=== PATIENT | female | born 1960 | race Caucasian/White ===

== ENCOUNTER 2021-09-06 21:38 | Observation (INO) ==
[2021-09-06] MEDS ORDERED: LORazepam 2 MG/1 ML VIAL IV STA (21:47)
[2021-09-06 22:44] LABS: Basophils # (auto) 0.02 K/uL (0-0.2); Basophils % (auto) 0.2 %; Eosinophils # (auto) 0.16 K/uL (0-0.5); Eosinophils % (auto) 1.6 %; Hematocrit (blood only) 35.7 % (37-47); Hemoglobin 12.2 g/dL (12.0-16.0); Immature Granulocytes # (auto) 0.02 K/uL (0.00-0.02); Immature Granulocytes % (auto) 0.2 %; Lymphocytes # (auto) 2.79 K/uL (1.2-3.4); Lymphocytes % (auto) 27.7 %; Mean Corpuscular Hemoglobin 27.1 pg (25-34); Mean Corpuscular Hgb Conc 34.2 g/dL (32-36); Mean Corpuscular Volume 79.3 fL (80-100); Monocytes # (auto) 0.97 K/uL (0.11-0.59); Monocytes % (auto) 9.6 %; Neutrophils # (auto) 6.12 K/uL (1.4-6.5); Neutrophils % (auto) 60.7 %; Platelet Count 392 K/uL (130-400); RDW Coefficient of Variation 14.2 % (11.5-14.5); RDW Standard Deviation 40.8 fL (36.4-46.3); White Blood Count 10.08 K/uL (4.8-10.8)
[2021-09-06 23:38] LABS: Alanine Aminotransferase 33 U/L (7-52); Albumin Globulin Ratio 1.2 (0.9-2); Albumin Level 3.7 gm/dl (3.4-5.0); Alkaline Phosphatase 119 U/L (34-104); Anion Gap 12 (3-11); Aspartate Aminotransferase 32 U/L (13-39); BUN Creatinine Ratio 13.3 (10-20); Bilirubin,Total 0.4 mg/dl (0.2-1.0); Blood Urea Nitrogen 8 mg/dl (6-23); Calcium 9.2 mg/dl (8.5-10.1); Carbon Dioxide 24 mmol/L (21-32); Chloride 89 mmol/L (98-107); Creatinine Clr Calc Pharmacy 90.5 ml/min; Est GFR (African American) 114.8 ml/min; Est GFR (Non-African American) 99.1 ml/min; Globulin 3.2 gm/dl (2.5-4.0); Glucose 100 mg/dl (70-99(Fasting)); Lipase 26 U/L (11-82); Potassium 3.7 mmol/L (3.5-5.1); Sodium 125 mmol/L (136-145); Total Protein 6.9 gm/dl (6.0-8.3); Troponin I < 0.03 ng/ml (0-0.04)
--- NOTE | 2021-09-06 23:47 | Emergency Department Note ---
History of Present Illness General Chief Complaint: Chest Pain Stated Complaint: CHEST PAIN Time Seen by Provider: 09/06/21 21:46 History of Present Illness Maximum Pain Intensity: 8 This 61 yo w/ RA presents to the ER complaining of CP and anxiety Location: chest Quality: Anxious Severity: Moderate Duration: Tonight Timing: Started this evening Context: Patient was concerned and came in Modifying factors: better with nothing; worse with stress Patient denies dyspnea, abdominal pain, fever, chills, leg pain or swelling, tobacco use.no prior heart disease. Patient states she is healthy besides her RA. Home Medications Medication Instructions Recorded Confirmed Type abatacept 125 mg/mL subcutaneous 0 mg SUBCUT WK 09/07/21 09/07/21 History syringe (Orencia) baclofen 10 mg tablet 10 mg PO TID 09/07/21 09/07/21 History ferrous sulfate 325 mg (65 mg 325 mg PO BID 09/07/21 09/07/21 History iron) tablet leflunomide 10 mg tablet 10 mg PO DAILY 09/07/21 09/07/21 History methylprednisolone 4 mg tablets in 0 mg PO .DAILY/UD 09/07/21 09/07/21 History a dose pack omeprazole 20 mg capsule,delayed 20 mg PO QAM 09/07/21 09/07/21 History release risperidone 2 mg tablet 2 mg PO BID 09/07/21 09/07/21 History rosuvastatin 10 mg tablet 10 mg PO HS 09/07/21 09/07/21 History venlafaxine 37.5 mg tablet 37.5 mg PO BID 09/07/21 09/07/21 History Allergies Allergy/AdvReac Type Severity Reaction Status Date / Time Penicillins Allergy Unknown Verified 09/07/21 01:09 Past Med/Surg History Medical History Rheumatoid arthritis Surgical History No pertinent past surgical history Social History Smoking Status: Unknown if ever smoked Second Hand Exposure: No; Do You Dip or Chew Tobacco: No; Tobacco Cessation Education Requested by Patient: No Hx Alcohol Use: No Hx Substance Use: No Preferred Language: Macedonian Communication Ability: Effective Account Resolution Expert Required: No Beliefs That Will Affect Care: None Current Living Situation: Significant Other Current Living Situation Comment: LIVES WITH BOYFRIEND MARTINA GRACE Other Information That Helps Us Care for You: No Feels Safe at Home: Yes Safety Concerns: Feels Safe At This Time Assistive Devices: Review of Systems A total of 10 systems reviewed and were otherwise negative Physical Exam Vital Signs Vital Signs - 24 hr 09/06/21 21:43 09/06/21 22:20 09/06/21 22:21 Temperature 36.8 C Temperature Source Temporal Artery Scan Pulse Rate 108 H 99 H Pulse Rate [Apical] Pulse Rate [Finger] Pulse Rhythm Regular Pulse Rhythm [Apical] Pulse Strength [Apical] Respiratory Rate 34 H 20 Respiratory Effort / Characteristics Non-Labored Spontaneous Respiratory Depth Normal Respiratory Pattern Blood Pressure 174/92 H Blood Pressure [Right Arm] Blood Pressure Mean 119 Blood Pressure Mean [Right Arm] Blood Pressure Position Sitting Blood Pressure Position [Right Arm] Pulse Oximetry 100 100 100 Oxygen Delivery Method Room Air Room Air Nasal Cannula Oxygen Flow Rate 0 Sepsis Recent Fever Within 48 Hours No Sepsis New/Unexplained Change in Mental Status N/A Sepsis Action Taken by Nursing No Action Required 09/06/21 22:22 09/07/21 00:35 09/07/21 02:28 Temperature Temperature Source Pulse Rate Pulse Rate [Apical] 99 H 84 89 Pulse Rate [Finger] Pulse Rhythm Pulse Rhythm [Apical] Regular Pulse Strength [Apical] Normal Respiratory Rate 20 18 16 Respiratory Effort / Characteristics Non-Labored Spontaneous Non-Labored Spontaneous Non-Labored Spontaneous Respiratory Depth Normal Normal Normal Respiratory Pattern Regular Blood Pressure Blood Pressure [Right Arm] 155/93 H 161/90 H 139/110 H Blood Pressure Mean Blood Pressure Mean [Right Arm] 113 113 119 Blood Pressure Position Blood Pressure Position [Right Arm] Semi-fowlers Lying Pulse Oximetry 100 96 97 Oxygen Delivery Method Room Air Room Air Room Air Oxygen Flow Rate Sepsis Recent Fever Within 48 Hours Sepsis New/Unexplained Change in Mental Status Sepsis Action Taken by Nursing 09/07/21 03:32 09/07/21 04:05 Temperature 36.5 C Temperature Source Oral Pulse Rate Pulse Rate [Apical] 89 Pulse Rate [Finger] 94 H Pulse Rhythm Pulse Rhythm [Apical] Regular Pulse Strength [Apical] Normal Respiratory Rate 16 18 Respiratory Effort / Characteristics Non-Labored Spontaneous Respiratory Depth Normal Respiratory Pattern Blood Pressure Blood Pressure [Right Arm] 162/102 H 157/98 H Blood Pressure Mean Blood Pressure Mean [Right Arm] 122 117 Blood Pressure Position Blood Pressure Position [Right Arm] Sitting Sitting Pulse Oximetry 97 97 Oxygen Delivery Method Room Air Room Air Oxygen Flow Rate Sepsis Recent Fever Within 48 Hours Sepsis New/Unexplained Change in Mental Status Sepsis Action Taken by Nursing VITALS: Vitals are noted on the nurse's note and reviewed by myself. Vital si gns reviewed. GENERAL: Anxious appearing female, in no acute distress, nondiaphoretic, well-developed well-nourished. SKIN: The skin was without rashes, erythema, edema, or bruising. There is no tenting of the skin. Capillary reflex less than 2 seconds. HEAD: Normocephalic atraumatic. EARS: External auditory canals clear, EYES: Pupils equal round and reactive to light and accommodation. Conjunctivae without injection, sclerae without icterus. Extraocular movements intact. NOSE: Patent, turbinates without inflammation or discharge. MOUTH: Mucous membranes moist. Pharynx without erythema or exudate. Uvula midline. Airway patent. Tongue does not deviate. NECK: Supple without nuchal rigidity. No lymphadenopathy. No thyromegaly. Cervical spine is nontender. No JVD. HEART: Regular rate and rhythm LUNGS: Clear to auscultation bilaterally without wheezes, rales or rhonchi. No retractions or accessory muscle use. ABDOMEN: Positive bowel sounds x 4. Normal tympanic percussion. Soft, nontender, without masses or organomegaly. Jeffrey sign negative. No guarding or rebound tenderness. No CVA tenderness MUSCULOSKELETAL: No muscle atrophy, erythema, or edema noted. NEURO: Patient was alert and oriented to person place and time. Normal sensation to light and sharp touch. No focal neurological deficits. Course Administered Medications Baclofen (Baclofen 10 Mg Tab) 10 mg PO TID [facility] Stop: 10/07/21 08:59 Last Admin: 09/07/21 10:17 Dose: 10 mg Documented by: [id number] Enoxaparin Sodium (Enoxaparin Inj 30 Mg/0.3 Ml Syr) 30 mg SQ QAM [facility] Stop: 10/07/21 08:59 Last Admin: 09/07/21 10:17 Dose: 30 mg Documented by: [id number] Ferrous Sulfate (Ferrous Sulfate 325 Mg Tab) 325 mg PO [id number] RICKY Stop: 10/07/21 08:59 Last Admin: 09/07/21 10:17 Dose: 325 mg Documented by: [id number] Leflunomide (Leflunomide 10 Mg Tab) 10 mg PO DAILY RICKY Stop: 10/07/21 08:59 Last Admin: 09/07/21 10:18 Dose: 10 mg Documented by: [id number] Pantoprazole Sodium (Pantoprazole 40 Mg Tab) 40 mg PO QAM RICKY Stop: 10/07/21 08:59 Last Admin: 09/07/21 10:18 Dose: 40 mg Documented by: [id number] Risperidone (Risperidone 2 Mg Tablet) 2 mg PO BID RICKY Stop: 10/07/21 08:59 Last Admin: 09/07/21 10:17 Dose: 2 mg Documented by: [id number] Discontinued Medications Sodium Chloride (Nss) 500 mls @ 250 mls/hr IV .Q2H STA Stop: 09/07/21 03:17 Last Infusion: 09/07/21 03:28 Dose: 0 mls/hr Documented by: [id number] Admin: 09/07/21 01:25 Dose: 250 mls/hr Documented by: [id number] Magnesium Sulfate/Dextrose (Magnesium Sulfate / D5w) 1 gm in 100 mls @ 50 mls/hr IV ONE ONE Stop: 09/07/21 08:44 Last Admin: 09/07/21 10:16 Dose: 50 mls/hr Documented by: [id number] Ioversol (Optiray 320 125ml) 125 ml IV ONCE ONE Stop: 09/07/21 03:30 Last Admin: 09/07/21 03:29 Dose: 91 ml Documented by: [id number] Lorazepam (Lorazepam 2 Mg/1 Ml Vial) 1 mg IV NOW STA Stop: 09/06/21 21:48 Last Admin: 09/06/21 22:31 Dose: 1 mg Documented by: [id number] Medical Decision Making Medical Records Attestation: I reviewed the patient's medical records. Home Medications Current Medication List: was personally reviewed by me Laboratory Data Attestation: I reviewed the patient's lab results. Result diagrams: 09/07/21 06:05 09/07/21 06:05 Labs: Lab Results 09/06/21 09/06/21 09/07/21 Range/Units 22:26 22:26 01:30 WBC 10.08 (4.8-10.8) K/uL RBC 4.50 (4.2-5.4) M/uL Hgb 12.2 (12.0-16.0) g/dL Hct 35.7 L (37-47) % MCV 79.3 L (80-100) fL MCH 27.1 (25-34) pg MCHC 34.2 (32-36) g/dL RDW Std Deviation 40.8 (36.4-46.3) fL RDW Coeff of Kasandra 14.2 (11.5-14.5) % Plt Count 392 (130-400) K/uL MPV 9.0 (7.4-10.4) fL Immature Gran % (Auto) 0.2 % Neut % (Auto) 60.7 % Lymph % (Auto) 27.7 % [place] % (Auto) 9.6 % Eos % (Auto) 1.6 % Baso % (Auto) 0.2 % Neut # (Auto) 6.12 (1.4-6.5) K/uL Lymph # (Auto) 2.79 (1.2-3.4) K/uL [place] # (Auto) 0.97 H (0.11-0.59) K/uL Eos # (Auto) 0.16 (0-0.5) K/uL Baso # (Auto) 0.02 (0-0.2) K/uL Immature Gran # (Auto) 0.02 (0.00-0.02) K/uL APTT (21.0-31.0) Seconds PTT Ratio D-Dimer (0-500) ug/L FEU Sodium 125 L (136-145) mmol/L Potassium 3.7 (3.5-5.1) mmol/L Chloride 89 L (98-107) mmol/L Carbon Dioxide 24 (21-32) mmol/L Anion Gap 12 H (3-11) BUN 8 (6-23) mg/dl Creatinine 0.60 (0.6-1.2) mg/dl Est Cr Clr Drug Dosing 90.5 ml/min Est GFR ( Amer) 114.8 ml/min Est GFR (Non-Af Amer) 99.1 ml/min BUN/Creatinine Ratio 13.3 (10-20) Glucose 100 H (70-99(Fasting)) mg/dl Osmolality (280-300) mOsm/kg Calcium 9.2 (8.5-10.1) mg/dl Magnesium (1.7-2.4) mg/dl Total Bilirubin 0.4 (0.2-1.0) mg/dl AST 32 (13-39) U/L ALT 33 (7-52) U/L Alkaline Phosphatase 119 H (34-104) U/L Troponin I < 0.03 (0-0.04) ng/ml Total Protein 6.9 (6.0-8.3) gm/dl Albumin 3.7 (3.4-5.0) gm/dl Globulin 3.2 (2.5-4.0) gm/dl Albumin/Globulin Ratio 1.2 (0.9-2) Lipase 26 (11-82) U/L TSH (0.300-4.500) uIu/ml Free T4 (0.61-1.60) ng/dl Urine Osmolality (500-800) mOsm/kg Ethyl Alcohol mg/dL (<10.0) mg/dl SARS-CoV-2, RNA, NAAT NEGATIVE (NEGATIVE) 09/07/21 09/07/21 09/07/21 Range/Units 01:38 01:38 01:38 WBC (4.8-10.8) K/uL RBC (4.2-5.4) M/uL Hgb (12.0-16.0) g/dL Hct (37-47) % MCV (80-100) fL MCH (25-34) pg MCHC (32-36) g/dL RDW Std Deviation (36.4-46.3) fL RDW Coeff of Kasandra (11.5-14.5) % Plt Count (130-400) K/uL MPV (7.4-10.4) fL Immature Gran % (Auto) % Neut % (Auto) % Lymph % (Auto) % [place] % (Auto) % Eos % (Auto) % Baso % (Auto) % Neut # (Auto) (1.4-6.5) K/uL Lymph # (Auto) (1.2-3.4) K/uL [place] # (Auto) (0.11-0.59) K/uL Eos # (Auto) (0-0.5) K/uL Baso # (Auto) (0-0.2) K/uL Immature Gran # (Auto) (0.00-0.02) K/uL APTT (21.0-31.0) Seconds PTT Ratio D-Dimer (0-500) ug/L FEU Sodium (136-145) mmol/L Potassium (3.5-5.1) mmol/L Chloride (98-107) mmol/L Carbon Dioxide (21-32) mmol/L Anion Gap (3-11) BUN (6-23) mg/dl Creatinine (0.6-1.2) mg/dl Est Cr Clr Drug Dosing ml/min Est GFR ( Amer) ml/min Est GFR (Non-Af Amer) ml/min BUN/Creatinine Ratio (10-20) Glucose (70-99(Fasting)) mg/dl Osmolality 268 L (280-300) mOsm/kg Calcium (8.5-10.1) mg/dl Magnesium 1.6 L (1.7-2.4) mg/dl Total Bilirubin (0.2-1.0) mg/dl AST (13-39) U/L ALT (7-52) U/L Alkaline Phosphatase (34-104) U/L Troponin I < 0.03 (0-0.04) ng/ml Total Protein (6.0-8.3) gm/dl Albumin (3.4-5.0) gm/dl Globulin (2.5-4.0) gm/dl Albumin/Globulin Ratio (0.9-2) Lipase (11-82) U/L TSH 5.981 H (0.300-4.500) uIu/ml Free T4 1.06 (0.61-1.60) ng/dl Urine Osmolality (500-800) mOsm/kg Ethyl Alcohol mg/dL (<10.0) mg/dl SARS-CoV-2, RNA, NAAT (NEGATIVE) 09/07/21 09/07/21 09/07/21 Range/Units 01:38 01:38 03:30 WBC (4.8-10.8) K/uL RBC (4.2-5.4) M/uL Hgb (12.0-16.0) g/dL Hct (37-47) % MCV (80-100) fL MCH (25-34) pg MCHC (32-36) g/dL RDW Std Deviation (36.4-46.3) fL RDW Coeff of Kasandra (11.5-14.5) % Plt Count (130-400) K/uL MPV (7.4-10.4) fL Immature Gran % (Auto) % Neut % (Auto) % Lymph % (Auto) % [place] % (Auto) % Eos % (Auto) % Baso % (Auto) % Neut # (Auto) (1.4-6.5) K/uL Lymph # (Auto) (1.2-3.4) K/uL [place] # (Auto) (0.11-0.59) K/uL Eos # (Auto) (0-0.5) K/uL Baso # (Auto) (0-0.2) K/uL Immature Gran # (Auto) (0.00-0.02) K/uL APTT 26.6 (21.0-31.0) Seconds PTT Ratio 1.0 D-Dimer 1760 H* (0-500) ug/L FEU Sodium (136-145) mmol/L Potassium (3.5-5.1) mmol/L Chloride (98-107) mmol/L Carbon Dioxide (21-32) mmol/L Anion Gap (3-11) BUN (6-23) mg/dl Creatinine (0.6-1.2) mg/dl Est Cr Clr Drug Dosing ml/min Est GFR ( Amer) ml/min Est GFR (Non-Af Amer) ml/min BUN/Creatinine Ratio (10-20) Glucose (70-99(Fasting)) mg/dl Osmolality (280-300) mOsm/kg Calcium (8.5-10.1) mg/dl Magnesium (1.7-2.4) mg/dl Total Bilirubin (0.2-1.0) mg/dl AST (13-39) U/L ALT (7-52) U/L Alkaline Phosphatase (34-104) U/L Troponin I (0-0.04) ng/ml Total Protein (6.0-8.3) gm/dl Albumin (3.4-5.0) gm/dl Globulin (2.5-4.0) gm/dl Albumin/Globulin Ratio (0.9-2) Lipase (11-82) U/L TSH (0.300-4.500) uIu/ml Free T4 (0.61-1.60) ng/dl Urine Osmolality 97 L (500-800) mOsm/kg Ethyl Alcohol mg/dL < 10.0 (<10.0) mg/dl SARS-CoV-2, RNA, NAAT (NEGATIVE) MDM Narrative Prior records/ancillary studies reviewed. Triage Nursing notes reviewed. Additional history obtained from nursing. The patient's history was concerning for chest pain. Differential diagnosis: Etiologies such as cardiac ischemia, aortic dissection, pulmonary embolism, pneumonia, pneumothorax, musculoskeletal, infections, pericarditis, myocarditis, esophageal rupture, gastrointestinal, as well as others were entertained. Physical examination: As above. ER treatment provided: An order was placed for continuous cardiac monitoring. The monitor shows a rate of 60-1 50 with a sinus rhythm. Ativan On reassessment the patient felt better. Diagnostic interpretation by me: The electrocardiogram was negative for pathologic change. Ordered for chest pain EKG: Poor baseline, normal sinus, normal and was, no acute ST-T wave changes. Rate of 97. Impression normal sinus rhythm with poor baseline interpreted by myself I think arrhythmia is unlikely. EKG shows normal sinus rhythm with no interval abnormalities such as QT prolongation or WPW. There are no findings to suggest Brugada syndrome. Cardiac monitoring in the emergency department reveals no tachycardic or bradycardic dysrhythmia. Hypertrophic cardiomyopathy was considered but there are no clear historical elements pointing toward this. EKG is not suggestive. The QRS voltage is not extremely large and there are no suggestive Q waves. The labs revealed neg troponin Hyponatremia. Per chart review patient's sodium last year was normal. Osmolarity levels were ordered Imaging studies: Chest x-ray no acute consolidation, pneumothorax or free air per my [facility] HEART SCORE: Hx: high/mod/low suspicion: 0 ECG: ST depression/nonspecific changes/normal: 0 Age: Greater than 65/45-64/less than 45: 1 Risk factors: (Hypertension, hyperlipidemia, diabetes, coronary disease, tobacco use, cocaine use): 1 Troponin: Greater than 2 times normal limits/1-2 times normal limits/normal: 0 Total: 2 Consultation: A consultation was placed with the hospitalist. The case was discussed and diagnostics were reviewed. The patient was evaluated in the ER for further treatment. Exam and history seem consistent with new onset hyponatremia, chest pain and anxiety. Heart score is low. Normal EKG. osmolarity levels were ordered. Patient is agreeable to treatment plan administered. Medicine was consulted. By the evaluation outlined above emergent etiologies such as aortic dissection, pulmonary embolism, pneumonia, pneumothorax, infections, pericarditis, m yocarditis, gastrointestinal, as well as others were deemed relatively unlikely. The pt informed about the findings as listed above. All questions were answered and pleased with the treatment. The chart was completed utilizing [employer] voice recognition software. Grammatical errors, random word insertions, pronoun errors, and incomplete sentences are an occassional consequence of this system due to software limitations, ambient noise, and hardware issues. Any formal questions or concerns about the content, text, or information contained within the body of this dictation should be directly addressed to the physician nutritional assistant for clarification. Impression & Plan Chest pain, Acute hyponatremia Discharge Plan Visit Data Chief Complaint: Chest Pain Stated Complaint: CHEST PAIN ED Provider: Darrion Weathers ED Midlevel Provider: Trini Kelly Discharge Problem: Chest pain, Acute hyponatremia Patient Disposition: Admitted As Inpatient Condition: Good Discharge Instructions Interventions: ED Discharge Assessment Last Done: 09/07/21 03:48 Discharge Problem: Chest pain Qualifiers: Chest pain type: unspecified Qualified Code(s): R07.9 - Chest pain, unspecified
[2021-09-07] MEDS ORDERED: SODIUM CHLORIDE 0.9% 500 ML IV STA (01:18)
[2021-09-07 02:01] LABS: Partial Thromboplastin Time 26.6 Seconds (21.0-31.0)
[2021-09-07 02:54] LABS: D Dimer 1760 ug/L FEU (0-500)
--- NOTE | 2021-09-07 02:55 | History & Physical Report ---
Date of Service September 07, 2021 Assessment & Plan (1) Acute hyponatremia: Plan: Atypical chest pain Possibly from anxiety, musculoskeletal component rheumatoid arthritis, stable on regimen mood disorder, stable Tourette's syndrome as per records past alcohol abuse Medical telemetry Careful correction of sodium Hyponatremia work-up Nephrology consult if without improvement Analgesia, anxiolytic as needed TTE Re: Atypical chest pain DVT prophylaxis. Lovenox subcu Full code Text document was generated using [employer] voice recognition software. It may contain grammatical or spelling errors. Kindly contact undersigned for clarification of any documentation item in question. History of Present Illness Chief Complaint: Funny chest feeling, anxiety Primary Care Provider: Dr. Bardales History obtained from patient and records. Medical history significant for rheumatoid arthritis, mood disorder, Tourette's syndrome, past alcohol abuse. Last confinement 2005 for alcoholic intoxication. Patient noted funny sensation on her chest yesterday after lifting some groceries back to her home. No actual chest pain or shortness of breath as per patient. No cough symptoms. No abdominal pain. Patient consulted ER because of anxiety. No EtOH intake for years as per patient. Medical History as above Surgical History : Dental surgery, foot/toe surgery Family History : Breast cancer, pancreatic cancer, DM, heart disease Personal/Social history : Non-smoker, past alcohol abuse, disabled Allergies Allergy/AdvReac Type Severity Reaction Status Date / Time Penicillins Allergy Unknown Verified 09/07/21 01:09 Home Medications Medication Instructions Recorded Confirmed Type abatacept 125 mg/mL subcutaneous 0 mg SUBCUT WK 09/07/21 09/07/21 History syringe (Orencia) baclofen 10 mg tablet 10 mg PO TID 09/07/21 09/07/21 History ferrous sulfate 325 mg (65 mg 325 mg PO BID 09/07/21 09/07/21 History iron) tablet leflunomide 10 mg tablet 10 mg PO DAILY 09/07/21 09/07/21 History methylprednisolone 4 mg tablets in 0 mg PO .DAILY/UD 09/07/21 09/07/21 History a dose pack omeprazole 20 mg capsule,delayed 20 mg PO QAM 09/07/21 09/07/21 History release risperidone 2 mg tablet 2 mg PO BID 09/07/21 09/07/21 History rosuvastatin 10 mg tablet 10 mg PO HS 09/07/21 09/07/21 History venlafaxine 37.5 mg tablet 37.5 mg PO BID 09/07/21 09/07/21 History Past Med/Surg History Medical History Rheumatoid arthritis Surgical History No pertinent past surgical history Social History Smoking Status: Unknown if ever smoked Second Hand Exposure: No; Do You Dip or Chew Tobacco: No; Tobacco Cessation Education Requested by Patient: No Hx Alcohol Use: No Hx Substance Use: No Preferred Language: Maltese Communication Ability: Effective Energy Conservation Engineer Required: No Beliefs That Will Affect Care: None Current Living Situation: Significant Other Current Living Situation Comment: LIVES WITH BOYFRIEND MARTINA GRACE Other Information That Helps Us Care for You: No Feels Safe at Home: Yes Safety Concerns: Feels Safe At This Time Assistive Devices: Review of Systems Review of Systems: As per HPI, all 10 systems reviewed, all other ROS negative Physical Exam Physical Exam: GENERAL: Slightly anxious, no respiratory distress SKIN: Normal color, warm HEENT: [place] palpebral conjunctivae, no ptosis, dry buccal mucosa NECK : Supple, no tenderness CHEST : CTA, no tenderness HEART : RRR, no obvious murmurs ABDOMEN: no distention, nontender EXTREMITIES : No LE swelling/tenderness, no other conspicuous deformities noted NEUROLOGIC : Coherent, no facial asymmetry, no other gross focality Results & Data Results & Data ([facility]) Vital Signs (Past 12 Hours) Vital Signs Temp Pulse Pulse Resp BP BP Pulse Ox 09/07/21 02:28 89 16 139/110 H 97 09/07/21 00:35 84 18 161/90 H 96 09/06/21 22:22 99 H 20 155/93 H 100 09/06/21 22:21 99 H 20 100 09/06/21 22:20 100 09/06/21 21:43 36.8 C 108 H 34 H 174/92 H 100 Laboratory Results Laboratory Results WBC 10.08 K/uL (4.8-10.8) 09/06/21 22:26 RBC 4.50 M/uL (4.2-5.4) 09/06/21 22:26 Hgb 12.2 g/dL (12.0-16.0) 09/06/21: Hct 35.7 % (37-47) L 09/06/21: MCV 79.3 fL (80-100) L 09/06/21: MCH 27.1 pg (25-34) 09/06/21: MCHC 34.2 g/dL (32-36) 09/06/21: RDW Std Deviation 40.8 fL (36.4-46.3) 09/06/21: RDW Coeff of Kasandra 14.2 % (11.5-14.5) 09/06/21 Plt Count 392 K/uL (130-400) 09/06/21 MPV 9.0 fL (7.4-10.4) 09/06/21: Immature Gran % (Auto) 0.2 % 09/06/21: Neut % (Auto) 60.7 % 09/06/21: Lymph % (Auto) 27.7 % 09/06/21: [place] % (Auto) 9.6 % 09/06/21: Eos % (Auto) 1.6 % 09/06/21: Baso % (Auto) 0.2 % 09/06/21 Neut # (Auto) 6.12 K/uL (1.4-6.5) 09/06/21: Lymph # (Auto) 2.79 K/uL (1.2-3.4) 09/06/21: [place] # (Auto) 0.97 K/uL (0.11-0.59) H 09/06/21: Eos # (Auto) 0.16 K/uL (0-0.5) 09/06/21: Baso # (Auto) 0.02 K/uL (0-0.2) 09/06/21: Immature Gran # (Auto) 0.02 K/uL (0.00-0.02) 09/06/21: APTT 26.6 Seconds (21.0-31.0) 09/07/21 01:38 PTT Ratio 1.0 09/07/21 01:38 D-Dimer 1760 ug/L FEU (0-500) H* 09/07/21 01:38 Sodium 125 mmol/L (136-145) L 09/06/21 22: Potassium 3.7 mmol/L (3.5-5.1) 09/06/21 22: Chloride 89 mmol/L (98-107) L 09/06/21 22:26 Carbon Dioxide 24 mmol/L (21-32) 09/06/21 22: Anion Gap 12 (3-11) H 09/06/21 22:26 BUN 8 mg/dl (6-23) 09/06/21 22: Creatinine 0.60 mg/dl (0.6-1.2) 09/06/21: Est Cr Clr Drug Dosing 90.5 ml/min 09/06/21 22: Est GFR ( Amer) 114.8 ml/min 09/06/21: Est GFR (Non-Af Amer) 99.1 ml/min 09/06/21 22: BUN/Creatinine Ratio 13.3 (10-20) 09/06/21 22: Glucose 100 mg/dl (70-99(Fasting)) H 09/06/21 22: Calcium 9.2 mg/dl (8.5-10.1) 09/06/21: Total Bilirubin 0.4 mg/dl (0.2-1.0) 09/06/21 22:26 AST 32 U/L (13-39) 09/06/21 22: ALT 33 U/L (7-52) 09/06/21 22: Alkaline Phosphatase 119 U/L (34-104) H 09/06/21 22: Troponin I < 0.03 ng/ml (0-0.04) 09/06/21 22: Total Protein 6.9 gm/dl (6.0-8.3) 09/06/21: Albumin 3.7 gm/dl (3.4-5.0) 09/06/21: Globulin 3.2 gm/dl (2.5-4.0) 09/06/21 22:26 Albumin/Globulin Ratio 1.2 (0.9-2) 09/06/21: Lipase 26 U/L (11-82) 09/06/21 22:26 SARS-CoV-2, RNA, NAAT NEGATIVE (NEGATIVE) 09/07/21 01:[address] chest initial read: No pulmonaryembolus. No aortic aneurysmor dissection. Small bilateral pleural effusions. No consolidation. The heart size iswithin normal limits. No pathologicallyenlarged lymph nodes. No fracture. EKG as per my interpretation: Rate 95, NSR, normal axis, T wave abnormalities septal leads, multiple artifacts
[2021-09-07 03:02] LABS: Troponin I < 0.03 ng/ml (0-0.04)
[2021-09-07] MEDS ORDERED: OPTIRAY 320 125ml IV ONE (03:29)
[2021-09-07 03:41] LABS: Magnesium 1.6 mg/dl (1.7-2.4)
[2021-09-07 03:44] LABS: Thyroid Stimulating Hormone 5.981 uIu/ml (0.300-4.500)
[2021-09-07] MEDS ORDERED: PROMETHAZINE HCL 6.25 MG in SODIUM CHLORIDE 0.9% 50 ML IV PRN (04:11)
[2021-09-07] MEDS ORDERED: oxyCODONE HCL IR 5 MG TAB (IMMEDIATE RELEASE) PO PRN (04:11)
[2021-09-07] MEDS ORDERED: ACETAMINOPHEN 325 MG TAB PO PRN (04:11)
[2021-09-07 04:21] LABS: T4 Free Thyroxine 1.06 ng/dl (0.61-1.60)
[2021-09-07 06:21] LABS: Basophils # (auto) 0.02 K/uL (0-0.2); Basophils % (auto) 0.2 %; Eosinophils # (auto) 0.38 K/uL (0-0.5); Eosinophils % (auto) 4.7 %; Hematocrit (blood only) 35.4 % (37-47); Hemoglobin 11.8 g/dL (12.0-16.0); Immature Granulocytes # (auto) 0.01 K/uL (0.00-0.02); Immature Granulocytes % (auto) 0.1 %; Lymphocytes # (auto) 2.55 K/uL (1.2-3.4); Lymphocytes % (auto) 31.2 %; Mean Corpuscular Hemoglobin 26.9 pg (25-34); Mean Corpuscular Hgb Conc 33.3 g/dL (32-36); Mean Corpuscular Volume 80.6 fL (80-100); Mean Platelet Volume 8.9 fL (7.4-10.4); Monocytes # (auto) 0.86 K/uL (0.11-0.59); Monocytes % (auto) 10.5 %; Neutrophils # (auto) 4.35 K/uL (1.4-6.5); Neutrophils % (auto) 53.3 %; Platelet Count 362 K/uL (130-400); RDW Coefficient of Variation 14.3 % (11.5-14.5); RDW Standard Deviation 41.9 fL (36.4-46.3); Red Blood Count 4.39 M/uL (4.2-5.4); White Blood Count 8.17 K/uL (4.8-10.8)
[2021-09-07 06:44] LABS: BUN Creatinine Ratio 10.4 (10-20); Creatinine Clr Calc Pharmacy 112.7 ml/min; Est GFR (African American) 123.6 ml/min; Est GFR (Non-African American) 106.6 ml/min; Potassium 3.7 mmol/L (3.5-5.1)
[2021-09-07] MEDS ORDERED: MAGNESIUM SULFATE / D5W 1 GM/100 ML BAG IV ONE ×2 (06:45→12:30)
--- NOTE | 2021-09-07 07:01 | CT Scan Report ---
CT angio chest PE protocol CLINICAL HISTORY: Chest pain and elevated d-dimer. Evaluate for pulmonary embolus COMPARISON STUDY: Portable chest from 09/06/2021 CT DOSE: 231.41 mGy.cm TECHNIQUE: CT Angio of the chest was performed.followed by image post processing with coronal, and s agittal MIP reformats. Contrast Volume: Optiray 320, 91 ml FINDINGS: Vasculature: There is homogeneous perfusion of the pulmonary vasculature bilaterally. No intraluminal filling defects or evidence for pulmonary embolus is seen. Airway: The airway is clear. No endobronchial lesion is identified. Lungs: The lungs are clear of acute alveolar opacities, air bronchograms or pulmonary nodules. Pleura: There are very small bilateral pleural effusions, right greater than left. There is no evide nce for pneumothorax. Mediastinum: There is no evidence for pathologic adenopathy. The heart size is within normal limits. The thoracic aorta is within normal limits. There is no evidence for pericardial effusion. Upper abdomen:The adrenal glands are normal bilaterally. Small calcification is seen in the dome of t he liver. Osseous structures: There is no acute osseous pathology. Impression: 1. No CTA evidence for pulmonary embolus. 2. There is small bilateral pleural effusions, right greater than left. 3. Otherwise, no acute chest disease. ACT 112: Negative or not required by law. Electronically signed by: Zeeshan Patrick M.D. 09/07/2021 7:00 AM
--- NOTE | 2021-09-07 07:09 | XRay Report ---
XR chest 1V portable CLINICAL HISTORY: Chest Pain. COMPARISON STUDY: 07/27/2006 TECHNIQUE: 1 view of the chest FINDINGS: Single frontal view of the chest demonstrates the cardiomediastinal silhouette to be within normal li mits. The lungs are clear of alveolar opacities. There is no evidence for pleural effusion. There is no evidence for vascular congestion. There is no acute osseous pathology. IMPRESSION: 1. No acute cardiopulmonary disease. ACT 112: Negative or not required by law. Electronically signed by: Zeeshan Patrick M.D. 09/07/2021 7:08 AM
[2021-09-07] MEDS ORDERED: LORazepam 2 MG/1 ML VIAL IV PRN (07:54)
[2021-09-07] MEDS ORDERED: risperiDONE 2 MG TABLET PO SCH (09:00)
[2021-09-07] MEDS ORDERED: LEFLUNOMIDE 10 MG TAB PO SCH (09:00)
[2021-09-07] MEDS ORDERED: PANTOprazole 40 MG TAB PO SCH (09:00)
[2021-09-07] MEDS ORDERED: ENOXAPARIN INJ 30 MG/0.3 ML SYR SQ SCH (09:00)
[2021-09-07] MEDS: BACLOFEN 10 MG TAB PO SCH ×2 (10:17→15:07)
[2021-09-07] MEDS: FERROUS SULFATE 325 MG TAB PO SCH ×2 (10:17→15:07)
[2021-09-07 12:53] LABS: Sodium 132 mmol/L (136-145)
[2021-09-07 13:39] LABS: Troponin I < 0.03 ng/ml (0-0.04)
--- NOTE | 2021-09-07 14:17 | Discharge Summary ---
Date of Service September 07, 2021 Admission HPI Per Admitting Provider History obtained from patient and records. Medical history significant for rheumatoid arthritis, mood disorder, Tourette's syndrome, past alcohol abuse. Last confinement 2005 for alcoholic intoxication. Patient noted funny sensation on her chest yesterday after lifting some groceries back to her home. No actual chest pain or shortness of breath as per patient. No cough symptoms. No abdominal pain. Patient consulted ER because of anxiety. No EtOH intake for years as per patient. Medical History as above Surgical History : Dental surgery, foot/toe surgery Family History : Breast cancer, pancreatic cancer, DM, heart disease Personal/Social history : Non-smoker, past alcohol abuse, disabled Principal Diagnosis Bronchospasm Atypical Chest pain Hyponatremia Hypochloremia Hypomagnesemia Anxiety Discharge Exam Patient feels well. Reports no further symptoms of chest pain or shortness of breath. She was observed ambulating from rest room to bed with no difficulty. Breathing comfortably on room air. Discharge Data Allergies Allergy/AdvReac Type Severity Reaction Status Date / Time Penicillins Allergy Unknown Verified 09/07/21 01:09 Consultations 09/07/21 01:14 ED Decision to Admit Stat Ordered Studies 09/07/21 02:56 CT angio chest PE protocol Urgent Hospital Course Atypical Chest pain Bronchospasm Patient presented to the ER with chest discomfort, shortness of breath, and anxiety after cleaning her house. She report symptom onset was sudden and also associated with wheezing. Symptoms most consistent with bronchospasm (triggered by dust exposure while cleaning) and anxiety experienced while having bronchospasm All symptoms have resolved at the time of discharge Workup here included troponin x 3 which were negative. CTA chest was negative for PE. Patient was discharged home in stable condition and instructed to wear a mask and ventilate her house when cleaning again. No medication changes. If symptoms recur, she should follow up with her PCP to arrange for an outpatient stress test. Hyponatremia Hypochloremia Hypomagnesemia Incidentally, found to have hyponatremia, hypochloremia, low osmolality, hypomag nesemia. All consistent with poor oral intake. Hyponatremia improved with gentle IVF. Patient was counseled to eat a regular diet and to consistently eat even if appetite is poor. Total Time Total Time Spent Total Time Spent (In Minutes): 35 Discharge Plan Discharge Items Patient Disposition: Home - Self-Care Reason For Visit: HYPONATREMIA Discharge Diagnosis: Chest pain, Shortness of Breath Likely bronchospasm, resolved Anxiety, improved Hyponatremia, improved Hypomagnesemia Hypochloremia Condition on Discharge: Good Activity: Resume your previous activity Non-emergency contact: Primary Care Provider Call non-emergency contact if: you have any medication questions and your symptoms worsen Follow-up/Referrals: Marck Bardales MD [Primary Care Provider] - Diet: Regular Addtl Attending Provider Instructions: You were admitted for chest discomfort, shortness of breath, anxiety and wheezing. Symptoms were likely triggered by bronchospasm while you were cleaning and were exposed to dust You did NOT have a heart attack You do NOT have a blood clot in your lungs You can continue your home medications Your sodium and other electrolytes were low but were corrected here. It is important that you eat a regular diet and ensure you eat consistently Pending Studies at Discharge: No Stand-Alone Forms: My [facility] [employer], Smoking Cessation Medications and DC Order Prescriptions: Continued baclofen 10 mg tablet 10 mg PO TID RF: 0 methylprednisolone 4 mg tablets,dose pack 0 mg PO .DAILY/UD RF: 0 leflunomide 10 mg tablet 10 mg PO DAILY RF: 0 Orencia 125 mg/mL syringe 0 mg SUBCUT WK RF: 0 ferrous sulfate 325 mg (65 mg iron) tablet 325 mg PO BID RF: 0 omeprazole 20 mg capsule,delayed release(DR/EC) 20 mg PO QAM RF: 0 risperidone 2 mg tablet 2 mg PO BID RF: 0 rosuvastatin 10 mg tablet 10 mg PO HS RF: 0 venlafaxine 37.5 mg tablet 37.5 mg PO BID RF: 0 Discharge Orders: Discharge Order (Routine); Ordered 09/07/21 Ordered By: Wen Davila Admission Data Admit Date/Time: 09/07/21 04:08 Attending Provider: Wen Davila Admit Provider: Eliazar Mon Primary Care Provider: Marck Bardales Other Providers: Eliazar Mon
--- NOTE | 2021-09-07 16:25 | Electrocardiogram Report ---
Test Reason : Blood Pressure : / mmHG Vent. Rate : 097 BPM Atrial Rate : 097 BPM P-R Int : 112 ms QRS Dur : 080 ms QT Int : 376 ms P-R-T Axes : 066 054 054 degrees QTc Int : 477 ms Poor data quality, interpretation may be adversely affected Sinus rhythm with Premature supraventricular complexes Nonspecific ST abnormality Anterolateral leads Abnormal ECG When compared with ECG of 09-MAY-2007 07:30, Premature supraventricular complexes are now Present Nonspecific ST abnormality now present Anterolateral leads Confirmed by Jaydon Davis ([id number]) on 09/07/2021 4:24:57 PM Referred By: REFERRED SELF Confirmed By:Jaydon Davis
--- NOTE | 2021-09-07 17:58 | Hospitalist Progress Note ---
Date of Service September 07, 2021 Assessment & Plan Admission and Anticipated Discharge Date Admission Date: September 07, 2021 Subjective Patient was admitted as inpatient overnight due to hyponatremia. Her sodium improved after gentle IV fluid. Patient is tolerating a regular diet here and does not have GI losses currently or recently (no nausea/vomiting/diarrhea) but admits to skipping meals and not eating frequently which she has been counseled not to do. She is at low risk for worsening hyponatremia and I expect her sodium will normalize in the next couple of days as long as she eats regularly. Patient should have a repeat BMP with her PCP within 1 week. So, although she was admitted as inpatient, she improved quickly and was discharged later in the day. Results & Data Results & Data ([facility]) Vital Signs (Past 12 Hours) Vital Signs Temp Pulse Pulse Pulse Resp BP Pulse Ox 09/07/21 15:26 88 09/07/21 15:10 36.4 C L 89 89 16 130/83 96 09/07/21 14:27 36.4 C L 89 16 130/83 96 09/07/21 11:08 36.6 C 92 H 20 148/90 H 95 09/07/21 08:45 85 09/07/21 07:16 36.8 C 89 18 159/91 H 97 09/07/21 06:27 90
[2021-09-07] MEDS ORDERED: ROSUVASTATIN CALCIUM 10 MG TAB PO SCH (21:00)
== END 2021-09-07 16:50 | disposition home or self-care (01) ==
LOC: ED 21:38 → 2N 09-07 03:48 → INTOOBSV 09-07 04:08 → 2N 09-07 04:08

== ENCOUNTER 2023-04-19 07:56 | Observation (INO) ==
[2023-04-19] MEDS ORDERED: SODIUM CHLORIDE 0.9% 500 ML IV SCH (08:15)
--- NOTE | 2023-04-19 08:20 | Emergency Department Note ---
History of Present Illness General Chief complaint: Altered Mental Status Stated complaint: AMS Time Seen by Provider: 04/19/23 08:03 Source: patient, RN notes reviewed and old records reviewed (I have reviewed the psychiatry note from 03-26-2023) Mode of arrival: EMS Limitations: no limitations History of Present Illness This patient 63-year-old female who is brought in by EMS after having altered mental status. She apparently was belligerent and yelling in the house. They had called in for some Versed for medical command but did ultimately need it. When I evaluate the patient she is calm and cooperative. She denies any pain anywhere denies trauma denies fever chills denies headache denies suicidal or homicidal ideations she tells me she is on no medications although has a bag full of medications including risperidone and psychiatric meds as well as steroids. Denies any change in vision denies focal numbness or weakness. Denies trouble talking. Home Medications Medication Instructions Recorded Confirmed Type abatacept 125 mg/mL subcutaneous 125 mg subcut FR@0900 09/07/21 04/19/23 History syringe (Orencia) baclofen 10 mg tablet 10 mg PO TID 09/07/21 04/19/23 History ferrous sulfate 325 mg (65 mg 325 mg PO BID 09/07/21 04/19/23 History iron) tablet methylprednisolone 4 mg tablets in 4 mg PO DAILY 09/07/21 04/19/23 History a dose pack omeprazole 20 mg capsule,delayed 20 mg PO QAM 09/07/21 04/19/23 History release risperidone 2 mg tablet 2 mg PO BID 09/07/21 04/19/23 History rosuvastatin 10 mg tablet 10 mg PO HS 09/07/21 04/19/23 History venlafaxine 37.5 mg tablet 37.5 mg PO BID 09/07/21 04/19/23 History leflunomide 20 mg tablet 20 mg PO DAILY 04/19/23 04/19/23 History Allergies Allergy/AdvReac Type Severity Reaction Status Date / Time Penicillins Allergy Unknown Verified 09/07/21 01:09 Past Med/Surg History Medical History Alcohol dependence in remission Depression HLD (hyperlipidemia) Iron deficiency anemia Rheumatoid arthritis Tourette's Surgical History No pertinent past surgical history Social History Smoking Status: Never smoker Second Hand Exposure: No; Do You Dip or Chew Tobacco: No; Tobacco Cessation Education Requested by Patient: No Hx Alcohol Use: No (prior alcohol abuse) Hx Substance Use: No Preferred Language: Telugu Communication Ability: Impaired Foreign Languages Professor Required: No Beliefs That Will Affect Care: None Current Living Situation: Significant Other Current Living Situation Comment: LIVES WITH BOYFRIEND MARTINA GRACE Other Information That Helps Us Care for You: No Feels Safe at Home: Yes Safety Concerns: Feels Safe At This Time Assistive Devices: Denture - Upper and Glasses Review of Systems A total of 10 systems reviewed and were otherwise negative Physical Exam Vital Signs Vital Signs - 24 hr 04/19/23 08:03 04/19/23 08:03 04/19/23 09:45 Temperature 37.2 C Temperature Source Oral Pulse Rate 88 Pulse Rate [Apical] 83 Respiratory Rate 18 18 Blood Pressure 161/111 H Blood Pressure [Left Arm] 124/84 Blood Pressure Mean 127 Blood Pressure Mean [Left Arm] 97 Pulse Oximetry 93 96 Oxygen Delivery Method Room Air Room Air Sepsis Recent Fever Within 48 Hours No Sepsis New/Unexplained Change in Mental Status N/A Sepsis Action Taken by Nursing No Action Required General: Well developed well nourished middle-age female who appears in no acute distress, breathing comfortably on room air. Normal speech, answers most questions appropriately but others not where she will not answer the question there is no slurred speech she does not name objects mostly correctly.. She is alert to person and place but not date HEENT: Normal cephalic atraumatic. Pupils are equal round and reactive to light. Extraocular movements are intact. Oropharynx is pink with moist mucous membranes. No swelling of the mouth lips or tongue. Neck: Supple with a midline trachea. No meningeal signs or stiffness, no JVD or bruits. No Stridor. Chest: Clear to auscultation bilaterally. No wheezes or rhonchi. No increased work of breathing. Heart: Regular rate and rhythm without murmurs or gallops. Abdomen: Soft nontender, nondistended without rebound guarding or rigidity. Extremities: No cyanosis clubbing or edema. No calf tenderness or assymetry. She does have ulnar deviation of her hands and chronic changes of the feet consistent with her known rheumatoid arthritis. The joints are not red or warm Spine/Back. Non tender to palpation. No CVA tenderness Skin: Good turgor without rashes. Neurologic exam: Cranial nerves two through 12 are intact. Motor and sensation are intact and symmetrical throughout. No tremor. Course Administered Medications Discontinued Medications Sodium Chloride (Nss) 500 mls @ 999 mls/hr IV .Q31M RICKY Stop: 04/19/23 08:45 Last Infusion: 04/19/23 09:17 Dose: 0 mls/hr Documented By: Admin: 04/19/23 08:43 Dose: 999 mls/hr Documented By: THOMAS Medical Decision Making Differential Diagnosis Neurologic, psychiatric, electrolyte or metabolic abnormality, toxicologic, overdose, cardiac disease, infection, trauma Medical Records Attestation: I reviewed the patient's medical records. Home Medications Current Medication List: was personally reviewed by me Laboratory Data Attestation: I reviewed the patient's lab results. 04/19/23 08:27 04/19/23 08:27 Lab Results 04/19/23 04/19/23 04/19/23 Range/Units 08:27 08:27 08:27 WBC 14.13 H (4.8-10.8) K/ul RBC 4.62 (4.20-5.40) M/uL Hgb 12.6 (12.0-16.0) g/dl Hct 38.7 (37.0-47.0) % MCV 83.8 (80.0-100.0) fL MCH 27.3 (25.0-34.0) pg MCHC 32.6 (32.0-36.0) g/dL RDW Std Deviation 44.1 (36.4-46.3) fL RDW Coeff of Kasandra 14.4 (11.5-14.5) % Plt Count 272 (130-400) K/uL MPV 10.2 (9.4-12.4) fL Immature Gran % (Auto) 0.5 % Neut % (Auto) 74.2 % Lymph % (Auto) 16.6 % [place] % (Auto) 6.9 % Eos % (Auto) 1.5 % Baso % (Auto) 0.3 % Neut # (Auto) 10.49 H (1.40-6.50) K/uL Lymph # (Auto) 2.34 (1.20-3.40) K/uL [place] # (Auto) 0.98 H (0.11-0.59) K/uL Eos # (Auto) 0.21 (0.00-0.50) K/uL Baso # (Auto) 0.04 (0.00-0.20) K/uL Immature Gran # (Auto) 0.07 (0.01-0.20) K/uL Sodium 133 L (136-145) mmol/L Potassium 4.2 (3.5-5.1) mmol/L Chloride 99 (98-107) mmol/L Carbon Dioxide 26 (21-32) mmol/L Anion Gap 8 (3-11) BUN 12 (6-23) mg/dl Creatinine 0.97 (0.6-1.2) mg/dl Est Cr Clr Drug Dosing 44.1 ml/min Est GFR ( Amer) 72.5 ml/min Est GFR (Non-Af Amer) 62.6 ml/min BUN/Creatinine Ratio 12.4 (10-20) Glucose 91 (70-99(Fasting)) mg/dl Calcium 9.2 (8.6-10.3) mg/dl Total Bilirubin 0.5 (0.2-1.0) mg/dl AST 33 (13-39) U/L ALT 35 (7-52) U/L Alkaline Phosphatase 93 (34-104) U/L Total Protein 6.8 (6.0-8.3) gm/dl Albumin 3.9 (3.4-5.0) gm/dl Globulin 2.9 (2.5-4.0) gm/dl Albumin/Globulin Ratio 1.3 (0.9-2) TSH 4.599 H (0.300-4.500) uIu/ml Free T4 1.08 (0.61-1.60) ng/dl Salicylates < 3.0 L (3.0-30) mg/dl Acetaminophen < 3 L (10-30) ug/ml Ethyl Alcohol mg/dL (<10.0) mg/dl SARS-CoV-2, RNA, NAAT (NEGATIVE) 04/19/23 04/19/23 Range/Units 08:27 08:27 WBC (4.8-10.8) K/ul RBC (4.20-5.40) M/uL Hgb (12.0-16.0) g/dl Hct (37.0-47.0) % MCV (80.0-100.0) fL MCH (25.0-34.0) pg MCHC (32.0-36.0) g/dL RDW Std Deviation (36.4-46.3) fL RDW Coeff of Kasandra (11.5-14.5) % Plt Count (130-400) K/uL MPV (9.4-12.4) fL Immature Gran % (Auto) % Neut % (Auto) % Lymph % (Auto) % [place] % (Auto) % Eos % (Auto) % Baso % (Auto) % Neut # (Auto) (1.40-6.50) K/uL Lymph # (Auto) (1.20-3.40) K/uL [place] # (Auto) (0.11-0.59) K/uL Eos # (Auto) (0.00-0.50) K/uL Baso # (Auto) (0.00-0.20) K/uL Immature Gran # (Auto) (0.01-0.20) K/uL Sodium (136-145) mmol/L Potassium (3.5-5.1) mmol/L Chloride (98-107) mmol/L Carbon Dioxide (21-32) mmol/L Anion Gap (3-11) BUN (6-23) mg/dl Creatinine (0.6-1.2) mg/dl Est Cr Clr Drug Dosing ml/min Est GFR ( Amer) ml/min Est GFR (Non-Af Amer) ml/min BUN/Creatinine Ratio (10-20) Glucose (70-99(Fasting)) mg/dl Calcium (8.6-10.3) mg/dl Total Bilirubin (0.2-1.0) mg/dl AST (13-39) U/L ALT (7-52) U/L Alkaline Phosphatase (34-104) U/L Total Protein (6.0-8.3) gm/dl Albumin (3.4-5.0) gm/dl Globulin (2.5-4.0) gm/dl Albumin/Globulin Ratio (0.9-2) TSH (0.300-4.500) uIu/ml Free T4 (0.61-1.60) ng/dl Salicylates (3.0-30) mg/dl Acetaminophen (10-30) ug/ml Ethyl Alcohol mg/dL < 10.0 (<10.0) mg/dl SARS-CoV-2, RNA, NAAT NEGATIVE (NEGATIVE) Imaging Data Attestation: I personally reviewed and interpreted this imaging study as follows: My Impression: Head CTno acute hemorrhage or mass effect seen Chest x-rayno acute infiltrate, failure, pneumothorax seen Radiologist's Impression: Head CT 04/19/23 08:12 CT OF THE HEAD WITHOUT CONTRAST CLINICAL HISTORY: Altered mental status. COMPARISON STUDY: Head CT March 25, 2023. CT DOSE: 859.95 mGy.cm TECHNIQUE: Helical axial images of the head were obtained without IV contrast. Automated exposure control was utilized for the study. A dose lowering technique was utilized adhering to the principles of ALARA. FINDINGS: Exam is slightly compromised by motion artifact. No acute intracranial hemorrhage, midline shift or mass effect is present. The ventricular system is unremarkable. The basal cisterns are patent. No extra-axial collections are present. There are no findings to suggest acute dural sinus thrombosis or acute territorial infarct. No significant calvarial abnormalities are present. Visualized portions of the sinuses and mastoid air cells are clear. IMPRESSION: No acute intracranial findings. ACT 112: Negative or not required by law. Electronically signed by: Robbie Vallecillo M.D. 04/19/2023 8:53 AM Chest X-Ray 04/19/23 08:13 XR chest 1V portable CLINICAL HISTORY: altered mental status COMPARISON STUDY: Chest CT September 07, 2021. Chest radiograph April 15, 2023. FINDINGS: There is no pneumothorax or pleural effusion. Mild bibasilar densities favor atelectasis. There is no consolidation to suggest pneumonia. This likely reflects a hypoventilatory study. Pulmonary vascularity is normal. Cardiomediastinal silhouette is unremarkable. IMPRESSION: No acute cardiopulmonary findings. ACT 112: Negative or not required by law. Electronically signed by: Robbie Vallecillo M.D. 04/19/2023 8:35 AM ECG Data Attestation: I personally reviewed and interpreted this ECG as follows: Indication: + weakness Rate (beats per minute): 85 Rhythm: + normal sinus and + other (Poor baseline) ECG Intervals/blocks: + Normal QRS, + Normal QT and + Normal MO ECG Mobile: + Normal ECG ST segments: + Normal ST segments ECG Findings: no PACs or no PVCs Comparison ECG Date: from (04/15/2023) Change: no significant change (PVCs are now absent) MDM Narrative This patient comes in as scribed above. She came in by ambulance. She was placed on a registered nurse cardiac in room B9. She is here for treatment evaluation of altered mental status. She is calm now. I looked through her records she was here with chest pain and anxiety 4 days ago. She was seen also and admitted on 03/25 for altered mental status that seems to been related to mental health issues. IV access established and multiple blood testing was obtained. I ordered a CAT scan of her head. She was reassessed frequently EKG was obtained. EKG does not suggest acute coronary syndrome or arrhythmia. CAT scan of her h ead is unremarkable. Chest x-ray is unremarkable. White count is mildly elevated as it was the other day but she is afebrile. She is no significant further metabolic abnormalities. She has nothing based on her labs to suggest acute toxicologic process her vital signs are stable. EKG does not show any ischemic changes or ectopy CAT scan of her head is unremarkable. Chest x-ray is unremarkable. This may be more toxicologic/overdose or mental health or combination thereof. I do not think is likely infectious and clinically has no meningeal signs and nothing to suggest encephalitis or meningitis at this point. I do not not feel the patient can go home. I did consult and discussed the case with Dr. Mcgovern and she will admit/observe the patient for further treatment and evaluation. Continuous registered nurse cardiac: Orders placed in EMR for continuous cardiac monitoring: Pulm evaluation patient noted be in normal sinus rhythm rate of 80 Impression & Plan Altered mental status, Rheumatoid arthritis, Tourette's, Delirium, Depression Discharge Plan Visit Data Chief Complaint: Altered Mental Status Stated Complaint: AMS ED Provider: Stephen Crowley Discharge Problem: Altered mental status, Rheumatoid arthritis, Tourette's, Delirium, Depression Patient Disposition: Admitted As Inpatient Discharge Instructions Interventions: ED Discharge Assessment Last Done: 04/19/23 11:10
--- NOTE | 2023-04-19 08:36 | XRay Report ---
XR chest 1V portable CLINICAL HISTORY: altered mental status COMPARISON STUDY: Chest CT September 07, 2021. Chest radiograph April 15, 2023. FINDINGS: There is no pneumothorax or pleural effusion. Mild bibasilar densities favor atelectasis. T here is no consolidation to suggest pneumonia. This likely reflects a hypoventilatory study. Pulmonar y vascularity is normal. Cardiomediastinal silhouette is unremarkable. IMPRESSION: No acute cardiopulmonary findings. ACT 112: Negative or not required by law. Electronically signed by: Robbie Vallecillo M.D. 04/19/2023 8:35 AM
[2023-04-19 08:55] LABS: Basophils # (auto) 0.04 K/uL (0.00-0.20); Basophils % (auto) 0.3 %; Eosinophils # (auto) 0.21 K/uL (0.00-0.50); Eosinophils % (auto) 1.5 %; Hematocrit (blood only) 38.7 % (37.0-47.0); Hemoglobin 12.6 g/dl (12.0-16.0); Immature Granulocytes # (auto) 0.07 K/uL (0.01-0.20); Immature Granulocytes % (auto) 0.5 %; Lymphocytes # (auto) 2.34 K/uL (1.20-3.40); Lymphocytes % (auto) 16.6 %; Mean Corpuscular Hemoglobin 27.3 pg (25.0-34.0); Mean Corpuscular Hgb Conc 32.6 g/dL (32.0-36.0); Mean Corpuscular Volume 83.8 fL (80.0-100.0); Mean Platelet Volume 10.2 fL (9.4-12.4); Monocytes # (auto) 0.98 K/uL (0.11-0.59); Monocytes % (auto) 6.9 %; Neutrophils # (auto) 10.49 K/uL (1.40-6.50); Neutrophils % (auto) 74.2 %; Platelet Count 272 K/uL (130-400); RDW Coefficient of Variation 14.4 % (11.5-14.5); RDW Standard Deviation 44.1 fL (36.4-46.3); Red Blood Count 4.62 M/uL (4.20-5.40); White Blood Count 14.13 K/ul (4.8-10.8)
--- NOTE | 2023-04-19 08:55 | CT Scan Report ---
CT OF THE HEAD WITHOUT CONTRAST CLINICAL HISTORY: Altered mental status. COMPARISON STUDY: Head CT March 25, 2023. CT DOSE: 859.95 mGy.cm TECHNIQUE: Helical axial images of the head were obtained without IV contrast. Automated exposure con trol was utilized for the study. A dose lowering technique was utilized adhering to the principles o f ALARA. FINDINGS: Exam is slightly compromised by motion artifact. No acute intracranial hemorrhage, midline shift or mass effect is present. The ventricular system is unremarkable. The basal cisterns are paten t. No extra-axial collections are present. There are no findings to suggest acute dural sinus thrombo sis or acute territorial infarct. No significant calvarial abnormalities are present. Visualized port ions of the sinuses and mastoid air cells are clear. IMPRESSION: No acute intracranial findings. ACT 112: Negative or not required by law. Electronically signed by: Robbie Vallecillo M.D. 04/19/2023 8:53 AM
[2023-04-19 09:09] LABS: Albumin Globulin Ratio 1.3 (0.9-2); Albumin Level 3.9 gm/dl (3.4-5.0); BUN Creatinine Ratio 12.4 (10-20); Bilirubin,Total 0.5 mg/dl (0.2-1.0); Calcium 9.2 mg/dl (8.6-10.3); Creatinine Clr Calc Pharmacy 44.1 ml/min; Est GFR (African American) 72.5 ml/min; Est GFR (Non-African American) 62.6 ml/min; Globulin 2.9 gm/dl (2.5-4.0); Potassium 4.2 mmol/L (3.5-5.1); Total Protein 6.8 gm/dl (6.0-8.3)
[2023-04-19 09:24] LABS: Thyroid Stimulating Hormone 4.599 uIu/ml (0.300-4.500)
[2023-04-19 09:30] LABS: Acetaminophen < 3 ug/ml (10-30); Salicylate < 3.0 mg/dl (3.0-30)
[2023-04-19 10:01] LABS: T4 Free Thyroxine 1.08 ng/dl (0.61-1.60)
--- NOTE | 2023-04-19 10:47 | History & Physical Report ---
Date of Service April 19, 2023 Assessment & Plan (1) Delirium: Plan: Still awaiting urine sample to rule out UTI, and to obtain Utox screen. However, there is no clear cause for her delirium at this point. It is possible she may be giving herself extra doses of medications such as extra steroids that may explain the elevation in WBC count, however, patient denies any joint pain/RA flaring. She has a long history of sobriety for 20 years per her spouse. Spouse does note a change in her behavior for the past 6 months, starting with memory loss and progressing to these delirium episodes, the first of which was in Feb. He notes her change in appetite and reports of nausea. Will add empiric scheduled antiemetic to see if this breaks the delirium. Will also obtain an MRI with contrast if she will tolerate this. She has no known underlying psychiatric condition as noted both by the prior psych consultation last admission and by her spouse of 22 years who gave me the history today, however, she does have depression and takes risperidone consistently. Consider psychiatry and/or neurology consultation if no improvement in symptoms. May also consider LP if workup remains negative. (UA and Utox are negative. Per RN, patient unable to tolerate MRI at this point given ongoing movement that is not controlled. Will defer MRI for tomorrow.) (2) Tourette's: Plan: chronic, stable. (3) Depression: Plan: chronic, stable. Cont current medications without change. (4) NSVT (nonsustained ventricular tachycardia): Plan: 5 beat run on floor. Check Mag level. Replete as needed. Cont telemetry monitoring. (Mg 1.7, giving 3 grams Mg IV now, repeat level in am). (5) Rheumatoid arthritis: Plan: chronic, stable. Cont leflunomide and methylprednisolone per home regimen. H old Orencia while admitted. Will also check inflammatory markers. (ESR and CRP mildly elevated, not consistent with an acute flare). (6) Iron deficiency anemia: Plan: chronic, stable. Hold iron supplements while hospitalized. (7) Alcohol dependence in remission: Plan: Sober for 20 years per long time spouse. Less likely that we are seeing alcohol withdrawla delirium given this history. Peace[facility] Full Code Dispo- telemetry I spent a total [id number] coordinating, documenting, and providing care for this patient excluding time spent in the performance of separately billed services DO Tank Vilast. [facility] Hospitalist History of Present Illness Chief Complaint: altered mental status Primary Care Provider: Marck Bardales MD 63-year-old female brought in by EMS after having altered mental status with belligerence and yelling in the house. She had a recent admission to the hospital and was discharged on 03/27/23, being admitted for the similar issue. During that stay psychiatry saw her. She is known to have Tourette's syndrome but there was no clear psychiatric syndrome known and her presentation was consistent with delirium at that time. There was no clear etiology determined. It was felt unlikely that venlafaxine or risperidone would precipitate delirium especially in someone who has been using them for a while. Steroids are well known to precipitate delirium occasionally in people who have not been using them since for some time and she continues to use methylprednisone. Autoimmune disease condition such as her RA and drugs like a Betasept can also contribute to delirium. However, none of the use medications were new. As she was not giving cause for concern of her safety at home she ultimately was discharged on 03/27. She was seen again in the ER as a walk-in for chest pain one week ago. The cause for her symptoms was not definitive but suspected to be related to an anxiety attack/panic attack. Work- up was normal and she was discharged. I was unable to gather a history from the patient who is clearly confused. I contacted her live in boyfriend, Sebastien, who has been with her for 22 years, and spoke with him by phone. Per his report, last night they watched a movie and went to bed around midnight. He felt everything was fine. He was awakened around 0200 with her standing beside him at the bed and was incoherent, saying things that weren't making any sense. He told her he was going to call the ambulance and she "went ballistic". He got her calmed down and they dozed off. When he woke up again she was screaming and carrying on not making sense. She was facing the wall the wrong way looking for the door which was on the opposite side of the room. She went to the bathroom and he called 911. She refused to cooperate with EMS before coming into the ER. As I interviewed her today she continued to repeat "I just want to go home" but reported that she was in [place] and didn't know the date. She also couldn't tell me Sebastien's name. Per Sebastien, he doesn't know about her medications because she is "very secretive about those." He states that 6 months ago, he started noticing differences in her behavior. Started with memory loss. He tells a situation where she got up to get a snack from the kitchen and returned forgetting why she had gotten up in the first place. He notes that in the last month, before any deirium episode, she will rub her legs together and then she gets into a spasm all over and then "it's a trip to the ER from there." He was asked about any changes in the last 6 months. He states that she has been reporting intermittent nausea for the past month and he has had to prompt her to eat. He states that she breaks out into sweats 1-2 times per day since discharge from the last hospital stay. "It almost looked like a fever had broken." When she eats she was picking at the food, but prior to this her appetite was good. He feels that she obsesses over her weight and this is a change in the last few months, where he notices her putting herself on a diet despite Sebastien reassuring her that she looks great. He states no menstrual periods for 10 years. Allergies Allergy/AdvReac Type Severity Reaction Status Date / Time Penicillins Allergy Unknown Verified 09/07/21 01:09 Home Medications Medication Instructions Recorded Confirmed Type abatacept 125 mg/mL subcutaneous 125 mg subcut FR@0900 09/07/21 04/19/23 History syringe (Orencia) baclofen 10 mg tablet 10 mg PO TID 09/07/21 04/19/23 History ferrous sulfate 325 mg (65 mg 325 mg PO BID 09/07/21 04/19/23 History iron) tablet methylprednisolone 4 mg tablets in 4 mg PO DAILY 09/07/21 04/19/23 History a dose pack omeprazole 20 mg capsule,delayed 20 mg PO QAM 09/07/21 04/19/23 History release risperidone 2 mg tablet 2 mg PO BID 09/07/21 04/19/23 History rosuvastatin 10 mg tablet 10 mg PO HS 09/07/21 04/19/23 History venlafaxine 37.5 mg tablet 37.5 mg PO BID 09/07/21 04/19/23 History leflunomide 20 mg tablet 20 mg PO DAILY 04/19/23 04/19/23 History Past Med/Surg History Medical History Alcohol dependence in remission Depression HLD (hyperlipidemia) Iron deficiency anemia Rheumatoid arthritis Tourette's Surgical History No pertinent past surgical history Social History Smoking Status: Never smoker Second Hand Exposure: No; Do You Dip or Chew Tobacco: No; Tobacco Cessation Education Requested by Patient: No Hx Alcohol Use: No (prior alcohol abuse) Hx Substance Use: No Preferred Language: Sinhala Communication Ability: Impaired 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 Beliefs That Will Affect Care: None Current Living Situation: Significant Other Current Living Situation Comment: LIVES WITH BOYFRIEND MARTINA GRACE Other Information That Helps Us Care for You: No Feels Safe at Home: Yes Safety Concerns: Feels Safe At This Time Assistive Devices: Denture - Upper and Glasses Physical Exam Physical Exam: CONSTITUTIONAL: thin, frail, vitals as above, generally appears uneasy/nervous/avoidant EYES: normal conjunctivae, no scleral icterus ENT: external ear and nose normal, MMM NECK: trachea midline RESPIRATORY: clear to auscultation bilaterally, no crackles, rales or wheezes, normal respiratory effort CARDIOVASCULAR: regular rate and rhythm, S1 and 2 heard without murmurs, gallops or rubs, no JVD, no peripheral edema CHEST: inspection of chest was normal GASTROINTESTINAL: soft, nontender, ND, no guarding MUSCULOSKELETAL: strength 5/5 throughout, head is normocephalic and atraumatic SKIN: warm and dry NEUROLOGIC: CN 2-12 grossly intact, no sensory deficit, normal cognition, normal speech, no tremor PSYCHIATRIC: alert cooperative but unable to give a clear history of events, she is disoriented stating that she is at her [place]of[place] house in [place] and she cannot tell me the date. She is intermittently tearful and is making good eye contact, language is intact, unable to remember. Results & Data Results & Data Vital Signs (Past 12 Hours) Vital Signs Temp Pulse Pulse Resp BP BP Pulse Ox 04/19/23 09:45 83 18 124/84 96 04/19/23 08:03 04/19/23 08:03 37.2 C 88 18 161/111 H 93 O2 Del Method 04/19/23 09:45 04/19/23 08:03 Room Air 04/19/23 08:03 Room Air Laboratory Results Short CBC 04/19/23 Range/Units 08:27 WBC 14.13 H (4.8-10.8) K/ul Hgb 12.6 (12.0-16.0) g/dl Hct 38.7 (37.0-47.0) % Plt Count 272 (130-400) K/uL BMP 04/19/23 08:27 Sodium 133 L Potassium 4.2 Chloride 99 Carbon Dioxide 26 BUN 12 Creatinine 0.97 Glucose 91 Calcium 9.2 Liver Function 04/19/23 Range/Units 08:27 Total Bilirubin 0.5 (0.2-1.0) mg/dl AST 33 (13-39) U/L ALT 35 (7-52) U/L Alkaline Phosphatase 93 (34-104) U/L Albumin 3.9 (3.4-5.0) gm/dl Diagnostic Findings Head CT 04/19/23 08:12 CT OF THE HEAD WITHOUT CONTRAST CLINICAL HISTORY: Altered mental status. COMPARISON STUDY: Head CT March 25, 2023. CT DOSE: 859.95 mGy.cm TECHNIQUE: Helical axial images of the head were obtained without IV contrast. Automated exposure control was utilized for the study. A dose lowering technique was utilized adhering to the principles of ALARA. FINDINGS: Exam is slightly compromised by motion artifact. No acute intracranial hemorrhage, midline shift or mass effect is present. The ventricular system is unremarkable. The basal cisterns are patent. No extra-axial collections are pres ent. There are no findings to suggest acute dural sinus thrombosis or acute territorial infarct. No significant calvarial abnormalities are present. Visualized portions of the sinuses and mastoid air cells are clear. IMPRESSION: No acute intracranial findings. ACT 112: Negative or not required by law. Electronically signed by: Robbie Vallecillo M.D. 04/19/2023 8:53 AM Chest X-Ray 04/19/23 08:13 XR chest 1V portable CLINICAL HISTORY: altered mental status COMPARISON STUDY: Chest CT September 07, 2021. Chest radiograph April 15, 2023. FINDINGS: There is no pneumothorax or pleural effusion. Mild bibasilar densities favor atelectasis. There is no consolidation to suggest pneumonia. This likely reflects a hypoventilatory study. Pulmonary vascularity is normal. Cardiomediastinal silhouette is unremarkable. IMPRESSION: No acute cardiopulmonary findings. ACT 112: Negative or not required by law. Electronically signed by: Robbie Vallecillo M.D. 04/19/2023 8:35 AM Medications Administered Current Inpatient Medications Acetaminophen (Acetaminophen 325 Mg Tab) 650 mg PO Q4H PRN PRN Reason: Pain or Fever Stop: 05/19/23 11:43 Al Hydrox/Mg Hydrox/Simethicone (Aluminum/Magnesium Susp 30 Ml Udc) 15 ml PO Q4H PRN PRN Reason: Dyspepsia Stop: 05/19/23 11:43 Magnesium Hydroxide (Magnesium Hydroxide Susp 30 Ml Udc) 30 ml PO Q12H PRN PRN Reason: Constipation Stop: 05/19/23 11:43 Code Status & VTE Plan VTE Prophylaxis Plan VTE Prophylaxis will be ordered: Yes
[2023-04-19] MEDS ORDERED: ACETAMINOPHEN 325 MG TAB PO PRN (11:44)
[2023-04-19] MEDS ORDERED: ALUMINUM/MAGNESIUM SUSP 30 ML UDC PO PRN (11:44)
[2023-04-19] MEDS ORDERED: MAGNESIUM HYDROXIDE SUSP 30 ML UDC PO PRN (11:44)
[2023-04-19 14:47] LABS: Magnesium 1.7 mg/dl (1.7-2.4)
[2023-04-19 14:52] LABS: C Reactive Protein 0.58 mg/dl (0-0.5)
[2023-04-19] MEDS: ENOXAPARIN INJ 40 MG/0.4 ML SYR SQ SCH (15:15)
[2023-04-19] MEDS: ONDANSETRON INJ 2 MG/ML 2 ML VIAL IV SCH ×2 (15:15→23:03)
[2023-04-19 15:40] LABS: Lyme Ab IgG w/WB Rflx Negative (Negative)
[2023-04-19 15:44] LABS: Lyme Ab IgM w/WB Rflx Equivocal (Negative)
[2023-04-19] MEDS: MAGNESIUM SULFATE / D5W 1 GM/100 ML BAG IV SCH ×3 (17:13→20:30)
[2023-04-19 17:42] LABS: Appearance Urine Cloudy (Clear); Bacteria Urine Automated Negative (Negative); Bilirubin Urine Negative (Negative); Blood Urine 1+ (Negative); Color Urine Yellow; Epithelial Cell Urine Auto 20-30 /lpf (0-5); Glucose Urine UA Negative (Negative); Ketones Urine Negative (Negative); Leukocyte Esterase Urine 3+ (Negative); Nitrite Urine Negative (Negative); Protein Urine Negative (Negative); RBC Urine Automated 0-4 /hpf (0-4); Specific Gravity Urine 1.009 (1.000-1.030); Urobilinogen Urine Negative (Negative); WBC Urine Automated >30 /hpf (0-5); pH Urine 6.5 (4.5-7.5)
[2023-04-19 18:13] LABS: Amphetamines+Metham, Urine Neg (Neg); Barbiturates, Urine Neg (Neg); Benzodiazepine, Urine Neg (Neg); Cocaine, Urine Neg (Neg); MDMA (Ecstacy), Urine Neg (Neg); Methadone, Urine Neg (Neg); Opiate, Urine Neg (Neg); Phencyclidine, Urine Neg (Neg)
[2023-04-19] MEDS: BACLOFEN 10 MG TAB PO SCH (20:28)
[2023-04-19] MEDS: risperiDONE 2 MG TABLET PO SCH (20:28)
[2023-04-19] MEDS: VENLAFAXINE HCL 37.5 MG TAB PO SCH (20:29)
[2023-04-19] MEDS ORDERED: ROSUVASTATIN CALCIUM 10 MG TAB PO SCH (21:00)
[2023-04-19] MEDS ORDERED: cefTRIAXone SODIUM 2,000 MG in DEXTROSE 5 % MINI-B 50 ML IV SCH (22:00)
[2023-04-20 05:31] LABS: Hematocrit (blood only) 36.6 % (37.0-47.0); Hemoglobin 11.8 g/dl (12.0-16.0); Mean Corpuscular Hemoglobin 27.6 pg (25.0-34.0); Mean Corpuscular Hgb Conc 32.2 g/dL (32.0-36.0); Mean Corpuscular Volume 85.5 fL (80.0-100.0); Mean Platelet Volume 9.7 fL (9.4-12.4); Platelet Count 227 K/uL (130-400); RDW Coefficient of Variation 14.8 % (11.5-14.5); Red Blood Count 4.28 M/uL (4.20-5.40); White Blood Count 8.25 K/ul (4.8-10.8)
[2023-04-20 05:47] LABS: BUN Creatinine Ratio 17.4 (10-20); Calcium 8.6 mg/dl (8.6-10.3); Creatinine Clr Calc Pharmacy 58.6 ml/min; Est GFR (African American) 83.9 ml/min; Est GFR (Non-African American) 72.4 ml/min; Potassium 4.4 mmol/L (3.5-5.1)
[2023-04-20] MEDS: ONDANSETRON INJ 2 MG/ML 2 ML VIAL IV SCH ×2 (05:57→15:05)
--- NOTE | 2023-04-20 08:36 | Hospitalist Progress Note ---
Date of Service April 20, 2023 Assessment & Plan (1) Delirium: Plan: Still awaiting urine sample to rule out UTI, and to obtain Utox screen. However, there is no clear cause for her delirium at this point. It is possible she may be giving herself extra doses of medications such as extra steroids that may explain the elevation in WBC count, however, patient denies any joint pain/RA flaring. She has a long history of sobriety for 20 years per her spouse. Spouse does note a change in her behavior for the past 6 months, starting with memory loss and progressing to these delirium episodes, the first of which was in Feb. He notes her change in appetite and reports of nausea. Will add empiric scheduled antiemetic to see if this breaks the delirium. Will also obtain an MRI with contrast if she will tolerate this. She has no known underlying psychiatric condition as noted both by the prior psych consultation last admission and by her spouse of 22 years who gave me the history today, however, she does have depression and takes risperidone consistently. Consider psychiatry and/or neurology consultation if no improvement in symptoms. May also consider LP if workup remains negative. (UA and Utox are negative. Per RN, patient unable to tolerate MRI at this point given ongoing movement that is not controlled. Will defer MRI for tomorrow.) (2) Tourette's: Plan: chronic, stable. (3) Depression: Plan: chronic, stable. Cont current medications without change. (4) NSVT (nonsustained ventricular tachycardia): Plan: 5 beat run on floor. Check Mag level. Replete as needed. Cont telemetry monitoring. (Mg 1.7, giving 3 grams Mg IV now, repeat level in am). (5) Rheumatoid arthritis: Plan: chronic, stable. Cont leflunomide and methylprednisolone per home regimen. H old Orencia while admitted. Will also check inflammatory markers. (ESR and CRP mildly elevated, not consistent with an acute flare). (6) Iron deficiency anemia: Plan: chronic, stable. Hold iron supplements while hospitalized. (7) Alcohol dependence in remission: Plan: Sober for 20 years per long time spouse. Less likely that we are seeing alcohol withdrawla delirium given this history. [facility] Full Code Dispo- telemetry I spent a total [id number] coordinating, documenting, and providing care for this patient excluding time spent in the performance of separately billed services DO Keila Vila Hospitalist Admission and Anticipated Discharge Date Admission Date: April 19, 2023 Physical Exam Physical Exam: CONSTITUTIONAL: thin, frail, vitals as above, generally appears uneasy/nervous/avoidant EYES: normal conjunctivae, no scleral icterus ENT: external ear and nose normal, MMM NECK: trachea midline RESPIRATORY: clear to auscultation bilaterally, no crackles, rales or wheezes, normal respiratory effort CARDIOVASCULAR: regular rate and rhythm, S1 and 2 heard without murmurs, gallops or rubs, no JVD, no peripheral edema CHEST: inspection of chest was normal GASTROINTESTINAL: soft, nontender, ND, no guarding MUSCULOSKELETAL: strength 5/5 throughout, head is normocephalic and atraumatic SKIN: warm and dry NEUROLOGIC: CN 2-12 grossly intact, no sensory deficit, normal cognition, normal speech, no tremor PSYCHIATRIC: alert cooperative but unable to give a clear history of events, she is disoriented stating that [facility] in [place] and she cannot tell me the date. She is intermittently tearful and is making good eye contact, language is intact, unable to remember. Results & Data Results & Data Vital Signs (Past 12 Hours) Vital Signs Temp Pulse Pulse Resp BP Pulse Ox O2 Del Method 04/20/23 07:45 36.8 C 78 20 145/88 H 96 Room Air 04/20/23 07:22 78 04/20/23 03:20 36.4 C L 91 H 18 154/87 H 94 Room Air 04/19/23 23:49 36.3 C L 81 18 117/71 93 Room Air 04/19/23 23:28 93 H Laboratory Results Short CBC 04/19/23 04/20/23 Range/Units 08:27 05:17 WBC 14.13 H 8.25 (4.8-10.8) K/ul Hgb 12.6 11.8 L (12.0-16.0) g/dl Hct 38.7 36.6 L (37.0-47.0) % Plt Count 272 227 (130-400) K/uL BMP 04/19/23 04/20/23 08:27 05:17 Sodium 133 L 135 L Potassium 4.2 4.4 Chloride 99 103 Carbon Dioxide 26 26 BUN 12 15 Creatinine 0.97 0.86 Glucose 91 108 H Calcium 9.2 8.6 Liver Function 04/19/23 Range/Units 08:27 Total Bilirubin 0.5 (0.2-1.0) mg/dl AST 33 (13-39) U/L ALT 35 (7-52) U/L Alkaline Phosphatase 93 (34-104) U/L Albumin 3.9 (3.4-5.0) gm/dl Urine 04/19/23 Range/Units 17:15 Urine Color Yellow Urine Appearance Cloudy A (Clear) Urine pH 6.5 (4.5-7.5) Ur Specific Elon 1.009 (1.000-1.030) Urine Protein Negative (Negative) Urine Glucose (UA) Negative (Negative) Medications Administered Current Inpatient Medications Acetaminophen (Acetaminophen 325 Mg Tab) 650 mg PO Q4H PRN PRN Reason: Pain or Fever Stop: 05/19/23 11:43 Al Hydrox/Mg Hydrox/Simethicone (Aluminum/Magnesium Susp 30 Ml Udc) 15 ml PO Q4H PRN PRN Reason: Dyspepsia Stop: 05/19/23 11:43 Baclofen (Baclofen 10 Mg Tab) 10 mg PO TID RICKY Stop: 05/19/23 20:59 Last Admin: 04/19/23 20:28 Dose: 10 mg Enoxaparin Sodium (Enoxaparin Inj 40 Mg/0.4 Ml Syr) 40 mg SQ Q24H RICKY Stop: 05/19/23 15:59 Last Admin: 04/19/23 15:15 Dose: 40 mg Ceftriaxone Sodium 2,000 mg/ (Dextrose) 50 mls @ 100 mls/hr IV Q24H RICKY; Protocol Stop: 04/29/23 21:59 Last Infusion: 04/19/23 23:37 Dose: Infused Leflunomide (Leflunomide 10 Mg Tab) 20 mg PO DAILY RICKY Stop: 05/20/23 08:59 Magnesium Hydroxide (Magnesium Hydroxide Susp 30 Ml Udc) 30 ml PO Q12H PRN PRN Reason: Constipation Stop: 05/19/23 11:43 Methylprednisolone (Methylprednisolone 4 Mg Tab) 4 mg PO DAILY RICKY Stop: 05/20/23 08:59 Ondansetron HCl (Ondansetron Inj 2 Mg/Ml 2 Ml Vial) 4 mg IV Q8H RICKY Stop: 04/21/23 06:31 Last Admin: 04/20/23 05:57 Dose: 4 mg Pantoprazole Sodium (Pantoprazole 40 Mg Tab) 40 mg PO QAM RICKY Stop: 05/20/23 08:59 Risperidone (Risperidone 2 Mg Tablet) 2 mg PO BID RICKY Stop: 05/19/23 20:59 Last Admin: 04/19/23 20:28 Dose: 2 mg Rosuvastatin Calcium (Rosuvastatin Calcium 10 Mg Tab) 10 mg PO HS RICKY Stop: 05/19/23 20:59 Last Admin: 04/19/23 20:29 Dose: 10 mg Venlafaxine HCl (Venlafaxine Hcl 37.5 Mg Tab) 37.5 mg PO BID RICKY Stop: 05/19/23 20:59 Last Admin: 04/19/23 20:29 Dose: 37.5 mg (3) Depression Depression Type: unspecified Qualified Code(s): F32.A - Depression, unspecified (5) Rheumatoid arthritis Rheumatoid arthritis location: unspecified site Rheumatoid factor presence: unspecified presence Qualified Code(s): M06.9 - Rheumatoid arthritis, unspecified
[2023-04-20] MEDS ORDERED: PANTOprazole 40 MG TAB PO SCH (09:00)
[2023-04-20] MEDS ORDERED: LEFLUNOMIDE 10 MG TAB PO SCH (09:00)
[2023-04-20] MEDS ORDERED: methylPREDNISolone 4 MG TAB PO SCH (09:00)
[2023-04-20] MEDS: risperiDONE 2 MG TABLET PO SCH (09:16)
[2023-04-20] MEDS: VENLAFAXINE HCL 37.5 MG TAB PO SCH (09:16)
[2023-04-20] MEDS: BACLOFEN 10 MG TAB PO SCH ×2 (09:17→15:14)
[2023-04-20] MEDS: ENOXAPARIN INJ 40 MG/0.4 ML SYR SQ SCH (15:06)
--- NOTE | 2023-04-20 15:43 | Magnetic Resonance Report ---
MR brain wo/w con CLINICAL HISTORY: delirium, memory loss, behavior changes last 6 mo TECHNIQUE: Multiplanar and multisequence MR images of the brain were obtained prior to and following administration of gadolinium contrast. Comparison: None available at the time of this dictation. FINDINGS: No abnormal restricted diffusion is identified. The white matter is unremarkable. The ventricular sys tem is normal in appearance. No mass or abnormal enhancement is seen. There is no mass effect or midl ine shift. There is no evidence of acute intraparenchymal hemorrhage. No extra axial fluid collection s are seen. The corpus callosum, pituitary gland, and cerebellar tonsils appear grossly unremarkable. Flow voids of the major intracranial arterial vessels are identified. The imaged portions of the para nasal sinuses, mastoid air cells, and orbits are unremarkable. IMPRESSION: No acute abnormalities and in particular no abnormal enhancement or T2 hyperintensities in this patie nt with concern for Lyme encephalitis. ACT 112: Negative or not required by law. Electronically signed by: Ryan Manjarrez M.D. 04/20/2023 3:41 PM
[2023-04-20] MEDS ORDERED: GADOBUTROL 7.5ML VIAL IV ONE (16:10)
--- NOTE | 2023-04-20 16:12 | Discharge Summary ---
Discharge Summary Date of Service April 20, 2023 Admission HPI Per Admitting Provider 63-year-old female brought in by EMS after having altered mental status with belligerence and yelling in the house. She had a recent admission to the hospital and was discharged on 03/27/23, being admitted for the similar issue. During that stay psychiatry saw her. She is known to have Tourette's syndrome but there was no clear psychiatric syndrome known and her presentation was consistent with delirium at that time. There was no clear etiology determined. It was felt unlikely that venlafaxine or risperidone would precipitate delirium especially in someone who has been using them for a while. Steroids are well known to precipitate delirium occasionally in people who have not been using them since for some time and she continues to use methylprednisone. Autoimmune disease condition such as her RA and drugs like a Betasept can also contribute to delirium. However, none of the use medications were new. As she was not giving cause for concern of her safety at home she ultimately was discharged on 03/27. She was seen again in the ER as a walk-in for chest pain one week ago. The cause for her symptoms was not definitive but suspected to be related to an anxiety attack/panic attack. Work- up was normal and she was discharged. I was unable to gather a history from the patient who is clearly confused. I contacted her live in boyfriend, Sebastien, who has been with her for 22 years, and spoke with him by phone. Per his report, last night they watched a movie and went to bed around midnight. He felt everything was fine. He was awakened around 0200 with her standing beside him at the bed and was incoherent, saying things that weren't making any sense. He told her he was going to call the ambulance and she "went ballistic". He got her calmed down and they dozed off. When he woke up again she was screaming and carrying on not making sense. She was facing the wall the wrong way looking for the door which was on the opposite side of the room. She went to the bathroom and he called 911. She refused to cooperate with EMS before coming into the ER. As I interviewed her today she continued to repeat "I just want to go home" but reported that she was in [place] and didn't know the date. She also couldn't tell me Sebastien's name. Per Sebastien, he doesn't know about her medications because she is "very secretive about those." He states that 6 months ago, he started noticing differences in her behavior. Started with memory loss. He tells a situation where she got up to get a snack from the kitchen and returned forgetting why she had gotten up in the first place. He notes that in the last month, before any deirium episode, she will rub her legs together and then she gets into a spasm all over and then "it's a trip to the ER from there." He was asked about any changes in the last 6 months. He states that she has been reporting intermittent nausea for the past month and he has had to prompt her to eat. He states that she breaks out into sweats 1-2 times per day since discharge from the last hospital stay. "It almost looked like a fever had broken." When she eats she was picking at the food, but prior to this her appetite was good. He feels that she obsesses over her weight and this is a change in the last few months, where he notices her putting herself on a diet despite Sebastien reassuring her that she looks great. He states no menstrual periods for 10 years. Principal Dx & Hospital Course #1 = Principal Diagnosis (1) Delirium: (2) Tourette's: (3) Depression: (4) NSVT (nonsustained ventricular tachycardia): (5) Rheumatoid arthritis: (6) Iron deficiency anemia: (7) Alcohol dependence in remission: Updated Medication List Medication Instructions Recorded Confirmed Type abatacept 125 mg/mL subcutaneous 125 mg subcut FR@0900 09/07/21 04/19/23 History syringe (Orencia) baclofen 10 mg tablet 10 mg PO TID 09/07/21 04/19/23 History ferrous sulfate 325 mg (65 mg 325 mg PO BID 09/07/21 04/19/23 History iron) tablet methylprednisolone 4 mg tablets in 4 mg PO DAILY 09/07/21 04/19/23 History a dose pack omeprazole 20 mg capsule,delayed 20 mg PO QAM 09/07/21 04/19/23 History release risperidone 2 mg tablet 2 mg PO BID 09/07/21 04/19/23 History rosuvastatin 10 mg tablet 10 mg PO HS 09/07/21 04/19/23 History venlafaxine 37.5 mg tablet 37.5 mg PO BID 09/07/21 04/19/23 History leflunomide 20 mg tablet 20 mg PO DAILY 04/19/23 04/19/23 History doxycycline hyclate 100 mg tablet 100 mg PO BID #42 tabs 04/20/23 Rx ondansetron 4 mg disintegrating 4 mg PO Q8H PRN nausea and 04/20/23 Rx tablet vomiting #20 tabs Hospital Stay Data Consultations 04/19/23 10:38 ED Decision to Admit Stat Diagnostic Imagining Performed 04/19/23 08:12 CT head/brain wo con Stat 04/20/23 00:00 MR brain wo/w con Routine Pending Results Patient Have Any Pending Studies at Discharge: Yes Discharge Instructions Given to Patient (Per Discharging Provider) Please take all medications as instructed on discharge as below. You are being placed on doxycycline antibiotic pending further results on your Lyme serology, pending at time of discharge. Please follow-up with your primary care doctor (PCP) for final results. Please continue taking omeprazole 20 mg every morning while on steroid therapy. Please avoid drugs such as Magalys[place], high-dose aspirin, Motrin, naproxen or other nonsteroidal anti-inflammatory drugs (NSAIDs) as these may put you at higher risk of a stomach ulcer. You are being given oral Zofran that can dissolve under the tongue or in the cheek for nausea as needed. Please only use this on an as-needed basis this is not to be scheduled. Please follow-up with primary care doctor in 1 week to ensure you are still doing well after returning home. Please consider outpatient neuropsychiatric testing for complete assessment of cognitive functions. This may be ordered by your PCP It was a pleasure taking care of you! Please call if you have any questions or problems. You can reach a [facility] hospitalist on duty at [facility] 24 hours a day by calling [phone]. Take care of yourself. Zoila Mcgovern, DO [facility]
[2023-04-20] MEDS ORDERED: ONDANSETRON 4 MG OD TAB PO PRN (16:41)
[2023-04-20] MEDS ORDERED: DOXYCYCLINE HYCLATE 100 MG CAP PO SCH ×2 (21:00)
[2023-04-20] MEDS ORDERED: ONDANSETRON 4 MG OD TAB PO SCH (21:00)
--- NOTE | 2023-04-21 06:03 | Electrocardiogram Report ---
Test Reason : Blood Pressure : / mmHG Vent. Rate : 085 BPM Atrial Rate : 085 BPM P-R Int : 114 ms QRS Dur : 068 ms QT Int : 394 ms P-R-T Axes : 000 150 162 degrees QTc Int : 468 ms Poor data quality, interpretation may be adversely affected Normal sinus rhythm Probable Limb lead reversal Abnormal ECG When compared with ECG of 15-APR-2023 14:55, Premature ventricular complexes are no longer Present Limb lead reversal is now present Confirmed by Avel Velasco ([id number]) on 04/21/2023 6:03:00 AM Referred By: REFERRED SELF Confirmed By:Avel Velasco
[2023-04-24 09:49] LABS: 18KDIGG Band NON-REACTIVE; 23KDIGG Band NON-REACTIVE; 23KDIGM Band REACTIVE; 28KDIGG Band NON-REACTIVE; 30KDIGG Band NON-REACTIVE; 39KDIGG Band REACTIVE; 39KDIGM Band NON-REACTIVE; 41KDIGG Band REACTIVE; 41KDIGM Band NON-REACTIVE; 45KDIGG Band NON-REACTIVE; 58KDIGG Band NON-REACTIVE; 66KDIGG Band NON-REACTIVE; 93KDIGG Band NON-REACTIVE; Lyme Antibodies, WB IgG NEGATIVE (NEGATIVE); Lyme Antibodies, WB IgM NEGATIVE (NEGATIVE)
== END 2023-04-20 17:45 | disposition home or self-care (01) ==
LOC: ED 07:56 → 2W 07:56

== ENCOUNTER 2024-10-20 01:08 | Inpatient (IN) ==
[2024-10-20 01:33] LABS: Appearance Urine Clear (Clear); Bacteria Urine Automated None Seen (None Seen); Bilirubin Urine Negative (Negative); Blood Urine Negative (Negative); Cast Urine Automated 0-2 /lpf (0-2); Color Urine Yellow; Epithelial Cell Urine Auto 0-2 /hpf (0-2); Glucose Urine UA Negative (Negative); Ketones Urine Negative (Negative); Leukocyte Esterase Urine Trace (Negative); Nitrite Urine Negative (Negative); Protein Urine Trace (Negative); RBC Urine Automated 0-2 /hpf (0-2); Specific Gravity Urine 1.006 (1.000-1.030); Urobilinogen Urine Negative (Negative); WBC Urine Automated 0-5 /hpf (0-5)
[2024-10-20] MEDS: LORazepam 2 MG/1 ML VIAL IV STA ×2 (01:37→02:16)
[2024-10-20] MEDS: SODIUM CHLORIDE 0.9% 1,000 ML IV ONE (01:37)
[2024-10-20 01:40] LABS: Basophils # (auto) 0.02 K/uL (0.00-0.20); Basophils % (auto) 0.3 %; Eosinophils % (auto) 3.2 %; Hematocrit (blood only) 24.2 % (37.0-47.0); Hemoglobin 7.8 g/dl (12.0-16.0); Immature Granulocytes # (auto) 0.03 K/uL (0.01-0.20); Immature Granulocytes % (auto) 0.5 %; Lymphocytes % (auto) 22.2 %; Mean Corpuscular Hemoglobin 21.1 pg (25.0-34.0); Mean Corpuscular Hgb Conc 32.2 g/dL (32.0-36.0); Mean Corpuscular Volume 65.4 fL (80.0-100.0); Monocytes # (auto) 0.59 K/uL (0.11-0.59); Monocytes % (auto) 9.4 %; Neutrophils # (auto) 4.06 K/uL (1.40-6.50); Neutrophils % (auto) 64.4 %; RDW Coefficient of Variation 15.9 % (11.5-14.5); RDW Standard Deviation 36.9 fL (36.4-46.3)
--- NOTE | 2024-10-20 01:45 | Emergency Department Note ---
Impression & Plan Hyponatremia, Altered mental status ED Provider Note CHIEF COMPLAINT: Altered mental status, anxiety HISTORY OF PRESENT ILLNESS: This 64-year-old female patient past medical history of nonsustained VT, delirium, alcohol dependency, rheumatoid arthritis, Tourette's, depression presents to the emergency department with complaints of "anxiety." The patient lives at home with her significant other. The ambulance was called tonight for an anxiety reaction. She has noted to be tachycardic in the 120s but also unable to state her boyfriend's name and her location. She initially wanted to refuse transport however given the abnormal heart rate and inability answer questions appropriately, she was transported to hospital for evaluation. Patient is unable to give much more history. REVIEW OF SYSTEMS: A review of systems was performed with positives and pertinent negatives listed in the history of present illness. 10 systems were reviewed and are otherwise negative. ALLERGIES: see below MEDICATIONS: see below PMH: see below SOCIAL HISTORY: see below DDx: Dehydration, tachycardia, anxiety, alcohol dependency, intracranial hemorrhage, intracranial mass, stroke, metabolic abnormality, electrolyte abnormality among others. PHYSICAL EXAM: Vital signs reviewed. General: Chronically ill-appearing 64-year-old female, in no significant distress HEENT: No scleral icterus, PERRLA, neck supple. poor dentition with multiple missing/decayed teeth. Moist mucous membranes. Cardiovascular: Tachycardic, regular. Pulmonary: Clear to auscultation bilaterally, normal work of breathing. Abdomen: Soft, nontender, nondistended, positive bowel sounds. Musculoskeletal: Atraumatic, no peripheral edema. distal digits and joints with significant deformities consistent with rheumatoid arthritis, no acute deformities. Neurologic: Patient awake alert and oriented x 3, speech is clear Skin: Warm, dry, no rash EMERGENCY DEPARTMENT COURSE/MDM: This pt was evaluated and appeared to be in no distress. Pt was restless and a bit uncomfortable appearing. IV access was obtained and lab work was drawn. Pt was placed on the radiation monitor and noted to be in a sinus tachycardia. EKG confirms. Head CT is negative for acute process. IVF bolus with NSS was initiated and pt was medicated with IV 1 mg ativan x 2 doses. Lab work reveals a sodium of 119. IVF were decreased to 125 ml/hr. 1 gm of IV magnesium was also given. The etiology of the hyponatremia is unclear at this time, but pt does have a h/o ETOH abuse. Alcohol level today is <10. Case was discussed with the hospitalist who will evaluate the pt for admission and further management. MONITORING: An order for cardiac monitoring was placed and the patient is noted to be in a sinus tachycardia at 130 beats per minute. RADIOLOGY: Head CT to my interpretation reveals no evidence of acute intracranial abnormality. EKG: to my interpretation reveals a sinus tachycardia at [address] abnormality. QTc of 433. No PVC, PAC. DISPOSITION:Admit Past Med/Surg History Problem List (Updated 10/24/24 @ 18:14 by Vilma Trejo MD) Hyponatremia (Acute) NSVT (nonsustained ventricular tachycardia) Delirium (Acute) Alcohol dependence in remission Iron deficiency anemia Rheumatoid arthritis (Acute) Tourette's (Acute) Depression (Acute) Altered mental status (Acute) Medical History HLD (hyperlipidemia) Surgical History No pertinent past surgical history Social History Smoking Status: Unknown if ever smoked Second Hand Exposure: No; Do You Dip or Chew Tobacco: No; Hx Alcohol Use: No Hx Substance Use: No Preferred Language: Upper Sorbian Communication Ability: Effective Shield Cleaner Required: No Beliefs That Will Affect Care: None Current Living Situation: Spouse Current Living Situation Comment: LIVES WITH BOYFRIEND MARTINA GRACE Feels Safe at Home: Yes Assistive Devices: None Allergies Allergies Allergy/AdvReac Type Severity Reaction Status Date / Time Penicillins Allergy Unknown Unknown Verified 10/20/24 01:19 Home Meds Home Medications Medication Instructions Recorded Confirmed abatacept 125 mg/mL subcutaneous 125 mg subcut WK 09/07/21 10/20/24 syringe (Orencia) baclofen 10 mg tablet 10 mg PO TID 09/07/21 10/20/24 omeprazole 20 mg capsule,delayed 20 mg PO DAILYBB 09/07/21 10/20/24 release risperidone 2 mg tablet 2 mg PO AMHS 09/07/21 10/20/24 venlafaxine 37.5 mg tablet 37.5 mg PO AMHS 09/07/21 10/20/24 calcium 600 mg (as 1 tab PO BID 10/20/24 10/20/24 carbonate)-vitamin D3 5 mcg (200 unit) tablet (Calcium 600 + D(3)) multivitamin 1 tab PO DAILY 10/20/24 10/20/24 Results & Data (ED) Vital Signs Vital Signs - 24 hr 10/20/24 01:03 Temperature 37.1 C Temperature Source Oral Pulse Rate 131 H Pulse Rhythm Regular Pulse Strength Normal Respiratory Rate 20 Respiratory Effort / Characteristics Non-Labored Spontaneous Respiratory Depth Normal Respiratory Pattern Regular Blood Pressure 144/107 H Blood Pressure Mean 119 Blood Pressure Position Sitting Pulse Oximetry 99 Oxygen Delivery Method Room Air Sepsis Recent Fever Within 48 Hours Yes Sepsis New/Unexplained Change in Mental Status Yes Sepsis Action Taken by Nursing Physician Notified Home Medications Current Medication List: was personally reviewed by me Laboratory Data Attestation: I reviewed the patient's lab results. 10/23/24 06:37 10/24/24 05:41 Lab Results 10/20/24 10/20/24 10/20/24 Range/Units 01:15 01:21 01:28 WBC 6.30 (4.8-10.8) K/ul RBC 3.70 L (4.20-5.40) M/uL Hgb 7.8 L (12.0-16.0) g/dl Hct 24.2 L (37.0-47.0) % MCV 65.4 L (80.0-100.0) fL MCH 21.1 L (25.0-34.0) pg MCHC 32.2 (32.0-36.0) g/dL RDW Std Deviation 36.9 (36.4-46.3) fL RDW Coeff of Kasandra 15.9 H (11.5-14.5) % Plt Count 638 H (130-400) K/uL MPV 8.9 L (9.4-12.4) fL Immature Gran % (Auto) 0.5 % Neut % (Auto) 64.4 % Lymph % (Auto) 22.2 % Marion % (Auto) 9.4 % Eos % (Auto) 3.2 % Baso % (Auto) 0.3 % Neut # (Auto) 4.06 (1.40-6.50) K/uL Lymph # (Auto) 1.40 (1.20-3.40) K/uL Marion # (Auto) 0.59 (0.11-0.59) K/uL Eos # (Auto) 0.20 (0.00-0.50) K/uL Baso # (Auto) 0.02 (0.00-0.20) K/uL Immature Gran # (Auto) 0.03 (0.01-0.20) K/uL Polychromasia 1+ Microcytosis Present Ovalocytes 1+ Sodium 119 L* (136-145) mmol/L Potassium 3.9 (3.5-5.1) mmol/L Chloride 88 L (98-107) mmol/L Carbon Dioxide 22 (21-32) mmol/L Anion Gap 9 (3-11) BUN 7 (6-23) mg/dl Creatinine 0.48 L (0.6-1.2) mg/dl Est Cr Clr Drug Dosing 91.1 ml/min eGFR 106.36 BUN/Creatinine Ratio 14.6 (10-20) Glucose 103 H (70-99(Fasting)) mg/dl Osmolality Cancelled Calcium 7.7 L (8.6-10.3) mg/dl Magnesium 1.1 L (1.7-2.4) mg/dl Total Bilirubin 0.4 (0.2-1.0) mg/dl AST 14 (13-39) U/L ALT 8 (7-52) U/L Alkaline Phosphatase 121 H (34-104) U/L Troponin I High Sens 7.5 (0-14) pg/ml Total Protein 6.0 (6.0-8.3) gm/dl Albumin 2.7 L (3.4-5.0) gm/dl Globulin 3.3 (2.5-4.0) gm/dl Albumin/Globulin Ratio 0.8 L (0.9-2) Procalcitonin 0.18 (0-0.5) ng/ml TSH 5.667 H (0.300-4.500) uIu/ml Free T4 1.05 (0.61-1.60) ng/dl Urine Color Yellow Urine Appearance Clear (Clear) Urine pH 8.0 H (4.5-7.5) Ur Specific [place] 1.006 (1.000-1.030) Urine Protein Trace H (Negative) Urine Glucose (UA) Negative (Negative) Urine Ketones Negative (Negative) Urine Blood Negative (Negative) Urine Nitrite Negative (Negative) Urine Bilirubin Negative (Negative) Urine Urobilinogen Negative (Negative) Ur Leukocyte Esterase Trace H (Negative) Urine WBC (Auto) 0-5 (0-5) /hpf Urine RBC (Auto) 0-2 (0-2) /hpf U Hyaline Cast (Auto) 0-2 (0-2) /lpf U Epithel Cells (Auto) 0-2 (0-2) /hpf Urine Bacteria (Auto) None Seen (None Seen) Urine Osmolality Cancelled Ur Random Sodium 88 mmol/L Urine Opiates Screen Neg (Neg) Ur Methadone, Qual Neg (Neg) Urine Fentanyl Screen Neg (Neg) Urine Barbiturates Neg (Neg) Ur Phencyclidine (PCP) Neg (Neg) U Amphetamin/Meth Scrn Neg (Neg) MDMA (Ecstasy) Screen Neg (Neg) U Benzodiazepines Scrn Neg (Neg) Ur Cocaine Metabolite Neg (Neg) U Marijuana (THC) Screen Neg (Neg) Ethyl Alcohol mg/dL < 10.0 (<10.0) mg/dl Miscellaneous Test REPORT Miscellaneous Test 2 REPORT Administered Medications Acetaminophen (Acetaminophen 325 Mg Tab) 650 mg PO QID PRN PRN Reason: pain/fever Stop: 11/19/24 04:33 Last Admin: 10/20/24 04:55 Dose: 650 mg Documented By: PALLAVI Cyanocobalamin (Cyanocobalamin (B-12) 500 Mcg Tablet) 500 mcg PO QAM [facility] Stop: 11/20/24 09:14 Last Admin: 10/24/24 08:45 Dose: 500 mcg Documented By: Admin: 10/23/24 08:20 Dose: 500 mcg Documented By: Admin: 10/22/24 07:49 Dose: 500 mcg Documented By: Admin: 10/21/24 10:34 Dose: 500 mcg Documented By: SAMANTHA Hydroxyzine HCl (Hydroxyzine Hcl 10 Mg Tab) 10 mg PO QID PRN PRN Reason: Anxiety Stop: 11/19/24 03:09 Last Admin: 10/24/24 08:44 Dose: 10 mg Documented By: Admin: 10/23/24 13:18 Dose: 10 mg Documented By: Admin: 10/23/24 08:25 Dose: 10 mg Documented By: Admin: 10/21/24 08:13 Dose: 10 mg Documented By: Admin: 10/20/24 18:22 Dose: 10 mg Documented By: Admin: 10/20/24 05:19 Dose: 10 mg Documented By: PALLAVI Magnesium Oxide (Magnesium Oxide 400 Mg Tab) 400 mg PO BID RICKY Stop: 11/21/24 08:59 Last Admin: 10/24/24 08:45 Dose: 400 mg Documented By: Admin: 10/23/24 19:42 Dose: 400 mg Documented By: Admin: 10/23/24 08:20 Dose: 400 mg Documented By: [facility] Admin: 10/22/24 20:41 Dose: 400 mg Documented By: Admin: 10/22/24 09:50 Dose: 400 mg Documented By: ALBIN Multivitamins (Multivitamin Tab) 1 tab PO DAILY [facility] Stop: 11/19/24 08:59 Last Admin: 10/24/24 08:45 Dose: 1 tab Documented By: [facility] Admin: 10/23/24 08:20 Dose: 1 tab Documented By: Admin: 10/22/24 07:49 Dose: 1 tab Documented By: Admin: 10/21/24 08:14 Dose: 1 tab Documented By: Admin: 10/20/24 07:48 Dose: 1 tab Documented By: DIAZ Pantoprazole Sodium (Pantoprazole 40 Mg Tab) 40 mg PO DAILYBB [facility] Stop: 11/19/24 06:29 Last Admin: 10/24/24 05:34 Dose: 40 mg Documented By: Admin: 10/23/24 05:26 Dose: 40 mg Documented By: Admin: 10/22/24 05:43 Dose: 40 mg Documented By: Admin: 10/21/24 05:54 Dose: 40 mg Documented By: Admin: 10/20/24 05:38 Dose: 40 mg Documented By: PALLAVI Thiamine HCl (Thiamine Hcl 100 Mg Tab) 200 mg PO QAM [facility] Stop: 11/22/24 12:59 Last Admin: 10/24/24 08:45 Dose: 200 mg Documented By: [facility] Admin: 10/23/24 13:18 Dose: 200 mg Documented By: DAVID Discontinued Medications Clonidine HCl (Clonidine Hcl 0.1 Mg Tab) 0.1 mg PO NOW ONE Stop: 10/20/24 02:33 Last Admin: 10/20/24 04:36 Dose: 0.1 mg Documented By: PALLAVI Sodium Chloride (Nss) 1,000 mls @ 999 mls/hr IV .Q1H1M ONE Stop: 10/20/24 02:28 Last Infusion: 10/20/24 02:14 Dose: Infused Documented By: LUIS MANUEL Admin: 10/20/24 01:37 Dose: 999 mls/hr Documented By: LUIS MANUEL Sodium Chloride (Nss) 1,000 mls @ 125 mls/hr IV .Q8H RICKY Stop: 10/21/24 02:14 Last Infusion: 10/20/24 02:47 Dose: Infused Documented By: LUIS MANUEL Admin: 10/20/24 02:16 Dose: 125 mls/hr Documented By: LUIS MANUEL Magnesium Sulfate/Dextrose (Magnesium Sulfate / D5w) 1 gm in 100 mls @ 200 mls/hr IV Q30M [facility] Stop: 10/20/24 03:18 Last Infusion: 10/20/24 03:49 Dose: Infused Documented By: LUIS MANUEL Admin: 10/20/24 02:46 Dose: 200 mls/hr Documented By: LUIS MANUEL Infusion: 10/20/24 02:46 Dose: Infused Documented By: LUIS MANUEL Admin: 10/20/24 02:23 Dose: 200 mls/hr Documented By: LUIS MANUEL Magnesium Sulfate/Dextrose (Magnesium Sulfate / D5w) 1 gm in 100 mls @ 50 mls/hr IV Q2H [facility] Stop: 10/20/24 07:29 Last Infusion: 10/20/24 08:15 Dose: Infused Documented By: Admin: 10/20/24 06:09 Dose: 50 mls/hr Documented By: Infusion: 10/20/24 06:09 Dose: Infused Documented By: Admin: 10/20/24 04:35 Dose: 50 mls/hr Documented By: PALLAVI Potassium Chloride/Sodium Chloride (Normal Saline W/20 Meq Kcl) 20 meq in 1,000 mls @ 60 mls/hr IV .[id number] ONE Stop: 10/20/24 21:15 Last Infusion: 10/20/24 21:57 Dose: Infused Documented By: Admin: 10/20/24 05:05 Dose: 60 mls/hr Documented By: PALLAVI Iron Sucrose 200 mg/ Sodium (Chloride) 110 mls @ 220 mls/hr IV ONE ONE Stop: 10/20/24 19:29 Last Infusion: 10/20/24 20:11 Dose: Infused Documented By: Admin: 10/20/24 19:41 Dose: 220 mls/hr Documented By: PALLAVI Magnesium Sulfate/Dextrose (Magnesium Sulfate / D5w) 1 gm in 100 mls @ 50 mls/hr IV ONE ONE Stop: 10/21/24 11:42 Last Infusion: 10/21/24 12:08 Dose: Infused Documented By: Admin: 10/21/24 10:03 Dose: 50 mls/hr Documented By: SAMANTHA Magnesium Sulfate/Dextrose (Magnesium Sulfate / D5w) 1 gm in 100 mls @ 50 mls/hr IV ONE ONE Stop: 10/22/24 09:24 Last Infusion: 10/22/24 09:50 Dose: Infused Documented By: Admin: 10/22/24 07:50 Dose: 50 mls/hr Documented By: [facility] Magnesium Sulfate/Dextrose (Magnesium Sulfate / D5w) 1 gm in 100 mls @ 50 mls/hr IV ONE ONE Stop: 10/23/24 12:32 Last Infusion: 10/23/24 13:12 Dose: Infused Documented By: [facility] Admin: 10/23/24 10:59 Dose: 50 mls/hr Documented By: [facility] Sodium Phosphate 6 mmol/ (Sodium Chloride) 102 mls @ 88 mls/hr IV ONE ONE Stop: 10/23/24 13:54 Last Infusion: 10/23/24 15:16 Dose: Infused Documented By: [facility] Admin: 10/23/24 13:18 Dose: 88 mls/hr Documented By: [facility] Magnesium Sulfate/Dextrose (Magnesium Sulfate / D5w) 1 gm in 100 mls @ 50 mls/hr IV ONE ONE Stop: 10/23/24 20:31 Last Infusion: 10/23/24 21:45 Dose: Infused Documented By: Admin: 10/23/24 19:42 Dose: 50 mls/hr Documented By: Magnesium Sulfate/Dextrose (Magnesium Sulfate / D5w) 1 gm in 100 mls @ 50 mls/hr IV ONE ONE Stop: 10/24/24 09:36 Last Infusion: 10/24/24 11:04 Dose: Infused Documented By: [facility] Admin: 10/24/24 08:44 Dose: 50 mls/hr Documented By: DAVID Lorazepam (Lorazepam 2 Mg/1 Ml Vial) 1 mg IV NOW STA Stop: 10/20/24 01:29 Last Admin: 10/20/24 01:37 Dose: 1 mg Documented By: LUIS MANUEL Lorazepam (Lorazepam 2 Mg/1 Ml Vial) 1 mg IV NOW STA Stop: 10/20/24 02:08 Last Admin: 10/20/24 02:16 Dose: 1 mg Documented By: LUIS MANUEL Metoprolol Tartrate (Metoprolol Tartrate 1 Mg/Ml Vial) 2.5 mg IV NOW STA Stop: 10/20/24 04:37 Last Admin: 10/20/24 04:55 Dose: 2.5 mg Documented By: PALLAVI Metoprolol Tartrate (Metoprolol Tartrate 1 Mg/Ml Vial) 2.5 mg IV NOW STA Stop: 10/20/24 05:56 Last Admin: 10/20/24 06:08 Dose: 2.5 mg Documented By: PALLAVI Sodium Chloride (Sodium Chloride 1 Gm Tablet) 2 gm PO TID [facility] Stop: 11/22/24 13:59 Last Admin: 10/23/24 13:18 Dose: 2 gm Documented By: DAVID Sodium Phosphate (Sodium Phosphate 3 Mmol/1 Ml Infusion) 6 mmol IV NOW STA Stop: 10/23/24 12:35 Last Admin: 10/23/24 13:12 Dose: Not Given Documented By: DAVID Thiamine HCl (Thiamine Hcl 100 Mg Tab) 100 mg PO QAM [facility] Stop: 11/20/24 08:59 Last Admin: 10/23/24 08:20 Dose: 100 mg Documented By: Admin: 10/22/24 07:50 Dose: 100 mg Documented By: Admin: 10/21/24 09:24 Dose: 100 mg Documented By: SAMANTHA Urea (Urea (Urea-Na) 15 Gm Pack) 30 gm PO BID [facility] Stop: 11/22/24 09:59 Last Admin: 10/23/24 10:52 Dose: 30 gm Documented By: DAVID Discharge Plan Visit Data Chief Complaint: Altered Mental Status Stated Complaint: anxiety, ams ED Provider: Vilma Trejo Discharge Problem: Hyponatremia, Altered mental status Patient Disposition: Admitted As Inpatient Discharge Instructions Interventions: ED Discharge Assessment Last Done: 10/20/24 03:21 Discharge Problem: Altered mental status Qualifiers: Altered mental status type: unspecified Qualified Code(s): R41.82 - Altered mental status, unspecified
[2024-10-20 02:04] LABS: Mean Platelet Volume 8.9 fL (9.4-12.4); Microcytosis Present; Ovalocytes 1+; Platelet Count 638 K/uL (130-400); Polychromasia 1+
[2024-10-20 02:06] LABS: Albumin Globulin Ratio 0.8 (0.9-2); Albumin Level 2.7 gm/dl (3.4-5.0); BUN Creatinine Ratio 14.6 (10-20); Bilirubin,Total 0.4 mg/dl (0.2-1.0); Calcium 7.7 mg/dl (8.6-10.3); Creatinine Clr Calc Pharmacy 91.1 ml/min; Globulin 3.3 gm/dl (2.5-4.0); Magnesium 1.1 mg/dl (1.7-2.4); Potassium 3.9 mmol/L (3.5-5.1); Troponin I High Sensitivity 7.5 pg/ml (0-14)
[2024-10-20] MEDS: SODIUM CHLORIDE 0.9% 1,000 ML IV SCH (02:16)
[2024-10-20 02:22] LABS: Thyroid Stimulating Hormone 5.667 uIu/ml (0.300-4.500)
[2024-10-20] MEDS: MAGNESIUM SULFATE / D5W 1 GM/100 ML BAG IV SCH ×2 (02:23→04:35)
--- NOTE | 2024-10-20 02:27 | CT Scan Report ---
EXAM: CT head/brain wo con CLINICAL HISTORY: AMS TECHNIQUE: Multiple axial images are obtained from the skull base to the vertex without contrast. CT scan was performed according to ALARA (as low as reasonable achievable). COMPARISON: 04/19/2023 FINDINGS: No evidence of space occupying lesion, hemorrhage, edema, mass effect, midline shift, extra axial collection, or hydrocephalus is noted. Basal cisterns are symmetric and normal in size and configuration. The cooper-white matter differentiation is preserved. Visualized paranasal sinuses and mastoid air cells are well aerated. Orbital contents are within normal limits. Bony structures are intact. IMPRESSION: 1. No evidence of acute intracranial abnormality is demonstrated. 2. No new findings Electronically signed by Charles Hewitt 10-20-2024 02:26 AM
--- NOTE | 2024-10-20 02:41 | History & Physical Report ---
Date of Service October 20, 2024 Assessment & Plan (1) Hyponatremia: Plan: Acute on chronic Encephalopathy secondary to above Home neuropsychotropic medications and baclofen contributory aphasia/memory impairment as per records as per records, possible beginning dementia as per outpatient [facility] [place] Neurology note from last year New onset anemia, no overt bleed, FOBT done at the ER was negative rheumatoid arthritis on Orencia mood disorder Tourette's syndrome Malnutrition (low BMI) past alcohol abuse Admit to medical telemetry Careful correction of sodium Hyponatremia work-up, Nephrology consult Hold baclofen, neuropsychotropic medications until mentation back to baseline Anemia workup, transfuse PRBC if hemoglobin less than 7 and or for symptomatic anemia, patient incoherent to sign consent for prospective blood transfusion currently Nutrition consult re: low BMI DVT prophylaxis. SCDs Full code Attempted to contact patient partner (Mr. Sebastien Grace, contact # [phone]) to obtain additional information and to discuss plan of care. No answer, left message for call back. Text document was generated using MOGL voice recognition software. It may contain grammatical or spelling errors. Kindly contact undersigned for clarification of any documentation item in question. History of Present Illness Chief Complaint: I do not know as per patient Altered mental status/anxiety as per records Primary Care Provider: Marck Bardales MD History obtained from patient and records. Medical history significant for aphasia as per records, chronic hyponatremia, rheumatoid arthritis on Orencia, hyperlipidemia, mood disorder, Tourette's syndrome, memory impairment as per records, past alcohol abuse. Last confinement 2022 for delirium. Patient noted to be more confused and anxious than usual by boyfriend last night. Patient denies headache, chest pain, SOB, abdominal pain. Denies bleeding concerns. Denies inordinate intake of water. Patient brought to the ER by EMS for evaluation. Medical History as above 2024 colonoscopy poor preparation, diverticulosis, hemorrhoids Surgical History : Dental surgery, foot/toe surgery Family History : Breast cancer, pancreatic cancer, DM, heart disease Personal/Social history : Non-smoker, past alcohol abuse, disabled Allergies Allergy/AdvReac Type Severity Reaction Status Date / Time Penicillins Allergy Unknown Unknown Verified 10/20/24 01:19 Home Medications Medication Instructions Recorded Confirmed Type abatacept 125 mg/mL subcutaneous 125 mg subcut WK 09/07/21 10/20/24 History syringe (Orencia) baclofen 10 mg tablet 10 mg PO TID 09/07/21 10/20/24 History omeprazole 20 mg capsule,delayed 20 mg PO DAILYBB 09/07/21 10/20/24 History release risperidone 2 mg tablet 2 mg PO AMHS 09/07/21 10/20/24 History venlafaxine 37.5 mg tablet 37.5 mg PO AMHS 09/07/21 10/20/24 History calcium 600 mg (as 1 tab PO BID 10/20/24 10/20/24 History carbonate)-vitamin D3 5 mcg (200 unit) tablet (Calcium 600 + D(3)) multivitamin 1 tab PO DAILY 10/20/24 10/20/24 History Past Med/Surg History Problem List (Updated 10/20/24 @ 06:14 by Eliazar Mon MD) Hyponatremia NSVT (nonsustained ventricular tachycardia) Delirium (Acute) Alcohol dependence in remission Iron deficiency anemia Rheumatoid arthritis (Acute) Tourette's (Acute) Depression (Acute) Altered mental status (Acute) Medical History HLD (hyperlipidemia) Surgical History No pertinent past surgical history Social History (Updated 10/20/24 @ 01:44 by Vilma Trejo MD) Smoking Status: Unknown if ever smoked Second Hand Exposure: No; Do You Dip or Chew Tobacco: No; Hx Alcohol Use: No Hx Substance Use: No Preferred Language: Turkmen Communication Ability: Impaired Biology Laboratory Assistant Required: No Beliefs That Will Affect Care: None Current Living Situation: Spouse Current Living Situation Comment: LIVES WITH BOYFRIEND MARTINA GRACE Feels Safe at Home: Yes Assistive Devices: Denture - Upper and Denture - Lower Review of Systems Review of Systems: Could not be reliably obtained secondary to aphasia Physical Exam Physical Exam: GENERAL: Aphasic, slightly anxious, underweight, no respiratory distress SKIN: Pallor , warm HEENT: Pale palpebral conjunctivae, no ptosis, dry buccal mucosa NECK : Supple, no tenderness CHEST : CTA, no tenderness HEART : Tachycardic, no obvious murmurs ABDOMEN: no distention, nontender RECTAL : Intact sphincter, brown stool (FOBT negative) EXTREMITIES : No LE swelling/tenderness, no other conspicuous deformities noted NEUROLOGIC : Aphasic, no facial asymmetry, gait and stance not assessed Results & Data Results & Data Vital Signs (Past 12 Hours) Vital Signs Temp Pulse Resp BP Pulse Ox O2 Del Method 10/20/24 01:58 121 H 10/20/24 01:03 37.1 C 131 H 20 144/107 H 99 Room Air Laboratory Results Laboratory Results WBC 6.30 K/ul (4.8-10.8) 10/20/24 01:15 RBC 3.70 M/uL (4.20-5.40) L 10/20/24 01:15 Hgb 7.8 g/dl (12.0-16.0) L 10/20/24 01:15 Hct 24.2 % (37.0-47.0) L 10/20/24 01:15 MCV 65.4 fL (80.0-100.0) L 10/20/24 01:15 MCH 21.1 pg (25.0-34.0) L 10/20/24 01:15 MCHC 32.2 g/dL (32.0-36.0) 10/20/24 01:15 RDW Std Deviation 36.9 fL (36.4-46.3) 10/20/24 01:15 RDW Coeff of Kasandra 15.9 % (11.5-14.5) H 10/20/24 01:15 Plt Count 638 K/uL (130-400) H 10/20/24 01:15 MPV 8.9 fL (9.4-12.4) L 10/20/24 01:15 Immature Gran % (Auto) 0.5 % 10/20/24 01:15 Neut % (Auto) 64.4 % 10/20/24 01:15 Lymph % (Auto) 22.2 % 10/20/24 01:15 Treasure % (Auto) 9.4 % 10/20/24 01:15 Eos % (Auto) 3.2 % 10/20/24 01:15 Baso % (Auto) 0.3 % 10/20/24 01:15 Neut # (Auto) 4.06 K/uL (1.40-6.50) 10/20/24 01:15 Lymph # (Auto) 1.40 K/uL (1.20-3.40) 10/20/24 01:15 Treasure # (Auto) 0.59 K/uL (0.11-0.59) 10/20/24 01:15 Eos # (Auto) 0.20 K/uL (0.00-0.50) 10/20/24 01:15 Baso # (Auto) 0.02 K/uL (0.00-0.20) 10/20/24 01:15 Immature Gran # (Auto) 0.03 K/uL (0.01-0.20) 10/20/24 01:15 Polychromasia 1+ 10/20/24 01:15 Microcytosis Present 10/20/24 01:15 Ovalocytes 1+ 10/20/24 01:15 Sodium 119 mmol/L (136-145) L* 10/20/24 01:15 Potassium 3.9 mmol/L (3.5-5.1) 10/20/24 01:15 Chloride 88 mmol/L (98-107) L 10/20/24 01:15 Carbon Dioxide 22 mmol/L (21-32) 10/20/24 01:15 Anion Gap 9 (3-11) 10/20/24 01:15 BUN 7 mg/dl (6-23) 10/20/24 01:15 Creatinine 0.48 mg/dl (0.6-1.2) L 10/20/24 01:15 Est Cr Clr Drug Dosing 91.1 ml/min 10/20/24 01:15 eGFR 106.36 10/20/24 01:15 BUN/Creatinine Ratio 14.6 (10-20) 10/20/24 01:15 Glucose 103 mg/dl (70-99(Fasting)) H 10/20/24 01:15 Calcium 7.7 mg/dl (8.6-10.3) L 10/20/24 01:15 Magnesium 1.1 mg/dl (1.7-2.4) L 10/20/24 01:15 Total Bilirubin 0.4 mg/dl (0.2-1.0) 10/20/24 01:15 AST 14 U/L (13-39) 10/20/24 01:15 ALT 8 U/L (7-52) 10/20/24 01:15 Alkaline Phosphatase 121 U/L (34-104) H 10/20/24 01:15 Troponin I High Sens 7.5 pg/ml (0-14) 10/20/24 01:15 Total Protein 6.0 gm/dl (6.0-8.3) 10/20/24 01:15 Albumin 2.7 gm/dl (3.4-5.0) L 10/20/24 01:15 Globulin 3.3 gm/dl (2.5-4.0) 10/20/24 01:15 Albumin/Globulin Ratio 0.8 (0.9-2) L 10/20/24 01:15 TSH 5.667 uIu/ml (0.300-4.500) H 10/20/24 01:15 Urine Color Yellow 10/20/24 01:15 Urine Appearance Clear (Clear) 10/20/24 01:15 Urine pH 8.0 (4.5-7.5) H 10/20/24 01:15 Ur Specific [place] 1.006 (1.000-1.030) 10/20/24 01:15 Urine Protein Trace (Negative) H 10/20/24 01:15 Urine Glucose (UA) Negative (Negative) 10/20/24 01:15 Urine Ketones Negative (Negative) 10/20/24 01:15 Urine Blood Negative (Negative) 10/20/24 01:15 Urine Nitrite Negative (Negative) 10/20/24 01:15 Urine Bilirubin Negative (Negative) 10/20/24 01:15 Urine Urobilinogen Negative (Negative) 10/20/24 01:15 Ur Leukocyte Esterase Trace (Negative) H 10/20/24 01:15 Urine WBC (Auto) 0-5 /hpf (0-5) 10/20/24 01:15 Urine RBC (Auto) 0-2 /hpf (0-2) 10/20/24 01:15 U Hyaline Cast (Auto) 0-2 /lpf (0-2) 10/20/24 01:15 U Epithel Cells (Auto) 0-2 /hpf (0-2) 10/20/24 01:15 Urine Bacteria (Auto) None Seen (None Seen) 10/20/24 01:15 Ethyl Alcohol mg/dL < 10.0 mg/dl (<10.0) 10/20/24 01:28 Impressions Chest X-Ray 10/20/24 01:15 EXAM: XR chest 1V portable CLINICAL HISTORY: weakness. TECHNIQUE: An X-ray image of the chest is obtained in AP projection. COMPARISON: Last study dated 04/19/2023. FINDINGS: Pulmonary Parenchyma: Relatively hyperinflated lungs with a suspected left upper lung zone small nodule. No evidence of consolidation, collapse, or masses. No evidence of pleural effusion or pleural thickening. Heart and Mediastinum: Heart size and shape are normal. No mediastinal widening or masses. No hilar or mediastinal lymphadenopathy. Prominent unfolded aortic knob (unchanged). Bony Thorax: Angulation in the right 3rd rib is noted, unchanged from the previous study; could be an old healed fracture. Bony thorax appears intact without fractures or deformities. Soft Tissues: Right neck soft tissue calcifications. Soft tissues overlying the chest wall are unremarkable. IMPRESSION: 1. Relatively hyperinflated lungs with a suspected left upper lung zone small nodule. (Interval new) 2. No acute cardiopulmonary abnormalities are identified. 3. Right neck soft tissue calcifications; could be vascular or lymph node. 4. Angulation in the right 3rd rib is noted, unchanged from the previous study; could be an old healed fracture. Electronically signed by Larry Dang 10-20-2024 02:[address] 10/20/24 01:15 EXAM: CT head/brain wo con CLINICAL HISTORY: AMS TECHNIQUE: Multiple axial images are obtained from the skull base to the vertex without contrast. CT scan was performed according to ALARA (as low as reasonable achievable). COMPARISON: 04/19/2023 FINDINGS: No evidence of space occupying lesion, hemorrhage, edema, mass effect, midline shift, extra axial collection, or hydrocephalus is noted. Basal cisterns are symmetric and normal in size and configuration. The cooper-white matter differentiation is preserved. Visualized paranasal sinuses and mastoid air cells are well aerated. Orbital contents are within normal limits. Bony structures are intact. IMPRESSION: 1. No evidence of acute intracranial abnormality is demonstrated. 2. No new findings Electronically signed by Charles Hewitt 10-20-2024 02:26 AM Diagnostic Findings EKG as per my interpretation :Rate 120, sinus tachycardia, normal axis, ST depressions inferior and lateral leads
[2024-10-20 03:01] LABS: T4 Free Thyroxine 1.05 ng/dl (0.61-1.60)
[2024-10-20] MEDS ORDERED: PROMETHAZINE 6.25 MG/50.25 ML BAG IV PRN (03:10)
[2024-10-20 03:16] LABS: Amphetamines+Metham, Urine Neg (Neg); Barbiturates, Urine Neg (Neg); Benzodiazepine, Urine Neg (Neg); Cocaine, Urine Neg (Neg); Fentanyl, Urine Neg (Neg); MDMA (Ecstacy), Urine Neg (Neg); Marijuana, Urine Neg (Neg); Methadone, Urine Neg (Neg); Opiate, Urine Neg (Neg); Phencyclidine, Urine Neg (Neg)
[2024-10-20 04:04] LABS: Hematocrit (blood only) 23.9 % (37.0-47.0); Hemoglobin 7.9 g/dl (12.0-16.0); Reticulocyte % 1.59 % (0.50-2.00); Reticulocytes # 0.06 10^6/uL (0.020-0.100)
[2024-10-20 04:30] LABS: Iron < 10 mcg/dl (35-150); Sodium 119 mmol/L (136-145); Transferrin 124 mg/dl (200-360)
[2024-10-20] MEDS: cloNIDine HCL 0.1 MG TAB PO ONE (04:36)
[2024-10-20 04:41] LABS: Ferritin 252.9 ng/ml (8-388)
[2024-10-20] MEDS: METOPROLOL TARTRATE 1 MG/ML VIAL IV STA ×2 (04:55→06:08)
[2024-10-20] MEDS: ACETAMINOPHEN 325 MG TAB PO PRN (04:55)
[2024-10-20] MEDS: NSS + 20MEQ KCL 20 MEQ/1,000 ML BAG IV ONE (05:05)
[2024-10-20] MEDS: hydrOXYzine HCl 10 MG TAB PO PRN (05:19)
[2024-10-20] MEDS: PANTOprazole 40 MG TAB PO SCH (05:38)
[2024-10-20 06:49] LABS: Influenza A virus by PCR Negative (Neg); Influenza B virus by PCR Negative (Neg); RSV by PCR Negative (Neg); SARS CoV2 RNA(COVID-19) Ceph NEGATIVE (Negative)
[2024-10-20] MEDS: MULTIVITAMIN TAB PO SCH (07:48)
--- OUTSIDE RECORDS SUMMARY | 2024-10-20 08:21 | External Medical Summary | Summary of Care ---
Author Name Unknown Organization [facility] Address [address] [place] [address] Phone [phone] Care Team Providers Care Resident Physician In Radiology Name Role Phone Jeffy BOOGIE MD, Marck Chapman Primary Care Provider [phone] Reason for Visit * Auth/Cert Specialty Diagnoses / Procedures Referred By Kourtney iverson Referred To Contact Diagnoses Iron deficiency anemia Iron deficiency anemia [D50.9] Procedures COLONOSCOPY, DIAGNOSTIC (RECTUM) EGD, FLEXIBLE, DIAGNOSTIC COLONOSCOPY FLEXIBLE PROXIMAL DIAGNOSTIC Harsh Gallardo MD [address] [place] [address] Phone: tel: fax: ENDO [facility], Endoscopy Room [facility] [address] [place] [phone] Phone: tel: Referral ID Status Reason Start Date Expiration Date Visits Re quested Visits Authorized [id number] Encounter Details Date Type Department Care Team (Latest Contact Info) Description 08/06/2024 9:27 AM EST - 08/06/2024 11:02 AM [facility] Hospital Encounter ENDO [facility], Endoscopy Room [facility] [address] [place] [phone] Harsh Gallardo MD [address] [place] [id number] Colonoscopy Discharge Disposition: Home - Self Care Allergies Active Allergy Reactions Criticality Noted Date Comments Penicillins Unknown Low 11/01/2003 Occurred as child, unknown documented as of this encounter (statuses as of 08/07/2024) Medications CALCIUM 600 + D 600-200 MG-UNIT PO TABSIndications :Arthritis, rheumatoid (HCC) one PO BID 60 12 10/21/19 07 Active MULTIVITAMINS PO TABS daily 0 06/12/20 07 Active Ferrous Sulfate 325 (65 Fe) MG Oral Tablet (Feosol) TAKE 1 TABLET BY MOUTH TWICE A DAY 180 Tablet 1 09/14/19 22 Active Additional Information Patient not taking.Reported on 08/05/2024 methylPREDNISol one 4 MG Oral Tablet (Medrol) Take 1 Tablet by mouth in the morning. 90 Tablet 1 12/27/19 23 Active Additional Information Patient not taking.Reported on 08/05/2024 Venlafaxine HCl 37.5 MG Oral Tablet (Effexor)Indica tions:Major depressive disorder, recurrent episode, moderate (HCC) TAKE 1 TABLET BY MOUTH IN THE MORNING AND 1 TABLET BEFORE BEDTIME. WITH FOOD.. 180 Tablet 3 10/27/19 24 Active Leflunomide 20 MG Oral Tablet (Arava)Indicati ons:Rheumatoid arthritis flare (HCC) TAKE 1 TABLET BY MOUTH EVERY DAY IN THE MORNING 90 Tablet 1 01/28/20 24 Active Additional Information Patient not taking.Reported on 08/05/2024 Baclofen 10 MG Oral Tablet (Lioresal)Indic ations:Rheumato id arthritis involving multiple sites with positive rheumatoid factor (HCC) TAKE 1 TABLET BY MOUTH THREE TIMES A DAY 270 Tablet 1 04/05/20 24 Active Orencia 125 MG/ML Subcutaneous Solution Prefilled Syringe (Abatacept)Fabiana cations:Rheumat oid arthritis involving multiple sites with positive rheumatoid factor (HCC) INJECT 125 MG (1 ML) UNDER THE SKIN ONCE A WEEK 4 mL 5 04/22/20 24 Active risperiDONE 2 MG Oral Tablet (RisperDAL)Fabiana cations:Sukhwinder de la Tourette's syndrome Take 1 Tablet by mouth in the morning and 1 Tablet before bedtime. 180 Tablet 3 04/23/20 24 Active Omeprazole 20 MG Oral Capsule Delayed Release (PriLOSEC)Indic ations:GERD (gastroesophage al reflux disease) TAKE 1 CAPSULE BY MOUTH IN THE MORNING. 1 HOUR BEFORE THE FIRST MEAL OF THE DAY. 90 Capsule 2 07/30/19 25 Active Risperidone (RISPERDAL) 4 MG TabletIndicatio ns:Sukhwinder de la Tourette's syndrome TAKE 1 TAB BY MOUTH AT BEDTIME. 90 Tab 3 02/16/20 19 024 Discontinued Orencia 125 MG/ML Subcutaneous Solution Prefilled Syringe (Abatacept)Fabiana cations:Rheumat oid arthritis involving multiple sites with positive rheumatoid factor (HCC) INJECT 125 MG (1 ML) UNDER THE SKIN ONCE A WEEK 4 mL 11 05/01/20 23 024 Discontinued Omeprazole 20 MG Oral Capsule Delayed Release (PriLOSEC)Indic ations:GERD (gastroesophage al reflux disease) TAKE 1 CAPSULE BY MOUTH IN THE MORNING. 1 HOUR BEFORE THE FIRST MEAL OF THE DAY. 90 Capsule 2 07/30/19 24 025 Discontinued risperiDONE 2 MG Oral Tablet (RisperDAL)Fabiana cations:Sukhwinder de la Tourette's syndrome TAKE 1 TABLET BY MOUTH TWICE A DAY 180 Tablet 01/26/20 24 024 Discontinued documented as of this encounter (statuses as of 08/07/2024) Active Problems Problem Noted Date Diagnosed Date Memory loss 07/09/2023 Aphasia 07/09/2023 Abnormal involuntary movement 07/09/2023 Rheumatoid arthritis involvi ng multiple sites with positive rheumatoid factor 02/29/2016 Encounter for long-term (cur rent) use of high-risk medication 07/13/2015 Major depressive disorder, recurrent episode, mo derate 04/26/2015 Iron deficiency anemia 09/05/2014 Elevated LDL cholesterol level 03/09/2014 Alcohol dependence in remission 06/10/2011 Encounter for long-term (current) use of medicat ions 09/01/2007 No advance directive on file 05/28/2006 SUKHWINDER TOURETTE DISORDER 11/01/2003 documented as of this encounter (statuses as of 08/07/2024) Resolved Problems Problem Noted Date Diagnosed Date Resolved Date 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 USE 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 03/05/2007 02/21/2014 Anemia 11/03/2003 03/05/2007 Alcohol dependence 11/01/2003 1 Overview (10/10/2015): ICD-10 update of inactive term Major depressive disorder 11/01/2003 Overview (04/22/2017): ICD-10 update of inactive term ARTHRITIS,RHEUMATOID 11/01/2003 016 Overview (03/25/2007): chronic prednisone therapy documented as of this encounter (statuses as of 08/07/2024) Immunizations Name Administration Dates Next Due COVID-19 mRNA, LNP-s, No Pre serve, 2-Dose Series (Pfizer) 11/01/2020,10/11/2020 H1N1 2009 Influenza, IM 07/20/2009 PPD 08/24/2008 Pneumococcal Conjugate Vacc, 13 Valent (Prevnar) 03/27/2020 Pneumococcal Polysaccharide PPV23 (Pneumovax) 04/18/2009,05/07/2006 04/18/2019 Seasonal Influenza Vac., MDV , IM, 0.5 mL (Fluzone) 03/21/2016,03/09/2014,03/19/2013,03/01,06/06/2011,04/24/2010,07/20/19 10,04/14/2008,05/09/2007,05/07/2006 Seasonal Influenza, PF, 6 M & above, IM , (FluLaval or Fluzone) 04/29/2023,03/27/2020,03/21/2017 Seasonal Influenza, Quadriva lent, No Preserve, IM 03/12/2019,03/14/2018,04/05/2015 Seasonal Influenza, Trivalen t, (IIV3), PF, (Fluzone) 04/23/2024,03/24/2024(Deferred: Patient Refused) TD, Preservative Free 04/13/2018 TDAP, Age 7 and older, IM (Adacel) 12/23/2007 Zoster Vaccine Recombinant (Shingrix) ,07/07/2020,09/28/2018,06/2017 documented as of this encounter Social History Tobacco Use Types Packs/Day Years Used Date Smoking Tobacco: Never Smokeless Tobacco: Never Alcohol Use Standard Drinks/Week Comments No 0 (1 standard drink = 0.6 oz pur e alcohol) PHQ-2 Answer Date Recorded PHQ Adult Total Score 0 04/23/2024 Utilities Answer Date Recorded Do you have trouble paying y our heating, water, or electric bill? (Adult - for ages 18 years and over) Not on file 12/16/2023 Is your family able to pay t he heat, water, or electric bill? (Household - for ages 0-17 years) Not on file 12/16/2023 Does your family have access to good internet? (Household - for ages 0-17 years) Not on file 12/16/2023 Social Connections Answer Date Recorded How often do you feel lonely or isolated from those around you? (Adult - for ages 18 years and over) Not on file 12/16/2023 Education Answer Date Recorded What is the highest level of school you have completed or the highest degree you have received? 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 Not on file Not on file Not on file DISABLED Not on file Not on file Not on file documented as of this encounter Last Filed Vital Signs Vital Sign Reading Time Taken Comments Blood Pressure 127/72 08/06/2024 10:44 AM EST Pulse 87 08/06/2024 10:44 AM EST Temperature 36.2 °C (97.2 °F) 08/06/2024 10:[address] Respiratory Rate 18 08/06/2024 10:44 AM EST Oxygen Saturation 100% 08/06/2024 10:44 AM EST Inhaled Oxygen Concentration - - Weight 56.7 kg (125 lb) 08/05/2024 8:52 AM EST Height 165.1 cm (5' 5") 08/05/2024 8:52 AM EST Body Mass Index 20.8 08/05/2024 8:52 AM EST documented in this encounter H&P Notes * Harsh Gallardo MD - 08/06/2024 10:06 AM EST Endoscopy Pre-Procedure Assessment Name: Lucie Mena Date: 08/06/2024 Time: 10:06 AM Procedure: Colonoscopy; with Indication(s) of average risk screening Endoscopy Pre-Procedure Assessment: Prior to the procedure, the patient was identified. The patient's history, medications and allergies were reviewed as per the Anesthesia Assessment. The patient is competent. The risks and benefits of the proposed procedure and the planned sedation were discussed with the patient. All questions were answered and informed consent for the procedure was obtained. This patient has undergone a preprocedural evaluation. A determination has been made to proceed with the planned procedure under [facility] procedural guidelines and the [facility] Non-Emergent, Elective Medical Services and Treatment Recommendations (published on 10-05-19). The community and hospital prevalence of COVID-19 has been discussed as well as this patient's specific risks associated with SARS-CoV-19 infection. Based upon the clinical acuity and patient-specific care considerations, this procedure is deemed a Tier II - Intermediate acuity treatment or service with either progression or the threat of progressive disease related to the delay in treatment. Not providing the service has the potential for increasing morbidity or mortality. BP 144/80 | Pulse 96 | Temp 36.1 °C (97 °F) (Tympanic) | Resp 18 | Ht 1.651 m (5' 5") | Wt 56.7 kg (125 lb) | SpO2 96% | BMI 20.80 kg/m² | BSA 1.61 m² Prior to Admission medications Medication Sig Last Dose Discont. Omeprazole 20 MG Oral Capsule Delayed Release (PriLOSEC) TAKE 1 CAPSULE BY MOUTH IN THE MORNING. 1 HOUR BEFORE THE FIRST MEAL OF THE DAY. Past Week risperiDONE 2 MG Oral Tablet (RisperDAL) Take 1 Tablet by mouth in the morning and 1 Tablet before bedtime. 08/05/2024 Morning Orencia 125 MG/ML Subcutaneous Solution Prefilled Syringe (Abatacept) INJECT 125 MG (1 ML) UNDER THE SKIN ONCE A WEEK 08/05/2024 Baclofen 10 MG Oral Tablet (Lioresal) TAKE 1 TABLET BY MOUTH THREE TIMES A DAY Past Week Venlafaxine HCl 37.5 MG Oral Tablet (Effexor) TAKE 1 TABLET BY MOUTH IN THE MORNING AND 1 TABLET BEFORE BEDTIME. WITH FOOD.. 08/05/2024 Morning MULTIVITAMINS PO TABS daily Past Week CALCIUM 600 + D 600-200 MG-UNIT PO TABS one PO BID Past Week Leflunomide 20 MG Oral Tablet (Arava) TAKE 1 TABLET BY MOUTH EVERY DAY IN THE MORNING Patient not taking: Reported on 08/05/2024 Not Taking methylPREDNISolone 4 MG Oral Tablet (Medrol) Take 1 Tablet by mouth in the morning. Patient not taking: Reported on 08/05/2024 Not Taking Ferrous Sulfate 325 (65 Fe) MG Oral Tablet (Feosol) TAKE 1 TABLET BY MOUTH TWICE A DAY Patient not taking: Reported on 08/05/2024 Not Taking Review of patient's allergies indicates: Allergen Reactions Penicillins Unknown Occurred as child, unknown Physical Exam: Mental Status Examination: alert and oriented. General: nad, calm Airway Examination: normal oropharyngeal airway and neck mobility. CV: no JVD Respiratory Examination: symmetrical excursion Abd:soft/ntd ASA Grade: III - A patient with severe systemic disease. After reviewing the risks and benefits, the patient was deemed in satisfactory condition to undergothe procedure. The anesthesia plan was to use general anesthesia. Harsh Gallardo MD 08/06/2024 documented in this encounter Procedure Notes * Marck Bardales III, MD - 08/06/2024 10:07 AM ESTAssociated Order(s): COLONOSCOPY [facility] Patient Name: uLcie Mena Procedure Date: 08/06/2024 10:07 AM Date of : 1960 Admit Type: Outpatient Note Status: Finalized Date of : 1960 Admit Type: Outpatient Age: 64 Room: [facility] 2 Gender: Female Note Status: Finalized Procedure: Colonoscopy Indications: Screening for colorectal malignant neoplasm Providers: Harsh Gallardo MD (Doctor) Referring MD: Marck Bardales III, MD (Referring MD) Medicines: Propofol per Anesthesia Complications: No immediate complications. Estimated blood loss: None. Procedure: Pre-Anesthesia Assessment: - - Prior to the procedure, a History and Physical was performed, patient medications, allergies and sensitivities were reviewed. The patient's tolerance of previous anesthesia was reviewed. See Epic for further details. - The risks, benefits, and alternatives of the procedure including the sedation options and risks were discussed with the patient. All questions were answered and informed consent was obtained. - Patient identification and proposed procedure were verified prior to the procedure by the physician and the nurse. The procedure was verified in the procedure room. - See [facility] for documentation of the pre-procedure assessment including ASA status. - After I obtained informed consent, the scope was carefully and meticulously passed under direct vision only when the lumen was definitively identified. CO2 insufflation was utilized throughout the entire procedure exclusively. After I obtained informed consent, the scope was passed under direct vision. All instruments were visually inspected immediately before and after removal from the patient to ensure they are fully intact. Throughout the procedure, the patient's blood pressure, pulse, and oxygen saturations were monitored continuously. The colonoscopy was performed without difficulty. The patient tolerated the procedure well. The quality of the bowel preparation was poor. The Colonoscope was introduced through the anus and advanced to the cecum, identified by appendiceal orifice and ileocecal valve. Findings & Specimens: Extensive amounts of stool was found in the entire colon, precluding visualization. Multiple small-mouthed diverticula were found in the sigmoid colon. Internal hemorrhoids were found during retroflexion. The exam was otherwise without abnormality on direct and retroflexion views. Impression: - Preparation of the colon was poor. - Stool in the entire examined colon. - Diverticulosis in the sigmoid colon. - Internal hemorrhoids. - The examination was otherwise normal on direct and retroflexion views. - No specimens collected. Recommendation: - Discharge patient to home (with escort). - Return to referring physician as previously scheduled. - Patient has a contact number available for emergencies. The signs and symptoms of potential delayed complications were discussed with the patient. Return to normal activities tomorrow. Written discharge instructions were provided to the patient. - Repeat colonoscopy at the next available appointment because the bowel preparation was poor. Harsh Gallardo MD 08/06/2024 10:25:36 AM This report has been signed electronically. documented in this encounter Nursing Notes * Alix Ly, RN - 08/06/2024 10:58 AM EST Repeat colonoscopy rescheduled for Feb 04 - arrive at 0815. 2 day prep due to poor prep today. Advised to take miralax daily for the week before. Appointment card given to patient. * Veronica Arnold RN - 08/06/2024 10:56 AM EST Patient is alert, pain free, passing flatus and tolerating po fluids prior to discharge. Patient has been visited by Dr. Gallardo. Patient has received and demonstrates understanding of discharge instructions. Patient is transported via w/c to private auto accompanied by endo staff. * Veronica Arnold RN - 08/06/2024 10:26 AM EST Patient awake. Tolerated anesthesia and procedure well. * Neena Hickman RN - 08/06/2024 10:25 AM EST No abdominal pressure given See anesthesia record for medication administered during procedure. Neena Hickman RN Post-procedure scope cleaning began at bedside by endo maintenance technician Pt. Tolerated colonoscopy well, no complications, soundly asleep, abdomen soft, transported to postendoscopy via stretcher by [employer]ATE[employer]ETING ASSOCIATE. * Janina Kim RN - 08/06/2024 10:04 AM EST Pt prepped and ready. Call langston in reach. documented in this encounter Plan of Treatment Upcoming Encounters Date Type Department Care Team (Latest Contact Info) Description 12/29/2024 3:00 PM EDT Office Visit Rheumatology [facility] [address] [place] [phone] Deo Lord CRNP [address] [place] [address] [place] [address] 02/04/2025 9:00 AM EDT Hospital Encounter ENDO [facility], Endoscopy Room [facility] [address] [place] [phone] Harsh Gallardo MD [address] [place] [address] 02/04/2025 9:00 AM EDT - 02/04/2025 9:30 AM EDT Surgery ENDO [facility], Endoscopy Room [facility] [address] [place] [phone] Harsh Gallardo MD [address] [place] [address] COLONOSCOPY FLEXIBLE PROXIMAL DIAGNOSTIC Scheduled Procedures Name Priority Associated Diagnoses Date/Ti me COLONOSCOPY FLEXIBLE PROXIMAL DIAGNOSTIC Recall Iron deficiency anemia 02/04/2025 9:00 AM EDT Health Maintenance Due Date Last Done Comments Cologuard 2006 Fecal Occult Blood Test 2006 Sigmoidoscopy 2006 Mammogram 10/18/2023 10/17/2022, 10/2020, 03/27/2020, Additional history exists COVID-19 Vaccine ( - season) 2024 08/24/2023, 11/01/2020, 10/11/2020 Pneumococcal Vaccine: 50+ Years (4 of 4 - PCV20 or PCV21) 03/27/2025 03/27/2020, 04/18/2009, 05/07/2006 Depression Monitoring 04/23/2025 04/23/2024 Pap Smear 06/16/2026 06/16/2023, 03/01, 01/26/2013, Additional history exists DXA Scan 07/31/2026 07/31/2021, 12/2015, 03/30/2012, Additional history exists DTap/Tdap Vaccines (3 - Td or Tdap) 04/13/2028 04/13/2018, 12/23/2007 Cervical Cancer Screening 06/16/2028 HPV/Co-Test 06/16/2028 06/16/2023 Lipid Panel 07/09/2028 07/09/2023, 08/28, 10/16/2020, Additional history exists Colonoscopy 08/06/2029 08/06/2024, 09/28, 10/13/2017, Additional history exists Colorectal Cancer Screening 08/06/2029 Zoster Vaccines Completed 10/03/2022, 01/2021, 09/28/2018, Additional history exists Influenza Vaccine (FLU shot) Completed 04/23/2024, 04/29/2023, 03/27/2020, Additional history exists RETIRED - COLONOSCOPY-EVERY 5 YRS AGES 18-100 Discontinued 08/06/2024, 10/13/2017, 10/13/2017, Additional history exists HPV (Gardasil) Vaccine Aged Out No lo nger eligible based on patient's age to complete this topic Hepatitis B Vaccine Aged Out No longe r eligible based on patient's age to complete this topic MENINGOCOCCAL (MENACTRA/MENVEO) Aged Out No longer eligible based on patient's age to complete this topic documented as of this encounter Medical Devices Not on filedocumented as of this encounter Procedures Procedure Name Priority Date/Time Associated Diagnosis Comments COLONOSCOPY 08/06/2024 10:07 AM EST documented in this encounter Results * COLONOSCOPY (08/06/2024 10:07 AM EST) 08/06/2024 10:0 7 AM EST Narrative Procedure Note Marck Bardales III, MD - 08/06/2024 10:[address] [facility] Patient Name: Lucie Mena Procedure Date: 08/06/2024 10:07 AM Date of : 1960 Admit Type: Outpatient Note Status:Finalized Date of : 1960 Admit Type: Outpatient Age: 64 Room: [facility] 2 Gender: Female Note Status: Finalized Procedure: Colonoscopy Indications: Screening for colorectal malignant neoplasm Providers: Harsh Gallardo MD (Doctor) Referring MD: Marck Bardales III, MD (Referring MD) Medicines: Propofol per Anesthesia Complications: No immediate complications. Estimated blood loss:None. Procedure: Pre-Anesthesia Assessment: - - Prior to the procedure, a History and Physicalwas performed, patient medications, allergies and sensitivities were reviewed. Thepatient's tolerance of previous anesthesia was reviewed. See [facility] for furtherdetails. - The risks, benefits, and alternatives of theprocedure including the sedation options and risks were discussed with the patient.All questions were answered and informed consent was obtained. - Patient identification and proposed procedurewere verified prior to the procedure by the physician and the nurse. The procedure wasverified in the procedure room. - See [facility] for documentation of the pre-procedureassessment including ASA status. - After I obtained informed consent, the scope wascarefully and meticulously passed under direct vision only when the lumen wasdefinitively identified. CO2 insufflation was utilized throughout the entire procedureexclusively. After I obtained informed consent, the scope waspassed under direct vision. All instruments were visually inspected immediatelybefore and after removal from the patient to ensure they are fully intact. Throughout the procedure, the patient's bloodpressure, pulse, and oxygen saturations were monitored continuously. The colonoscopy wasperformed without difficulty. The patient tolerated the procedure well. The qualityof the bowel preparation was poor. The Colonoscope was introduced through the anus andadvanced to the cecum, identified by appendiceal orifice and ileocecal valve. Findings & Specimens: Extensive amounts of stool was found in the entire colon, precludingvisualization. Multiple small-mouthed diverticula were found in the sigmoid colon. Internal hemorrhoids were found during retroflexion. The exam was otherwise without abnormality on direct and retroflexionviews. Impression: - Preparation of the colon was poor. - Stool in the entire examined colon. - Diverticulosis in the sigmoid colon. - Internal hemorrhoids. - The examination was otherwise normal on directand retroflexion views. - No specimens collected. Recommendation: - Discharge patient to home (with escort). - Return to referring physician as previouslyscheduled. - Patient has a contact number available foremergenes. The signs and symptoms of potential delayed complications were discussed withthe patient. Return to normal activities tomorrow. Written discharge instructionswere provided to the patient. - Repeat colonoscopy at the next availableappointment because the bowel preparation was poor. Harsh Gallardo MD 08/06/2024 10:25:36 AM This report has been signed electronically. us Marck Bardales III, MD GASTRO LOWER Final Resul t documented in this encounter Administered Medications Inactive Administered Medications - up to 3 most recent administrations Medication Order MAR Action Action Date Dose Rate Site Isolyte-S pH 7.4 infusion Intravenous, at 75 mL/hr, for Outpatient patient Plasma-LYTE 148, isolyte-S, and isolyte-S pH 7.4 are considered equivalent - including for MAR barcode scanning., CONTINUOUS, Starting on Fri08/06/24 at 1015, Until Fri08/06/24 at 1502, Pre-Op Restarted 08/06/2024 10:23 AM EST Continue from Pre-Op 08/06/2024 10:05 AM EST 75 mL/hr New Bag 08/06/2024 10:04 AM EST 75 mL/hr 75 mL/hr documented in this encounter Active and Recently Administered Medications Times are shown in EST. Continuous Medication Order 08/04/2024 08/05/2024 08/06/2024 Isolyte-S pH 7.4 infusion Intravenous, at 75 mL/hr, for Outpatient patient Plasma-LYTE 148, isolyte-S, and isolyte-S pH 7.4 are considered equivalent - including for MAR barcode scanning., CONTINUOUS, Starting on Fri08/06/24 at 1015, Until Fri08/06/24 at 1502, Pre-Op 1004 (New Bag - Prov ider: Janina Kim, RN)1005 (Continue from Pre-Op - Provider: Sobeida Moreau CRNA)1022 (Paused - Provider: Sobeida Moreau CRNA - Comment: Switch to gravity)1023 (Restarted - Provider: Sobeida Moreau CRNA) documented in this encounter Care Teams Resident Physician In Radiology Relationship Specialty Start Date End Date Marck Bardales III, MD [address] [address] PCP - General Family Medicine 05/28/16 documented as of this encounter
--- OUTSIDE RECORDS SUMMARY | 2024-10-20 08:21 | External Medical Summary | Summary of Care ---
Author Name Unknown Organization [facility] Address [address] [place] [address] Phone [phone] Care Team Providers Care Cylinder Block Hole Reliner Name Role Phone Jeffy BOOGIE MD, Marck Chapman Primary Care Provider [phone] Reason for Visit * Reason Onset Date Comments Follow Up 08/20/2024 Patient needs to labs, unable to refill medication Encounter Details Date Type Department Care Team (Late st Contact Info) Description 08/20/2024 Telephone Rheumatology [facility] [address] [place] [address] [facility] [place] [address] Follow Up (Patient needs to labs, unable t... Allergies Active Allergy Reactions Criticality Noted Date Comments Penicillins Unknown Low 11/01/2003 Occurred as child, unknown documented as of this encounter (statuses as of 08/20/2024) Medications CALCIUM 600 + D 600-200 MG-UNIT PO TABSIndications: Arthritis, rheumatoid (HCC) one PO BID 60 12 7 Active MULTIVITAMINS PO TABS daily 0 7 Active Ferrous Sulfate 325 (65 Fe) MG Oral Tablet (Feosol) TAKE 1 TABLET BY MOUTH TWICE A DAY 180 Tablet 1 2 Active Additional Information Patient not taking.Reported on 08/05/2024 methylPREDNISolo ne 4 MG Oral Tablet (Medrol) Take 1 Tablet by mouth in the morning. 90 Tablet 1 3 Active Additional Information Patient not taking.Reported on 08/05/2024 Venlafaxine HCl 37.5 MG Oral Tablet (Effexor)Indicat ions:Major depressive disorder, recurrent episode, moderate (HCC) TAKE 1 TABLET BY MOUTH IN THE MORNING AND 1 TABLET BEFORE BEDTIME. WITH FOOD.. 180 Tablet 3 4 Active Leflunomide 20 MG Oral Tablet (Arava)Indicatio ns:Rheumatoid arthritis flare (HCC) TAKE 1 TABLET BY MOUTH EVERY DAY IN THE MORNING 90 Tablet 1 4 Active Additional Information Patient not taking.Reported on 08/05/2024 Baclofen 10 MG Oral Tablet (Lioresal)Indica tions:Rheumatoid arthritis involving multiple sites with positive rheumatoid factor (HCC) TAKE 1 TABLET BY MOUTH THREE TIMES A DAY 270 Tablet 1 4 Active Orencia 125 MG/ML Subcutaneous Solution Prefilled Syringe (Abatacept)Indic ations:Rheumatoi d arthritis involving multiple sites with positive rheumatoid factor (HCC) INJECT 125 MG (1 ML) UNDER THE SKIN ONCE A WEEK 4 mL 5 4 Active risperiDONE 2 MG Oral Tablet (RisperDAL)Indic ations:Tai de la Tourette's syndrome Take 1 Tablet by mouth in the morning and 1 Tablet before bedtime. 180 Tablet 3 4 Active Omeprazole 20 MG Oral Capsule Delayed Release (PriLOSEC)Indica tions:GERD (gastroesophagea l reflux disease) TAKE 1 CAPSULE BY MOUTH IN THE MORNING. 1 HOUR BEFORE THE FIRST MEAL OF THE DAY. 90 Capsule 2 5 Active documented as of this encounter (statuses as of 08/20/2024) Active Problems Problem Noted Date Diagnosed Date [...] 09/01/2007 No advance directive on file 05/28/2006 TAI TOURETTE DISORDER 11/01/2003 documented as of this encounter (statuses as of 08/20/2024) Resolved Problems Problem Noted Date Diagnosed Date Resolved Date SHIP/REC/DOC CONTROL DRUG USE STEROIDS 03/05/2007 02/21/2014 Anemia 11/03/2003 03/05/2007 Alcohol dependence 11/01/2003 1 Overview (10/10/2015): ICD-10 update of inactive term Major depressive disorder 11/01/2003 Overview (04/22/2017): ICD-10 update of inactive term ARTHRITIS,RHEUMATOID 11/01/2003 016 Overview (03/25/2007): chronic prednisone therapy documented as of this encounter (statuses as of 08/20/2024) Immunizations Name Administration Dates Next Due COVID-19 mRNA, LNP-s, No Pre serve, 2-Dose Series (Storypanda) 11/01/2020,10/11/2020 H1N1 2009 Influenza, IM 07/20/2009 PPD [...] IM (Adacel) 12/23/2007 Zoster Vaccine Recombinant (Shingrix) ,07/07/2020,09/28/2018,090 06/2017 documented as of this encounter Social History Tobacco Use Types Packs/Day Years Used Date Smoking Tobacco: Never Smokeless Tobacco: Never Alcohol Use Standard Drinks/Week Comments No 0 (1 standard drink = 0.6 oz pur e alcohol) PHQ-2 Answer Date Recorded PHQ Adult Total Score 0 04/23/2024 Education Answer Date Recorded What is the [...] on file documented as of this encounter Miscellaneous Notes * Telephone Encounter - Deo Lord CRNP - 08/20/2024 8:02 AM EST LVMTCB documented in this encounter Plan of Treatment Upcoming Encounters Date Type Department Care Team (Latest Contact Info) Description 12/29/2024 3:00 PM EDT Office Visit Rheumatology [facility] [address] [phone] Deo Lord CRNP [address] [facility] [place] [address] 02/04/2025 9:00 AM EDT Hospital Encounter ENDO [facility], Endoscopy Room [facility] [address] [phone] Harsh Gallardo MD [address] [address] 02/04/2025 9:00 AM EDT - 02/04/2025 9:30 AM EDT Surgery ENDO [facility], Endoscopy Room [facility] [address] [place] [phone] Harsh Gallardo MD [address] [place] [address] COLONOSCOPY FLEXIBLE PROXIMAL DIAGNOSTIC Scheduled Procedures Name Priority Associated Diagnoses Date/Ti me COLONOSCOPY FLEXIBLE PROXIMAL DIAGNOSTIC Recall Iron deficiency anemia 02/04/2025 9:00 AM EDT Health Maintenance Due Date Last Done Comments Cologuard 2006 Fecal Occult Blood Test 2006 Sigmoidoscopy 2006 Mammogram 10/18/2023 10/17/2022, 10/2020, 03/27/2020, Additional history exists COVID-19 Vaccine ( - 2023- season) 2024 08/24/2023, 11/01/2020, 10/11/2020 Pneumococcal Vaccine: [...] 10/16/2020, Additional history exists Colonoscopy 08/06/2029 08/06/2024, 12/2024, 10/13/2017, Additional history exists Colorectal Cancer Screening 08/06/2029 Zoster Vaccines Completed 10/03/2022, 01/2021, 09/28/2018, Additional history exists Influenza Vaccine (FLU shot) Completed 04/23/2024, 04/29/2023, 03/27/2020, Additional history exists RETIRED - COLONOSCOPY-EVERY 5 YRS AGES 18-100 Discontinued 08/06/2024, 08/06/2024, 10/13/2017, Additional history exists HPV (Gardasil) Vaccine Aged Out No lo nger eligible based on patient's age to complete this topic Hepatitis B Vaccine Aged Out No longe r eligible based on patient's age to complete this topic MENINGOCOCCAL (MENACTRA/MENVEO) Aged Out No longer eligible based on patient's age to complete this topic Meningitis B Vaccine (Bexsero/Trumemba) Aged Out No longer eligible based on patient's age to complete this topic documented as of this encounter Medical Devices Not on filedocumented as of this encounter Care Teams Cylinder Block Hole Reliner Relationship Specialty Start Date End Date Marck Bardales III, MD [address] [facility] [place] [address] PCP - General Family Medicine 05/28/16 documented as of this encounter
--- OUTSIDE RECORDS SUMMARY | 2024-10-20 08:21 | External Medical Summary | Summary of Care ---
Author Name Unknown Organization [facility] Address [address] [place] [address] Phone [phone] Care Team Providers Care Net Software Engineer Name Role Phone Jeffy BOOGIE MD, John E Primary Care Provider [phone] Reason for Visit * Reason Onset Date Comments Appointment 08/31/2024 Encounter Details Date Type Department Care Team (Late st Contact Info) Description 08/31/2024 Telephone Family Practice [facility] [address] [place] [address] Marck Bardales III, MD [address] [place] [address] Appointment Allergies Active Allergy Reactions Criticality Noted Date Comments Penicillins Unknown Low 11/01/2003 Occurred as child, unknown documented as of this encounter (statuses as of 09/02/2024) Medications CALCIUM 600 + D 600-200 MG-UNIT [...] as of this encounter (statuses as of 09/02/2024) Active Problems Problem Noted Date Diagnosed Date [...] as of this encounter (statuses as of 09/02/2024) Resolved Problems Problem Noted Date Diagnosed Date Resolved Date CUSTODIAL DRUG USE STEROIDS 03/05/2007 02/21/2014 Anemia 11/03/2003 03/05/2007 Alcohol dependence 11/01/2003 1 Overview (10/10/2015): ICD-10 update of inactive term Major depressive disorder 11/01/2003 Overview (04/22/2017): ICD-10 update of inactive term ARTHRITIS,RHEUMATOID 11/01/2003 016 Overview (03/25/2007): chronic prednisone therapy documented as of this encounter (statuses as of 09/02/2024) Immunizations Name Administration Dates Next Due COVID-19 mRNA, LNP-s, No Pre serve, 2-Dose Series (SchoolOut) 11/01/2020,10/11/2020 H1N1 2009 Influenza, IM 07/20/2009 PPD [...] encounter Miscellaneous Notes * Telephone Encounter - Yajaira Ramos OSA - 09/02/2024 11:05 AM EST Pt scheduled 02/04 with zac * Telephone Encounter - Lanie Dunbar OSA - 08/31/2024 4:39 PM EST Pt called miss procedure from 08/06/24 and would like to reschedule please call her back' Thank you [phone] documented in this encounter Plan of Treatment Upcoming Encounters Date Type Department Care Team (Latest Contact Info) Description 12/29/2024 3:00 PM EDT Office Visit Rheumatology [facility] [place] [address] [phone] Deo Lord CRNP [address] [facility] [place] [address] 02/04/2025 9:00 AM EDT Hospital Encounter ENDO [facility], Endoscopy Room [facility] [address] [place] [phone] Harsh Gallardo MD [address] [place] [address] 02/04/2025 9:00 AM EDT - 02/04/2025 9:30 AM EDT Surgery ENDO [facility], Endoscopy Room [facility] [address] [place] [phone] Harsh Gallardo MD [address] [place] [address] COLONOSCOPY FLEXIBLE PROXIMAL DIAGNOSTIC Scheduled Procedures Name [...] filedocumented as of this encounter Care Teams Net Software Engineer Relationship Specialty Start Date End Date Marck Bardales III, MD [address] [facility] [place] [address] PCP - General Family Medicine 05/28/16 documented as of this encounter
--- OUTSIDE RECORDS SUMMARY | 2024-10-20 08:22 | External Medical Summary | Summary of Care ---
Author Name Unknown Organization [facility] Address [address] [place] [address] Phone [phone] Care Team Providers Care Foam Tank Laminator Name Role Phone Jeffy BOOGIE MD, Marck Chapman Primary Care Provider [phone] Encounter Details Date Type Department Care Team (Late st Contact Info) Description 04/28/2024 Telephone [facility], Operating Room [facility] [address] [place] [phone] Harsh Gallardo MD [address] [place] [address] Allergies Active Allergy Reactions Criticality Noted Date Comments Penicillins Unknown Low 11/01/2003 Occurred as child, unknown documented as of this encounter (statuses as of 05/18/2024) Medications CALCIUM 600 + D 600-200 MG-UNIT PO TABSIndications:A rthritis, rheumatoid (HCC) one PO BID 60 12 7 Active MULTIVITAMINS PO TABS daily 0 7 Active Ferrous Sulfate 325 (65 Fe) MG Oral Tablet (Feosol) TAKE 1 TABLET BY MOUTH TWICE A DAY 180 Tablet 1 2 Active methylPREDNISolon e 4 MG Oral Tablet (Medrol) Take 1 Tablet by mouth in the morning. 90 Tablet 1 3 Active Omeprazole 20 MG Oral Capsule Delayed Release (PriLOSEC)Indicat ions:GERD (gastroesophageal reflux disease) TAKE 1 CAPSULE BY MOUTH IN THE MORNING. 1 HOUR BEFORE THE FIRST MEAL OF THE DAY. 90 Capsule 2 4 Active Venlafaxine HCl 37.5 MG Oral Tablet (Effexor)Indicati ons:Major depressive disorder, recurrent episode, moderate (HCC) TAKE 1 TABLET BY MOUTH IN THE MORNING AND 1 TABLET BEFORE BEDTIME. WITH FOOD.. 180 Tablet 3 4 Active Leflunomide 20 MG Oral Tablet (Arava)Indication s:Rheumatoid arthritis flare (HCC) TAKE 1 TABLET BY MOUTH EVERY DAY IN THE MORNING 90 Tablet 1 4 Active Baclofen 10 MG Oral Tablet (Lioresal)Indicat ions:Rheumatoid arthritis involving multiple sites with positive rheumatoid factor (HCC) TAKE 1 TABLET BY MOUTH THREE TIMES A DAY 270 Tablet 1 4 Active Orencia 125 MG/ML Subcutaneous Solution Prefilled Syringe (Abatacept)Indica tions:Rheumatoid arthritis involving multiple sites with positive rheumatoid factor (HCC) INJECT 125 MG (1 ML) UNDER THE SKIN ONCE A WEEK 4 mL 5 4 Active risperiDONE 2 MG Oral Tablet (RisperDAL)Indica tions:Tai de la Tourette's syndrome Take 1 Tablet by mouth in the morning and 1 Tablet before bedtime. 180 Tablet 3 4 Active documented as of this encounter (statuses as of 05/18/2024) Active Problems Problem Noted Date Diagnosed Date [...] as of this encounter (statuses as of 05/18/2024) Resolved Problems Problem Noted Date Diagnosed Date Resolved Date PAPER INSPECTOR DRUG USE STEROIDS 03/05/2007 02/21/2014 Anemia 11/03/2003 03/05/2007 Alcohol dependence 11/01/2003 1 Overview (10/10/2015): ICD-10 update of inactive term Major depressive disorder 11/01/2003 Overview (04/22/2017): ICD-10 update of inactive term ARTHRITIS,RHEUMATOID 11/01/2003 016 Overview (03/25/2007): chronic prednisone therapy documented as of this encounter (statuses as of 05/18/2024) Immunizations Name Administration Dates Next Due COVID-19 [...] IM (Adacel) 12/23/2007 Zoster Vaccine Recombinant (Shingrix) ,07/07/2020,09/28/2018,09/06/2017 documented as of this encounter Social History [...] encounter Miscellaneous Notes * Telephone Encounter - Lorena Palacios OSA - 05/18/2024 3:53 PM EST Lmm SHIVA Qureshi 05/18/2024 3:53 PM * Telephone Encounter - Karine Pittman RN - 04/28/2024 9:46 AM EDT Pt was not feeling well and having a lot of pain (unspecified). Stated that she called yesterday tocancel. Will need to be rescheduled. documented in this encounter Plan of Treatment Scheduled Procedures Name Priority Associated Diagnoses Date/Ti me COLONOSCOPY FLEXIBLE PROXIMAL DIAGNOSTIC Recall Iron deficiency anemia Health Maintenance Due Date Last Done Comments Cologuard 2006 Fecal Occult Blood Test 2006 Sigmoidoscopy 2006 Colonoscopy 10/13/2022 10/13/2017, 09/28, 10/29/2016, Additional history exists Colorectal Cancer Screening 10/13/2022 Mammogram 10/18/2023 10/17/2022, 10/2020, 03/27/2020, Additional history exists COVID-19 Vaccine ( - season) 2024 08/24/2023, 11/01/2020, 10/11/2020 Depression Monitoring 04/23/2025 04/23/2024 Pneumococcal Vaccine: Pediatrics (0 to 5 Years) and At-Risk Patients (6 to 64 Years) (4 of 4 - PPSV23 or PCV20) 2026 03/27/2020, 04/18/2009, 05/07/2006 Pap Smear 06/16/2026 06/16/2023, 03/01, 01/26/2013, Additional history exists DXA Scan 07/31/2026 07/31/2021, 12/2015, 03/30/2012, Additional history exists DTap/Tdap Vaccines (3 - Td or Tdap) 04/13/2028 04/13/2018, 12/23/2007 Cervical Cancer Screening 06/16/2028 HPV/Co-Test 06/16/2028 06/16/2023 Lipid Panel 07/09/2028 07/09/2023, 08/28, 10/16/2020, Additional history exists RETIRED - COLONOSCOPY-EVERY 5 YRS AGES 18-100 Discontinued 10/13/2017, 10/13/2017, 10/29/2016, Additional history exists Zoster Vaccines Completed 10/03/2022, 01/2021, 09/28/2018, Additional history exists Influenza Vaccine (FLU shot) Completed 04/23/2024, 04/29/2023, 03/27/2020, Additional history exists HPV (Gardasil) Vaccine Aged [...] filedocumented as of this encounter Care Teams Foam Tank Laminator Relationship Specialty Start Date End Date Marck Bardales III, MD [address] [place] [address] PCP - General Family Medicine 05/28/16 documented as of this encounter
--- OUTSIDE RECORDS SUMMARY | 2024-10-20 08:22 | External Medical Summary | Summary of Care ---
Author Name Unknown Organization [facility] Address [address] [place] [address] Phone [phone] Care Team Providers Care Sand Filler Name Role Phone Jeffy BOOGIE MD, Marck Chapman Primary Care Provider [phone] Encounter Details Date Type Department Care Team (Late st Contact Info) Description 04/28/2024 Telephone OR [facility], Operating Room [facility] [address] [place] [phone] Harsh Gallardo MD [address] [place] [address] Allergies Active Allergy Reactions Criticality Noted Date Comments Penicillins Unknown Low 11/01/2003 Occurred as child, unknown documented as of this encounter (statuses as of 05/25/2024) Medications CALCIUM 600 + D 600-200 MG-UNIT [...] as of this encounter (statuses as of 05/25/2024) Active Problems Problem Noted Date Diagnosed Date [...] as of this encounter (statuses as of 05/25/2024) Resolved Problems Problem Noted Date Diagnosed Date Resolved Date 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 03/05/2007 02/21/2014 Anemia 11/03/2003 03/05/2007 Alcohol dependence 11/01/2003 1 Overview (10/10/2015): ICD-10 update of inactive term Major depressive disorder 11/01/2003 Overview (04/22/2017): ICD-10 update of inactive term ARTHRITIS,RHEUMATOID 11/01/2003 016 Overview (03/25/2007): chronic prednisone therapy documented as of this encounter (statuses as of 05/25/2024) Immunizations Name Administration Dates Next Due COVID-19 [...] Telephone Encounter - Lorena Palacios OSA - 05/25/2024 1:29 PM EST Scheduled SHIVA Qureshi 05/25/2024 1:29 PM * Telephone Encounter - Lorena Palacios OSA [...] Department Care Team (Latest Contact Info) Description 08/04/2024 9:45 AM EST Hospital Encounter ENDO [facility], Endoscopy Room [facility] [address] [place] [phone] Harsh Gallardo MD [address] [place] [address] 08/04/2024 9:45 AM EST - 08/04/2024 10:15 AM EST Surgery ENDO [facility], Endoscopy Room [facility] [address] [place] [phone] Harsh Gallardo MD [address] [place] [address] COLONOSCOPY FLEXIBLE PROXIMAL DIAGNOSTIC Scheduled Procedures Name Priority Associated Diagnoses Date/Ti me COLONOSCOPY FLEXIBLE PROXIMAL DIAGNOSTIC Recall Iron deficiency anemia 08/04/2024 9:45 AM EST Health Maintenance Due Date Last Done Comments Cologuard 2006 Fecal Occult Blood Test 2006 Sigmoidoscopy 2006 Colonoscopy 10/13/2022 10/13/2017, 09/28, 10/29/2016, Additional history exists Colorectal Cancer Screening 10/13/2022 Mammogram 10/18/2023 10/17/2022, 10/2020, 03/27/2020, Additional history exists COVID-19 Vaccine ( season) 2024 08/24/2023, 11/01/2020, 10/11/2020 Depression Monitoring [...] filedocumented as of this encounter Care Teams Sand Filler Relationship Specialty Start Date End Date Marck Bardales III, MD [address] [place] [address] PCP - General Family Medicine 05/28/16 documented as of this encounter
--- OUTSIDE RECORDS SUMMARY | 2024-10-20 08:22 | External Medical Summary | Summary of Care ---
Author Name Unknown Organization [facility] Address [address] [place] [address] Phone [phone] Care Team Providers Care Rug Scratcher Name Role Phone Jeffy BOOGIE MD, Marck Chapman Primary Care Provider [phone] Reason for Visit * Reason Onset Date Comments Precert Not Needed 06/14/2024 Orencia Encounter Details Date Type Department Care Team (Late st Contact Info) Description 06/14/2024 Telephone Rheumatology [address] [address] Deo Lord CRNP [address] [place] [address] Precert Not Needed (Orencia) Allergies Active Allergy Reactions Criticality Noted Date Comments Penicillins Unknown Low 11/01/2003 Occurred as child, unknown documented as of this encounter (statuses as of 07/21/2024) Medications CALCIUM 600 + D 600-200 MG-UNIT [...] as of this encounter (statuses as of 07/21/2024) Active Problems Problem Noted Date Diagnosed Date [...] as of this encounter (statuses as of 07/21/2024) Resolved Problems Problem Noted Date Diagnosed Date Resolved Date DIRECTOR EXPERIMENTAL MEDICINE DRUG USE STEROIDS 03/05/2007 02/21/2014 Anemia 11/03/2003 03/05/2007 Alcohol dependence 11/01/2003 1 Overview (10/10/2015): ICD-10 update of inactive term Major depressive disorder 11/01/2003 Overview (04/22/2017): ICD-10 update of inactive term ARTHRITIS,RHEUMATOID 11/01/2003 016 Overview (03/25/2007): chronic prednisone therapy documented as of this encounter (statuses as of 07/21/2024) Immunizations Name Administration Dates Next Due COVID-19 mRNA, LNP-s, No Pre serve, 2-Dose Series ([email or web address].io) 11/01/2020,10/11/2020 H1N1 2009 Influenza, IM 07/20/2009 PPD [...] IM (Adacel) 12/23/2007 Zoster Vaccine Recombinant (Shingrix) ,07/07/2020,09/28/2018,0906/2017 documented as of this encounter Social History [...] encounter Miscellaneous Notes * Telephone Encounter - Amy Jackson LPN - 07/21/2024 2:17 PM EST Drug Name and Formulation: Orencia 125MG/ML syringes How Prescribed(directions/sig): WEEKLY Qty and Day Supply: 8 Did you receive insurance information from outside the chart? No, received insurance information within the chart Valid auth start date: N/A Valid auth end date: N/A Rx Insurance Info: [employer]AL Reference #: [id number] * Telephone Encounter - Amy Jackson LPN - 06/14/2024 1:55 PM EST Please prior auth Orencia per [employer] Pet[place]: [id number] Thank you! documented in this encounter Plan of Treatment Upcoming Encounters Date Type Department Care Team (Latest Contact Info) Description 08/04/2024 9:45 AM EST Hospital Encounter ENDO [facility], Endoscopy Room [facility] [address] [place] [phone] Harsh Gallardo MD [address] [place] [address] 08/04/2024 9:45 AM EST - 08/04/2024 10:15 AM EST Surgery ENDO [facility], Endoscopy Room [facility] [address] [place] [phone] Harsh Gallardo MD [address] [place] [address] COLONOSCOPY FLEXIBLE PROXIMAL DIAGNOSTIC Scheduled Procedures Name [...] filedocumented as of this encounter Care Teams Rug Scratcher Relationship Specialty Start Date End Date Marck Bardales III, MD [address] [facility] [address] PCP - General Family Medicine 05/28/16 documented as of this encounter
--- OUTSIDE RECORDS SUMMARY | 2024-10-20 08:22 | External Medical Summary | Summary of Care ---
Author Name Unknown Organization [facility] Address [address] [place] [address] Phone [phone] Care Team Providers Care Drafter (Cad) Electrical Name Role Phone Jeffy BOOGIE MD, Marck Chapman Primary Care Provider [phone] Reason for Visit * Reason Onset Date Comments Procedure 08/03/2024 Encounter Details Date Type Department Care Team (Late st Contact Info) Description 08/03/2024 Telephone Pre Surgery Center, [facility] [address] [place] [address] Harsh Gallardo MD [address] [facility] [place] [address] Procedure Allergies Active Allergy Reactions Criticality Noted Date Comments Penicillins Unknown Low 11/01/2003 Occurred as child, unknown documented as of this encounter (statuses as of 08/04/2024) Medications CALCIUM 600 + D 600-200 MG-UNIT [...] the morning. 90 Tablet 1 3 Active Venlafaxine HCl 37.5 MG Oral Tablet [...] as of this encounter (statuses as of 08/04/2024) Active Problems Problem Noted Date Diagnosed Date [...] 09/01/2007 No advance directive on file 05/28/2006 TIA TOURETTE DISORDER 11/01/2003 documented as of this encounter (statuses as of 08/04/2024) Resolved Problems Problem Noted Date Diagnosed Date Resolved Date HALF-WAY DRUG USE STEROIDS 03/05/2007 02/21/2014 Anemia 11/03/2003 03/05/2007 Alcohol dependence 11/01/2003 1 Overview (10/10/2015): ICD-10 update of inactive term Major depressive disorder 11/01/2003 Overview (04/22/2017): ICD-10 update of inactive term ARTHRITIS,RHEUMATOID 11/01/2003 016 Overview (03/25/2007): chronic prednisone therapy documented as of this encounter (statuses as of 08/04/2024) Immunizations Name Administration Dates Next Due COVID-19 mRNA, LNP-s, No Pre serve, 2-Dose Series (Ultromex) 11/01/2020,10/11/2020 H1N1 2009 Influenza, IM 07/20/2009 PPD [...] IM (Adacel) 12/23/2007 Zoster Vaccine Recombinant (Shingrix) ,07/07/2020,09/28/2018,09/0 06/2017 documented as of this encounter Social [...] encounter Miscellaneous Notes * Telephone Encounter - Riya Boggs OSA - 08/03/2024 5:49 PM EST Pt returned call stating that she needs to reschedule procedure. Attempted to transfer pt to clinicbut it was after hours. Please call pt back. * Telephone Encounter - Beatrice Murphy RN - 08/03/2024 8:06 AM EST Called patient for pre anesthesia evaluation for upcoming procedure ,no answer. Left message on machine /request return call documented in this encounter Plan of Treatment Upcoming Encounters Date Type Department Care Team (Latest Contact Info) Description 08/06/2024 10:15 AM EST Hospital Encounter ENDO [facility], Endoscopy Room [facility] [address] [place] [phone] Harsh Gallardo MD [address] [place] [phone] 08/06/2024 10:15 AM EST - 08/06/2024 10:45 AM EST Surgery ENDO [facility], Endoscopy Room [facility] [address] [place] [address] Harsh Gallardo MD [address] [place] [phone] COLONOSCOPY FLEXIBLE PROXIMAL DIAGNOSTIC 12/29/2024 3:00 PM EDT Office Visit Rheumatology [facility] [address] [place] [phone] Deo Lord CRNP [address] [place] [address], [place] [address] Scheduled Procedures Name Priority Associated Diagnoses Date/Ti me COLONOSCOPY FLEXIBLE PROXIMAL DIAGNOSTIC Recall Iron deficiency anemia 08/06/2024 10:15 AM EST Health Maintenance Due Date Last [...] filedocumented as of this encounter Care Teams Drafter (Cad) Electrical Relationship Specialty Start Date End Date Marck Bardales III, MD [address] [place] [address] PCP - General Family Medicine 05/28/16 documented as of this encounter
--- OUTSIDE RECORDS SUMMARY | 2024-10-20 08:22 | External Medical Summary | Summary of Care ---
Author Name Unknown Organization [facility] Address [address] [place] [address] Phone [phone] Care Team Providers Care Financial Services Director Name Role Phone Jeffy BOOGIE MD, Marck Chapman Primary Care Provider [phone] Reason for Visit * Reason Onset Date Comments Preop Pt Assessment 07/28/2024 Encounter Details Date Type Department Care Team (Late st Contact Info) Description 07/28/2024 Telephone Pre Surgery Center, [facility] [address] [place] [address] Harsh Gallardo MD [address] [place] [address] Preop Pt Assessment Allergies Active Allergy Reactions Criticality Noted Date Comments Penicillins Unknown Low 11/01/2003 Occurred as child, unknown documented as of this encounter (statuses as of 08/03/2024) Medications CALCIUM 600 + D 600-200 MG-UNIT [...] as of this encounter (statuses as of 08/03/2024) Active Problems Problem Noted Date Diagnosed Date [...] as of this encounter (statuses as of 08/03/2024) Resolved Problems Problem Noted Date Diagnosed Date Resolved Date 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 03/05/2007 02/21/2014 Anemia 11/03/2003 03/05/2007 Alcohol dependence 11/01/2003 1 Overview (10/10/2015): ICD-10 update of inactive term Major depressive disorder 11/01/2003 Overview (04/22/2017): ICD-10 update of inactive term ARTHRITIS,RHEUMATOID 11/01/2003 016 Overview (03/25/2007): chronic prednisone therapy documented as of this encounter (statuses as of 08/03/2024) Immunizations Name Administration Dates Next Due COVID-19 [...] on file documented as of this encounter Plan of Treatment Upcoming Encounters Date Type Department Care Team (Latest Contact Info) Description 08/06/2024 10:15 AM EST Hospital Encounter ENDO [facility], Endoscopy Room [facility] [address] [place] [phone] Harsh Gallardo MD [address] [place] [address] 08/06/2024 10:15 AM EST - 08/06/2024 10:45 AM EST Surgery ENDO [facility], Endoscopy Room [facility] [address] [place] [phone] Harsh Gallardo MD [address] [place] [phone] COLONOSCOPY FLEXIBLE PROXIMAL DIAGNOSTIC Scheduled Procedures Name Priority Associated Diagnoses Date/Ti me COLONOSCOPY FLEXIBLE PROXIMAL DIAGNOSTIC Recall Iron deficiency anemia 08/06/2024 10:15 AM EST Health Maintenance Due Date Last Done Comments Cologuard 2006 Fecal Occult Blood Test 2006 Sigmoidoscopy 2006 Colonoscopy 10/13/2022 10/13/2017, 09/28, 10/29/2016, Additional history exists Colorectal Cancer Screening 10/13/2022 Mammogram 10/18/2023 10/17/2022, 10/2020, 03/27/2020, Additional history exists COVID-19 Vaccine (4 - season) 2024 08/24/2023, 11/01/2020, 10/11/2020 Pneumococcal [...] filedocumented as of this encounter Care Teams Financial Services Director Relationship Specialty Start Date End Date Marck Bardales III, MD [address] [place] [address] PCP - General Family Medicine 05/28/16 documented as of this encounter
--- OUTSIDE RECORDS SUMMARY | 2024-10-20 08:22 | External Medical Summary | Summary of Care ---
Author Name Unknown Organization [facility] Address [address] [place] [address] Phone [phone] Care Team Providers Care Elderly Caregiver Name Role Phone Jeffy BOOGEI MD, Marck Chapman Primary Care Provider [phone] Reason for Referral * Evaluate & Treat - Unlimited Visits (Within 10 days (routine)) - Pending Review Specialty Diagnoses / Procedures Referred By Kourtney iverson Referred To Contact Podiatry Diagnoses Pain in both feet Marck Bardales III, MD [address] [place] [address] Referral ID Status Reason Start Date Expiration Date Visits Requested Visits Authorized [id number] Pending Review Specialty Services Required [phone] Question Answer Referral Priority Within 10 days (routine) Where should this appointment be scheduled? [facility] Which condition are you referring this patient for? General Foot Pain * Ancillary Services (Within 30 days (routine)) - Pending Review Specialty Diagnoses / Procedures Referred By Kourtney iverson Referred To Contact Gastroenterology Diagnoses Iron deficiency anemia, unspecified iron deficiency anemia type Marck Bardales III, MD [address] [place] [address] Referral ID Status Reason Start Date Expiration Date Visits Requested Visits Authorized [id number] Pending Review Ancillary Services Required [phone] Question Answer Referral Priority Within 30 days (routine) Where should this appointment be scheduled? [facility] Comments ALERT: Do not order for pediatric patients (18 years or younger). Cancel off screen and order PEDS GASTROENTEROLOGY CONSULT (Type: 1 visit only-Evaluate and Treat) The following Pt. Instructions are available: - Gastro Colonoscopy Prep Instructions [[id number]] - Gastro Colonoscopy Prep Instructions (Iraqi Version) [[id number]] Go to the Pt. Instructions section within the Visit Navigator to access. Colonoscopy ASGE Guidelines: Iron deficiency anemia ADDITIONAL INFORMATION 1. Is the patient on Coumadin? No 2. Is the patient on Pradaxa? No\\ Reason for Visit * Reason Onset Date Comments Follow Up Medication Administration 04/23/2024 Flu an d/or Pneumo Inj Encounter Details Date Type Department Care Team (Late st Contact Info) Description 04/23/2024 11:40 AM EDT Office Visit [facility] [place] [address] [facility] [place] [address] Marck Bardales III, MD [address] [facility] [place] [address] Iron deficiency anemia, unspecified iron deficiency anemia type*; Need for prophylactic vaccination and inoculation against influenza; SUKHWINDER TOURETTE DISORDER; Pain in both feet Allergies Active Allergy Reactions Criticality Noted Date Comments Penicillins Unknown Low 11/01/2003 Occurred as child, unknown documented as of this encounter (statuses as of 04/27/2024) Medications Medication Sig Dispensed Refills Start Date End Date Status CALCIUM 600 + D 600-200 MG-UNIT PO TABSIndications:Ar thritis, rheumatoid (HCC) one PO BID 60 12 10/20/2006 Active MULTIVITAMINS PO TABS daily 0 06/12/2007 Active Ferrous Sulfate 325 (65 Fe) MG Oral Tablet (Feosol) TAKE 1 TABLET BY MOUTH TWICE A DAY 180 Tablet 1 09/13/2021 Active methylPREDNISolone 4 MG Oral Tablet (Medrol) Take 1 Tablet by mouth in the morning. 90 Tablet 1 12/26/2022 Active Omeprazole 20 MG Oral Capsule Delayed Release (PriLOSEC)Indicati ons:GERD (gastroesophageal reflux disease) TAKE 1 CAPSULE BY MOUTH IN THE MORNING. 1 HOUR BEFORE THE FIRST MEAL OF THE DAY. 90 Capsule 2 07/30/2023 Active Venlafaxine HCl 37.5 MG Oral Tablet (Effexor)Indicatio ns:Major depressive disorder, recurrent episode, moderate (HCC) TAKE 1 TABLET BY MOUTH IN THE MORNING AND 1 TABLET BEFORE BEDTIME. WITH FOOD.. 180 Tablet 3 10/27/2023 Active Leflunomide 20 MG Oral Tablet (Arava)Indications :Rheumatoid arthritis flare (HCC) TAKE 1 TABLET BY MOUTH EVERY DAY IN THE MORNING 90 Tablet 1 01/28/2024 Active Baclofen 10 MG Oral Tablet (Lioresal)Indicati ons:Rheumatoid arthritis involving multiple sites with positive rheumatoid factor (HCC) TAKE 1 TABLET BY MOUTH THREE TIMES A DAY 270 Tablet 1 04/05/2024 Active Orencia 125 MG/ML Subcutaneous Solution Prefilled Syringe (Abatacept)Indicat ions:Rheumatoid arthritis involving multiple sites with positive rheumatoid factor (HCC) INJECT 125 MG (1 ML) UNDER THE SKIN ONCE A WEEK 4 mL 5 04/22/2024 Active risperiDONE 2 MG Oral Tablet (RisperDAL)Indicat ions:Sukhwinder de la Tourette's syndrome Take 1 Tablet by mouth in the morning and 1 Tablet before bedtime. 180 Tablet 3 04/23/2024 Active Risperidone (RISPERDAL) 4 MG TabletIndications: Sukhwinder de la Tourette's syndrome TAKE 1 TAB BY MOUTH AT BEDTIME. 90 Tab 3 02/15/2019 4 Discontinued risperiDONE 2 MG Oral Tablet (RisperDAL)Indicat ions:Sukhwinder de la Tourette's syndrome TAKE 1 TABLET BY MOUTH TWICE A DAY 180 Tablet 01/26/2024 4 Discontinued documented as of this encounter (statuses as of 04/27/2024) Active Problems Problem Noted Date Diagnosed Date [...] as of this encounter (statuses as of 04/27/2024) Resolved Problems Problem Noted Date Diagnosed Date Resolved Date LONGTERM DRUG USE STEROIDS 03/05/2007 02/21/2014 Anemia 11/03/2003 03/05/2007 Alcohol dependence 11/01/2003 1 Overview: ICD-10 update of inactive term Major depressive disorder 11/01/2003 Overview: ICD-10 update of inactive term ARTHRITIS,RHEUMATOID 11/01/2003 016 Overview: chronic prednisone therapy documented as of this encounter (statuses as of 04/27/2024) Immunizations Name Administration Dates Next Due COVID-19 mRNA, LNP-s, No Pre serve, 2-Dose Series ([employer]) 11/01/2020,10/11/2020 H1N1 2009 Influenza, IM 07/20/2009 PPD [...] IM (Adacel) 12/23/2007 Zoster Vaccine Recombinant (Shingrix) ,07/07/2020,09/28/2018, 06/2017 documented as of this encounter Social [...] degree: occupational, technical, or vocational program 07/09/2023 Sex and Gender Information Value Date Recorded Sex Assigned at Not on file Gender Identity Not on file Sexual Orientation Not on file Job Start Date Occupation Industry Not on file Not on file Not on file documented as of this encounter Last Filed Vital Signs Vital Sign Reading Time Taken Comments Blood Pressure 124/70 04/23/2024 11:30 AM EDT Pulse 102 04/23/2024 11:30 AM EDT Temperature 36.9 °C (98.5 °F) 04/23/2024 11:30 AM E DT Respiratory Rate 18 04/23/2024 11:30 AM EDT Oxygen Saturation - - Inhaled Oxygen Concentration - - Weight 52 kg (114 lb 9.6 oz) 04/23/2024 11:30 AM EDT Height - - Body Mass Index 18.5 07/23/2023 10:33 AM EST documented in this encounter Progress Notes * Marck Bardales III, MD - 04/27/2024 1:36 PM EDT Subjective: Lucie Mena is a 64 year old female. Chief Complaint Patient presents with Follow Up Medication Administration Flu and/or Pneumo Inj HPI: Follow-up iron-deficiency anemia Ludy Tourette disorder complaints of pain in her feet limits her ability at times to walk denies chest pain shortness of breath no swelling of her ankles PMH: Patient Active Problem List Diagnosis SUKHWINDER TOURETTE DISORDER No advance directive on file Encounter for long-term (current) use of medications Alcohol dependence in remission ([facility]) Elevated LDL cholesterol level Iron deficiency anemia Major depressive disorder, recurrent episode, moderate ([facility]) Encounter for long-term (current) use of high-risk medication Rheumatoid arthritis involving multiple sites with positive rheumatoid factor ([facility]) Memory loss Aphasia Abnormal involuntary movement Current Outpatient Medications Medication Sig Dispense Refill CALCIUM 600 + D 600-200 MG-UNIT PO TABS one PO BID 60 12 MULTIVITAMINS PO TABS daily 0 Ferrous Sulfate 325 (65 Fe) MG Oral Tablet (Feosol) TAKE 1 TABLET BY MOUTH TWICE A DAY 180 Tablet 1 methylPREDNISolone 4 MG Oral Tablet (Medrol) Take 1 Tablet by mouth in the morning. 90 Tablet 1 Omeprazole 20 MG Oral Capsule Delayed Release (PriLOSEC) TAKE 1 CAPSULE BY MOUTH IN THE MORNING. 1 HOUR BEFORE THE FIRST MEAL OF THE DAY. 90 Capsule 2 Venlafaxine HCl 37.5 MG Oral Tablet (Effexor) TAKE 1 TABLET BY MOUTH IN THE MORNING AND 1 TABLET BEFORE BEDTIME. WITH FOOD.. 180 Tablet 3 Leflunomide 20 MG Oral Tablet (Arava) TAKE 1 TABLET BY MOUTH EVERY DAY IN THE MORNING 90 Tablet 1 Baclofen 10 MG Oral Tablet (Lioresal) TAKE 1 TABLET BY MOUTH THREE TIMES A DAY 270 Tablet 1 risperiDONE 2 MG Oral Tablet (RisperDAL) Take 1 Tablet by mouth in the morning and 1 Tablet before bedtime. 180 Tablet 3 Orencia 125 MG/ML Subcutaneous Solution Prefilled Syringe (Abatacept) INJECT 125 MG (1 ML) UNDER THE SKIN ONCE A WEEK 4 mL 5 No current facility-administered medications for this visit. Review of patient's allergies indicates: Allergen Reactions Penicillins Unknown Occurred as child, unknown Past Medical History: Diagnosis Date Alcohol dependence in remission ([facility]) 06/10/2011 Arthritis, rheumatoid ([facility]) 11/01/2003 chronic prednisone therapy Depressive disorder, not elsewhere classified 2003 Dr Florentino Sharp Encounter for long-term (current) use of medications 09/01/2007 Encounter for long-term (current) use of other medications Enbrel for RA Sukhwinder de la Tourette's syndrome age 21 Dr Claire Castillo, [facility] SUPERVISOR SPINNING DRUG USE STEROIDS 03/05/2007 Menopause abt age 41 No advance directive on file 05/28/2006 no Varicella without complication child Past Surgical History: Procedure Laterality Date COLONOSCOPY, DIAGNOSTIC (RECTUM) 01/15/2012 COLONOSCOPY FLEXIBLE PROXIMAL DIAGNOSTIC performed by Haritha Mcfadden MD at ENDOSCOPY [facility] COLONOSCOPY, DIAGNOSTIC (RECTUM) 10/28/2016 poor prep, repeat/COLONOSCOPY FLEXIBLE PROXIMAL DIAGNOSTIC performed by Haritha Mcfadden MD at ENDOSCOPY [facility] COLONOSCOPY, DIAGNOSTIC (RECTUM) 10/29/2016 fair prep, repeat 1-2 yrs/COLONOSCOPY FLEXIBLE PROXIMAL DIAGNOSTIC performed by Haritha Mcfadden MD at ENDOSCOPY [facility] COLONOSCOPY, DIAGNOSTIC (RECTUM) 10/13/2017 fair prep, repeat 5 yrs/COLONOSCOPY FLEXIBLE PROXIMAL DIAGNOSTIC performed by Devang Mckenzie ENDOSCOPY [facility] DENTAL SURGERY PROCEDURE NEC DEXA SCAN/BONE MINERAL AXIAL 03/06 normal, continue actonel repeat 2008 DEXA SCAN/BONE MINERAL AXIAL 02/2009 normal may discontinue actonel, repeat in 3 years. EGD, FLEXIBLE, DIAGNOSTIC 10/28/2016 Barretts, repeat 1 yrs/ESOPHAGOGASTRODUODENOSCOPY (EGD), FLEXIBLE, TRANSORAL, DIAGNOSTIC performed by Haritha Mcfadden MD at ENDOSCOPY [facility] FOOT/TOE SUBQ TUMOR REMOVAL, 1.5 CM OR MORE Left 01/03/2022 EXCISION FOOT/TOE SUBQ TUMOR, 1.5 CM OR MORE performed by Fatou Walker DPM at OR [facility] FOOT/TOE SUBQ TUMOR REMOVAL, UNDER 1.5 CM Left 07/14/2020 EXCISION TUMOR FOOT SUBCUTANEOUS performed by Fern Valero DPM at [facility] MAMMOGRAM - 1 BREAST 12/24/07 birad code 2 MAMMOGRAM - BILATERAL 4.30.07 birad 2, benign findings, yearly mammograms appropriate PLANTAR COMMON DIGITAL NERVE INJECTION Right 07/14/2020 PLANTAR COMMON DIGITAL NERVE INJECTION performed by Fern Valero DPM at OR [facility] REMOVE FOOT TENDON LESION Bilateral 04/07/2020 EXCISION LESION TENDON FOOT performed by Fern Valero DPM at OR [facility] Objective: The patient is a 64 year old female BP 124/70 | Pulse 102 | Temp 36.9 °C (98.5 °F) (Tympanic) | Resp 18 | Wt 52 kg (114 lb 9.6 oz) | BMI 18.50 kg/m² | BSA 1.56 m² General: alert, healthy, and no distress Eye Exam: PERRLA, extraocular movements intact, conjunctiva are pink and non- injected, sclera clear Oropharynx: no exudate, no erythema, lips, buccal mucosa, and tongue normal, and mucous membranes are moist Heart: regular rate & rhythm, no murmur, and no gallops Lungs: lungs clear to auscultation Extremities: no edema, no clubbing, no cyanosis ASSESSMENT: (D50.9) Iron deficiency anemia, unspecified iron deficiency anemia type (primary encounter diagnosis) (Z23) Need for prophylactic vaccination and inoculation against influenza (F95.2) SUKHWINDER TOURETTE DISORDER (M79.671, M79.672) Pain in both feet PLAN: Podiatry referral flu vaccine given COVID vaccine and RSV vaccine discussed call if problems continue present meds Follow up in 6 month(s). Marck Bardales III, MD * Nita Collazo LPN - 04/23/2024 11:31 AM EDT PRE - ADMINISTRATION DOCUMENTATION Are you experiencing any cold symptoms or fever? No Have you had Guillain-Leon Syndrome (an illness that causes paralysis) within the last 6 weeks? No Have you had the flu shot in the past? YES Have you ever had a reaction to the flu shot? No Nita Collazo LPN, 04/23/2024 11:31 AM Immunization Administration Documentation Time Out Procedure Performed: Yes Patient Identified (Ask Name/Date of ): Yes Does the patient have a fever greater than 101 degrees today? No Patient allergic to latex? No VFC Stock: No Immunization(s) verified: Yes, Immunization Name: Flu, VIS Sheet(s) given: Yes Verified Side and Site: Yes Verified Shot(s) with Parent(s)/Patient: Yes documented in this encounter Nursing Notes * Nita Collazo LPN - 04/23/2024 11:30 AM EDT Lucie Mena presents for 6 month recheck. Medications & HM reviewed. documented in this encounter Plan of Treatment Upcoming Encounters Date Type Department Care Team (Latest Contact Info) Description 04/28/2024 10:15 AM EDT Hospital Encounter ENDO [facility], Endoscopy Room [facility] [address] [place] [phone] Harsh Gallardo MD [address] [place] [address] 04/28/2024 10:15 AM EDT - 04/28/2024 10:45 AM EDT Surgery ENDO [facility], Endoscopy Room [facility] [address] [place] [phone] Harsh Gallardo MD [address] [place] [address] COLONOSCOPY FLEXIBLE PROXIMAL DIAGNOSTIC 05/10/2024 1:20 PM EST Office Visit Podiatry [facility] [address] [place] [address] Fern Valero, DPM [address] [place] [address] Scheduled Procedures Name Priority Associated Diagnoses Date/Ti me COLONOSCOPY FLEXIBLE PROXIMAL DIAGNOSTIC Iron deficiency anemia 04/28/2024 10:15 AM EDT Scheduled Referrals Name Type Priority Associated Diagnoses Orde r Schedule COLONOSCOPY, GI REFERRAL OP Referral Within 30 days (routine) Iron deficiency anemia, unspecified iron deficiency anemia type Ordered: 04/23/2024 PODIATRY REFERRAL OP Referral Within 10 days (routine) Pain in both feet Ordered: 04/23/2024 Health Maintenance Due Date Last Done Comments Cologuard 2006 Fecal Occult Blood Test 2006 Sigmoidoscopy 2006 Colonoscopy 10/13/2022 10/13/2017, 09/28, 10/29/2016, Additional history exists Colorectal Cancer Screening 10/13/2022 Mammogram 10/18/2023 10/17/2022, 10/2020, 03/27/2020, Additional history exists COVID-19 Vaccine (4 - season) 2024 08/24/2023, 11/01/2020, 10/11/2020 Depression [...] Not on filedocumented as of this encounter Visit Diagnoses Diagnosis Iron deficiency anemia, unspecified iron deficiency anemia type- Primary Need for prophylactic vaccination and inoculation against influenza SUKHWINDER TOURETTE DISORDER Tourette's disorder Pain in both feet Pain in limb Iron deficiency anemia Iron deficiency anemia, unspecified documented in this encounter Care Teams Elderly Caregiver Relationship Specialty Start Date End Date Marck Bardales III, MD [address] [place] [address] PCP - General Family Medicine 05/28/16 documented as of this encounter"
--- OUTSIDE RECORDS SUMMARY | 2024-10-20 08:22 | External Medical Summary | Summary of Care ---
Author Name Unknown Organization [facility] Address [address] [place] [address] Phone [phone] Care Team Providers Care Farm Equipment Maintenance Supervisor Name Role Phone Jeffy BOOGIE MD, Marck Chapman Primary Care Provider [phone] Reason for Visit * Reason Comments eRx-Medication Refill Encounter Details Date Type Department Care Team (Late st Contact Info) Description 04/23/2024 Refill Family [facility] [address] [place] [address] Charles Kc MD [address] [place] [address] [place] [id number] TAI TOURETTE DISORDER Allergies Active Allergy Reactions Criticality Noted Date Comments Penicillins Unknown Low 11/01/2003 Occurred as child, unknown documented as of this encounter (statuses as of 04/23/2024) Medications Medication Sig Dispensed Refills Start Date End Date Status CALCIUM 600 + D 600-200 MG-UNIT PO TABSIndications:Arthr itis, rheumatoid (HCC) one PO BID 60 12 10/20/2006 Active MULTIVITAMINS PO TABS daily 0 06/12/2007 Act regino Ferrous Sulfate 325 (65 Fe) MG Oral Tablet (Feosol) TAKE 1 TABLET BY MOUTH TWICE A DAY 180 Tablet 1 09/13/2021 Active methylPREDNISolone 4 MG Oral Tablet (Medrol) Take 1 Tablet by mouth in the morning. 90 Tablet 1 12/26/2022 Active Omeprazole 20 MG Oral Capsule Delayed Release (PriLOSEC)Indications :GERD (gastroesophageal reflux disease) TAKE 1 CAPSULE BY MOUTH IN THE MORNING. 1 HOUR BEFORE THE FIRST MEAL OF THE DAY. 90 Capsule 2 07/30/2023 Active Venlafaxine HCl 37.5 MG Oral Tablet (Effexor)Indications: Major depressive disorder, recurrent episode, moderate (HCC) TAKE 1 TABLET BY MOUTH IN THE MORNING AND 1 TABLET BEFORE BEDTIME. WITH FOOD.. 180 Tablet 3 10/27/2023 Active Leflunomide 20 MG Oral Tablet (Arava)Indications:Rh eumatoid arthritis flare (HCC) TAKE 1 TABLET BY MOUTH EVERY DAY IN THE MORNING 90 Tablet 1 01/28/2024 Active Baclofen 10 MG Oral Tablet (Lioresal)Indications :Rheumatoid arthritis involving multiple sites with positive rheumatoid factor (HCC) TAKE 1 TABLET BY MOUTH THREE TIMES A DAY 270 Tablet 1 04/05/2024 Active Orencia 125 MG/ML Subcutaneous Solution Prefilled Syringe (Abatacept)Indication s:Rheumatoid arthritis involving multiple sites with positive rheumatoid factor (HCC) INJECT 125 MG (1 ML) UNDER THE SKIN ONCE A WEEK 4 mL 5 04/22/2024 Active risperiDONE 2 MG Oral Tablet (RisperDAL)Indication s:Tai de la Tourette's syndrome Take 1 Tablet by mouth in the morning and 1 Tablet before bedtime. 180 Tablet 3 04/23/2024 Active documented as of this encounter (statuses as of 04/23/2024) Active Problems Problem Noted Date Diagnosed Date [...] as of this encounter (statuses as of 04/23/2024) Resolved Problems Problem Noted Date Diagnosed Date Resolved Date [employer] DRUG USE STEROIDS 03/05/2007 02/21/2014 Anemia 11/03/2003 03/05/2007 Alcohol dependence 11/01/2003 1 Overview: ICD-10 update of inactive term Major depressive disorder 11/01/2003 Overview: ICD-10 update of inactive term ARTHRITIS,RHEUMATOID 11/01/2003 016 Overview: chronic prednisone therapy documented as of this encounter (statuses as of 04/23/2024) Immunizations Name Administration Dates Next Due COVID-19 [...] encounter Miscellaneous Notes * Telephone Encounter - Flores Us LPN - 04/23/2024 3:58 PM EDTRefused Prescriptions: Disp Refills risperiDONE 2 MG Oral Tablet (RisperDAL) 180 Ta*0 Sig: TAKE 1 TABLET BY MOUTH TWICE A DAYRefused By: FLORES US for Refusal: Duplicate Request * Telephone Encounter - Flores Us LPN - 04/23/2024 3:58 PM EDT Sent 04/23 * Telephone Encounter - Didi Hawthorne - 04/23/2024 4:08 AM EDTPending Prescriptions: Disp Refills risperiDONE 2 MG Oral Tablet [Pharmacy Med*180 Ta*0 Sig: TAKE 1TABLET BY MOUTH TWICE A DAY documented in this encounter Plan of Treatment Upcoming Encounters Date Type Department Care Team (Latest Contact Info) Description 04/28/2024 10:15 AM EDT Hospital Encounter ENDO [facility], Endoscopy Room [facility] [address] [place] [phone] Harsh Gallardo MD [address] [place] [id number] 04/28/2024 10:15 AM EDT - 04/28/2024 10:45 AM EDT Surgery ENDO [facility], Endoscopy Room [facility] [address] [place] [phone] Harsh Gallardo MD [address] [place] [address] COLONOSCOPY FLEXIBLE PROXIMAL DIAGNOSTIC 05/10/2024 1:20 PM EST Office Visit Podiatry [facility] [address] [place] [address] Fern Valero, DPDaren [address] [facility] [place] [address] Scheduled Procedures Name Priority Associated Diagnoses Date/Ti me COLONOSCOPY FLEXIBLE PROXIMAL DIAGNOSTIC Iron deficiency anemia 04/28/2024 10:15 AM EDT Health Maintenance Due Date Last Done Comments Cologuard 2006 Fecal Occult Blood Test 2006 Sigmoidoscopy 2006 Colonoscopy 10/13/2022 10/13/2017, 09/28, 10/29/2016, Additional history exists Colorectal Cancer Screening 10/13/2022 Mammogram 10/18/2023 10/17/2022, 10/2020, 03/27/2020, Additional history exists COVID-19 Vaccine (4 - 2023- season) 2024 08/24/2023, 11/01/2020, 10/11/2020 Depression Monitoring [...] as of this encounter Visit Diagnoses Diagnosis TAI TOURETTE DISORDER Tourette's disorder Iron deficiency anemia Iron deficiency anemia, unspecified documented in this encounter Care Teams Farm Equipment Maintenance Supervisor Relationship Specialty Start Date End Date Marck Bardales III, MD [address] [place] [address] PCP - General Family Medicine 05/28/16 documented as of this encounter
--- OUTSIDE RECORDS SUMMARY | 2024-10-20 08:22 | External Medical Summary | Summary of Care ---
Author Name Unknown Organization [facility] Address [address] [place] [address] Phone [phone] Care Team Providers Care School Fundraising Director Name Role Phone Jeffy BOOGIE MD, Marck Chapman Primary Care Provider [phone] Reason for Visit * Reason Onset Date Comments Procedure 08/03/2024 Encounter Details Date Type Department Care Team (Late st Contact Info) Description 08/03/2024 Telephone Pre Surgery Center, [facility] [address] [place] [address] Harsh Gallardo MD [address] [facility] [place] [address] Procedure Allergies Active Allergy Reactions Criticality Noted Date Comments Penicillins Unknown Low 11/01/2003 Occurred as child, unknown documented as of this encounter (statuses as of 08/05/2024) Medications CALCIUM 600 + D 600-200 MG-UNIT [...] as of this encounter (statuses as of 08/05/2024) Active Problems Problem Noted Date Diagnosed Date [...] as of this encounter (statuses as of 08/05/2024) Resolved Problems Problem Noted Date Diagnosed Date Resolved Date [employer] DRUG USE STEROIDS 03/05/2007 02/21/2014 Anemia 11/03/2003 03/05/2007 Alcohol dependence 11/01/2003 1 Overview (10/10/2015): ICD-10 update of inactive term Major depressive disorder 11/01/2003 Overview (04/22/2017): ICD-10 update of inactive term ARTHRITIS,RHEUMATOID 11/01/2003 016 Overview (03/25/2007): chronic prednisone therapy documented as of this encounter (statuses as of 08/05/2024) Immunizations Name Administration Dates Next Due COVID-19 mRNA, LNP-s, No Pre serve, 2-Dose Series ([employer]) 11/01/2020,10/11/2020 H1N1 2009 Influenza, IM 07/20/2009 PPD [...] Miscellaneous Notes * Telephone Encounter - Amy Rowe OSA - 08/05/2024 8:40 AM EST I called pt to yamilet. She states she did not call in to yamilet. Please give her a call for her interview. * Telephone Encounter - Riya Boggs OSA [...] [facility], Endoscopy Room [facility] [address] [place] [address] Harsh Gallardo MD [address] [place] [address] 08/06/2024 10:15 AM EST - 08/06/2024 10:45 AM EST Surgery ENDO [facility], Endoscopy Room [facility] [address] [place] [phone] Harsh Gallardo MD [address] [place] [address] COLONOSCOPY FLEXIBLE PROXIMAL DIAGNOSTIC 12/29/2024 3:00 PM EDT Office Visit [facility] [address] [place] [phone] Deo Lord CRNP [address] [place] [address] Scheduled Procedures Name Priority Associated Diagnoses Date/Ti me COLONOSCOPY FLEXIBLE PROXIMAL DIAGNOSTIC Recall Iron deficiency anemia 08/06/2024 10:15 AM EST Health Maintenance Due Date Last Done Comments Cologuard 2006 Fecal Occult Blood Test 2006 Sigmoidoscopy 2006 Colonoscopy 10/13/2022 10/13/2017, 09/28, 10/29/2016, Additional history exists Colorectal Cancer Screening 10/13/2022 Mammogram 10/18/2023 10/17/2022, 10/0 10/2020, 03/27/2020, Additional history exists COVID-19 Vaccine ( season) 2024 08/24/2023, 11/01/2020, 10/11/2020 Pneumococcal Vaccine: [...] filedocumented as of this encounter Care Teams School Fundraising Director Relationship Specialty Start Date End Date Marck Bardales III, MD [address] [place] [address] PCP - General Family Medicine 05/28/16 documented as of this encounter
--- OUTSIDE RECORDS SUMMARY | 2024-10-20 08:22 | External Medical Summary | Summary of Care ---
Author Name Unknown Organization [facility] Address [address] [place] [address] Phone [phone] Care Team Providers Care Hammer Smith Name Role Phone Jeffy BOOGIE MD, John E Primary Care Provider [phone] Reason for Visit * Reason Comments eRx-Medication Refill Encounter Details Date Type Department Care Team (Late st Contact Info) Description 07/30/2024 Refill Family Practice [facility] [address] [place] [address] Jack Bardales III, MD [address] [place] [address] Encounter for long-term (current) use of medications*; GERD (gastroesophageal reflux disease); Long-term current use of proton pump inhibitor therapy Allergies Active Allergy Reactions Criticality Noted Date Comments Penicillins Unknown Low 11/01/2003 Occurred as child, unknown documented as of this encounter (statuses as of 07/30/2024) Medications CALCIUM 600 + D 600-200 MG-UNIT PO TABSIndications: Arthritis, rheumatoid (HCC) one PO BID 60 12 10/21/19 07 Active MULTIVITAMINS PO TABS daily 0 06/12/20 07 Active Ferrous Sulfate 325 (65 Fe) MG Oral Tablet (Feosol) TAKE 1 TABLET BY MOUTH TWICE A DAY 180 Tablet 1 09/14/19 22 Active methylPREDNISolo ne 4 MG Oral Tablet (Medrol) Take 1 Tablet by mouth in the morning. 90 Tablet 1 12/27/19 23 Active Venlafaxine HCl 37.5 MG Oral Tablet (Effexor)Indicat ions:Major depressive disorder, recurrent episode, moderate (HCC) TAKE 1 TABLET BY MOUTH IN THE MORNING AND 1 TABLET BEFORE BEDTIME. WITH FOOD.. 180 Tablet 3 10/27/19 24 Active Leflunomide 20 MG Oral Tablet (Arava)Indicatio ns:Rheumatoid arthritis flare (HCC) TAKE 1 TABLET BY MOUTH EVERY DAY IN THE MORNING 90 Tablet 1 01/28/20 24 Active Baclofen 10 MG Oral Tablet (Lioresal)Indica tions:Rheumatoid [...] 24 Active risperiDONE 2 MG Oral Tablet (RisperDAL)Indic [...] DAY. 90 Capsule 2 07/30/19 25 Active Omeprazole 20 MG Oral Capsule Delayed Release (PriLOSEC)Indica tions:GERD (gastroesophagea l reflux disease) TAKE 1 CAPSULE BY MOUTH IN THE MORNING. 1 HOUR BEFORE THE FIRST MEAL OF THE DAY. 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 DRUG USE STEROIDS 03/05/2007 02/21/2014 Anemia 11/03/2003 03/05/2007 Alcohol dependence 11/01/2003 1 Overview (10/10/2015): ICD-10 update of inactive term Major depressive disorder 11/01/2003 Overview (04/22/2017): ICD-10 update of inactive term ARTHRITIS,RHEUMATOID 11/01/2003 016 Overview (03/25/2007): chronic prednisone therapy documented as of this encounter (statuses as of 07/30/2024) Immunizations Name Administration Dates Next Due COVID-19 [...] encounter Miscellaneous Notes * Telephone Encounter - Stephen Matta, [facility] - 07/30/2024 12:31 PM ESTSigned Prescriptions: Disp Refills Omeprazole 20 MG Oral Capsule Delayed Rele*90 Cap*2 Sig: TAKE 1 CAPSULE BY MOUTH IN THE MORNING. 1 HOUR BEFORE THE FIRST MEAL OF THE DAY.Authorizing Provider: JACK COLORADO User: STEPHEN MATTA * Telephone Encounter - Stephen Matta [facility] - 07/30/2024 12:29 PM EST Per refill protocol patient needs magnesium lab on file within the past 2 years while using PPIs. Lab work ordered. Patient may obtain with next routine labs. Kim TorresPh. Clinical Pharmacist [facility] [address] [place] [address], [address] [place] [address] : [phone] 07/30/2024,12:29 PM documented in this encounter Plan of Treatment Upcoming Encounters Date Type Department Care Team (Latest Contact Info) Description 08/04/2024 9:45 AM EST Hospital Encounter ENDO [facility], Endoscopy Room [facility] [address] [place] [phone] Harsh Gallardo MD [address] [place] [address] 08/04/2024 9:45 AM EST - 08/04/2024 10:15 AM EST Surgery ENDO [facility], Endoscopy Room [facility] [address] [place] [phone] Harsh Gallardo MD [address] [place] [address] COLONOSCOPY FLEXIBLE PROXIMAL DIAGNOSTIC Scheduled Orders Name Type Priority Associated Diagnoses Orde r Schedule MAGNESIUM Lab Routine GERD (gastroesophageal reflux disease) Encounter for long-term (current) use of medications Long-term current use of proton pump inhibitor therapy Expected: 09/24/2024 (Approximate), Expires: 07/30/2025 Scheduled Procedures Name Priority Associated Diagnoses Date/Ti [...] as of this encounter Visit Diagnoses Diagnosis Encounter for long-term (current) use of medications- Primary Encounter for long-term (current) use of other medications GERD (gastroesophageal reflux disease) Esophageal reflux Long-term current use of proton pump inhibitor therapy Iron deficiency anemia Iron deficiency anemia, unspecified documented in this encounter Care Teams Hammer Smith Relationship Specialty Start Date End Date Jack Bardales III, MD [address] [place] [address] PCP - General Family Medicine 05/28/16 documented as of this encounter
--- NOTE | 2024-10-20 10:28 | Electrocardiogram Report ---
Test Reason : Blood Pressure : */* mmHG Vent. Rate : 122 BPM Atrial Rate : 122 BPM P-R Int : 148 ms QRS Dur : 62 ms QT Int : 304 ms P-R-T Axes : 74 64 67 degrees QTcB Int : 433 ms Sinus tachycardia Nonspecific ST abnormality Abnormal ECG When compared with ECG of 19-Apr-2023 08:22, Significant changes have occurred Confirmed by Nico Castillo ([id number]) on 10/20/2024 10:28:04 AM Referred By: REFERRED SELF Confirmed By: Nico Castillo
--- NOTE | 2024-10-20 11:04 | Nephrology Consultation ---
Date of Consultation October 20, 2024 Assessment & Plan (1) Hyponatremia: Appears euvolemic. Acute on chronic Hyponatremia. for the last few years sodium has been on the slightly lower side with ranging from 132-134. 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 patient appears cachectic and has low mag. Phos was fine. Not a reliable historian but it appears she was drinking lot of liquids at home. 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 We absolutely need urine Osm STAT to make any further plan. Will try to add to urine sample and if not need one now STAT. Only then we can decide whether to continue IVf or not. She does not appear volume depleted. Also check cortisol and TSH given her Mental status and Hyponatremia Need BMP every 6hrs. try to raise na slowly by about 8 meq per day but if it is Psychogenic Polydipsia--will be difficult to slow the rate of correction. as of now sodium has only gone up very slowly from 119-122. I would check another BMP in the next 1 hour and after the result of the urine osmolarity and the BMP will make further adjustment. Will be communicating with the primary team in RN taking care of the patient via [employer] texting for ongoing dynamic management of hyponatremia. Plan total time spent reviewing inpatient and outpatient chart as well as reviewing labs multiple times of the day and messaging for ongoing management--- 81 minutes History of Present Illness Reason for Consultation: Hyponatremia Attending Physician: Fritz Mancuso MD History of Present Illness 64/F who looks lot older than her age. She has h/o hyponatremia With sodium ranging from 132-134 for the last few years and the most recent blood work outpatient was from November 2023 and sodium was 132. 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 other medical problems includes aphasia, rheumatoid arthritis on Orencia, hyperlipidemia, mood disorder, Tourette's syndrome, dementia, past alcohol abuse. Brought by her boyfriend as she was noted to be more confused and anxious than usual. Patient denies headache, chest pain, SOB, abdominal pain. Denies bleeding concerns. Cannot obtain accurate history from patient. found to have Na 119 and normal Creat/BUN. mag was very low--got Iv mag. multiple labs currently pending. urine na 80 but urine osm Pending. hgb was low at 7.9 and low iron level. worth noting that in 2021 she had very low urine osm of 98 with serum na of 132. She maybe drinking lot of liquids currently !! Vital signs are fine Says yes to most questions and answers !! and history could not be obtained from the patient ROs--Unable to obtain. Just Says yes to most Questions and answers !! Physical Exam Physical Exam: GENERAL: Aphasic, Cachectic and no respiratory . Looks lot older than age. HEENT: Pale palpebral conjunctivae, no ptosis, dry buccal mucosa NECK : Supple, no tenderness CHEST : CTA, no tenderness HEART : Tachycardic, no obvious murmurs ABDOMEN: no distention, nontender EXTREMITIES : No LE swelling/tenderness, no other conspicuous deformities noted NEUROLOGIC : Aphasic, no facial asymmetry, gait and stance not assessed Allergies Allergy/AdvReac Type Severity Reaction Status Date / Time Penicillins Allergy Unknown Unknown Verified 10/20/24 01:19 Home Medications Medication Instructions Recorded Confirmed Type abatacept 125 mg/mL subcutaneous 125 mg subcut WK 09/07/21 10/20/24 History syringe (Orencia) baclofen 10 mg tablet 10 mg PO TID 09/07/21 10/20/24 History omeprazole 20 mg capsule,delayed 20 mg PO DAILYBB 09/07/21 10/20/24 History release risperidone 2 mg tablet 2 mg PO AMHS 09/07/21 10/20/24 History venlafaxine 37.5 mg tablet 37.5 mg PO AMHS 09/07/21 10/20/24 History calcium 600 mg (as 1 tab PO BID 10/20/24 10/20/24 History carbonate)-vitamin D3 5 mcg (200 unit) tablet (Calcium 600 + D(3)) multivitamin 1 tab PO DAILY 10/20/24 10/20/24 History Patient History Medical History HLD (hyperlipidemia) Surgical History No pertinent past surgical history Social History Smoking Status: Unknown if ever smoked Second Hand Exposure: No; Do You Dip or Chew Tobacco: No; Hx Alcohol Use: No Hx Substance Use: No Preferred Language: Arabic Communication Ability: Impaired Lighting Fixture Installer Required: No Beliefs That Will Affect Care: None Current Living Situation: Spouse Current Living Situation Comment: LIVES WITH BOYFRIEND MARTINA GRACE Feels Safe at Home: Yes Assistive Devices: Denture - Upper and Denture - Lower Results & Data Vital Signs (Past 12 Hours) Vital Signs Temp Pulse Pulse Resp BP BP Pulse Ox 10/20/24 10:56 36.9 C 101 H 18 155/92 H 98 10/20/24 07:21 127 H 10/20/24 07:17 36.7 C 94 H 18 146/76 H 98 10/20/24 06:23 92 H 10/20/24 06:08 38.1 C H 10/20/24 06:08 108 H 150/77 H 10/20/24 05:10 116 H 10/20/24 04:04 144 H 10/20/24 03:52 37.7 C H 127 H 16 159/80 H 98 10/20/24 03:21 120 H 20 95 10/20/24 01:58 121 H 10/20/24 01:03 37.1 C 131 H 20 144/107 H 99 O2 Del Method 10/20/24 10:56 Room Air 10/20/24 07:21 10/20/24 07:17 Room Air 10/20/24 06:23 10/20/24 06:08 10/20/24 06:08 10/20/24 05:10 10/20/24 04:04 10/20/24 03:52 Room Air 10/20/24 03:21 Room Air 10/20/24 01:58 10/20/24 01:03 Room Air Laboratory Results CBC, renal panel, urine na and UA.
[2024-10-20 11:14] LABS: Thyroid Stimulating Hormone 5.591 uIu/ml (0.300-4.500)
[2024-10-20 13:10] LABS: Hematocrit (blood only) 22.7 % (37.0-47.0); Hemoglobin 7.2 g/dl (12.0-16.0)
[2024-10-20 17:04] LABS: BUN Creatinine Ratio 10.9 (10-20); Calcium 7.5 mg/dl (8.6-10.3); Creatinine Clr Calc Pharmacy 93.5 ml/min
[2024-10-20] MEDS: IRON SUCROSE 200 MG in SODIUM CHLORIDE 0.9% 100 ML IV ONE (19:41)
[2024-10-21 00:29] LABS: Calcium 7.3 mg/dl (8.6-10.3); Magnesium 1.7 mg/dl (1.7-2.4); Potassium 4.1 mmol/L (3.5-5.1)
--- NOTE | 2024-10-21 06:01 | Hospitalist Progress Note ---
Date of Service October 21, 2024 Assessment & Plan (1) Hyponatremia: Plan: Acute on chronic hyponatremia Encephalopathy secondary to above - mental status back to baseline Home neuropsychotropic medications and baclofen contributory Hold baclofen, neuropsychotropic medications until mentation back to baseline aphasia/memory impairment as per records as per records, possible beginning dementia as per outpatient [facility] Neurology note from last year 10/21 Pt awake, alert, able to answer simple questions Careful correction of sodium Hyponatremia work-up, Nephrology consult Na now improved to 125 Hypomagnesemia - likely secondary to poor nutrition - replete and monitor New onset anemia, no overt bleed, FOBT done at the ER was negative Anemia workup, transfuse PRBC if hemoglobin less than 7 and or for symptomatic anemia consent obtained, will give 1 unit of pRBC gave IV iron yesterday (10/20) will obtain peripheral smear and consult w/ hematology Chronic conditions: Rheumatoid arthritis on Orencia mood disorder Tourette's syndrome Malnutrition (low BMI), Nutrition consult re: low BMI past alcohol abuse DVT prophylaxis. SCDs Full code Patient's partner (Mr. Sebastien Dougherty, contact # [phone]) contacted - as above, in subjective. Admission and Anticipated Discharge Date Admission Date: October 20, 2024 Subjective Pt seen in follow up of hyponatremia, encephalopathy Admitted with Na level 119, now improved Pt sitting up in bed in NAD, currently denies any complaints Talked on the phone w/ her friend Mr. Dougherty - pt was anxious and complaining of abd. pain before coming to ER. He reports she has poor diet, drinks diet soda and eats sandwiches and pizza. they usually get take out. Hgb also low, fobt in ED negat.- blood consent obtained - discussed also w/nephrology - will obtain peripheral smear and consult hematology Review of Systems Review of Systems: All systems reviewed & are unremarkable except as noted in Subjective Physical Exam Physical Exam: GENERAL: underweight F in NAD HEENT: NC/AT. NECK : Supple, no tenderness CHEST : CTA, no tenderness HEART : mildly tachycardic, no obvious murmurs ABDOMEN: no distention, nontender EXTREMITIES : No LE swelling/tenderness, moves extremities NEUROLOGIC : Awake, alert, no facial asymmetry, able to answer simple questions appropriately, moves extremities SKIN: Pallor , warm, dry Results & Data Results & Data Vital Signs (Past 12 Hours) Vital Signs Temp Pulse Pulse Resp BP Pulse Ox O2 Del Method 10/21/24 03:58 37.1 C 105 H 16 157/82 H 98 Room Air 10/20/24 22:00 36.9 C 100 H 18 168/91 H 98 Room Air 10/20/24 21:49 97 H 10/20/24 19:25 37.4 C 101 H 18 131/73 95 Room Air Laboratory Results 10/21/24 10/20/24 10/20/24 Range/Units 07:27 Unknown 22:57 WBC 5.15 (4.8-10.8) K/ul RBC 3.29 L (4.20-5.40) M/uL Hgb 6.9 L* (12.0-16.0) g/dl Hct 21.9 L (37.0-47.0) % MCV 66.6 L (80.0-100.0) fL MCH 21.0 L (25.0-34.0) pg MCHC 31.5 L (32.0-36.0) g/dL RDW Std Deviation 38.2 (36.4-46.3) fL RDW Coeff of Kasandra 15.9 H (11.5-14.5) % Plt Count 513 H (130-400) K/uL MPV 8.9 L (9.4-12.4) fL Immature Gran % (Auto) 0.8 % Neut % (Auto) 60.0 % Lymph % (Auto) 21.9 % [place] % (Auto) 11.7 % Eos % (Auto) 5.2 % Baso % (Auto) 0.4 % Neut # (Auto) 3.09 (1.40-6.50) K/uL Lymph # (Auto) 1.13 L (1.20-3.40) K/uL [place] # (Auto) 0.60 H (0.11-0.59) K/uL Eos # (Auto) 0.27 (0.00-0.50) K/uL Baso # (Auto) 0.02 (0.00-0.20) K/uL Immature Gran # (Auto) 0.04 (0.01-0.20) K/uL Microcytosis Present Ovalocytes 1+ Peripher Smr Path Cons Pending Sodium 125 L 123 L (136-145) mmol/L Potassium 3.9 4.1 (3.5-5.1) mmol/L Chloride 96 L 95 L (98-107) mmol/L Carbon Dioxide 23 23 (21-32) mmol/L Anion Gap 6 5 (3-11) BUN 6 7 (6-23) mg/dl Creatinine 0.39 L 0.50 L (0.6-1.2) mg/dl Est Cr Clr Drug Dosing 109.8 86.0 ml/min eGFR 111.82 105.32 BUN/Creatinine Ratio 15.4 14.0 (10-20) Glucose 94 88 (70-99(Fasting)) mg/dl Calcium 7.6 L 7.3 L (8.6-10.3) mg/dl Phosphorus 3.4 (2.5-4.9) mg/dl Magnesium 1.6 L 1.7 (1.7-2.4) mg/dl Ferritin 336.2 (8-388) ng/ml Vitamin B12 407 (180-914) pg/ml Folate 16.13 (>5.38) ng/ml TSH (0.300-4.500) uIu/ml Random Cortisol mcg/dl Urine Osmolality 221 L (500-800) mOsm/kg 10/20/24 10/20/24 10/20/24 Range/Units 16:21 12:25 09:55 WBC (4.8-10.8) K/ul RBC (4.20-5.40) M/uL Hgb 7.2 L (12.0-16.0) g/dl Hct 22.7 L (37.0-47.0) % MCV (80.0-100.0) fL MCH (25.0-34.0) pg MCHC (32.0-36.0) g/dL RDW Std Deviation (36.4-46.3) fL RDW Coeff of Kasandra (11.5-14.5) % Plt Count (130-400) K/uL MPV (9.4-12.4) fL Immature Gran % (Auto) % Neut % (Auto) % Lymph % (Auto) % [place] % (Auto) % Eos % (Auto) % Baso % (Auto) % Neut # (Auto) (1.40-6.50) K/uL Lymph # (Auto) (1.20-3.40) K/uL [place] # (Auto) (0.11-0.59) K/uL Eos # (Auto) (0.00-0.50) K/uL Baso # (Auto) (0.00-0.20) K/uL Immature Gran # (Auto) (0.01-0.20) K/uL Microcytosis Ovalocytes Peripher Smr Path Cons Sodium 122 L 121 L 122 L (136-145) mmol/L Potassium 4.0 (3.5-5.1) mmol/L Chloride 91 L (98-107) mmol/L Carbon Dioxide 20 L (21-32) mmol/L Anion Gap 11 (3-11) BUN 5 L (6-23) mg/dl Creatinine 0.46 L (0.6-1.2) mg/dl Est Cr Clr Drug Dosing 93.5 ml/min eGFR 107.46 BUN/Creatinine Ratio 10.9 (10-20) Glucose 92 (70-99(Fasting)) mg/dl Calcium 7.5 L (8.6-10.3) mg/dl Phosphorus 3.0 (2.5-4.9) mg/dl Magnesium 2.0 (1.7-2.4) mg/dl Ferritin (8-388) ng/ml Vitamin B12 (180-914) pg/ml Folate (>5.38) ng/ml TSH 5.591 H (0.300-4.500) uIu/ml Random Cortisol 16.19 mcg/dl Urine Osmolality (500-800) mOsm/kg Medications Administered Current Inpatient Medications Acetaminophen (Acetaminophen 325 Mg Tab) 650 mg PO QID PRN PRN Reason: pain/fever Stop: 11/19/24 04:33 Last Admin: 10/20/24 04:55 Dose: 650 mg Hydroxyzine HCl (Hydroxyzine Hcl 10 Mg Tab) 10 mg PO QID PRN PRN Reason: Anxiety Stop: 11/19/24 03:09 Last Admin: 10/20/24 18:22 Dose: 10 mg Promethazine HCl (Phenergan) 6.25 mg in 50.25 mls @ 201 mls/hr IV Q6H PRN PRN Reason: Nausea And Vomiting Stop: 11/19/24 03:09 Multivitamins (Multivitamin Tab) 1 tab PO DAILY RICKY Stop: 11/19/24 08:59 Last Admin: 10/20/24 07:48 Dose: 1 tab Pantoprazole Sodium (Pantoprazole 40 Mg Tab) 40 mg PO DAILYBB [facility] Stop: 11/19/24 06:29 Last Admin: 10/21/24 05:54 Dose: 40 mg
[2024-10-21 08:39] LABS: Hematocrit (blood only) 21.9 % (37.0-47.0); Hemoglobin 6.9 g/dl (12.0-16.0); Mean Corpuscular Hgb Conc 31.5 g/dL (32.0-36.0); Mean Corpuscular Volume 66.6 fL (80.0-100.0); Mean Platelet Volume 8.9 fL (9.4-12.4); Platelet Count 513 K/uL (130-400); RDW Coefficient of Variation 15.9 % (11.5-14.5); RDW Standard Deviation 38.2 fL (36.4-46.3); Red Blood Count 3.29 M/uL (4.20-5.40); White Blood Count 5.15 K/ul (4.8-10.8)
[2024-10-21 08:46] LABS: Basophils # (auto) 0.02 K/uL (0.00-0.20); Basophils % (auto) 0.4 %; Eosinophils # (auto) 0.27 K/uL (0.00-0.50); Eosinophils % (auto) 5.2 %; Immature Granulocytes # (auto) 0.04 K/uL (0.01-0.20); Immature Granulocytes % (auto) 0.8 %; Lymphocytes # (auto) 1.13 K/uL (1.20-3.40); Lymphocytes % (auto) 21.9 %; Microcytosis Present; Monocytes % (auto) 11.7 %; Neutrophils # (auto) 3.09 K/uL (1.40-6.50); Ovalocytes 1+
[2024-10-21 08:51] LABS: Ferritin 336.2 ng/ml (8-388)
[2024-10-21 08:56] LABS: Folate (Folic Acid),Ser orPlas 16.13 ng/ml (>5.38)
[2024-10-21 09:17] LABS: Calcium 7.6 mg/dl (8.6-10.3); Magnesium 1.6 mg/dl (1.7-2.4); Potassium 3.9 mmol/L (3.5-5.1)
[2024-10-21 09:23] LABS: BUN Creatinine Ratio 15.4 (10-20); Creatinine Clr Calc Pharmacy 109.8 ml/min; Phosphorus 3.4 mg/dl (2.5-4.9)
[2024-10-21] MEDS: THIAMINE HCL 100 MG TAB PO SCH (09:24)
[2024-10-21] MEDS: MAGNESIUM SULFATE / D5W 1 GM/100 ML BAG IV ONE (10:03)
--- NOTE | 2024-10-21 10:03 | Nephrology Progress Note ---
Date of Service October 21, 2024 Assessment & Plan Admission and Anticipated Discharge Date Admission Date: October 20, 2024 Subjective Assessment & Plan (1) Hyponatremia: Appears euvolemic. Acute on chronic Hyponatremia. for the last few years sodium has been on the slightly lower side with ranging from 132-134. 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 patient appears cachectic and has low mag. Not a reliable historian but it appears she was drinking lot of liquids at home. 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 boyfriend did say that she drinks soda all day !! Also check cortisol and TSH given her Mental status and Hyponatremia Need BMP every 12hrs now. na going up slowly and is now 125. D/c Iv fluid. FFR 1200 ml per day. She has Poor appetite and since na going up will not add Urea or salt tab or lasix. hgb very low at 6.8 -Consider hematology consult. S--no new issues. Na going up slowly. ROs--Unable to obtain. Just Says yes to most Questions and answers !! Physical Exam Physical Exam: GENERAL: Aphasic, Cachectic and no respiratory . Looks lot older than age. HEENT: Pale palpebral conjunctivae, no ptosis, dry buccal mucosa NECK : Supple, no tenderness CHEST : CTA, no tenderness HEART : Tachycardic, no obvious murmurs ABDOMEN: no distention, nontender EXTREMITIES : No LE swelling/tenderness, no other conspicuous deformities noted NEUROLOGIC : Aphasic, no facial asymmetry, gait and stance not assessed Results & Data Vital Signs (Past 12 Hours) Vital Signs Temp Pulse Pulse Resp BP Pulse Ox O2 Del Method 10/21/24 08:49 102 H 10/21/24 07:35 36.8 C 105 H 16 155/83 H 97 Room Air 10/21/24 03:58 37.1 C 105 H 16 157/82 H 98 Room Air
[2024-10-21] MEDS: CYANOCOBALAMIN (B-12) 500 MCG TABLET PO SCH (10:34)
[2024-10-21] MEDS ORDERED: SODIUM CHLORIDE 0.9% 100 ML IV PRN (10:36)
--- NOTE | 2024-10-21 16:55 | Oncology Consultation ---
Date of Consultation October 21, 2024 Assessment & Plan (1) Iron deficiency anemia: (2) Rheumatoid arthritis: Plan Patient has microcytic anemia secondary to iron deficiency. She also possibly has anemia due to chronic disease/inflammation in combination with iron deficiency especially given normal ferritin level. Agree with IV iron supplementationrecommend 2-3 doses of IV Venofer. Will also require GI workup to rule out bleeding as a potential cause of iron deficiency.No indication for bone marrow biopsy at this time as clinical picture highly suggestive of iron deficiency. If anemia persists despite iron repletion, would recommend outpatient follow-up with hematology History of Present Illness Reason for Consultation: Anemia Attending Physician: Fritz Mancuso MD History of Present Illness 64-year-old female admitted to [facility] with altered mental status. Labs obtained on admission significant for anemia with hemoglobin of 7.9, hematocrit 23.9, MCV 65.4 with normal WBC and elevated platelet count of 638,000. Also noted to have severe hyponatremia with sodium level of 122. Anemia labs revealed low iron level of 10, transferrin of 124, ferritin 252. B12 level was within normal limits at 4 7 with normal folate level of 16.13. Peripheral smear review was supportive of iron deficiency anemia Allergies Allergy/AdvReac Type Severity Reaction Status Date / Time Penicillins Allergy Unknown Unknown Verified 10/20/24 01:19 Home Medications Medication Instructions Recorded Confirmed Type abatacept 125 mg/mL subcutaneous 125 mg subcut WK 09/07/21 10/20/24 History syringe (Orencia) baclofen 10 mg tablet 10 mg PO TID 09/07/21 10/20/24 History omeprazole 20 mg capsule,delayed 20 mg PO DAILYBB 09/07/21 10/20/24 History release risperidone 2 mg tablet 2 mg PO AMHS 09/07/21 10/20/24 History venlafaxine 37.5 mg tablet 37.5 mg PO AMHS 09/07/21 10/20/24 History calcium 600 mg (as 1 tab PO BID 10/20/24 10/20/24 History carbonate)-vitamin D3 5 mcg (200 unit) tablet (Calcium 600 + D(3)) multivitamin 1 tab PO DAILY 10/20/24 10/20/24 History Patient History Medical History HLD (hyperlipidemia) Surgical History No pertinent past surgical history Social History Smoking Status: Unknown if ever smoked Second Hand Exposure: No; Do You Dip or Chew Tobacco: No; Hx Alcohol Use: No Hx Substance Use: No Preferred Language: French Communication Ability: Effective Knockup Worker Required: No Beliefs That Will Affect Care: None Current Living Situation: Spouse Current Living Situation Comment: LIVES WITH BOYFRIENEdgar GRACE Feels Safe at Home: Yes Assistive Devices: None Results & Data Vital Signs (Past 12 Hours) Vital Signs Temp Pulse Pulse Resp BP BP Pulse Ox 10/21/24 16:39 36.6 C 87 18 130/71 100 10/21/24 16:22 36.4 C L 82 18 129/74 100 10/21/24 15:36 36.7 C 95 H 17 156/82 H 99 10/21/24 14:52 87 10/21/24 11:14 36.8 C 96 H 16 148/78 H 98 10/21/24 08:49 102 H 10/21/24 07:35 36.8 C 105 H 16 155/83 H 97 O2 Del Method 10/21/24 16:39 10/21/24 16:22 10/21/24 15:36 Room Air 10/21/24 14:52 10/21/24 11:14 Room Air 10/21/24 08:49 10/21/24 07:35 Room Air (2) Rheumatoid arthritis Rheumatoid arthritis location: unspecified site Rheumatoid factor presence: unspecified presence Qualified Code(s): M06.9 - Rheumatoid arthritis, unspecified
[2024-10-21 19:50] LABS: Hematocrit (blood only) 25.7 % (37.0-47.0); Hemoglobin 8.2 g/dl (12.0-16.0)
[2024-10-21 20:05] LABS: BUN Creatinine Ratio 15.8 (10-20); Calcium 7.6 mg/dl (8.6-10.3); Creatinine Clr Calc Pharmacy 75.1 ml/min; Magnesium 1.6 mg/dl (1.7-2.4); Phosphorus 3.6 mg/dl (2.5-4.9); Potassium 4.2 mmol/L (3.5-5.1)
[2024-10-22 06:30] LABS: Hematocrit (blood only) 25.8 % (37.0-47.0); Hemoglobin 8.3 g/dl (12.0-16.0); Mean Corpuscular Hemoglobin 22.1 pg (25.0-34.0); Mean Corpuscular Hgb Conc 32.2 g/dL (32.0-36.0); Mean Corpuscular Volume 68.6 fL (80.0-100.0); Mean Platelet Volume 8.7 fL (9.4-12.4); Platelet Count 456 K/uL (130-400); RDW Standard Deviation 42.4 fL (36.4-46.3); Red Blood Count 3.76 M/uL (4.20-5.40); White Blood Count 5.27 K/ul (4.8-10.8)
[2024-10-22 06:52] LABS: BUN Creatinine Ratio 20.5 (10-20); Calcium 7.7 mg/dl (8.6-10.3); Creatinine Clr Calc Pharmacy 108.4 ml/min; Magnesium 1.5 mg/dl (1.7-2.4); Phosphorus 3.3 mg/dl (2.5-4.9)
--- NOTE | 2024-10-22 07:27 | Hospitalist Progress Note ---
Date of Service October 22, 2024 Assessment & Plan (1) Hyponatremia: Plan: Acute on chronic hyponatremia Encephalopathy secondary to above - mental status back to baseline Home neuropsychotropic medications and baclofen contributory Hold baclofen, neuropsychotropic medications until mentation back to baseline aphasia/memory impairment as per records as per records, possible beginning dementia as per outpatient [facility] Neurology note from last year 10/21 Pt awake, alert, able to answer simple questions Careful correction of sodium Hyponatremia work-up, Nephrology consult Na now improved to 127 Hypomagnesemia - likely secondary to poor nutrition - replete and monitor New onset anemia, no overt bleed, FOBT done at the ER was negative Anemia workup, transfuse PRBC if hemoglobin less than 7 and or for symptomatic anemia consent obtained, will gave 1 unit of pRBC on 10/21 gave IV iron on (10/20) obtained peripheral smear and consulted w/ hematology - c/w Iron deficiency anemia, replete iron and recommend outpt poss. GI bleed work up Chronic conditions: Rheumatoid arthritis on Orencia mood disorder Tourette's syndrome Malnutrition (low BMI), Nutrition consult re: low BMI past alcohol abuse DVT prophylaxis. SCDs Full code Patient's partner (Mr. Sebastien Dougherty, contact # [phone]) contacted - as above, in subjective. Admission and Anticipated Discharge Date Admission Date: October 20, 2024 Subjective Pt seen in follow up of hyponatremia, encephalopathy Admitted with Na level 119, now improved Pt sitting up in bed in NAD, currently denies any complaints Talked on the phone w/ her friend Mr. Dougherty yesterday - pt was anxious and complaining of abd. pain before coming to ER. He reports she has poor diet, drinks diet soda and eats sandwiches and pizza. they usually get take out. Hgb also low, fobt in ED negat.- blood consent obtained - obtained peripheral smear and consulted hematology - findings c/w TOMASZ, recommend iron and poss. GI bleed work up received 1 unit of pRBC, Hgb 8.3 today Review of Systems Review of Systems: All systems reviewed & are unremarkable except as noted in Subjective Physical Exam Physical Exam: GENERAL: underweight F in NAD HEENT: NC/AT. NECK : Supple, no tenderness CHEST : CTA, no tenderness HEART : mildly tachycardic, no obvious murmurs ABDOMEN: no distention, nontender EXTREMITIES : No LE swelling/tenderness, moves extremities NEUROLOGIC : Awake, alert, no facial asymmetry, able to answer simple questions appropriately, moves extremities SKIN: Pallor , warm, dry Results & Data Results & Data Vital Signs (Past 12 Hours) Vital Signs Temp Pulse Pulse Resp BP Pulse Ox O2 Del Method 10/22/24 07:00 102 H 10/22/24 03:33 36.6 C 100 H 16 160/79 H 96 Room Air 10/21/24 23:20 36.9 C 92 H 18 150/74 H 97 Room Air 10/21/24 22:27 100 H Laboratory Results 10/22/24 10/21/24 10/21/24 Range/Units 06:03 19:35 07:27 WBC 5.27 5.15 (4.8-10.8) K/ul RBC 3.76 L 3.29 L (4.20-5.40) M/uL Hgb 8.3 L 8.2 L 6.9 L* (12.0-16.0) g/dl Hct 25.8 L 25.7 L 21.9 L (37.0-47.0) % MCV 68.6 L 66.6 L (80.0-100.0) fL MCH 22.1 L 21.0 L (25.0-34.0) pg MCHC 32.2 31.5 L (32.0-36.0) g/dL RDW Std Deviation 42.4 38.2 (36.4-46.3) fL RDW Coeff of Kasandra 18.0 H 15.9 H (11.5-14.5) % Plt Count 456 H 513 H (130-400) K/uL MPV 8.7 L 8.9 L (9.4-12.4) fL Immature Gran % (Auto) 0.8 % Neut % (Auto) 60.0 % Lymph % (Auto) 21.9 % [place] % (Auto) 11.7 % Eos % (Auto) 5.2 % Baso % (Auto) 0.4 % Neut # (Auto) 3.09 (1.40-6.50) K/uL Lymph # (Auto) 1.13 L (1.20-3.40) K/uL [place] # (Auto) 0.60 H (0.11-0.59) K/uL Eos # (Auto) 0.27 (0.00-0.50) K/uL Baso # (Auto) 0.02 (0.00-0.20) K/uL Immature Gran # (Auto) 0.04 (0.01-0.20) K/uL Microcytosis Present Ovalocytes 1+ Peripher Smr Path Cons Sodium 127 L 126 L 125 L (136-145) mmol/L Potassium 4.0 4.2 3.9 (3.5-5.1) mmol/L Chloride 98 98 96 L (98-107) mmol/L Carbon Dioxide 24 23 23 (21-32) mmol/L Anion Gap 5 5 6 (3-11) BUN 8 9 6 (6-23) mg/dl Creatinine 0.39 L 0.57 L 0.39 L (0.6-1.2) mg/dl Est Cr Clr Drug Dosing 108.4 75.1 109.8 ml/min eGFR 111.82 102.05 111.82 BUN/Creatinine Ratio 20.5 H 15.8 15.4 (10-20) Glucose 100 H 90 94 (70-99(Fasting)) mg/dl Calcium 7.7 L 7.6 L 7.6 L (8.6-10.3) mg/dl Phosphorus 3.3 3.6 3.4 (2.5-4.9) mg/dl Magnesium 1.5 L 1.6 L 1.6 L (1.7-2.4) mg/dl Ferritin 336.2 (8-388) ng/ml Vitamin B12 407 (180-914) pg/ml Folate 16.13 (>5.38) ng/ml Blood Type Blood Type Recheck Antibody Screen Crossmatch 10/20/24 10/20/24 Range/Units 12:25 03:35 WBC (4.8-10.8) K/ul RBC (4.20-5.40) M/uL Hgb (12.0-16.0) g/dl Hct (37.0-47.0) % MCV (80.0-100.0) fL MCH (25.0-34.0) pg MCHC (32.0-36.0) g/dL RDW Std Deviation (36.4-46.3) fL RDW Coeff of Kasandra (11.5-14.5) % Plt Count (130-400) K/uL MPV (9.4-12.4) fL Immature Gran % (Auto) % Neut % (Auto) % Lymph % (Auto) % [place] % (Auto) % Eos % (Auto) % Baso % (Auto) % Neut # (Auto) (1.40-6.50) K/uL Lymph # (Auto) (1.20-3.40) K/uL [place] # (Auto) (0.11-0.59) K/uL Eos # (Auto) (0.00-0.50) K/uL Baso # (Auto) (0.00-0.20) K/uL Immature Gran # (Auto) (0.01-0.20) K/uL Microcytosis Ovalocytes Peripher Smr Path Cons Sodium (136-145) mmol/L Potassium (3.5-5.1) mmol/L Chloride (98-107) mmol/L Carbon Dioxide (21-32) mmol/L Anion Gap (3-11) BUN (6-23) mg/dl Creatinine (0.6-1.2) mg/dl Est Cr Clr Drug Dosing ml/min eGFR BUN/Creatinine Ratio (10-20) Glucose (70-99(Fasting)) mg/dl Calcium (8.6-10.3) mg/dl Phosphorus (2.5-4.9) mg/dl Magnesium (1.7-2.4) mg/dl Ferritin (8-388) ng/ml Vitamin B12 (180-914) pg/ml Folate (>5.38) ng/ml Blood Type O Positive Blood Type Recheck O Positive Antibody Screen NEGATIVE Crossmatch See Detail Medications Administered Current Inpatient Medications Acetaminophen (Acetaminophen 325 Mg Tab) 650 mg PO QID PRN PRN Reason: pain/fever Stop: 11/19/24 04:33 Last Admin: 10/20/24 04:55 Dose: 650 mg Cyanocobalamin (Cyanocobalamin (B-12) 500 Mcg Tablet) 500 mcg PO QAM RICKY Stop: 11/20/24 09:14 Last Admin: 10/21/24 10:34 Dose: 500 mcg Hydroxyzine HCl (Hydroxyzine Hcl 10 Mg Tab) 10 mg PO QID PRN PRN Reason: Anxiety Stop: 11/19/24 03:09 Last Admin: 10/21/24 08:13 Dose: 10 mg Promethazine HCl (Phenergan) 6.25 mg in 50.25 mls @ 201 mls/hr IV Q6H PRN PRN Reason: Nausea And Vomiting Stop: 11/19/24 03:09 Magnesium Sulfate/Dextrose (Magnesium Sulfate / D5w) 1 gm in 100 mls @ 50 mls/hr IV ONE ONE Stop: 10/22/24 09:24 Magnesium Oxide (Magnesium Oxide 400 Mg Tab) 400 mg PO BID [facility] Stop: 11/21/24 08:59 Multivitamins (Multivitamin Tab) 1 tab PO DAILY RICKY Stop: 11/19/24 08:59 Last Admin: 10/21/24 08:14 Dose: 1 tab Pantoprazole Sodium (Pantoprazole 40 Mg Tab) 40 mg PO DAILYBB [facility] Stop: 11/19/24 06:29 Last Admin: 10/22/24 05:43 Dose: 40 mg Thiamine HCl (Thiamine Hcl 100 Mg Tab) 100 mg PO QAM RICKY Stop: 11/20/24 08:59 Last Admin: 10/21/24 09:24 Dose: 100 mg
[2024-10-22] MEDS: MAGNESIUM SULFATE / D5W 1 GM/100 ML BAG IV ONE (07:50)
[2024-10-22] MEDS: MAGNESIUM OXIDE 400 MG TAB PO SCH (09:50)
--- NOTE | 2024-10-22 09:55 | Nephrology Progress Note ---
Date of Service October 22, 2024 Assessment & Plan Admission and Anticipated Discharge Date Admission Date: October 20, 2024 Subjective Assessment & Plan (1) Hyponatremia: Appears euvolemic. Acute on chronic Hyponatremia. for the last few years sodium has been on the slightly lower side with ranging from 132-134. 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 patient appears cachectic and has low mag. Not a reliable historian but it appears she was drinking lot of liquids at home. 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 this tme urine osm in mid 200 but timing was not ideal for sample collection Boyfriend did say that she drinks soda all day !! patient Agrees but not clear how much ! Normal Cortisol but TSH is slightly high--not Severe enough to cause Hyponatremia. defer to Primary team Need BMP every 12hrs now. na going up slowly and is now 127 from Admission level of 119. FFR 1200 ml per day. She has Poor appetite and since na + going up steadily will not add Urea or salt tab or lasix. hgb very low at 6.8 -Reviewed hematology consult--Iv iron and r/o GI bleed. S--no new issues. Na going up slowly. ROS--Unable to obtain any clear history from Patient . Just Says yes to most Questions and answers !! Physical Exam Physical Exam: GENERAL: Aphasic, Cachectic and no respiratory . Looks lot older than age. HEENT: Pale palpebral conjunctivae, no ptosis, dry buccal mucosa NECK : Supple, no tenderness CHEST : CTA, no tenderness HEART : Tachycardic, no obvious murmurs ABDOMEN: no distention, nontender EXTREMITIES : No LE swelling/tenderness, no other conspicuous deformities noted NEUROLOGIC : Aphasic, no facial asymmetry, gait and stance not assessed Results & Data Vital Signs (Past 12 Hours) Vital Signs Temp Pulse Pulse Resp BP Pulse Ox O2 Del Method 10/22/24 08:39 36.6 C 92 H 20 147/74 H 98 Room Air 10/22/24 07:00 102 H 10/22/24 03:33 36.6 C 100 H 16 160/79 H 96 Room Air 04/24/25 23:20 36.9 C 92 H 18 150/74 H 97 Room Air 10/21/24 22:27 100 H
[2024-10-22 18:51] LABS: BUN Creatinine Ratio 18.9 (10-20); Calcium 7.6 mg/dl (8.6-10.3); Creatinine Clr Calc Pharmacy 79.8 ml/min
[2024-10-23 07:40] LABS: Hematocrit (blood only) 26.2 % (37.0-47.0); Hemoglobin 8.4 g/dl (12.0-16.0); Mean Corpuscular Hemoglobin 22.2 pg (25.0-34.0); Mean Corpuscular Hgb Conc 32.1 g/dL (32.0-36.0); Mean Corpuscular Volume 69.1 fL (80.0-100.0); Mean Platelet Volume 9.2 fL (9.4-12.4); Platelet Count 512 K/uL (130-400); RDW Coefficient of Variation 18.6 % (11.5-14.5); RDW Standard Deviation 43.8 fL (36.4-46.3); Red Blood Count 3.79 M/uL (4.20-5.40); White Blood Count 9.04 K/ul (4.8-10.8)
[2024-10-23 08:06] LABS: BUN Creatinine Ratio 22.2 (10-20); Calcium 7.6 mg/dl (8.6-10.3); Creatinine Clr Calc Pharmacy 121.5 ml/min; Magnesium 1.2 mg/dl (1.7-2.4); Phosphorus 2.4 mg/dl (2.5-4.9); Potassium 4.1 mmol/L (3.5-5.1)
[2024-10-23 09:12] LABS: BUN Creatinine Ratio 20.5 (10-20); Calcium 7.8 mg/dl (8.6-10.3); Creatinine Clr Calc Pharmacy 112.1 ml/min; Magnesium 1.3 mg/dl (1.7-2.4); Potassium 4.3 mmol/L (3.5-5.1)
--- NOTE | 2024-10-23 10:35 | Hospitalist Progress Note ---
Date of Service October 23, 2024 Assessment & Plan (1) Hyponatremia: Plan: Acute on chronic hyponatremia Encephalopathy secondary to above - mental status back to baseline Home neuropsychotropic medications and baclofen contributory Hold baclofen, neuropsychotropic medications until mentation back to baseline aphasia/memory impairment as per records as per records, possible beginning dementia as per outpatient [facility] – [place] Neurology note from last year 10/21 Pt awake, alert, able to answer simple questions Careful correction of sodium Hyponatremia work-up, Nephrology consult Na improved to 127 as of 10/22 However now Na down again at 116 (10/23/24) - discussed w/ nephrology - started salt tab and urea Hypomagnesemia - likely secondary to poor nutrition - replete and monitor New onset anemia, no overt bleed, FOBT done at the ER was negative Anemia workup, transfuse PRBC if hemoglobin less than 7 and or for symptomatic anemia consent obtained, will gave 1 unit of pRBC on 10/21 gave IV iron on (10/20) obtained peripheral smear and consulted w/ hematology - c/w Iron deficiency anemia, replete iron and recommend outpt poss. GI bleed work up Hgb now above 8 and stable Chronic conditions: Rheumatoid arthritis on Orencia mood disorder Tourette's syndrome Malnutrition (low BMI), Nutrition consult re: low BMI past alcohol abuse DVT prophylaxis. SCDs Full code Patient's partner (Mr. Sebastien Dougherty, contact # [phone]) contacted - as above, in subjective. Admission and Anticipated Discharge Date Admission Date: October 20, 2024 Subjective Pt seen in follow up of hyponatremia, encephalopathy Admitted with Na level 119 Pt lying in bed in NAD, currently denies any complaints Hgb also low, fobt in ED negat., c/w TOMASZ, received iron infusion and blood transfusion received 1 unit of pRBC, Hgb 8.3 yesterday on 10/22 Current Hgb 8.4 - stable however her sodium now down to 116 (yesterday Na 127) Discussed w/ nephrology in detail at the bedside, also updated pt's son (Caio) at the bedside. Review of Systems Review of Systems: All systems reviewed & are unremarkable except as noted in Subjective Physical Exam Physical Exam: GENERAL: underweight F in NAD HEENT: NC/AT. NECK : Supple, no tenderness CHEST : CTA, no tenderness HEART : mildly tachycardic, no obvious murmurs ABDOMEN: no distention, nontender EXTREMITIES : No LE swelling/tenderness, moves extremities NEUROLOGIC : Awake, alert, no facial asymmetry, able to answer simple questions appropriately, moves extremities SKIN: Pallor , warm, dry Results & Data Results & Data Vital Signs (Past 12 Hours) Vital Signs Temp Pulse Pulse Resp BP Pulse Ox O2 Del Method 10/23/24 08:50 36.8 C 104 H 17 140/83 99 Room Air 10/23/24 03:47 37.1 C 117 H 20 172/91 H 98 Room Air 10/23/24 01:10 104 H 10/22/24 23:25 36.9 C 95 H 16 156/73 H 95 Room Air Laboratory Results 10/23/24 10/23/24 10/22/24 Range/Units 08:33 06:37 18:09 WBC 9.04 (4.8-10.8) K/ul RBC 3.79 L (4.20-5.40) M/uL Hgb 8.4 L (12.0-16.0) g/dl Hct 26.2 L (37.0-47.0) % MCV 69.1 L (80.0-100.0) fL MCH 22.2 L (25.0-34.0) pg MCHC 32.1 (32.0-36.0) g/dL RDW Std Deviation 43.8 (36.4-46.3) fL RDW Coeff of Kasandra 18.6 H (11.5-14.5) % Plt Count 512 H (130-400) K/uL MPV 9.2 L (9.4-12.4) fL Sodium 115 L* 116 L* 124 L (136-145) mmol/L Potassium 4.3 4.1 4.0 (3.5-5.1) mmol/L Chloride 85 L 86 L 95 L (98-107) mmol/L Carbon Dioxide 25 24 21 (21-32) mmol/L Anion Gap 5 6 8 (3-11) BUN 8 8 10 (6-23) mg/dl Creatinine 0.39 L 0.36 L 0.53 L (0.6-1.2) mg/dl Est Cr Clr Drug Dosing 112.1 121.5 79.8 ml/min eGFR 111.82 114.00 103.85 BUN/Creatinine Ratio 20.5 H 22.2 H 18.9 (10-20) Glucose 101 H 100 H 131 H (70-99(Fasting)) mg/dl Osmolality 243 L (280-300) mOsm/kg Calcium 7.8 L 7.6 L 7.6 L (8.6-10.3) mg/dl Phosphorus 2.4 L (2.5-4.9) mg/dl Magnesium 1.3 L 1.2 L (1.7-2.4) mg/dl Miscellaneous Test Miscellaneous Test 2 10/20/24 10/20/24 Range/Units 01:21 01:15 WBC (4.8-10.8) K/ul RBC (4.20-5.40) M/uL Hgb (12.0-16.0) g/dl Hct (37.0-47.0) % MCV (80.0-100.0) fL MCH (25.0-34.0) pg MCHC (32.0-36.0) g/dL RDW Std Deviation (36.4-46.3) fL RDW Coeff of Kasandra (11.5-14.5) % Plt Count (130-400) K/uL MPV (9.4-12.4) fL Sodium (136-145) mmol/L Potassium (3.5-5.1) mmol/L Chloride (98-107) mmol/L Carbon Dioxide (21-32) mmol/L Anion Gap (3-11) BUN (6-23) mg/dl Creatinine (0.6-1.2) mg/dl Est Cr Clr Drug Dosing ml/min eGFR BUN/Creatinine Ratio (10-20) Glucose (70-99(Fasting)) mg/dl Osmolality (280-300) mOsm/kg Calcium (8.6-10.3) mg/dl Phosphorus (2.5-4.9) mg/dl Magnesium (1.7-2.4) mg/dl Miscellaneous Test REPORT Miscellaneous Test 2 REPORT Medications Administered Current Inpatient Medications Acetaminophen (Acetaminophen 325 Mg Tab) 650 mg PO QID PRN PRN Reason: pain/fever Stop: 11/19/24 04:33 Last Admin: 10/20/24 04:55 Dose: 650 mg Cyanocobalamin (Cyanocobalamin (B-12) 500 Mcg Tablet) 500 mcg PO QAM [facility] Stop: 11/20/24 09:14 Last Admin: 10/23/24 08:20 Dose: 500 mcg Hydroxyzine HCl (Hydroxyzine Hcl 10 Mg Tab) 10 mg PO QID PRN PRN Reason: Anxiety Stop: 11/19/24 03:09 Last Admin: 10/23/24 08:25 Dose: 10 mg Promethazine HCl (Phenergan) 6.25 mg in 50.25 mls @ 201 mls/hr IV Q6H PRN PRN Reason: Nausea And Vomiting Stop: 11/19/24 03:09 Magnesium Sulfate/Dextrose (Magnesium Sulfate / D5w) 1 gm in 100 mls @ 50 mls/hr IV ONE ONE Stop: 10/23/24 12:32 Magnesium Oxide (Magnesium Oxide 400 Mg Tab) 400 mg PO BID [facility] Stop: 11/21/24 08:59 Last Admin: 10/23/24 08:20 Dose: 400 mg Multivitamins (Multivitamin Tab) 1 tab PO DAILY [facility] Stop: 11/19/24 08:59 Last Admin: 10/23/24 08:20 Dose: 1 tab Pantoprazole Sodium (Pantoprazole 40 Mg Tab) 40 mg PO DAILYBB [facility] Stop: 11/19/24 06:29 Last Admin: 10/23/24 05:26 Dose: 40 mg Sodium Chloride (Sodium Chloride 1 Gm Tablet) 2 gm PO TID [facility] Stop: 11/22/24 13:59 Thiamine HCl (Thiamine Hcl 100 Mg Tab) 100 mg PO QAM [facility] Stop: 11/20/24 08:59 Last Admin: 10/23/24 08:20 Dose: 100 mg Urea (Urea (Urea-Na) 15 Gm Pack) 30 gm PO BID [facility] Stop: 11/22/24 09:59
[2024-10-23] MEDS: UREA (UREA-NA) 15 GM PACK PO SCH (10:52)
[2024-10-23] MEDS: MAGNESIUM SULFATE / D5W 1 GM/100 ML BAG IV ONE ×2 (10:59→19:42)
[2024-10-23] MEDS: SODIUM PHOSPHATE 3 MMOL/1 ML INFUSION IV STA (13:12)
[2024-10-23] MEDS: SODIUM PHOSPHATE 6 MMOL in SODIUM CHLORIDE 0.9% 100 ML IV ONE (13:18)
[2024-10-23] MEDS: SODIUM CHLORIDE 1 GM TABLET PO SCH (13:18)
[2024-10-23] MEDS: THIAMINE HCL 100 MG TAB PO SCH (13:18)
--- NOTE | 2024-10-23 13:49 | Nephrology Progress Note ---
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 Urine sodium was 88 and urine osmolality was 221 on admission. Will repeat urine sodium and urine osmolality today. - Will start her on urea 30 g twice daily - will give salt tablets 2 g twice daily - encourage high-protein diet - 1.2 L fluid restriction - monitor sodium BID Discussed with Dr. Mancuso multiple times who agrees with repeat BMP at 6pm Plan total time spent reviewing inpatient and outpatient chart as well as reviewing labs multiple times of the day and messaging for ongoing management--- 60 minutes Admission and Anticipated Discharge Date Admission Date: October 20, 2024 Subjective Seen for hyponatremia. Son was at the bedside and provided some history. Patient has some cognitive impairment. No shortness of breath. she is eating. Admission sodium 119. Sodium is down to 115. Review of Systems 2 Review of Systems: All other systems were reviewed and negative except as noted in HPI Physical Exam 2 Physical Exam: General exam: Appears comfortable, no acute distress HEENT: Pupils are equal and reactive to light Neck: No JVD, neck is supple trachea is midline Respiratory system: Clear breath sounds bilaterally. Gastrointestinal: Abdomen is soft, non distended, non tender, bowel sounds are present CVS: Regular rate and rhythm. No murmurs, rubs or gallops Musculoskeletal: No joint or muscle tenderness Extremities: Non tender, no edema, peripheral pulses are present Neuro: Oriented, no tremors, no focal neurological deficits Skin: No rashes Results & Data Vital Signs (Past 12 Hours) Vital Signs Temp Pulse Resp BP Pulse Ox O2 Del Method 10/23/24 11:40 36.8 C 95 H 16 136/80 100 Room Air 10/23/24 08:50 36.8 C 104 H 17 140/83 99 Room Air 10/23/24 03:47 37.1 C 117 H 20 172/91 H 98 Room Air Laboratory Results 10/23/24 08:33 10/23/24 06:37 WBC 9.04 RBC 3.79 L MCV 69.1 L MCH 22.2 L MCHC 32.1 RDW Std Deviation 43.8 RDW Coeff of Kasandra 18.6 H Plt Count 512 H MPV 9.2 L Phosphorus 2.4 L
[2024-10-23 18:28] LABS: BUN Creatinine Ratio 55.6 (10-20); Calcium 8.1 mg/dl (8.6-10.3); Magnesium 1.6 mg/dl (1.7-2.4); Potassium 4.4 mmol/L (3.5-5.1)
[2024-10-24 06:24] LABS: BUN Creatinine Ratio 38.1 (10-20); Creatinine Clr Calc Pharmacy 97.8 ml/min; Magnesium 1.7 mg/dl (1.7-2.4); Phosphorus 3.9 mg/dl (2.5-4.9); Potassium 4.3 mmol/L (3.5-5.1)
--- NOTE | 2024-10-24 07:39 | Hospitalist Progress Note ---
Date of Service October 24, 2024 Assessment & Plan (1) Hyponatremia: Plan: Acute on chronic hyponatremia Encephalopathy secondary to above - mental status back to baseline Home neuropsychotropic medications and baclofen contributory Hold baclofen, neuropsychotropic medications until mentation back to baseline aphasia/memory impairment as per records as per records, possible beginning dementia as per outpatient [facility] – [place] Neurology note from last year 10/21 Pt awake, alert, able to answer simple questions Careful correction of sodium Hyponatremia work-up, Nephrology consult Na improved to 127 as of 10/22 However now Na down again at 116 (10/23/24) - discussed w/ nephrology - started salt tab and urea 10/24 Na 126, check na PM and AM Hypomagnesemia - likely secondary to poor nutrition - replete and monitor New onset anemia, no overt bleed, FOBT done at the ER was negative Anemia workup, transfuse PRBC if hemoglobin less than 7 and or for symptomatic anemia consent obtained, will gave 1 unit of pRBC on 10/21 gave IV iron on (10/20) obtained peripheral smear and consulted w/ hematology - c/w Iron deficiency anemia, replete iron and recommend outpt poss. GI bleed work up Hgb now above 8 and stable Chronic conditions: Rheumatoid arthritis on Orencia mood disorder Tourette's syndrome Malnutrition (low BMI), Nutrition consult re: low BMI past alcohol abuse DVT prophylaxis. SCDs Full code Patient's partner (Mr. Sebastien Dougherty, contact # [phone]) contacted - as above, in subjective. Admission and Anticipated Discharge Date Admission Date: October 20, 2024 Subjective Pt seen in follow up of hyponatremia, encephalopathy Admitted with Na level 119 Pt lying in bed in NAD, currently denies any complaints Hgb also low, fobt in ED negat., c/w TOMASZ, received iron infusion and blood transfusion (1 unit on 10/22) Na initially improved however then down to 116 Discussed w/ nephrology in detail and started on urea and salt tab Pt's son (Caio) updated at the bedside yesterday. Today, pt's brother at the bedside and updated. Review of Systems Review of Systems: All systems reviewed & are unremarkable except as noted in Subjective Physical Exam Physical Exam: GENERAL: underweight F in NAD HEENT: NC/AT. NECK : Supple, no tenderness CHEST : CTA, no tenderness HEART : mildly tachycardic, no obvious murmurs ABDOMEN: no distention, nontender EXTREMITIES : No LE swelling/tenderness, moves extremities NEUROLOGIC : Awake, alert, no facial asymmetry, able to answer simple questions appropriately, moves extremities SKIN: Pallor , warm, dry Results & Data Results & Data Vital Signs (Past 12 Hours) Vital Signs Temp Pulse Pulse Resp BP Pulse Ox O2 Del Method 10/24/24 07:28 102 H 10/24/24 07:11 36.9 C 108 H 17 126/77 100 Room Air 10/24/24 02:24 37.5 C 108 H 16 159/84 H 100 Room Air 10/23/24 22:14 36.9 C 105 H 16 138/82 98 Room Air 10/23/24 22:07 120 H Laboratory Results 10/24/24 10/23/24 10/23/24 Range/Units 05:41 17:53 12:31 WBC (4.8-10.8) K/ul RBC (4.20-5.40) M/uL Hgb (12.0-16.0) g/dl Hct (37.0-47.0) % MCV (80.0-100.0) fL MCH (25.0-34.0) pg MCHC (32.0-36.0) g/dL RDW Std Deviation (36.4-46.3) fL RDW Coeff of Kasandra (11.5-14.5) % Plt Count (130-400) K/uL MPV (9.4-12.4) fL Sodium 126 L 123 L (136-145) mmol/L Potassium 4.3 4.4 (3.5-5.1) mmol/L Chloride 95 L 92 L (98-107) mmol/L Carbon Dioxide 27 25 (21-32) mmol/L Anion Gap 4 6 (3-11) BUN 16 30 H D (6-23) mg/dl Creatinine 0.42 L 0.54 L (0.6-1.2) mg/dl Est Cr Clr Drug Dosing 97.8 81.0 ml/min eGFR 109.84 103.39 BUN/Creatinine Ratio 38.1 H 55.6 H (10-20) Glucose 111 H 110 H (70-99(Fasting)) mg/dl Osmolality (280-300) mOsm/kg Calcium 8.0 L 8.1 L (8.6-10.3) mg/dl Phosphorus 3.9 D (2.5-4.9) mg/dl Magnesium 1.7 1.6 L (1.7-2.4) mg/dl Urine Osmolality 267 L (500-800) mOsm/kg Ur Random Sodium 56 mmol/L 10/23/24 10/23/24 Range/Units 08:33 06:37 WBC 9.04 (4.8-10.8) K/ul RBC 3.79 L (4.20-5.40) M/uL Hgb 8.4 L (12.0-16.0) g/dl Hct 26.2 L (37.0-47.0) % MCV 69.1 L (80.0-100.0) fL MCH 22.2 L (25.0-34.0) pg MCHC 32.1 (32.0-36.0) g/dL RDW Std Deviation 43.8 (36.4-46.3) fL RDW Coeff of Kasandra 18.6 H (11.5-14.5) % Plt Count 512 H (130-400) K/uL MPV 9.2 L (9.4-12.4) fL Sodium 115 L* 116 L* (136-145) mmol/L Potassium 4.3 4.1 (3.5-5.1) mmol/L Chloride 85 L 86 L (98-107) mmol/L Carbon Dioxide 25 24 (21-32) mmol/L Anion Gap 5 6 (3-11) BUN 8 8 (6-23) mg/dl Creatinine 0.39 L 0.36 L (0.6-1.2) mg/dl Est Cr Clr Drug Dosing 112.1 121.5 ml/min eGFR 111.82 114.00 BUN/Creatinine Ratio 20.5 H 22.2 H (10-20) Glucose 101 H 100 H (70-99(Fasting)) mg/dl Osmolality 243 L (280-300) mOsm/kg Calcium 7.8 L 7.6 L (8.6-10.3) mg/dl Phosphorus 2.4 L (2.5-4.9) mg/dl Magnesium 1.3 L 1.2 L (1.7-2.4) mg/dl Urine Osmolality (500-800) mOsm/kg Ur Random Sodium mmol/L Medications Administered Current Inpatient Medications Acetaminophen (Acetaminophen 325 Mg Tab) 650 mg PO QID PRN PRN Reason: pain/fever Stop: 11/19/24 04:33 Last Admin: 10/20/24 04:55 Dose: 650 mg Cyanocobalamin (Cyanocobalamin (B-12) 500 Mcg Tablet) 500 mcg PO QAM [facility] Stop: 11/20/24 09:14 Last Admin: 10/23/24 08:20 Dose: 500 mcg Hydroxyzine HCl (Hydroxyzine Hcl 10 Mg Tab) 10 mg PO QID PRN PRN Reason: Anxiety Stop: 11/19/24 03:09 Last Admin: 10/23/24 13:18 Dose: 10 mg Promethazine HCl (Phenergan) 6.25 mg in 50.25 mls @ 201 mls/hr IV Q6H PRN PRN Reason: Nausea And Vomiting Stop: 11/19/24 03:09 Magnesium Sulfate/Dextrose (Magnesium Sulfate / D5w) 1 gm in 100 mls @ 50 mls/hr IV ONE ONE Stop: 10/24/24 09:36 Magnesium Oxide (Magnesium Oxide 400 Mg Tab) 400 mg PO BID [facility] Stop: 11/21/24 08:59 Last Admin: 10/23/24 19:42 Dose: 400 mg Multivitamins (Multivitamin Tab) 1 tab PO DAILY [facility] Stop: 11/19/24 08:59 Last Admin: 10/23/24 08:20 Dose: 1 tab Pantoprazole Sodium (Pantoprazole 40 Mg Tab) 40 mg PO DAILYBB [facility] Stop: 11/19/24 06:29 Last Admin: 10/24/24 05:34 Dose: 40 mg Sodium Chloride (Sodium Chloride 1 Gm Tablet) 2 gm PO TID [facility] Stop: 11/22/24 13:59 Last Admin: 10/23/24 13:18 Dose: 2 gm Thiamine HCl (Thiamine Hcl 100 Mg Tab) 200 mg PO QAM [facility] Stop: 11/22/24 12:59 Last Admin: 10/23/24 13:18 Dose: 200 mg Urea (Urea (Urea-Na) 15 Gm Pack) 30 gm PO BID [facility] Stop: 11/22/24 09:59 Last Admin: 10/23/24 10:52 Dose: 30 gm
[2024-10-24] MEDS: MAGNESIUM SULFATE / D5W 1 GM/100 ML BAG IV ONE (08:44)
--- NOTE | 2024-10-24 13:44 | Nephrology Progress Note ---
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 Urine sodium was 88 and urine osmolality was 221 on admission. repeat urine sodium and urine osmolality yesterday still consistent with SIADH. - Will continue urea 15 g twice daily - will give salt tablets 1 g twice daily - encourage high-protein diet - 1.2 L fluid restriction - monitor sodium BID Discussed with Dr. Mancuso via tiger text Admission and Anticipated Discharge Date Admission Date: October 20, 2024 Subjective Seen for hyponatremia. She feels better. No shortness of breath. She is eating her meals. Sodium up trending Review of Systems 2 Review of Systems: All other systems were reviewed and negative except as noted in HPI Physical Exam 2 Physical Exam: General exam: Appears comfortable, no acute distress HEENT: Pupils are equal and reactive to light Neck: No JVD, neck is supple trachea is midline Respiratory system: Clear breath sounds bilaterally. Gastrointestinal: Abdomen is soft, non distended, non tender, bowel sounds are present CVS: Regular rate and rhythm. No murmurs, rubs or gallops Musculoskeletal: No joint or muscle tenderness Extremities: Non tender, no edema, peripheral pulses are present Neuro: Oriented, no tremors, no focal neurological deficits Skin: No rashes Results & Data Vital Signs (Past 12 Hours) Vital Signs Temp Pulse Pulse Resp BP Pulse Ox O2 Del Method 10/24/24 11:28 37.3 C 101 H 17 128/68 95 Room Air 10/24/24 07:28 102 H 10/24/24 07:11 36.9 C 108 H 17 126/77 100 Room Air 10/24/24 02:24 37.5 C 108 H 16 159/84 H 100 Room Air Laboratory Results 10/24/24 05:41 10/24/24 05:41 Phosphorus 3.9 D
[2024-10-24 20:15] LABS: BUN Creatinine Ratio 28.2 (10-20); Calcium 7.8 mg/dl (8.6-10.3); Creatinine Clr Calc Pharmacy 57.9 ml/min; Magnesium 1.7 mg/dl (1.7-2.4); Phosphorus 3.6 mg/dl (2.5-4.9); Potassium 4.5 mmol/L (3.5-5.1)
[2024-10-24] MEDS: SODIUM CHLORIDE 1 GM TABLET PO SCH (21:00)
[2024-10-24] MEDS: UREA (UREA-NA) 15 GM PACK PO SCH (21:00)
[2024-10-25 06:24] LABS: Hematocrit (blood only) 24.4 % (37.0-47.0); Hemoglobin 7.8 g/dl (12.0-16.0); Mean Corpuscular Hemoglobin 22.2 pg (25.0-34.0); Mean Corpuscular Volume 69.5 fL (80.0-100.0); Mean Platelet Volume 9.1 fL (9.4-12.4); Platelet Count 475 K/uL (130-400); RDW Coefficient of Variation 19.2 % (11.5-14.5); RDW Standard Deviation 44.9 fL (36.4-46.3); Red Blood Count 3.51 M/uL (4.20-5.40); White Blood Count 6.99 K/ul (4.8-10.8)
[2024-10-25 06:39] LABS: BUN Creatinine Ratio 51.2 (10-20); Calcium 7.7 mg/dl (8.6-10.3); Creatinine Clr Calc Pharmacy 99.6 ml/min; Magnesium 1.5 mg/dl (1.7-2.4); Phosphorus 3.2 mg/dl (2.5-4.9); Potassium 4.5 mmol/L (3.5-5.1)
--- NOTE | 2024-10-25 08:31 | Hospitalist Progress Note ---
Date of Service October 25, 2024 Assessment & Plan (1) Hyponatremia: Plan: Acute on chronic hyponatremia Encephalopathy secondary to above - mental status back to baseline Home neuropsychotropic medications and baclofen contributory Hold baclofen, neuropsychotropic medications until mentation back to baseline aphasia/memory impairment as per records as per records, possible beginning dementia as [place] [facility] [place] 10/21 Pt awake, alert, able to answer simple questions Careful correction of sodium Hyponatremia work-up, Nephrology consult Na improved to 127 as of 10/22 However now Na down again at 116 (10/23/24) - discussed w/ nephrology - started salt tab and urea 10/24 Na 126 AM, 127 PM 10/25 Na 120 Hypomagnesemia - likely secondary to poor nutrition - replete and monitor New onset anemia, no overt bleed, FOBT done at the ER was negative Anemia workup, transfuse PRBC if hemoglobin less than 7 and or for symptomatic anemia consent obtained, will gave 1 unit of pRBC on 10/21 gave IV iron on (10/20) obtained peripheral smear and consulted w/ hematology - c/w Iron deficiency anemia, replete iron and recommend outpt poss. GI bleed work up Hgb the ~ 8 - will provide another IV iron (10/25) Chronic conditions: Rheumatoid arthritis on Orencia mood disorder Tourette's syndrome Malnutrition (low BMI), Nutrition consult re: low BMI past alcohol abuse DVT prophylaxis. SCDs Full code Patient's partner (Mr. Sebastien Dougherty, contact # [phone]) contacted - as above, in subjective. Admission and Anticipated Discharge Date Admission Date: October 20, 2024 Subjective Pt seen in follow up of hyponatremia, encephalopathy Admitted with Na level 119 Pt lying in bed in NAD, currently denies any complaints Hgb also low, fobt in ED negat., c/w TOMASZ, received iron infusion and blood transfusion (1 unit on 10/22) Na initially improved however then down to 116 Discussed w/ nephrology in detail and started on urea and salt tab Review of Systems Review of Systems: All systems reviewed & are unremarkable except as noted in Subjective Physical Exam Physical Exam: GENERAL: underweight F in NAD HEENT: NC/AT. NECK : Supple, no tenderness CHEST : CTA, no tenderness HEART : mildly tachycardic, no obvious murmurs ABDOMEN: no distention, nontender EXTREMITIES : No LE swelling/tenderness, moves extremities NEUROLOGIC : Awake, alert, no facial asymmetry, able to answer simple questions appropriately, moves extremities SKIN: Pallor , warm, dry Results & Data Results & Data Vital Signs (Past 12 Hours) Vital Signs Temp Pulse Pulse Resp BP BP Pulse Ox 10/25/24 07:42 36.6 C 94 H 20 147/79 H 100 10/25/24 05:51 98 H 10/25/24 01:52 36.9 C 92 H 16 137/75 98 10/24/24 22:25 36.5 C 100 H 16 136/76 96 10/24/24 22:02 89 O2 Del Method 10/25/24 07:42 Room Air 10/25/24 05:51 10/25/24 01:52 Room Air 10/24/24 22:25 Room Air 10/24/24 22:02 Laboratory Results 10/25/24 10/24/24 Range/Units 06:07 19:26 WBC 6.99 (4.8-10.8) K/ul RBC 3.51 L (4.20-5.40) M/uL Hgb 7.8 L (12.0-16.0) g/dl Hct 24.4 L (37.0-47.0) % MCV 69.5 L (80.0-100.0) fL MCH 22.2 L (25.0-34.0) pg MCHC 32.0 (32.0-36.0) g/dL RDW Std Deviation 44.9 (36.4-46.3) fL RDW Coeff of Kasandra 19.2 H (11.5-14.5) % Plt Count 475 H (130-400) K/uL MPV 9.1 L (9.4-12.4) fL Sodium 120 L 127 L (136-145) mmol/L Potassium 4.5 4.5 (3.5-5.1) mmol/L Chloride 90 L 97 L (98-107) mmol/L Carbon Dioxide 24 24 (21-32) mmol/L Anion Gap 6 6 (3-11) BUN 22 20 (6-23) mg/dl Creatinine 0.43 L 0.71 (0.6-1.2) mg/dl Est Cr Clr Drug Dosing 99.6 57.9 ml/min eGFR 109.22 95.48 BUN/Creatinine Ratio 51.2 H 28.2 H (10-20) Glucose 102 H 109 H (70-99(Fasting)) mg/dl Calcium 7.7 L 7.8 L (8.6-10.3) mg/dl Phosphorus 3.2 3.6 (2.5-4.9) mg/dl Magnesium 1.5 L 1.7 (1.7-2.4) mg/dl Medications Administered Current Inpatient Medications Acetaminophen (Acetaminophen 325 Mg Tab) 650 mg PO QID PRN PRN Reason: pain/fever Stop: 11/19/24 04:33 Last Admin: 10/20/24 04:55 Dose: 650 mg Cyanocobalamin (Cyanocobalamin (B-12) 500 Mcg Tablet) 500 mcg PO QAM [facility] Stop: 11/20/24 09:14 Last Admin: 10/24/24 08:45 Dose: 500 mcg Hydroxyzine HCl (Hydroxyzine Hcl 10 Mg Tab) 10 mg PO QID PRN PRN Reason: Anxiety Stop: 11/19/24 03:09 Last Admin: 10/24/24 08:44 Dose: 10 mg Promethazine HCl (Phenergan) 6.25 mg in 50.25 mls @ 201 mls/hr IV Q6H PRN PRN Reason: Nausea And Vomiting Stop: 11/19/24 03:09 Magnesium Sulfate/Dextrose (Magnesium Sulfate / D5w) 1 gm in 100 mls @ 50 mls/hr IV ONE ONE Stop: 10/25/24 10:20 Iron Sucrose 200 mg/ Sodium (Chloride) 110 mls @ 220 mls/hr IV TODAY ONE Stop: 10/25/24 08:50 Magnesium Oxide (Magnesium Oxide 400 Mg Tab) 400 mg PO BID [facility] Stop: 11/21/24 08:59 Last Admin: 10/24/24 21:01 Dose: 400 mg Multivitamins (Multivitamin Tab) 1 tab PO DAILY [facility] Stop: 11/19/24 08:59 Last Admin: 10/24/24 08:45 Dose: 1 tab Pantoprazole Sodium (Pantoprazole 40 Mg Tab) 40 mg PO DAILYBB [facility] Stop: 11/19/24 06:29 Last Admin: 10/25/24 06:12 Dose: 40 mg Sodium Chloride (Sodium Chloride 1 Gm Tablet) 1 gm PO BID [facility] Stop: 11/23/24 20:59 Last Admin: 10/24/24 21:00 Dose: 1 gm Thiamine HCl (Thiamine Hcl 100 Mg Tab) 200 mg PO QAM [facility] Stop: 11/22/24 12:59 Last Admin: 10/24/24 08:45 Dose: 200 mg Urea (Urea (Urea-Na) 15 Gm Pack) 15 gm PO BID [facility] Stop: 11/23/24 08:59 Last Admin: 10/24/24 21:00 Dose: 15 gm
[2024-10-25] MEDS: IRON SUCROSE 200 MG in SODIUM CHLORIDE 0.9% 100 ML IV ONE (09:45)
--- NOTE | 2024-10-25 10:17 | Nephrology Progress Note ---
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 Urine sodium was 88 and urine osmolality was 221 on admission. repeat urine sodium and urine osmolality 10/23 assay still consistent with SIADH > 267 and 56 respectively. doubt refeeding syndome at this time given stability of electrolytes (not including sodium) - with sudden drop today will again repeat urine studies and serum osms, serum osms now - continue urea 15 g twice daily - continue salt tablets 1 g twice daily - low threshold for diuretics but for now await recheck - encourage high-protein diet >> dietary following and aiming for 70 gm daily intake; consider nutrition assistance and /or a/w feeding - continue 1.2 L fluid restriction - maintain eukalemia; monitor bmp at least BID Mag improving to 1.7 today Care coordinated w/ Dr Mancuso repeat lab timing, current medictions, protein intake targets via TText; we are in agreement. Admission and Anticipated Discharge Date Admission Date: October 20, 2024 Subjective abrupt drop in sodium ON 127 > 120. cause unclear; pt eating everything on tray including boost q ac; no opportuinity or tendency to take extra fluid per RN; no sob, no uncontrolled pain, no edema Review of Systems 2 Review of Systems: All systems reviewed & are unremarkable except as noted in Subjective Physical Exam 2 Constitutional: well developed and well nourished Eyes: EOM intact bilaterally ENMT: Mouth: + dry oral mucous membranes Neck: no nuchal rigidity Respiratory: normal respiratory effort Auscultation: + diminished lung sounds Cardiovascular: RRR, no murmur, no edema Gastrointestinal (Abdomen): Inspection/Auscultation: normal bowel sounds P ercussion/Palpation: abdomen soft; abdomen nontender Musculoskeletal: Extremities: strength 5/5 throughout Skin: no rashes, warm and dry Neurologic: robles, fluent speech, no tremor Results & Data Vital Signs (Past 12 Hours) Vital Signs Temp Pulse Pulse Resp BP BP Pulse Ox 10/25/24 07:42 36.6 C 94 H 20 147/79 H 100 10/25/24 05:51 98 H 10/25/24 01:52 36.9 C 92 H 16 137/75 98 10/24/24 22:25 36.5 C 100 H 16 136/76 96 O2 Del Method 10/25/24 07:42 Room Air 10/25/24 05:51 10/25/24 01:52 Room Air 10/24/24 22:25 Room Air Laboratory Results 10/25/24 06:07 10/25/24 06:07 Diagnostic Findings 10/25/24 06:07 10/25/24 06:07
[2024-10-25] MEDS: MAGNESIUM SULFATE / D5W 1 GM/100 ML BAG IV ONE (10:30)
[2024-10-25 15:19] LABS: BUN Creatinine Ratio 48.2 (10-20); Calcium 8.3 mg/dl (8.6-10.3); Creatinine Clr Calc Pharmacy 76.5 ml/min; Phosphorus 3.6 mg/dl (2.5-4.9); Potassium 4.8 mmol/L (3.5-5.1)
--- NOTE | 2024-10-25 17:08 | Communication Note ---
Date of Service: October 25, 2024 serum sodium improving; K appropriate; pt eating well; BP robust chemistries urine/serum c/w SIADH -cont current meds >one time lasix 10 mg IV >next BMP in AM Orders in; updated Dr Mancuso
[2024-10-25] MEDS: FUROSEMIDE INJ 20 MG/2 ML VIAL IV ONE (17:32)
[2024-10-26 06:28] LABS: Hematocrit (blood only) 26.6 % (37.0-47.0); Hemoglobin 8.4 g/dl (12.0-16.0)
[2024-10-26 06:53] LABS: BUN Creatinine Ratio 59.5 (10-20); Calcium 8.3 mg/dl (8.6-10.3); Creatinine Clr Calc Pharmacy 102.6 ml/min; Magnesium 1.6 mg/dl (1.7-2.4); Phosphorus 3.5 mg/dl (2.5-4.9); Potassium 4.8 mmol/L (3.5-5.1)
--- NOTE | 2024-10-26 09:56 | Nephrology Progress Note ---
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 Urine sodium was 88 and urine osmolality was 221 on admission. repeat urine sodium and urine osmolality 10/25 assay still consistent with SIADH > 267 and 56 respectively; similarly 10/25. doubt refeeding syndrome at this time given stability of electrolytes (not including sodium) - with sudden drop today will again repeat urine studies and serum osms, serum osms now - will increase urea to 30 g twice daily as of 10/26 AM - increase salt tablets 1 g twice daily > TID - start lasix 10 mg IV bid17 - encourage high-protein diet >> dietary following and aiming for 70 gm daily intake; consider nutrition assistance and /or a/w feeding - continue 1.2 L fluid restriction - maintain eukalemia; monitor bmp at least BID Mag improving to 1.6 today > cont supplements Care coordinated w/ Dr Zuluaga re med intensificatin, f/u labs via TText; we are in agreement. Admission and Anticipated Discharge Date Admission Date: October 20, 2024 Subjective step father at bedside reports hx since pt's teens of eating disorder, sounds like bulimia. pt feeling well no sob, no n/v, no edema Review of Systems 2 Review of Systems: All systems reviewed & are unremarkable except as noted in Subjective Physical Exam 2 Constitutional: well developed and well nourished Eyes: EOM intact bilaterally ENMT: Mouth: + dry oral mucous membranes Neck: no nuchal rigidity Respiratory: normal respiratory effort Auscultation: + diminished lung sounds Cardiovascular: RRR, no murmur, no edema Gastrointestinal (Abdomen): Inspection/Auscultation: normal bowel sounds P ercussion/Palpation: abdomen soft; abdomen nontender Musculoskeletal: Extremities: strength 5/5 throughout Skin: no rashes, warm and dry Results & Data Vital Signs (Past 12 Hours) Vital Signs Temp Pulse Resp BP BP Pulse Ox O2 Del Method 10/26/24 07:38 36.9 C 90 18 128/77 96 Room Air 10/26/24 03:28 36.7 C 98 H 20 145/75 H 97 Room Air 10/25/24 23:05 36.6 C 67 18 134/72 95 Room Air Laboratory Results 10/26/24 06:12 10/26/24 06:12
[2024-10-26] MEDS ORDERED: UREA (UREA-NA) 15 GM PACK PO STA (10:00)
[2024-10-26] MEDS: UREA (UREA-NA) 15 GM PACK PO STA (10:55)
[2024-10-26] MEDS: FUROSEMIDE INJ 20 MG/2 ML VIAL IV SCH (10:56)
[2024-10-26] MEDS: SODIUM CHLORIDE 1 GM TABLET PO SCH (13:42)
--- NOTE | 2024-10-26 16:23 | Hospitalist Progress Note ---
Date of Service October 26, 2024 Assessment & Plan (1) SIADH (syndrome of inappropriate ADH production): (2) Acute metabolic encephalopathy: (3) Delirium: (4) Iron deficiency anemia: (5) Mild cognitive impairment with memory loss: (6) Severe protein-calorie malnutrition: (7) Rheumatoid arthritis: Plan Patient presented with metabolic encephalopathy and delirium in the setting of severe hyponatremia and underlying cognitive impairment withHistory of alcohol misuse. Hyponatremia due to SIADH. Reviewed nephrology recommendations, increasing salt tablets, starting IV Lasix Continue fluid restriction Continue to encourage oral intake Communication with case management, they reported that based on our conversation with the patient's son patient has a history of eating disorder in the past. This may be continue to contribute as part of her hyponatremia with just poor o verall nutrition at home. Poor nutrition is certainly contributing to her iron deficiency anemia as well. Continue to monitor electrolytes Therapies consult dietary replace mag Updated patient's significant other, Sebastien Dougherty Admission and Anticipated Discharge Date Admission Date: October 20, 2024 Subjective Patient reports that she is definitely feeling better Physical Exam Physical Exam: Constitutional: Alert, frail, cachectic HEENT: Mucous membranes moist. Lungs: Clear to auscultation, decreased, no wheezes rales or rhonchi CV: S1-S2, regular Abdomen: Soft, nontender, nondistended Extremities: No significant edema Neuro: No focal deficits, weak Psych: Cooperative, normal mood Results & Data Results & Data Vital Signs (Past 12 Hours) Vital Signs Temp Pulse Pulse Resp BP Pulse Ox O2 Del Method 10/26/24 15:08 37.4 C 104 H 18 106/73 100 Room Air 10/26/24 11:12 36.7 C 98 H 18 131/76 98 Room Air 10/26/24 10:49 92 H 10/26/24 07:38 36.9 C 90 18 128/77 96 Room Air Diagnostic Findings Reviewed imaging, laboratory and diagnostic studies. Pertinent findings as below. Magnesium 1.6 Sodium 122 Creatinine 0.42 Hemoglobin 8.4, stable (7) Rheumatoid arthritis Rheumatoid arthritis location: unspecified site Rheumatoid factor presence: unspecified presence Qualified Code(s): M06.9 - Rheumatoid arthritis, unspecified
[2024-10-26] MEDS: MAGNESIUM SULFATE / D5W 1 GM/100 ML BAG IV SCH (17:16)
[2024-10-26 17:22] LABS: BUN Creatinine Ratio 65.5 (10-20); Creatinine Clr Calc Pharmacy 74.3 ml/min; Potassium 4.4 mmol/L (3.5-5.1)
[2024-10-26] MEDS: UREA (UREA-NA) 15 GM PACK PO SCH (20:11)
--- NOTE | 2024-10-27 09:08 | Nephrology Progress Note ---
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 Urine sodium was 88 and urine osmolality was 221 on admission. repeat urine sodium and urine osmolality 10/25 assay still consistent with SIADH > 267 and 56 respectively; similarly 10/25. doubt refeeding syndrome at this time given stability of electrolytes (not including sodium). very slow improvement > will intensify therapies; target is sNa no more than 130 for 10/28 pt with reported h/o eating disorder per family >> defer to hospitalist to evaluate further as needed; has not had recent hospital stays but this condition has potential to cause readmission for electrolyte issues 10/27 urine osms 306, Moris 48 on 10/26 - continue increased urea to 30 g twice daily as of 10/26 AM - >>>further increased as of 10/27 salt tablets 1 g TID > 2 gm tid - >>> increased lasix 10 mg IV tid 0600, 11, 1600 starting tomorrow (will also get 3 x 10 mg IV doses today though timed a bit later) - >>>started k cl po 20 mEq bid - encourage high-protein diet >> dietary following and aiming for 70 gm daily intake; consider nutrition assistance and /or a/w feeding - continue 1.2 L fluid restriction - daily bmp acceptable at this time unless issues tolerating above medications - maintain eukalemia Mag 1.9 today > cont supplements Care coordinated w/ Dr Zuluaga re med intensification, f/u labs via TText; we are in agreement. Admission and Anticipated Discharge Date Admission Date: October 20, 2024 Subjective no interval clinical events. tells me she feels "great" -- no sob, no n/v, no edema; tells me she's eating well Review of Systems 2 Review of Systems: All systems reviewed & are unremarkable except as noted in Subjective Physical Exam 2 Constitutional: well developed, + cachectic, + frail appearing and cooperative Eyes: EOM intact bilaterally ENMT: Mouth: + dry oral mucous membranes Neck: no nuchal rigidity Respiratory: normal respiratory effort Auscultation: + diminished lung sounds Cardiovascular: RRR, no murmur, no edema Gastrointestinal (Abdomen): Inspection/Auscultation: normal bowel sounds P ercussion/Palpation: abdomen soft; abdomen nontender Musculoskeletal: Extremities: strength 5/5 throughout and + upper extremity abnormal to inspection (marked joint deformities BL hands/wrists) Skin: no rashes, warm and dry Results & Data Vital Signs (Past 12 Hours) Vital Signs Temp Pulse Resp BP BP Pulse Ox O2 Del Method 10/27/24 08:00 36.7 C 93 H 14 118/60 100 Room Air 10/26/24 23:39 36.4 C L 107 H 18 138/74 98 Room Air Laboratory Results 10/26/24 06:12 10/27/24 08:26
[2024-10-27 09:11] LABS: BUN Creatinine Ratio 82.1 (10-20); Creatinine Clr Calc Pharmacy 110.5 ml/min
[2024-10-27 09:22] LABS: Phosphorus 3.8 mg/dl (2.5-4.9)
[2024-10-27] MEDS: POTASSIUM CHLORIDE CRTAB 20 MEQ TABCR PO SCH (12:06)
[2024-10-27] MEDS: SODIUM CHLORIDE 1 GM TABLET PO ONE (12:06)
[2024-10-27] MEDS: FUROSEMIDE INJ 20 MG/2 ML VIAL IV SCH (12:06)
--- NOTE | 2024-10-27 12:10 | Hospitalist Progress Note ---
Date of Service October 27, 2024 Assessment & Plan (1) SIADH (syndrome of inappropriate ADH production): (2) Acute metabolic encephalopathy: (3) Delirium: (4) Iron deficiency anemia: (5) Mild cognitive impairment with memory loss: (6) Severe protein-calorie malnutrition: (7) Rheumatoid arthritis: Plan Patient with continued hyponatremia due to SIADH Communication with nephrology: Plan to increase dose of salt tablets and increase frequency of Lasix. Potassium supplementation Daily labs Encourage activity Dietitian consulted to evaluate nutritional status, history of eating disorder, high-protein diet. Admission and Anticipated Discharge Date Admission Date: October 20, 2024 Subjective No complaints overnight. States that she is eating well. Physical Exam Physical Exam: Constitutional: Alert HEENT: Mucous membranes moist. Lungs: Clear to auscultation, decreased, no wheezes rales or rhonchi CV: S1-S2, regular Abdomen: Soft, nontender, nondistended Extremities: No significant edema, significant joint abnormalities hands and wrist due to arthritis Neuro: No focal deficits, generalized weakness Psych: Cooperative, impaired memory Results & Data Results & Data Vital Signs (Past 12 Hours) Vital Signs Temp Pulse Resp BP BP Pulse Ox O2 Del Method 10/27/24 11:12 36.7 C 92 H 16 120/74 93 Room Air 10/27/24 08:00 36.7 C 93 H 14 118/60 100 Room Air Diagnostic Findings Reviewed imaging, laboratory and diagnostic studies. Pertinent findings as belo w. Sodium 123, slightly improved Creatinine 0.39 Magnesium 1.9 (7) Rheumatoid arthritis Rheumatoid arthritis location: unspecified site Rheumatoid factor presence: unspecified presence Qualified Code(s): M06.9 - Rheumatoid arthritis, unspecified
[2024-10-27] MEDS: SODIUM CHLORIDE 1 GM TABLET PO SCH (15:16)
[2024-10-28] MEDS: FUROSEMIDE INJ 20 MG/2 ML VIAL IV SCH (06:30)
[2024-10-28 07:40] LABS: BUN Creatinine Ratio 80.9 (10-20); Calcium 8.5 mg/dl (8.6-10.3); Creatinine Clr Calc Pharmacy 91.7 ml/min; Magnesium 1.7 mg/dl (1.7-2.4); Phosphorus 3.2 mg/dl (2.5-4.9); Potassium 4.3 mmol/L (3.5-5.1)
--- NOTE | 2024-10-28 11:52 | Nephrology Progress Note ---
Date of Service October 28, 2024 Assessment & Plan (1) Hyponatremia: Plan: Hyponatremia is due to SIADH. Urine sodium was 88 and urine osmolality was 221 on admission. repeat urine sodium and urine osmolality 10/25 assay still consistent with SIADH > 267 and 56 respectively; similarly 10/25. doubt refeeding syndrome at this time given stability of electrolytes (not including sodium), dannielle phos. very slow improvement > will intensify therapies; target is sNa no more than 134 for 5/2 pt with reported h/o eating disorder per family >> defer to hospitalist to evaluate further as needed; has not had recent hospital stays but this condition has potential to cause readmission for electrolyte issues 10/27 urine osms 306, Moris 48 on 10/26 - continue increased urea to 30 g twice daily as of 10/26 AM - continue increased as of 10/27 salt tablets 1 g TID > 2 gm tid - continue lasix 10 mg IV tid 0600, 11, 1600 starting tomorrow (will also get 3 x 10 mg IV doses today though timed a bit later) - continue k cl po 20 mEq bid - encourage high-protein diet >> dietary following and aiming for 70 gm daily intake; consider nutrition assistance and /or a/w feeding - continue 1.2 L fluid restriction - daily bmp acceptable at this time unless issues tolerating above medications - maintain eukalemia Mag 1.9 today > cont supplements; phos wnl d/c dispo >>> ideally should have urea 30 gm bid for at least a month >> this is unfortunately not covered by insurance, likely to cost about $300 for the month and may be needed for several months; unfortunately will need to increase loop diuretic dosing to compensate >>for tomorrow will change to torsemide 40 mg daily, KCl 30 mEq bid, salt tabs 3 gm tid (dose increase) -urea dose to stop after evening dose today >>high protein diet extremely important here/ can compensate some for lack of urea Care coordinated w/ Dr Margareth ward modified / oral focussed med dosing, f/u labs via TText; we are in agreement. Admission and Anticipated Discharge Date Admission Date: October 20, 2024 Subjective no interval events clinically except nightmares; states she's eating/drinking well Review of Systems 2 Review of Systems: All systems reviewed & are unremarkable except as noted in Subjective Physical Exam 2 Constitutional: well developed, well nourished, + cachectic, + frail appearing and cooperative Eyes: EOM intact bilaterally ENMT: Mouth: + dry oral mucous membranes Neck: no nuchal rigidity Respiratory: normal respiratory effort Auscultation: + diminished lung sounds Cardiovascular: RRR, no murmur, no edema Gastrointestinal (Abdomen): Inspection/Auscultation: normal bowel sounds P ercussion/Palpation: abdomen soft; abdomen nontender Musculoskeletal: Extremities: strength 5/5 throughout and + upper extremity abnormal to inspection (marked joint deformities BL hands/wrists) Skin: no rashes, warm and dry Results & Data Vital Signs (Past 12 Hours) Vital Signs Temp Pulse BP Pulse Ox O2 Del Method 10/28/24 07:37 36.5 C 93 H 125/74 98 Room Air Laboratory Results 10/26/24 06:12 10/28/24 06:51
--- NOTE | 2024-10-28 12:58 | Hospitalist Progress Note ---
Date of Service October 28, 2024 Assessment & Plan (1) SIADH (syndrome of inappropriate ADH production): (2) Acute metabolic encephalopathy: (3) Delirium: (4) Iron deficiency anemia: (5) Mild cognitive impairment with memory loss: (6) Severe protein-calorie malnutrition: (7) Rheumatoid arthritis: (8) Vitamin D deficiency: Plan Patient sodium is slowly improving. Continue to monitor sodium and evaluate and treat as per nephrology recommendations Start oral iron replacement Start vitamin D replacement Case management coordinating home health for when patient is ready for discharge Encourage activity Admission and Anticipated Discharge Date Admission Date: October 20, 2024 Subjective Patient offers no complaints. Reports she is eating well. No chest pain or shortness of breath. Physical Exam Physical Exam: Constitutional: Alert, frail, cachectic HEENT: Mucous membranes moist. Lungs: Clear to auscultation, decreased, no wheezes rales or rhonchi CV: S1-S2, regular Abdomen: Soft, nontender, nondistended Extremities: No significant edema Neuro: No focal deficits Psych: Cooperative, normal mood Results & Data Results & Data Vital Signs (Past 12 Hours) Vital Signs Temp Pulse BP Pulse Ox O2 Del Method 10/28/24 07:37 36.5 C 93 H 125/74 98 Room Air Diagnostic Findings Reviewed imaging, laboratory and diagnostic studies. Pertinent findings as below. Sodium 127, improving Creatinine 0.47 Vitamin D 16.6 (7) Rheumatoid arthritis Rheumatoid arthritis location: unspecified site Rheumatoid factor presence: unspecified presence Qualified Code(s): M06.9 - Rheumatoid arthritis, unspecified
[2024-10-28] MEDS: POTASSIUM CHLORIDE 10 MEQ TABCR PO SCH (20:27)
[2024-10-28] MEDS: MELATONIN 3 MG TAB PO PRN (20:27)
[2024-10-28] MEDS: SODIUM CHLORIDE 1 GM TABLET PO SCH (20:27)
[2024-10-28] MEDS: CALCIUM 600MG + VIT D 400 IU TAB PO SCH (20:32)
[2024-10-29 07:48] LABS: Calcium 8.4 mg/dl (8.6-10.3); Creatinine Clr Calc Pharmacy 105.1 ml/min; Magnesium 1.6 mg/dl (1.7-2.4); Phosphorus 2.9 mg/dl (2.5-4.9); Potassium 4.6 mmol/L (3.5-5.1)
[2024-10-29] MEDS: TORSEMIDE 20 MG TAB PO SCH (09:22)
[2024-10-29] MEDS: FERROUS SULFATE 325 MG TAB PO SCH (09:23)
--- NOTE | 2024-10-29 09:56 | Nephrology Progress Note ---
Date of Service October 29, 2024 Assessment & Plan (1) Hyponatremia: Plan: Hyponatremia is due to SIADH. Urine sodium was 88 and urine osmolality was 221 on admission. repeat urine sodium and urine osmolality 10/25 assay still consistent with SIADH > 267 and 56 respectively; similarly 10/25. doubt refeeding syndrome at this time given stability of electrolytes (not including sodium), dannielle phos. that said, her sodium seems to bottom out 3-6 points every 48-72 hours for no clear reason. Concerns about patient not eating as well as she says she is or/and drinking while in bathroom. Set back on sodium today with level dropping back down to 124. target is sNa no more than 130 for 5/3 pt with reported h/o eating disorder per family >> defer to hospitalist to evaluate further as needed; has not had recent hospital stays but this condition has potential to cause readmission for electrolyte issues; asked RN to supervise a bit more/ evaluate trash in bathroom/bedside post meals 10/27 urine osms 306, Moris 48 on 10/26 - continue torsemide 40 mg daily, salt tablets 3 g 3 times daily - Held evening dose of potassium given potassium 4.6 today Urine sodium assays reordered given drop in sodium; these rechecks have consistently been suggestive of SIADH - Ordered standing weight for tomorrow Starting dose of tolvaptan 15 mg daily ordered for today; appreciate case management/pharmacy efforts to see if she can get this as an outpatient >> she will not be able to get this as OP - encourage high-protein diet >> dietary following and aiming for 70 gm daily intake; consider nutrition assistance and /or a/w feeding - continue 1.2 L fluid restriction - daily bmp acceptable at this time unless issues tolerating above medications - maintain eukalemia >>given multiple med changes will reevaluate BMP this PM 1600; so ordered -stopped urea since she won't be able to access as OP d/t costs; but if not improving will consider resuming this while in house Mag 1.6 today > cont supplements; phos wnl Care coordinated w/ Dr Zuluaga re modified / oral focussed med dosing, f/u labs via TText; we are in agreement. Admission and Anticipated Discharge Date Admission Date: October 20, 2024 Subjective amb w/o asst; agitated/tearful to hear sodium dropped again > reinforced importance of fluid limits and trying new med Review of Systems 2 Review of Systems: All systems reviewed & are unremarkable except as noted in Subjective Physical Exam 2 Constitutional: well developed, well nourished, + acute distress (tearful), + cachectic, + frail appearing and cooperative Eyes: EOM intact bilaterally ENMT: Mouth: + dry oral mucous membranes Neck: no nuchal rigidity Respiratory: normal respiratory effort Auscultation: + diminished lung sounds Cardiovascular: RRR, no murmur, no edema Gastrointestinal (Abdomen): Inspection/Auscultation: normal bowel sounds P ercussion/Palpation: abdomen soft; abdomen nontender Musculoskeletal: Extremities: strength 5/5 throughout and + upper extremity abnormal to inspection (marked joint deformities BL hands/wrists) Skin: no rashes, warm and dry Results & Data Vital Signs (Past 12 Hours) Vital Signs Temp Pulse Pulse Resp BP Pulse Ox O2 Del Method 10/29/24 07:33 36.3 C L 66 18 152/87 H 97 Room Air 10/29/24 00:12 36.8 C 69 16 131/73 94 Room Air Laboratory Results 10/26/24 06:12 10/29/24 06:36
[2024-10-29] MEDS: MAGNESIUM SULFATE / D5W 1 GM/100 ML BAG IV SCH (12:09)
[2024-10-29] MEDS: TOLVAPTAN 15 MG TABLET PO SCH (12:10)
[2024-10-29] MEDS: MAGNESIUM OXIDE 400 MG TAB PO SCH (12:10)
--- NOTE | 2024-10-29 16:05 | Hospitalist Progress Note ---
Date of Service October 29, 2024 Assessment & Plan (1) SIADH (syndrome of inappropriate ADH production): (2) Acute metabolic encephalopathy: (3) Bulimia: (4) Psychogenic polydipsia: (5) Delirium: (6) Iron deficiency anemia: (7) Mild cognitive impairment with memory loss: (8) Severe protein-calorie malnutrition: (9) Rheumatoid arthritis: (10) Vitamin D deficiency: Plan Patient with recurrent hyponatremia despite adequate treatment. Now with objective evidence that patient is vomiting in the bathroom and drinking from bathroom faucet. Suspects reason why patient's sodium drops every couple days is due to above. Discussed this with the patient I explained the reasoning for her fluid restriction. 5 minutes after patient had admitted to vomiting at least a couple times in the bathroom she completely denied ever vomiting. High concern that patient has a mental health disorder that prevents her from remembering her behaviors. Discussed with her a psychiatry consultation. Consult ordered and communicated concerns with behavioral health liaison Communication with nephrology early this morning. Will give a trial of tolvaptan. Continue to monitor laboratory studies, afternoon labs pending Phone conversation with patient's significant other Sebastien. I again discussed with him my concerns for eating disorder, psychological disorder that causes her salt levels to go real low. As we discussed shashi this issue he opened up more about her habits at home. He states that she would drink at least 3 pots of coffee a day at home. Also states that she would drink at least a 6 pack of soda every 1 to 2 days. When I asked if he ever noticed her spending signifi cant amount of time in the bathroom. He denies noticing that but now recalls that she spent a lot of time in their bedroom watching TV. The bathroom is right next to the bedroom and she could easily have gone into the bathroom without him knowing. Also he is recognize that she was quite secretive about her medications and her daily routine. Attempted to contact patient's son, no answer, short voicemail left. He lives out of town 58 minutes spent on evaluation of patient at the bedside multiple times, review of records, communication with specialist, Communication with nursing staff, communication with family, documentation and interpretation of data Admission and Anticipated Discharge Date Admission Date: October 20, 2024 Subjective Patient this morning states that she has been eating and drinking well. Following fluid restriction. Nursing reported no significant issues. Update: This afternoon patient's roommate daughter heard patient throwing up in the bathroom. She notified nurse. I was notified and came to evaluate the patient. Patient with detailed questioning did admit to throwing up at least twice within the past 24 hours and drinking from the bathroom faucet. Physical Exam Physical Exam: Constitutional: Alert, nontoxic, frail, cachectic HEENT: Mucous membranes moist. Lungs: Clear to auscultation, decreased, no wheezes rales or rhonchi CV: S1-S2, regular Abdomen: Soft, nontender, nondistended Extremities: No significant edema Neuro: No focal deficits, ambulates to the bathroom Psych: Cooperative, abnormal memory, seems to have selective memory, seems to have significant denial about events Derm: Scratches/excoriations on bilateral knees consistent with scratching disorder Results & Data Results & Data Vital Signs (Past 12 Hours) Vital Signs Temp Pulse Resp BP Pulse Ox O2 Del Method 10/29/24 07:33 36.3 C L 66 18 152/87 H 97 Room Air Diagnostic Findings Reviewed imaging, laboratory and diagnostic studies. Pertinent findings as below. Sodium 124, decreased Creatinine 0.41 Magnesium 1.6 (9) Rheumatoid arthritis Rheumatoid arthritis location: unspecified site Rheumatoid factor presence: unspecified presence Qualified Code(s): M06.9 - Rheumatoid arthritis, unspecif ied
[2024-10-29 16:29] LABS: Calcium 8.4 mg/dl (8.6-10.3); Creatinine Clr Calc Pharmacy 62.4 ml/min; Potassium 3.6 mmol/L (3.5-5.1)
[2024-10-29] MEDS: OLANZapine 10 MG/2.1 ML SDV IM STA (22:17)
[2024-10-29 23:14] LABS: Urine Potassium 22.3 mmol/L
[2024-10-30] MEDS: LORATADINE 10 MG TAB PO ONE (00:38)
[2024-10-30] MEDS: diphenhydrAMINE 2%/ZINC 0.1% CREAM 28.4GM TUBE EXT PRN (00:38)
[2024-10-30] MEDS: OLANZapine 10 MG/2.1 ML SDV IM PRN (04:42)
[2024-10-30 08:09] LABS: BUN Creatinine Ratio 42.1 (10-20); Calcium 8.4 mg/dl (8.6-10.3); Creatinine Clr Calc Pharmacy 75.6 ml/min; Potassium 3.8 mmol/L (3.5-5.1)
--- NOTE | 2024-10-30 11:10 | Hospitalist Progress Note ---
Date of Service October 30, 2024 Assessment & Plan (1) SIADH (syndrome of inappropriate ADH production): (2) Acute metabolic encephalopathy: (3) Bulimia: (4) Psychogenic polydipsia: (5) Delirium: (6) Iron deficiency anemia: (7) Mild cognitive impairment with memory loss: (8) Severe protein-calorie malnutrition: (9) Rheumatoid arthritis: (10) Vitamin D deficiency: Plan Patient with significant improvement of her sodium with the dose of tolvaptan and now with strict monitoring of her water intake. Continue to monitor sodium levels with the current regimen Psychiatric evaluation pending Communication with nephrology on chronic maintenance therapy for her hyponatremia Continue strict fluid restriction Continue to monitor and prevent patient from self-induced emesis Admission and Anticipated Discharge Date Admission Date: October 20, 2024 Subjective Patient was cooperative overnight. One-to-one sitter states that she ate a decent breakfast. Has been compliant with fluid restriction. Physical Exam Physical Exam: Constitutional: Alert, nontoxic, frail, cachectic HEENT: Mucous membranes moist. Lungs: Clear to auscultation, decreased, no wheezes rales or rhonchi CV: S1-S2, regular Abdomen: Soft, nontender, nondistended Extremities: No significant edema Neuro: No focal deficits Psych: Cooperative, normal mood Results & Data Results & Data Vital Signs (Past 12 Hours) Vital Signs Temp Pulse Resp BP Pulse Ox O2 Del Method 10/30/24 10:39 Room Air 10/30/24 07:23 36.8 C 100 H 17 128/73 96 Room Air Diagnostic Findings Reviewed imaging, laboratory and diagnostic studies. Pertinent findings as below. Sodium 136 Creatinine 0.57 (9) Rheumatoid arthritis Rheumatoid arthritis location: unspecified site Rheumatoid factor presence: unspecified presence Qualified Code(s): M06.9 - Rheumatoid arthritis, unspecified
[2024-10-30] MEDS: POTASSIUM CHLORIDE 10 MEQ TABCR PO SCH (11:38)
--- NOTE | 2024-10-30 16:57 | Nephrology Progress Note ---
Date of Service October 30, 2024 Assessment & Plan (1) Hyponatremia: Plan: Hyponatremia is due to SIADH. Urine sodium was 88 and urine osmolality was 221 on admission. repeat urine sodium and urine osmolality 10/25 assay still consistent with SIADH > 267 and 56 respectively; similarly 10/25. doubt refeeding syndrome at this time given stability of electrolytes (not including sodium), dannielle phos. that said, her sodium seems to bottom out 3-6 points every 48-72 hours for no clear reason. Concerns about patient not eating as well as she says she is or/and drinking while in bathroom. Set back on sodium today with level dropping back down to 124. target is sNa no more than 130 for 5/ pt with reported h/o eating disorder per family >> defer to hospitalist to evaluate further as needed; has not had recent hospital stays but this condition has potential to cause readmission for electrolyte issues; asked RN to supervise a bit more/ evaluate trash in bathroom/bedside post meals 10/27 urine osms 306, Moris 48 on 10/26 - continue torsemide 40 mg daily but tomorrow lower to 20 mg daily - lowered salt tabs from 3 gm tid to 1 gm bid - lowered potassium from 30 mEq bid to 20 mEq bid stopped vaptan>> she will not be able to get this as OP - encourage high-protein diet >> dietary following and aiming for 70 gm daily intake; consider nutrition assistance and /or a/w feeding - continue 1.2 L fluid restriction - daily bmp acceptable at this time unless issues tolerating above medications - maintain eukalemia -stopped urea since she won't be able to access as OP d/t costs; but if not improving will consider resuming this while in house Mag 2.0 today > cont supplements; phos wnl Care coordinated w/ Dr Margareth ward modified / oral focussed med dosing, f/u labs via TText; we are in agreement. Admission and Anticipated Discharge Date Admission Date: October 20, 2024 Subjective pt found yesterday to be purging and drinking water in the bathroom; psych has evaluated; has sitter now; denies sob, n/v, edema Review of Systems 2 Review of Systems: All systems reviewed & are unremarkable except as noted in Subjective Physical Exam 2 Constitutional: well developed, + cachectic, + frail appearing and cooperative; no acute distress (labile emotions) Eyes: EOM intact bilaterally ENMT: Mouth: + dry oral mucous membranes Neck: no nuchal rigidity Respiratory: normal respiratory effort Auscultation: + diminished lung sounds Cardiovascular: RRR, no murmur, no edema Gastrointestinal (Abdomen): Inspection/Auscultation: normal bowel sounds P ercussion/Palpation: abdomen soft; abdomen nontender Musculoskeletal: Extremities: strength 5/5 throughout and + upper extremity abnormal to inspection (marked joint deformities BL hands/wrists) Skin: no rashes, warm and dry Results & Data Vital Signs (Past 12 Hours) Vital Signs Temp Pulse Resp BP Pulse Ox O2 Del Method 10/30/24 15:11 36.7 C 84 17 117/68 96 Room Air 10/30/24 10:39 Room Air 10/30/24 07:23 36.8 C 100 H 17 128/73 96 Room Air Laboratory Results 10/26/24 06:12 10/30/24 07:07
--- NOTE | 2024-10-30 17:35 | Communication Note ---
Date of Service: October 30, 2024 Psychiatric consult in progress. Full note to follow.
--- NOTE | 2024-10-30 17:44 | Psychiatric Consultation ---
Date of Consultation October 30, 2024 Psych History Chief Complaint "[]". Allergies Allergy/AdvReac Type Severity Reaction Status Date / Time Penicillins Allergy Unknown Unknown Verified 10/20/24 01:19 Home Medications Medication Instructions Recorded Confirmed Type abatacept 125 mg/mL subcutaneous 125 mg subcut WK 09/07/21 10/20/24 History syringe (Orencia) baclofen 10 mg tablet 10 mg PO TID 09/07/21 10/20/24 History omeprazole 20 mg capsule,delayed 20 mg PO DAILYBB 09/07/21 10/20/24 History release risperidone 2 mg tablet 2 mg PO AMHS 09/07/21 10/20/24 History venlafaxine 37.5 mg tablet 37.5 mg PO AMHS 09/07/21 10/20/24 History calcium 600 mg (as 1 tab PO BID 10/20/24 10/20/24 History carbonate)-vitamin D3 5 mcg (200 unit) tablet (Calcium 600 + D(3)) multivitamin 1 tab PO DAILY 10/20/24 10/20/24 History Patient History Medical History HLD (hyperlipidemia) Surgical History No pertinent past surgical history Social History Smoking Status: Unknown if ever smoked Second Hand Exposure: No; Do You Dip or Chew Tobacco: No; Hx Alcohol Use: No Hx Substance Use: No Preferred Language: Greek Communication Ability: Effective Referral Coordinator Required: No Beliefs That Will Affect Care: Spiritual Current Living Situation: Spouse Current Living Situation Comment: LIVES WITH BOYFRIEND MARTINA GRACE Feels Safe at Home: Yes Assistive Devices: None Physical Exam Vital Signs (Past 24 Hours): Last Vital Signs Temp 36.7 C 10/30/24 15:11 Pulse 84 10/30/24 15:11 Resp 17 10/30/24 15:11 BP 117/68 10/30/24 15:11 Pulse Ox 96 10/30/24 15:11 O2 Del Method Room Air 10/30/24 15:11 Results & Data (PSY) Medications Administered Acetaminophen (Acetaminophen 325 Mg Tab) 650 mg PO QID PRN PRN Reason: pain/fever Stop: 11/19/24 04:33 Last Admin: 10/30/24 16:10 Dose: 650 mg Documented By: Admin: 10/30/24 11:38 Dose: 650 mg Documented By: Admin: 10/30/24 05:57 Dose: 650 mg Documented By: Admin: 10/28/24 02:44 Dose: 650 mg Documented By: Admin: 10/27/24 12:06 Dose: 650 mg Documented By: Admin: 10/20/24 04:55 Dose: 650 mg Documented By: PALLAVI Calcium/Vitamin D (Calcium 600mg + Vit D 400 Iu Tab) 1 tab PO BID RICKY Stop: 11/27/24 20:59 Last Admin: 10/30/24 07:59 Dose: 1 tab Documented By: Admin: 10/29/24 20:06 Dose: 1 tab Documented By: Admin: 10/29/24 09:23 Dose: 1 tab Documented By: Admin: 10/28/24 20:32 Dose: 1 tab Documented By: LEN Cyanocobalamin (Cyanocobalamin (B-12) 500 Mcg Tablet) 500 mcg PO QAM RICKY Stop: 11/20/24 09:14 Last Admin: 10/30/24 07:59 Dose: 500 mcg Documented By: Admin: 10/29/24 09:23 Dose: 500 mcg Documented By: Admin: 10/28/24 09:00 Dose: 500 mcg Documented By: Admin: 10/27/24 10:06 Dose: 500 mcg Documented By: Admin: 10/26/24 08:27 Dose: 500 mcg Documented By: Admin: 10/25/24 08:29 Dose: 500 mcg Documented By: Admin: 10/24/24 08:45 Dose: 500 mcg Documented By: Admin: 10/23/24 08:20 Dose: 500 mcg Documented By: Admin: 10/22/24 07:49 Dose: 500 mcg Documented By: Admin: 10/21/24 10:34 Dose: 500 mcg Documented By: SAMANTHA Ferrous Sulfate (Ferrous Sulfate 325 Mg Tab) 325 mg PO QAM RICKY Stop: 11/28/24 08:59 Last Admin: 10/30/24 07:58 Dose: 325 mg Documented By: Admin: 10/29/24 09:23 Dose: 325 mg Documented By: BALJIT Hydroxyzine HCl (Hydroxyzine Hcl 10 Mg Tab) 10 mg PO QID PRN PRN Reason: Anxiety Stop: 11/19/24 03:09 Last Admin: 10/30/24 15:36 Dose: 10 mg Documented By: Admin: 10/30/24 07:58 Dose: 10 mg Documented By: Admin: 10/29/24 20:06 Dose: 10 mg Documented By: Admin: 10/28/24 20:27 Dose: 10 mg Documented By: Admin: 10/28/24 02:44 Dose: 10 mg Documented By: Admin: 10/26/24 20:10 Dose: 10 mg Documented By: Admin: 10/25/24 19:53 Dose: 10 mg Documented By: Admin: 10/25/24 09:52 Dose: 10 mg Documented By: MANAGER [employer]ER Admin: 10/24/24 08:44 Dose: 10 mg Documented By: Admin: 10/23/24 13:18 Dose: 10 mg Documented By: Admin: 10/23/24 08:25 Dose: 10 mg Documented By: Admin: 10/21/24 08:13 Dose: 10 mg Documented By: Admin: 10/20/24 18:22 Dose: 10 mg Documented By: Admin: 10/20/24 05:19 Dose: 10 mg Documented By: PALLAVI Magnesium Oxide (Magnesium Oxide 400 Mg Tab) 400 mg PO BID RICKY Stop: 11/28/24 09:29 Last Admin: 10/30/24 07:58 Dose: 400 mg Documented By: Admin: 10/29/24 20:06 Dose: 400 mg Documented By: Admin: 10/29/24 12:10 Dose: 400 mg Documented By: BALJIT Melatonin (Melatonin 3 Mg Tab) 3 mg PO HS PRN PRN Reason: Sleep Stop: 11/27/24 19:37 Last Admin: 10/28/24 20:27 Dose: 3 mg Documented By: LEN Multivitamins (Multivitamin Tab) 1 tab PO DAILY RICKY Stop: 11/19/24 08:59 Last Admin: 10/30/24 07:58 Dose: 1 tab Documented By: Admin: 10/29/24 09:22 Dose: 1 tab Documented By: Admin: 10/28/24 09:00 Dose: 1 tab Documented By: Admin: 10/27/24 10:06 Dose: 1 tab Documented By: Admin: 10/26/24 08:27 Dose: 1 tab Documented By: Admin: 10/25/24 08:29 Dose: 1 tab Documented By: Admin: 10/24/24 08:45 Dose: 1 tab Documented By: Admin: 10/23/24 08:20 Dose: 1 tab Documented By: Admin: 10/22/24 07:49 Dose: 1 tab Documented By: Admin: 10/21/24 08:14 Dose: 1 tab Documented By: Admin: 10/20/24 07:48 Dose: 1 tab Documented By: DIAZ Olanzapine (Olanzapine 10 Mg/2.1 Ml Sdv) 2.5 mg IM Q4H PRN PRN Reason: Agitation Stop: 11/28/24 22:03 Last Admin: 10/30/24 16:05 Dose: 2.5 mg Documented By: Admin: 10/30/24 04:42 Dose: 2.5 mg Documented By: VERO Pantoprazole Sodium (Pantoprazole 40 Mg Tab) 40 mg PO DAILYBB RICKY Stop: 11/19/24 06:29 Last Admin: 10/30/24 05:57 Dose: 40 mg Documented By: Admin: 10/29/24 05:50 Dose: 40 mg Documented By: Admin: 10/28/24 06:30 Dose: 40 mg Documented By: Admin: 10/27/24 06:12 Dose: 40 mg Documented By: Admin: 10/26/24 06:17 Dose: 40 mg Documented By: Admin: 10/25/24 06:12 Dose: 40 mg Documented By: Admin: 10/24/24 05:34 Dose: 40 mg Documented By: Admin: 10/23/24 05:26 Dose: 40 mg Documented By: Admin: 10/22/24 05:43 Dose: 40 mg Documented By: Admin: 10/21/24 05:54 Dose: 40 mg Documented By: Admin: 10/20/24 05:38 Dose: 40 mg Documented By: PALLAVI Potassium Chloride (Potassium Chloride 10 Meq Tabcr) 20 meq PO BID RICKY Stop: 11/29/24 11:29 Last Admin: 10/30/24 11:38 Dose: 20 meq Documented By: PHANI Thiamine HCl (Thiamine Hcl 100 Mg Tab) 200 mg PO QAM RICKY Stop: 11/22/24 12:59 Last Admin: 10/30/24 07:58 Dose: 200 mg Documented By: Admin: 10/29/24 09:22 Dose: 200 mg Documented By: Admin: 10/28/24 09:00 Dose: 200 mg Documented By: Admin: 10/27/24 10:06 Dose: 200 mg Documented By: Admin: 10/26/24 08:27 Dose: 200 mg Documented By: Admin: 10/25/24 08:28 Dose: 200 mg Documented By: Admin: 10/24/24 08:45 Dose: 200 mg Documented By: Admin: 10/23/24 13:18 Dose: 200 mg Documented By: DAVID Zinc Acetate/Diphenhydramine (Diphenhydramine 2%/Zinc 0.1% Cream 28.4gm Tube) 1 appln EXT QID PRN PRN Reason: itchy skin Stop: 11/29/24 00:14 Last Admin: 10/30/24 15:36 Dose: 1 appln Documented By: Admin: 10/30/24 09:36 Dose: 1 appln Documented By: Admin: 10/30/24 00:38 Dose: 1 appln Documented By: VERO Solis
--- NOTE | 2024-10-30 17:45 | Communication Note ---
Date of Service: October 30, [address] Zuluaga.
[2024-10-30] MEDS: SODIUM CHLORIDE 1 GM TABLET PO SCH (20:23)
[2024-10-31] MEDS: ONDANSETRON INJ 2 MG/ML 2 ML VIAL IV PRN (06:08)
[2024-10-31 06:19] LABS: Basophils # (auto) 0.03 K/uL (0.00-0.20); Basophils % (auto) 0.3 %; Eosinophils # (auto) 0.37 K/uL (0.00-0.50); Eosinophils % (auto) 3.8 %; Hematocrit (blood only) 27.2 % (37.0-47.0); Hemoglobin 8.3 g/dl (12.0-16.0); Immature Granulocytes # (auto) 0.07 K/uL (0.01-0.20); Immature Granulocytes % (auto) 0.7 %; Lymphocytes # (auto) 1.65 K/uL (1.20-3.40); Lymphocytes % (auto) 16.8 %; Mean Corpuscular Hemoglobin 21.7 pg (25.0-34.0); Mean Corpuscular Hgb Conc 30.5 g/dL (32.0-36.0); Mean Corpuscular Volume 71.2 fL (80.0-100.0); Mean Platelet Volume 8.6 fL (9.4-12.4); Monocytes % (auto) 7.1 %; Neutrophils # (auto) 7.02 K/uL (1.40-6.50); Neutrophils % (auto) 71.3 %; Platelet Count 605 K/uL (130-400); RDW Coefficient of Variation 20.2 % (11.5-14.5); RDW Standard Deviation 49.3 fL (36.4-46.3); Red Blood Count 3.82 M/uL (4.20-5.40); White Blood Count 9.84 K/ul (4.8-10.8)
--- NOTE | 2024-10-31 06:35 | CT Scan Report ---
EXAM: CT head/brain wo con CLINICAL HISTORY: weakness TECHNIQUE: Axial non-contrast CT scan of the brain was performed from the skull base to the high parietal region. One of the following dose reduction techniques was utilized for this exam: Automated exposure control, adjustment of the mA and/or kV according to patient size, use of iterative reconstruction. COMPARISON: 10/20/2024. FINDINGS: There are tiny ill-defined hypodense areas noted in the periventricular region bilaterally, suggestive of mild microvascular ischemic changes. Mcmahon-white matter differentiation is maintained. No evidence of intracerebral hemorrhage. No extra axial hematoma. Mcmahon-white matter differentiation is maintained. No midline shifts or deformity. The ventricular system, cortical sulci and basal cisterns are prominent and consistent with senile changes Normal CT appearance of the posterior fossa structures namely the cerebellar hemispheres, brainstem, and cerebellar peduncles. The cerebello-pontine angles are clear. The pituitary gland, the pineal gland, and the optic chiasm are unremarkable. The osseous structures in the skull base are unremarkable. Age-related brain involution with mild microvascular ischemic changes. IMPRESSION: 1. No acute intracranial abnormality seen. Early changes of acute ischemic infarction may not be detected on CT scan, MRI DWI is the imaging modality of choice. 2. No gross interval change in comparison with 10/20/2024. 3. Age-related brain involution with mild microvascular ischemic changes. Electronically signed by Larry Dang 10-31-2024 06:35 AM
[2024-10-31 06:37] LABS: BUN Creatinine Ratio 45.6 (10-20); Calcium 8.6 mg/dl (8.6-10.3); Magnesium 1.8 mg/dl (1.7-2.4); Potassium 4.6 mmol/L (3.5-5.1)
[2024-10-31 06:42] LABS: Anisocytosis Present; Ovalocytes 1+
[2024-10-31] MEDS: MAGNESIUM SULFATE / D5W 1 GM/100 ML BAG IV ONE (08:12)
[2024-10-31] MEDS: TORSEMIDE 20 MG TAB PO SCH (08:19)
--- NOTE | 2024-10-31 10:12 | Psychiatric Consultation ---
Date of Consultation October 31, 2024 Impression / Recommendations Impression 53-year-old female with a remote history of alcohol use disorder, currently presenting with severe hyponatremia secondary to excessive fluid intake. The patient lacks insight into the health risks associated with her fluid consumption, despite education from the medical team. Cognitive assessment reveals deficits in reasoning, judgment, memory and attention, consistent with historic diagnosis of aphasia/neurocognitive disorder.Although she denied suicidal intent or plan at this time, her baseline cognitive deficits, lack of insight and polydipsia confer a baseline elevated risk of recurrent episodes of hyponatremia. At this time, she denied suicidal intent or plan. Assessment: Metabolic Encephalopathy (resolved). Psychogenic Polydipsia with chronic hyponatremia. Major Neurocognitive disorder ? type (differentials include vascular type, alcohol-related). Alcohol use disorder, in sustained remission (1) Psychogenic polydipsia: (2) Vitamin D deficiency: (3) Acute metabolic encephalopathy: (4) SIADH (syndrome of inappropriate ADH production): (5) Delirium: (6) Tourette's: Plan Continue current medication. Recommend comprehensive neuropsychological evaluation to establish cognitive functioning at this time with a view to treatment planning. Strongly recommend referral for outpatient mental health services. Consider applying for guardianship/health care power of criminal defense attorney given pt's limited capacity to make her own medical decisions. Disposition: Currently does not meet criteria for a 302. May benefit from a voluntary admission to a geriatric psych or med-psych unit for treatment of polydipsia. Consult team discussion with patient's boyfriend, Martina. "Martina states overall he is comfortable with patient returning home as long as she is mobile. Martina is worried about patient laying in bed and not being able to help with house chores. Martina states he can try to help with some of her ADL's if needed. Martina states he has his own issues of Parkinson's and having difficulties getting around. Martina states he will try to prevent patient's excessive water intake and help with medications as needed. Martina states patient does have secretive behaviors and unsure how much he will actually be able to help if she hides her actions. As far as other psych issues, Martina states 2 months ago patient was say ing unusual statements such as trying to find a place to stay (as if she did not live with Martina). Martina denies patient making comments regarding SI/HI/hallucinations. Martina states he should be calling the hospital around noon tomorrow for an update on patient's discharge". I spent a total of 120 minutes reviewing the chart, discussing the case with clinical staff (attending, 1:1, psych liaison), reviewing labs, interviewing the patient at her bedside and on documentation. Psych History Identifying Data 64-year-old female patient with a past medical history of nonsustained VT, aphasia/early dementia, chronic hyponatremia, rheumatoid arthritis on Orencia, hyperlipidemia, mood disorder, Tourette's syndrome, past alcohol abuse. She was admitted with features of confusion, and serum Na of 119 on admission. Pt was seen and discussed with psychiatry liaison, attending Dr. Zuluaga and past psych consult note of 03/26/23 reviewed. Collateral was obtained from her significant other, Sebastien Grace (contact # [phone]). Other diagnoses: SIADH, severe protein-energy malnutrition, acute metabolic encephalopathy, iron deficiency anemia. Pt was referred by medical team for psychiatric evaluation due to concerns about excessive fluid intake leading to severe hyponatremia. Pt evidenced significant cognitive deficits and provided a limited history. Chief Complaint "Hyponatremia and excessive fluid intake". History of Present Illness The patient presented with a history of excessive fluid intake, which has led to severe hyponatremia, causing confusion and requiring hospitalization. She reported switching from alcohol to excessive water and fluid consumption at an unspecified time in the past. Despite being informed by the medical team about the health risks associated with her excessive fluid intake, she continued this behavior, indicating a lack of understanding or insight into the potential consequences. The patient's sodium levels were critically low at 119 upon admission (now in 130s). She denied feeling compelled to drink fluids and was surprised to learn the extent of the health risks posed by her fluid consumption. The patient has a history of alcohol use disorder but states she has not consumed alcohol in years, having switched to excessive water and fluid intake instead. She denied mood, anxiety or psychotic symptoms at this time. During the interview, pt was unable to retain, repeat or manipulate information regarding her medical diagnosis. She exhibited limited insight into the risks associated with her excessive fluid consumption. Per hospitalist (Dr Zuluaga): Patient with recurrent hyponatremia despite adequate treatment. On this admission, team documented objective evidence that the patient is vomiting in the bathroom and drinking from the bathroom faucet. It is suspected that this is why the patient's sodium drops every couple days. Pt is he is now on fluid restriction and 1:1. 5 minutes after the patient had admitted to vomiting at least a couple times in the bathroom she completely denied ever vomiting. This concern was discussed with the patients significant other, Jd Grace. He reported that she drinks at least 3 pots of coffee daily. He also reports that she spends a lot of time watching tv in their bedroom, which has a bathroom. Pt is on fluid restriction and 1:1 due to her excessive fluid consumption. 1:1 staff reports she is irritable, disoriented, unable to retain information. No fluctuation in consciousness noted. Past Psychiatric History Previous Psych History: Psychiatric History: The patient reported seeing a psychiatrist "a long time ago" but could not recall the reason or any diagnoses. She denied currently receiving any mental health treatment or diagnoses. Review of her chart revealed past prescriptions for risperidone 2mg twice daily and venlafaxine 37.5mg twice daily, but the patient stated she has not been taking these medications recently and could not recall who prescribed them. Substance Use History: - Alcohol: History of heavy alcohol use in the past, but reports no use in years. - Nicotine and other substances: Not reported. - IV drug use: Not reported. - Withdrawals: Not reported. Social History: The patient lives with her fiancSebastien. No other significant social history details were provided. Outpatient Services: None Previous Psych Admissions: Unknown. Do You Have Access To A Gun?: No History of Previous Suicide Attempt: No Allergies Allergy/AdvReac Type Severity Reaction Status Date / Time Penicillins Allergy Unknown Unknown Verified 10/20/24 01:19 Home Medications Medication Instructions Recorded Confirmed Type abatacept 125 mg/mL subcutaneous 125 mg subcut WK 09/07/21 10/20/24 History syringe (Orencia) baclofen 10 mg tablet 10 mg PO TID 09/07/21 10/20/24 History omeprazole 20 mg capsule,delayed 20 mg PO DAILYBB 09/07/21 10/20/24 History release risperidone 2 mg tablet 2 mg PO AMHS 09/07/21 10/20/24 History venlafaxine 37.5 mg tablet 37.5 mg PO AMHS 09/07/21 10/20/24 History calcium 600 mg (as 1 tab PO BID 10/20/24 10/20/24 History carbonate)-vitamin D3 5 mcg (200 unit) tablet (Calcium 600 + D(3)) multivitamin 1 tab PO DAILY 10/20/24 10/20/24 History Patient History Medical History HLD (hyperlipidemia) Surgical History No pertinent past surgical history Social History Smoking Status: Unknown if ever smoked Second Hand Exposure: No; Do You Dip or Chew Tobacco: No; Hx Alcohol Use: No Hx Substance Use: No Preferred Language: Syrian Communication Ability: Effective Surgical Supervisor Required: No Beliefs That Will Affect Care: Spiritual Current Living Situation: Spouse Current Living Situation Comment: LIVES WITH BOYFRIEND MARTINA GRACE Feels Safe at Home: Yes Assistive Devices: None Physical Exam Psychiatric: A+Ox3, euthymic affect Oriented to place, year, month only. Apperance: + disheveled Eye Contact: good eye contact mild agitation. slurred Affect: euthymic affect Incongruent with content of conversation. euthymic Thought Process: + tangential thought process, + looseness of associations and + incoherent thought process Thought Content: + preoccupation Denied delusional, suicidal or homicidal ideation intent or plan. Suicidal Thoughts: denies suicidal thoughts, denies suicidal plan and denies suicidal intent Homicidal Thoughts: denies homicidal thoughts, denies homicidal plan and denies homicidal intent Denied She was oriented to place but not to date, being unable to identify the current month or year. She correctly named the current and previous [place] presidents. The patient was able to register 3 words immediately but could not recall them after a brief delay. She had difficulty with serial 3s and was unable to spell "Earth" backwards. She was unable to interpret the proverb "don't cry over spilled milk". She could not retain, repeat or manipulate information regarding her medical status. This is consistent with reported cognitive deficit. Estimated Intelligence: + below average estimated intelligence Insight: + severely impaired insight Judgment: + severely impaired judgement Vital Signs (Past 24 Hours): Last Vital Signs Temp 37.6 C H 10/31/24 07:00 Pulse 104 H 10/31/24 07:00 Resp 17 10/31/24 07:00 BP 145/78 H 10/31/24 07:00 Pulse Ox 95 10/31/24 07:00 O2 Del Method Room Air 10/31/24 07:00 Results & Data (PSY) Laboratory Results Vitals: BP 145/78, SC 104 Labs: CBC: anemia, elevated PLT. WBC wnl CMP: NA 140, BUN 26, Cre 0.[address] 10/31/24: No acute intracranial abnormality seen. No gross interval change in comparison with 10/20/2024. Age-related brain involution with mild mi crovascular ischemic changes. EKG:Sinus tachycardia, Nonspecific ST abnormality. Abnormal ECG. When compared with ECG of 19-Apr-2023 08:22, Significant changes have occurred Diagnostic Findings As above. Medications Administered Acetaminophen (Acetaminophen 325 Mg Tab) 650 mg PO QID PRN PRN Reason: pain/fever Stop: 11/19/24 04:33 Last Admin: 10/31/24 07:45 Dose: 650 mg Documented By: Admin: 10/30/24 23:43 Dose: 650 mg Documented By: Admin: 10/30/24 16:10 Dose: 650 mg Documented By: Admin: 10/30/24 11:38 Dose: 650 mg Documented By: Admin: 10/30/24 05:57 Dose: 650 mg Documented By: Admin: 10/28/24 02:44 Dose: 650 mg Documented By: Admin: 10/27/24 12:06 Dose: 650 mg Documented By: Admin: 10/20/24 04:55 Dose: 650 mg Documented By: PALLAVI Calcium/Vitamin D (Calcium 600mg + Vit D 400 Iu Tab) 1 tab PO BID RICKY Stop: 11/27/24 20:59 Last Admin: 10/31/24 08:19 Dose: 1 tab Documented By: Admin: 10/30/24 20:23 Dose: 1 tab Documented By: Admin: 10/30/24 07:59 Dose: 1 tab Documented By: Admin: 10/29/24 20:06 Dose: 1 tab Documented By: Admin: 10/29/24 09:23 Dose: 1 tab Documented By: Admin: 10/28/24 20:32 Dose: 1 tab Documented By: LEN Cyanocobalamin (Cyanocobalamin (B-12) 500 Mcg Tablet) 500 mcg PO QAM RICKY Stop: 11/20/24 09:14 Last Admin: 10/31/24 08:18 Dose: 500 mcg Documented By: Admin: 10/30/24 07:59 Dose: 500 mcg Documented By: Admin: 10/29/24 09:23 Dose: 500 mcg Documented By: Admin: 10/28/24 09:00 Dose: 500 mcg Documented By: Admin: 10/27/24 10:06 Dose: 500 mcg Documented By: Admin: 10/26/24 08:27 Dose: 500 mcg Documented By: Admin: 10/25/24 08:29 Dose: 500 mcg Documented By: Admin: 10/24/24 08:45 Dose: 500 mcg Documented By: Admin: 10/23/24 08:20 Dose: 500 mcg Documented By: Admin: 10/22/24 07:49 Dose: 500 mcg Documented By: Admin: 10/21/24 10:34 Dose: 500 mcg Documented By: SAMANTHA Ferrous Sulfate (Ferrous Sulfate 325 Mg Tab) 325 mg PO QAM RICKY Stop: 11/28/24 08:59 Last Admin: 10/31/24 08:19 Dose: 325 mg Documented By: Admin: 10/30/24 07:58 Dose: 325 mg Documented By: Admin: 10/29/24 09:23 Dose: 325 mg Documented By: BALJIT Hydroxyzine HCl (Hydroxyzine Hcl 10 Mg Tab) 10 mg PO QID PRN PRN Reason: Anxiety Stop: 11/19/24 03:09 Last Admin: 10/31/24 07:46 Dose: 10 mg Documented By: Admin: 10/30/24 20:23 Dose: 10 mg Documented By: Admin: 10/30/24 15:36 Dose: 10 mg Documented By: Admin: 10/30/24 07:58 Dose: 10 mg Documented By: Admin: 10/29/24 20:06 Dose: 10 mg Documented By: Admin: 10/28/24 20:27 Dose: 10 mg Documented By: Admin: 10/28/24 02:44 Dose: 10 mg Documented By: Admin: 10/26/24 20:10 Dose: 10 mg Documented By: Admin: 10/25/24 19:53 Dose: 10 mg Documented By: Admin: 10/25/24 09:52 Dose: 10 mg Documented By: COBBLER APPRENTICE Admin: 10/24/24 08:44 Dose: 10 mg Documented By: Admin: 10/23/24 13:18 Dose: 10 mg Documented By: Admin: 10/23/24 08:25 Dose: 10 mg Documented By: Admin: 10/21/24 08:13 Dose: 10 mg Documented By: Admin: 10/20/24 18:22 Dose: 10 mg Documented By: Admin: 10/20/24 05:19 Dose: 10 mg Documented By: PALLAVI Magnesium Oxide (Magnesium Oxide 400 Mg Tab) 400 mg PO BID RICKY Stop: 11/28/24 09:29 Last Admin: 10/31/24 08:18 Dose: 400 mg Documented By: Admin: 10/30/24 20:24 Dose: 400 mg Documented By: Admin: 10/30/24 07:58 Dose: 400 mg Documented By: Admin: 10/29/24 20:06 Dose: 400 mg Documented By: Admin: 10/29/24 12:10 Dose: 400 mg Documented By: BALJIT Melatonin (Melatonin 3 Mg Tab) 3 mg PO HS PRN PRN Reason: Sleep Stop: 11/27/24 19:37 Last Admin: 10/30/24 20:23 Dose: 3 mg Documented By: Admin: 10/28/24 20:27 Dose: 3 mg Documented By: LEN Multivitamins (Multivitamin Tab) 1 tab PO DAILY RICKY Stop: 11/19/24 08:59 Last Admin: 10/31/24 08:20 Dose: 1 tab Documented By: Admin: 10/30/24 07:58 Dose: 1 tab Documented By: Admin: 10/29/24 09:22 Dose: 1 tab Documented By: Admin: 10/28/24 09:00 Dose: 1 tab Documented By: Admin: 10/27/24 10:06 Dose: 1 tab Documented By: Admin: 10/26/24 08:27 Dose: 1 tab Documented By: Admin: 10/25/24 08:29 Dose: 1 tab Documented By: COBBLER APPRENTICE Admin: 10/24/24 08:45 Dose: 1 tab Documented By: Admin: 10/23/24 08:20 Dose: 1 tab Documented By: Admin: 10/22/24 07:49 Dose: 1 tab Documented By: Admin: 10/21/24 08:14 Dose: 1 tab Documented By: Admin: 10/20/24 07:48 Dose: 1 tab Documented By: DIAZ Olanzapine (Olanzapine 10 Mg/2.1 Ml Sdv) 2.5 mg IM Q4H PRN PRN Reason: Agitation Stop: 11/28/24 22:03 Last Admin: 10/30/24 22:36 Dose: 2.5 mg Documented By: Admin: 10/30/24 16:05 Dose: 2.5 mg Documented By: Admin: 10/30/24 04:42 Dose: 2.5 mg Documented By: VERO Ondansetron HCl (Ondansetron Inj 2 Mg/Ml 2 Ml Vial) 4 mg IV Q6H PRN PRN Reason: Nausea And Vomiting Stop: 11/28/24 15:39 Last Admin: 10/31/24 06:08 Dose: 4 mg Documented By: VERO Pantoprazole Sodium (Pantoprazole 40 Mg Tab) 40 mg PO DAILYBB RICKY Stop: 11/19/24 06:29 Last Admin: 10/31/24 06:08 Dose: 40 mg Documented By: Admin: 10/30/24 05:57 Dose: 40 mg Documented By: Admin: 10/29/24 05:50 Dose: 40 mg Documented By: Admin: 10/28/24 06:30 Dose: 40 mg Documented By: Admin: 10/27/24 06:12 Dose: 40 mg Documented By: Admin: 10/26/24 06:17 Dose: 40 mg Documented By: Admin: 10/25/24 06:12 Dose: 40 mg Documented By: Admin: 10/24/24 05:34 Dose: 40 mg Documented By: Admin: 10/23/24 05:26 Dose: 40 mg Documented By: Admin: 10/22/24 05:43 Dose: 40 mg Documented By: Admin: 10/21/24 05:54 Dose: 40 mg Documented By: Admin: 10/20/24 05:38 Dose: 40 mg Documented By: PALLAVI Potassium Chloride (Potassium Chloride 10 Meq Tabcr) 20 meq PO BID [facility] Stop: 11/29/24 11:29 Last Admin: 10/30/24 20:23 Dose: 20 meq Documented By: Admin: 10/30/24 11:38 Dose: 20 meq Documented By: PHANI Sodium Chloride (Sodium Chloride 1 Gm Tablet) 1 gm PO BID [facility] Stop: 11/29/24 20:59 Last Admin: 10/31/24 08:18 Dose: 1 gm Documented By: Admin: 10/30/24 20:23 Dose: 1 gm Documented By: LEN Thiamine HCl (Thiamine Hcl 100 Mg Tab) 200 mg PO QAM [facility] Stop: 11/22/24 12:59 Last Admin: 10/31/24 08:22 Dose: 200 mg Documented By: Admin: 10/30/24 07:58 Dose: 200 mg Documented By: Admin: 10/29/24 09:22 Dose: 200 mg Documented By: Admin: 10/28/24 09:00 Dose: 200 mg Documented By: Admin: 10/27/24 10:06 Dose: 200 mg Documented By: Admin: 10/26/24 08:27 Dose: 200 mg Documented By: Admin: 10/25/24 08:28 Dose: 200 mg Documented By: Admin: 10/24/24 08:45 Dose: 200 mg Documented By: Admin: 10/23/24 13:18 Dose: 200 mg Documented By: DAVID Torsemide (Torsemide 20 Mg Tab) 20 mg PO QAM [facility] Stop: 11/30/24 08:59 Last Admin: 10/31/24 08:19 Dose: 20 mg Documented By: TAMMI Zinc Acetate/Diphenhydramine (Diphenhydramine 2%/Zinc 0.1% Cream 28.4gm Tube) 1 appln EXT QID PRN PRN Reason: itchy skin Stop: 11/29/24 00:14 Last Admin: 10/30/24 22:36 Dose: 1 appln Documented By: Admin: 10/30/24 15:36 Dose: 1 appln Documented By: Admin: 10/30/24 09:36 Dose: 1 appln Documented By: Admin: 10/30/24 00:38 Dose: 1 appln Documented By: VERO [place] [address] IN/OBS CONSULT LVL 5,80M Patient Type New History Detailed Exam Detailed Medical Decision Making High Complexity Diagnoses Psychogenic polydipsia R63.1; F54 Vitamin D deficiency E55.9 Acute metabolic encephalopathy G93.41 SIADH (syndrome of inappropriate ADH production) E22.2 Delirium R41.0 Tourette's F95.2 Time Spent (min) 120
--- NOTE | 2024-10-31 11:00 | Hospitalist Progress Note ---
Date of Service October 31, 2024 Assessment & Plan (1) SIADH (syndrome of inappropriate ADH production): (2) Acute metabolic encephalopathy: (3) Bulimia: (4) Psychogenic polydipsia: (5) Delirium: (6) Iron deficiency anemia: (7) Mild cognitive impairment with memory loss: (8) Severe protein-calorie malnutrition: (9) Rheumatoid arthritis: (10) Vitamin D deficiency: Plan Patient becoming a little bit more irritable now that she has been on one-to-one for a couple days and her independence has been restricted somewhat. Additionally she disliked the evaluation by psychiatry she mentioned to me yesterday. Communication with psychiatry. Concerned that she may not be able to be managed at home without significant supervision of her significant other to ensure that she is not drinking too much water and not self-induced emesis. Suspect may be able to decrease treatment for hyponatremia even more, will defer to nephrology Continue to monitor sodium Continue to work with psychiatry Case management updated to the possibility that patient may need a medical psych unit transfer Updated patient's son via phone. He is aware that her issues now are more psychiatric in nature. Updated patient's significant other Sebastien via phone. I told him that she is not being discharged today despite the fact that she had called him and asked him to pick her up at 1 PM. Reviewed psych liaison note, noted mini cognition score 0/5 Case management aware of possible need for patient to be placed into an inpatient medical psychiatry/geriatric psychiatry unit. 54 minutes spent in reviewing records, communication with patient and evaluation of patient at bedside, communication with staff, communication with specialist, communication with family members, review of data and interpretation and documentation. Admission and Anticipated Discharge Date Admission Date: October 20, 2024 Subjective Per nursing overnight patient seems a bit more confused and weak. CT of the head was performed, no acute changes. This morning she is back to her baseline mental status and was as interactive as she has been all week. She denies any complaints. She does not like being here in the hospital though Physical Exam Physical Exam: Constitutional: Alert, frail, cachectic HEENT: Mucous membranes moist. Lungs: Clear to auscultation, decreased, no wheezes rales or rhonchi CV: S1-S2, regular Abdomen: Soft, nontender, nondistended Extremities: No significant edema Neuro: No focal deficits Psych: Cooperative, flat and depressed affect Results & Data Results & Data Vital Signs (Past 12 Hours) Vital Signs Temp Pulse Pulse Resp BP Pulse Ox O2 Del Method 10/31/24 07:00 37.6 C H 104 H 17 145/78 H 95 Room Air 10/31/24 05:39 37.1 C 112 H 17 118/70 95 Room Air Diagnostic Findings Reviewed imaging, laboratory and diagnostic studies. Pertinent findings as below. CT head report reviewed, no acute changes Hemoglobin 8.3, stable Platelets 605, chronically elevated Sodium 140, and improved Potassium 4.6 Creatinine 0.57 Magnesium 1.8 (9) Rheumatoid arthritis Rheumatoid arthritis location: unspecified site Rheumatoid factor presence: unspecified presence Qualified Code(s): M06.9 - Rheumatoid arthritis, unspecified
--- NOTE | 2024-10-31 14:55 | Nephrology Progress Note ---
Date of Service October 31, 2024 Assessment & Plan (1) Hyponatremia: Plan: Hyponatremia is due to SIADH; has never been c/w polydipsia, though low sodium absolutely reflects poor solute intake/purging/malnutrition. Urine sodium was 88 and urine osmolality was 221 on admission. repeat urine sodium and urine osmolality 10/25 assay still consistent with SIADH > 267 and 56 respectively; similarly 10/25. doubt refeeding syndrome at this time given stability of electrolytes (not including sodium), dannielle phos. her sodium seems to bottom out 3-6 points every 48-72 hours in first part of hospital stay (when unsupervised) d/t pt purging/self induced vomiting in bathroom and/or drinking water there. Found to be purging in bathroom and drinking water on 10/29. sNa 140 today >> when her eating/drinking/bathroom time is supervised, her labs normalize nicely pt with reported h/o eating disorder per family >> this condition has potential to cause readmission for electrolyte issues 10/27 urine osms 306, Moris 48 on 10/26 - continue torsemide 20 mg daily - >>> stopped salt tabs for now - >>>lowered potassium further from 20 mEq bid to 10 mEq bid starting tomorrow - encourage high-protein diet >> dietary following and aiming for 70 gm daily intake; consider nutrition assistance and /or a/w feeding - continue 1.2 L fluid restriction - daily bmp acceptable at this time unless issues tolerating above medications - maintain eukalemia - daily bmp, mag ok for now >>>d/c medications for this pt will be difficult; her hyponatremia is likely to relapse after d/c >psych recs noted -stopped urea, vaptan since she won't be able to access as OP d/t costs; but if not improving will consider resuming this while in house Mag 1.8 today > cont supplements; phos wnl Care coordinated w/ Dr Zuluaga via TTExt re med changes, f/u labs, concern for eating disorder/malnutrition, psych dxs. we are in agreement. Admission and Anticipated Discharge Date Admission Date: October 20, 2024 Subjective seen x 2 today >> pt angry, refusing physical exam, nursing care, conversation or other eval currently, wishes to leave AMA. team considering code cooper Review of Systems 2 Review of Systems: Other unobtainable d/t psychiatric state > agitated, not cooperating Physical Exam 2 Constitutional: well developed, + cachectic, + behavioral limitations, + frail appearing and + combative; no acute distress (labile emotions) Eyes: EOM intact bilaterally ENMT: Mouth: + dry oral mucous membranes Neck: no nuchal rigidity Respiratory: normal respiratory effort Musculoskeletal: Extremities: strength 5/5 throughout and + upper extremity abnormal to inspection (marked joint deformities BL hands/wrists) Skin: no rashes, warm and dry Neurologic: robles, fluent speech, no tremor; sitting on side of bed on RA Psychiatric: Orientation: alert, oriented to person and oriented to place; + uncooperative Affect: + angry affect Results & Data Vital Signs (Past 12 Hours) Vital Signs Temp Pulse Pulse Resp BP Pulse Ox O2 Del Method 10/31/24 08:15 Room Air 10/31/24 07:00 37.6 C H 104 H 17 145/78 H 95 Room Air 10/31/24 05:39 37.1 C 112 H 17 118/70 95 Room Air Laboratory Results 10/31/24 06:07 10/31/24 06:07
[2024-11-01 05:45] LABS: BUN Creatinine Ratio 38.6 (10-20); Calcium 8.6 mg/dl (8.6-10.3); Creatinine Clr Calc Pharmacy 53.8 ml/min; Potassium 4.3 mmol/L (3.5-5.1)
[2024-11-01] MEDS ORDERED: IBUPROFEN 200 MG/10 ML UDC PO PRN (07:36)
[2024-11-01] MEDS: SODIUM CHLORIDE 1 GM TABLET PO SCH (08:22)
--- NOTE | 2024-11-01 09:14 | XRay Report ---
XR chest 2V PA/lateral CLINICAL HISTORY: fever COMPARISON STUDY: 10/20/2024 FINDINGS: Heart size and pulmonary vasculature are normal. Stable hyperexpanded lungs. No effusion, c onsolidation, or pneumothorax. IMPRESSION: No pneumonia seen. ACT 112: Negative or not required by law. Electronically signed by: Junior Patino M.D. 11/01/2024 9:12 AM
[2024-11-01 10:10] LABS: Appearance Urine Clear (Clear); Bacteria Urine Automated None Seen (None Seen); Bilirubin Urine Negative (Negative); Blood Urine Negative (Negative); Cast Urine Automated 0-2 /lpf (0-2); Color Urine Yellow; Glucose Urine UA Negative (Negative); Ketones Urine Negative (Negative); Leukocyte Esterase Urine 2+ (Negative); Nitrite Urine Negative (Negative); Protein Urine Negative (Negative); RBC Urine Automated 0-2 /hpf (0-2); Specific Gravity Urine 1.016 (1.000-1.030); Urobilinogen Urine Negative (Negative)
[2024-11-01] MEDS: POTASSIUM CHLORIDE 10 MEQ TABCR PO SCH (10:36)
--- NOTE | 2024-11-01 13:49 | Nephrology Progress Note ---
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 her sodium seems to bottom out 3-6 points every 48-72 hours in first part of hospital stay (when unsupervised) d/t pt purging/self induced vomiting in bathroom and/or drinking water there. Found to be purging in bathroom and drinking water on 10/29. sNa was 140 yesterday but today is down to 135 again. when her eating/drinking/bathroom time is supervised, her labs normalize nicely pt with reported h/o eating disorder per family This makes her management as outpt pretty much impossible. as we have shown that the na normalizes to 140 with food/fluid monitoring while inpt. For now use torsemide 20 daily and salt tab 1 gm daily and FFR 1200 ml/day. Even using torsemide can be challenging as outpt though given her unpredictable intake and Most likely ?? compliance. Care coordinated w/ Dr Zuluaga via phone conversation Subjective Seems to be in good mood today. has Sitter to monitor. Is eating and supposedly finished the meal. had fever earlier today Review of Systems Review of Systems: Other unobtainable d/t psychiatric state > agitated, not cooperating Physical Exam Constitutional: well developed, + cachectic, + behavioral limitations, + frail appearing and + combative; no acute distress (labile emotions) Eyes: EOM intact bilaterally ENMT: Mouth: + dry oral mucous membranes Neck: no nuchal rigidity Respiratory: normal respiratory effort Musculoskeletal: Extremities: strength 5/5 throughout and + upper extremity abnormal to inspection (marked joint deformities BL hands/wrists) Skin: no rashes, warm and dry Neurologic: robles, fluent speech, no tremor; sitting on side of bed on RA Psychiatric: Orientation: alert, oriented to person and oriented to place; + uncooperative Affect: + angry affect Results & Data Vital Signs (Past 12 Hours) Vital Signs Temp Pulse Resp BP Pulse Ox O2 Del Method 11/01/24 10:22 36.7 C 11/01/24 07:18 38.0 C H 18 L 18 120/73 95 Room Air
[2024-11-01 15:02] VITALS: RESP 20; TEMP 98.6; O2SAT 96
--- NOTE | 2024-11-01 15:32 | Discharge Summary ---
Discharge Summary Date of Service November 01, 2024 Principal Dx & Hospital Course #1 = Principal Diagnosis (1) SIADH (syndrome of inappropriate ADH production): (2) Acute metabolic encephalopathy: (3) Bulimia: (4) Psychogenic polydipsia: (5) Delirium: (6) Iron deficiency anemia: (7) Mild cognitive impairment with memory loss: (8) Severe protein-calorie malnutrition: (9) Rheumatoid arthritis: (10) Vitamin D deficiency: Plan Patient is a 64-year-old female with previous history of psychiatric disorder and alcohol misuse presented to the emergency room with increased anxiousness and confusion. In the emergency room was noted to be significantly hyponatremic. Patient was admitted to the hospital. Nephrology consultation was obtained For assistance with managing her hyponatremia. Urine and laboratory studies was very consistent with SIADH. She was placed on a fluid restriction. Her sodium level was monitored daily. She was also noted to have significant iron deficiency and was given a couple doses of IV iron. Her hemoglobin remained stable. Her sodium level would improve for a couple days, however then would significantly drop at the 3rd or 4th day. Her medications for salt replacement was increased she was placed on higher and higher doses of salt tablets. She was started on torsemide. Her other electrolytes were replaced. Through the patient's son learned that she had a history of bulimia. However did not appear that this was an active issue per him or other family members. Or her significant other. She was evaluated by dietitian to give her education on a high-protein diet and getting adequate sodium in her diet. Despite all these interventions patient's sodium level never really normalized. She then was discovered vomiting in the bathroom by her roommates said family member. She was confronted on this and it appears as though she was self inducing emesis at least a couple times in the previous 24 hours. She also admitted to drinking excess of water from the bathroom faucet. She was placed on one-to-one observation and with this intervention and with tolvaptan her sodium level immediately return to a normal range. Psychiatry consultation was obtained. She did not meet criteria for inpatient behavioral health unit or meet criteria for 302 behavioral health unit admission. They recommended outpatient neurology/neuropsych/geriatric psych evaluations. At the time of a dmission to the patient's SSRI and Risperdal was held. She overall seems to be doing well off these medications and its point we will keep her off these medications. Case management and nurse navigator was involved in her care. They are coordinating home health care coordinating outpatient mental health services and will set up outpatient neurology consultation as well. She is in the process of transitioning her health insurance and some of this requires prior authorization when this is confirmed. The patient's significant other was kept up-to-date. He is aware of the need for monitoring her fluid intake and making sure she does not have self-induced vomiting. We certainly understand that this will be a difficult task. It was stressed to the patient numerous times and she was educated numerous times to continue with the fluid restriction at home. Immediately at the bedside she seemed to express understanding, however concerned that her short-term memory may somewhat limit her ability to be compliant. On the day of discharge she did have low-grade fever. This resolved. Chest x-ray was performed no pneumonia, urinalysis performed, no evidence of urinary tract infection. Patient had no symptoms of URI. Suspect this is a reactive low-grade fever without source of infection. And can be monitored at home. No need or indication for antibiotics at this time. Blood cultures were no growth at the time of admission. She is at high risk for readmissions for recurrent hyponatremia, however at this point we have her set up with as many services as we can to support her in the home setting. Notes For Next Care Provider Patient high risk for hyponatremia. Consider monitoring sodium level every couple weeks. Continue to enforce fluid restriction Continue to encourage outpatient mental health services Consider rechecking TSH in 4 to 6 weeks Medication Changes From Visit Baclofen discontinued Risperdal discontinued Venlafaxine discontinued Sodium tablet daily Potassium supplementation daily Torsemide daily Thiamine, B12 and folate supplementation. Admission HPI Per Admitting Provider History obtained from patient and records. Medical history significant for aphasia as per records, chronic hyponatremia, rheumatoid arthritis on Orencia, hyperlipidemia, mood disorder, Tourette's syndrome, memory impairment as per records, past alcohol abuse. Last confinement 2022 for delirium. Patient noted to be more confused and anxious than usual by boyfriend last night. Patient denies headache, chest pain, SOB, abdominal pain. Denies bleeding concerns. Denies inordinate intake of water. Patient brought to the ER by EMS for evaluation. Medical History as above 2024 colonoscopy poor preparation, diverticulosis, hemorrhoids Surgical History : Dental surgery, foot/toe surgery Family History : Breast cancer, pancreatic cancer, DM, heart disease Personal/Social history : Non-smoker, past alcohol abuse, disabled Admission Exam Per Admitting Provider See H&P Discharge Exam Constitutional: Alert, frail and cachectic HEENT: Mucous membranes moist. Lungs: Clear to auscultation, decreased, no wheezes rales or rhonchi CV: S1-S2, regular Abdomen: Soft, nontender, nondistended Extremities: No significant edema Neuro: No focal deficits, generally weak Psych: Cooperative, short-term memory abnormalities, somewhat anxious Updated Medication List Medication Instructions Recorded Confirmed Type abatacept 125 mg/mL subcutaneous 125 mg subcut WK 09/07/21 10/20/24 History syringe (Orencia) baclofen 10 mg tablet 10 mg PO TID 09/07/21 10/20/24 History omeprazole 20 mg capsule,delayed 20 mg PO DAILYBB 09/07/21 10/20/24 History release risperidone 2 mg tablet 2 mg PO AMHS 09/07/21 10/20/24 History venlafaxine 37.5 mg tablet 37.5 mg PO [facility]HS 09/07/21 10/20/24 History calcium 600 mg (as 1 tab PO BID 10/20/24 10/20/24 History carbonate)-vitamin D3 5 mcg (200 unit) tablet (Calcium 600 + D(3)) multivitamin 1 tab PO DAILY 10/20/24 10/20/24 History cyanocobalamin (vitamin B-12) 500 500 mcg PO QAM #30 tabs 11/01/24 Rx mcg tablet ferrous sulfate 325 mg (65 mg 325 mg PO QAM #30 tabs 11/01/24 Rx iron) tablet,delayed release magnesium oxide 400 mg (241.3 mg 400 mg PO BID #30 tabs 11/01/24 Rx magnesium) tablet potassium chloride 10 mEq 10 meq PO DAILY #30 tabs 11/01/24 Rx tablet,extended release sodium chloride 1,000 mg soluble 1,000 mg PO DAILY #30 tabs 11/01/24 Rx tablet thiamine HCl (vitamin B1) 100 mg 200 mg (2 x 100 mg) PO QAM #30 tabs 11/01/24 Rx tablet torsemide 20 mg tablet 20 mg PO QAM #30 tabs 11/01/24 Rx Hospital Stay Data Consultations 10/20/24 02:22 ED Decision to Admit Stat 10/20/24 03:10 Consult Nephrology Routine 10/21/24 10:14 Consult Hematology Routine 10/29/24 15:36 Consult Psychiatry Routine Diagnostic Imagining Performed 10/20/24 01:15 CT head/brain wo con Stat 10/31/24 05:32 CT head/brain wo con Stat Reviewed imaging, laboratory and diagnostic studies. Pertinent findings as below. Urinalysis unremarkable for UTI Chest x-ray, personally reviewed, no evidence of pneumonia Sodium 135 Potassium 4.3 BUN 27 Creatinine 0.[address] showed age-related involution and chronic white matter ischemic changes Blood cultures no growth WBCs 9.8 Hemoglobin 8.3 Platelets of 605 Initial iron studies prior to infusion iron less than 10 Transferrin 124 Ferritin 252.9 Vitamin B12 407 Folate 16.1 TSH 5.5 with normal free T41.05 Urine drug screen negative Pending Results Patient Have Any Pending Studies at Discharge: No Discharge Instructions Given to Patient (Per Discharging Provider) It is critical that you comply with the fluid restriction. If you drink too much liquids your sodium level will get dangerously low It is very important that you eat a high-protein diet. We have coordinated an appointment for you with [facility]. Please follow up with that appointment Follow-up with your PCP, they will be contacting you with an appointment. Home health through [facility] will be helping you and checking in on you as well. Home Health Attestation I certify that this patient is under my care and that I, or a physicians server service assistant working with me, had a face to-face encounter that meets the home health [id number] encounter requirements with this patient. The encounter with the patient was in whole, or in part, for the following medical condition, which is the primary reason for home health care (list medical condition): hyponatremia I certify that, based on my findings, the following services are medically necessary home health services: My clinical findings support the need for the above services because: Caregiver Instruct Med Mgmt, Safety, Disease Process, Signs to Report Home Safety Assessment Medication Compliance and Monitoring Effective of New Medications Medication Compliance Safety Skilled Nsg Assessment Skilled Nsg Assess and Instruct on Diet Skilled Nsg Instruction New Medications Skilled Nsg Assess Pt Illness, Disease and Sx Monitoring S/S to Report to Provider Teach on Disease Management and Interventions Further, I certify that my clinical findings support that this patient is homebound (i.e. absences from home require considerable and taxing effort and are for medical reasons or rastafari services or infrequently or of short duration when for other reasons) because: Transportation Assistance/Unable to Leave Home Unassisted Certification for Home Health Services: Based on the above findings, I certify that this patient is confined to the home and needs intermittent fdc care, physical therapy and/or speech therapy or continues to need occupational therapy. The patient is under my care, and I have initiated the establishment of the plan of care. This patient will be followed by a physician who will periodically review the plan of care. Total Time Total Time Spent Total Time Spent (In Minutes): 55
[2024-11-01 15:56] VITALS: BP 120/80; PULSE 104
== END 2024-11-01 16:30 | disposition home health service (06) | DRG 640 ==
LOC: ED 01:08 → SUATTDRO 02:43 → 2W 02:43

== ENCOUNTER 2024-11-05 20:36 | Inpatient (IN) ==
--- NOTE | 2024-11-05 20:48 | Emergency Department Note ---
Impression & Plan Acute alteration in mental status, Stroke-like symptoms, Anemia ED Provider Note NAME: CINDI HARRIS AGE: 64 SEX: F : 1960 ARRIVES VIA: Ambulance INFORMANT: Patient, EMS ED PROVIDER(S): Nico Castillo DO CHIEF COMPLAINT: Altered mental status HPI: The patient is a 64-year-old female who presented to the emergency department by ambulance. The patient reportedly rolled off of her couch and was altered in mental status. It is difficult to ascertain the history as the patient is not able to give history in the patient's significant other did not come to the emergency department with her. The patient has a history of hyponatremia. The patient reportedly rolled off the couch. There was no significant trauma. The patient does not take blood thinners. The patient was made a stroke alert upon arrival to the emergency department. The last known well time according to EMS was at 7:10 PM. The patient himself does not offer any complaints. She is not able to give history. ROS: See above HPI for pertinent positives & negatives. A total of 10 systems reviewed and were otherwise negative. PAST MEDICAL HISTORY: See Below PAST SURGICAL HISTORY: See Below FAMILY HISTORY: See Below SOCIAL HISTORY: See Below HOME MEDICATIONS: See Below ALLERGIES: See Below VITALS: See Below PHYSICAL EXAMINATION: GENERAL: The patient is awake but does not follow commands. She appears anxious. EYES: The conjunctivae are pale. The pupils are round and reactive. EARS, NOSE, MOUTH AND THROAT: The nose is without any evidence of any deformity. Mucous membranes are dry. NECK: The neck is nontender and supple. RESPIRATORY: Scattered rhonchi were noted throughout. There was no tachypnea or conversational dyspnea. CARDIOVASCULAR: Regular rate and rhythm noted there no murmurs rubs or gallops normal S1 normal S2. GASTROINTESTINAL: The abdomen is soft. Abdomen is nontender. MUSCULOSKELETAL/EXTREMITIES: There is no evidence of gross deformity full range of motion is noted in the hips and shoulders. SKIN: Skin was cool and dry. Pedal edema was noted bilaterally. NEUROLOGIC: Patient is awake. The patient is moving all extremities. The patient is unable to answer questions at this time. I cannot assess orientation. There is no obvious facial droop. MEDICAL DECISION MAKING: The patient is a 64-year-old female who has an extensive past medical history who presented to the emergency department for further evaluation after she rolled off of her couch. Her significant other called 911. He felt the patient was changed from her normal mental status. Because of the patient's acuity of symptoms she was made a stroke alert. I discussed her presentation with the telestroke neurologist from [facility]. He called the patient's significant other as well as the patient's son. It sounds though the symptoms have some acuity but underlying the patient does have similar issues had been ongoing. She was recently discharged in our facility. She does not appear to be a candidate for thrombolytic therapy. This was discussed with the patient's significant other as well as the son. After discussion with the telestroke neurologist they do not wish to proceed with TNK. At the request of the neurologist the patient was treated with Ativan and given a dose of Keppra. The patient was also given IV thiamine and IV magnesium in the emergency department. Her symptoms did slowly improve. I discussed her condition with the on-call [facility] hospitalist. They have agreed to evaluate the patient in the emergency department. Triage Nursing notes reviewed. Prior medical records reviewed Vital Signs: reviewed and remarkable for hypertension and tachycardia. Differential diagnosis: Infection, hypoglycemia, electrolyte abnormalities, overdose, toxicologic, cardiac sources, intracerebral event, neurologic, trauma, as well as other pathologies. ER treatment provided: See below Diagnostics interpreted by me: ECG: EKG was obtained in the emergency department. My interpretation is sinus tachycardia at 103 bpm. There is no ectopy. Nonspecific ST depressions were noted in the inferior and low lateral leads. This was compared to a tracing from October 20, 2024. No changes were noted. Cardiac Monitoring: An order was placed for continuous cardiac monitoring. The monitor shows a rate of 100 bpm with sinus rhythm. Laboratory studies: As stated above and show below. Imaging studies: See below. Radiographic imaging was reviewed by myself Consultation(s): I discussed this case with Dr. Stephen who is on for telestroke neurology at [facility]. I discussed this case with Dr. Diaz [facility] ED COURSE: Procedures: none Critical Care: I have personally spent greater than 45 minutes of critical care time in the direct management of this patient. This includes bedside care, interpretation of diagnostic studies, and testing, discussion with consultants, patient, and family members, and other required patient management activities. This 45 minutes is in excess of all separately billable procedures. Past Med/Surg History Problem List (Updated 11/05/24 @ 23:57 by Nico Castillo DO) Anemia (Acute) Stroke-like symptoms (Acute) Acute alteration in mental status (Acute) Psychogenic polydipsia Bulimia Vitamin D deficiency Severe protein-calorie malnutrition Mild cognitive impairment with memory loss Acute metabolic encephalopathy SIADH (syndrome of inappropriate ADH production) (~09/2024) Hyponatremia (Acute) NSVT (nonsustained ventricular tachycardia) Delirium (Acute) Alcohol dependence in remission Iron deficiency anemia Rheumatoid arthritis (Acute) Tourette's (Acute) Depression (Acute) Altered mental status (Acute) Medical History HLD (hyperlipidemia) Surgical History No pertinent past surgical history Social History Smoking Status: Unknown if ever smoked Second Hand Exposure: No; Do You Dip or Chew Tobacco: No; Hx Alcohol Use: No Hx Substance Use: No Preferred Language: Guamanian Communication Ability: Effective 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 Beliefs That Will Affect Care: Spiritual Current Living Situation: Spouse Current Living Situation Comment: LIVES WITH BOYFRIEND MARTINA GRACE Feels Safe at Home: Yes Assistive Devices: None Allergies Allergies Allergy/AdvReac Type Severity Reaction Status Date / Time Penicillins Allergy Unknown Unknown Verified 10/20/24 01:19 Home Meds Home Medications Medication Instructions Recorded Confirmed abatacept 125 mg/mL subcutaneous 125 mg subcut WK 09/07/21 11/05/24 syringe (Orencia) omeprazole 20 mg capsule,delayed 20 mg PO DAILYBB 09/07/21 11/05/24 release calcium 600 mg (as 1 tab PO BID 10/20/24 11/05/24 carbonate)-vitamin D3 5 mcg (200 unit) tablet (Calcium 600 + D(3)) multivitamin 1 tab PO DAILY 10/20/24 11/05/24 Previous Rx's Medication Instructions Recorded cyanocobalamin (vitamin B-12) 500 500 mcg PO QAM #30 tabs 11/01/24 mcg tablet ferrous sulfate 325 mg (65 mg 325 mg PO QAM #30 tabs 11/01/24 iron) tablet,delayed release magnesium oxide 400 mg (241.3 mg 400 mg PO BID #30 tabs 11/01/24 magnesium) tablet potassium chloride 10 mEq 10 meq PO DAILY #30 tabs 11/01/24 tablet,extended release sodium chloride 1,000 mg soluble 1,000 mg PO DAILY #30 tabs 11/01/24 tablet thiamine HCl (vitamin B1) 100 mg 200 mg (2 x 100 mg) PO QAM #30 tabs 11/01/24 tablet torsemide 20 mg tablet 20 mg PO QAM #30 tabs 11/01/24 Results & Data (ED) Vital Signs Vital Signs - 24 hr 11/05/24 20:42 11/05/24 20:42 11/05/24 21:04 Temperature Temperature Source Pulse Rate 125 H 105 H Pulse Rate from SpO2 Sensor 104 H Respiratory Rate 18 Blood Pressure 155/91 H Blood Pressure Mean 113 Pulse Oximetry 100 Oxygen Delivery Method Room Air Sepsis Recent Fever Within 48 Hours No Sepsis New/Unexplained Change in Mental Status No Sepsis Action Taken by Nursing No Action Required 11/05/24 21:05 11/05/24 21:15 11/05/24 21:30 Temperature 36.8 C Temperature Source Oral Pulse Rate 100 H 104 H 103 H Pulse Rate from SpO2 Sensor 104 H 102 H Respiratory Rate 19 19 16 Blood Pressure 155/91 H 162/89 H 160/106 H Blood Pressure Mean 112 100 124 Pulse Oximetry 94 100 100 Oxygen Delivery Method Room Air Room Air Room Air Sepsis Recent Fever Within 48 Hours No Sepsis New/Unexplained Change in Mental Status No Sepsis Action Taken by Nursing No Action Required 11/05/24 21:45 11/05/24 21:58 11/05/24 22:00 Temperature Temperature Source Pulse Rate 102 H 107 H Pulse Rate from SpO2 Sensor 102 H 108 H Respiratory Rate 20 20 Blood Pressure 159/91 H 135/97 Blood Pressure Mean 112 106 Pulse Oximetry 100 98 Oxygen Delivery Method Room Air Sepsis Recent Fever Within 48 Hours Sepsis New/Unexplained Change in Mental Status Sepsis Action Taken by Nursing 11/05/24 22:00 11/05/24 22:07 11/05/24 22:15 Temperature Temperature Source Pulse Rate 107 H Pulse Rate from SpO2 Sensor 107 H Respiratory Rate 19 Blood Pressure 155/98 H Blood Pressure Mean 115 Pulse Oximetry 97 100 Oxygen Delivery Method Room Air Sepsis Recent Fever Within 48 Hours Sepsis New/Unexplained Change in Mental Status Sepsis Action Taken by Nursing 11/05/24 22:27 11/05/24 22:30 11/05/24 22:30 Temperature Temperature Source Pulse Rate 101 H 100 H Pulse Rate from SpO2 Sensor 101 H 103 H Respiratory Rate 18 21 Blood Pressure 155/104 H Blood Pressure Mean 110 Pulse Oximetry 96 96 Oxygen Delivery Method Sepsis Recent Fever Within 48 Hours Sepsis New/Unexplained Change in Mental Status Sepsis Action Taken by Halfway Medications Current Medication List: was personally reviewed by me Laboratory Data Attestation: I reviewed the patient's lab results. 11/05/24 20:44 11/05/24 20:44 Lab Results 11/05/24 11/05/24 11/05/24 Range/Units 20:44 20:46 20:53 WBC 9.85 (4.8-10.8) K/ul RBC 3.46 L (4.20-5.40) M/uL Hgb 7.4 L (12.0-16.0) g/dl POC Hgb 8.2 L (12.0-16.0) g/dl Hct 24.5 L (37.0-47.0) % POC Hct 24 L (37-47) % MCV 70.8 L (80.0-100.0) fL MCH 21.4 L (25.0-34.0) pg MCHC 30.2 L (32.0-36.0) g/dL RDW Std Deviation 49.9 H (36.4-46.3) fL RDW Coeff of Kasandra 20.5 H (11.5-14.5) % Plt Count 579 H (130-400) K/uL MPV 8.7 L (9.4-12.4) fL Immature Gran % (Auto) 0.9 % Neut % (Auto) 66.9 % Lymph % (Auto) 20.3 % Coffey % (Auto) 7.9 % Eos % (Auto) 3.6 % Baso % (Auto) 0.4 % Neut # (Auto) 6.59 H (1.40-6.50) K/uL Lymph # (Auto) 2.00 (1.20-3.40) K/uL Coffey # (Auto) 0.78 H (0.11-0.59) K/uL Eos # (Auto) 0.35 (0.00-0.50) K/uL Baso # (Auto) 0.04 (0.00-0.20) K/uL Immature Gran # (Auto) 0.09 (0.01-0.20) K/uL Anisocytosis Present Tear Drop Cells 1+ Ovalocytes 1+ PT Cancelled INR Cancelled APTT Cancelled PTT Ratio Cancelled VBG pH (7.36-7.41) VBG pCO2 (38-50) mmHg VBG pO2 mmHg VBG HCO3 mmol/L VBG O2 Saturation % VBG Base Excess mEq/L POC Sodium 133 L (135-144) mmol/L Sodium 133 L (136-145) mmol/L POC Potassium 3.7 (3.3-5.0) mmol/L Potassium 3.8 (3.5-5.1) mmol/L POC Chloride 97 L (101-112) mmol/L Chloride 100 (98-107) mmol/L Carbon Dioxide 27 (21-32) mmol/L POC Total CO2 24 (24-31) mmol/L Anion Gap 6 (3-11) POC Anion Gap 17.0 (16-25) mmol/L POC BUN 12 (7-18) mg/dl BUN 12 (6-23) mg/dl Creatinine 0.41 L (0.6-1.2) mg/dl POC Creatinine 0.4 L (0.6-1.3) mg/dl Est Cr Clr Drug Dosing 108.0 ml/min eGFR 110.48 BUN/Creatinine Ratio 29.3 H (10-20) Glucose 82 (70-99(Fasting)) mg/dl POC Glucose 85 (70-99) mg/dl POC Glucose (other) 83 (70-99) mg/dl Osmolality 274 L (280-300) mOsm/kg Calcium 8.3 L (8.6-10.3) mg/dl POC Ioniz Calcium Benjamin 1.11 L (1.12-1.32) mmol/l Magnesium 1.5 L (1.7-2.4) mg/dl Total Bilirubin 0.3 (0.2-1.0) mg/dl AST 19 (13-39) U/L ALT 12 (7-52) U/L Alkaline Phosphatase 107 H (34-104) U/L Troponin I High Sens 4.5 (0-14) pg/ml Total Protein 6.2 (6.0-8.3) gm/dl Albumin 2.7 L (3.4-5.0) gm/dl Globulin 3.5 (2.5-4.0) gm/dl Albumin/Globulin Ratio 0.8 L (0.9-2) Urine Color Urine Appearance (Clear) Urine pH (4.5-7.5) Ur Specific [place] (1.000-1.030) Urine Protein (Negative) Urine Glucose (UA) (Negative) Urine Ketones (Negative) Urine Blood (Negative) Urine Nitrite (Negative) Urine Bilirubin (Negative) Urine Urobilinogen (Negative) Ur Leukocyte Esterase (Negative) Urine Osmolality (500-800) mOsm/kg Ur Random Sodium mmol/L Salicylates < 3.0 L (3.0-30) mg/dl Urine Opiates Screen (Neg) Ur Methadone, Qual (Neg) Urine Fentanyl Screen (Neg) Acetaminophen < 3 L (10-30) ug/ml Urine Barbiturates (Neg) Ur Phencyclidine (PCP) (Neg) U Amphetamin/Meth Scrn (Neg) MDMA (Ecstasy) Screen (Neg) U Benzodiazepines Scrn (Neg) Ur Cocaine Metabolite (Neg) U Marijuana (THC) Screen (Neg) Ethyl Alcohol mg/dL (<10.0) mg/dl Blood Type Antibody Screen 11/05/24 11/05/24 11/05/24 Range/Units 21:09 21:22 Unknown WBC (4.8-10.8) K/ul RBC (4.20-5.40) M/uL Hgb (12.0-16.0) g/dl POC Hgb (12.0-16.0) g/dl Hct (37.0-47.0) % POC Hct (37-47) % MCV (80.0-100.0) fL MCH (25.0-34.0) pg MCHC (32.0-36.0) g/dL RDW Std Deviation (36.4-46.3) fL RDW Coeff of Kasandra (11.5-14.5) % Plt Count (130-400) K/uL MPV (9.4-12.4) fL Immature Gran % (Auto) % Neut % (Auto) % Lymph % (Auto) % Coffey % (Auto) % Eos % (Auto) % Baso % (Auto) % Neut # (Auto) (1.40-6.50) K/uL Lymph # (Auto) (1.20-3.40) K/uL Coffey # (Auto) (0.11-0.59) K/uL Eos # (Auto) (0.00-0.50) K/uL Baso # (Auto) (0.00-0.20) K/uL Immature Gran # (Auto) (0.01-0.20) K/uL Anisocytosis Tear Drop Cells Ovalocytes PT 10.9 INR 1.0 APTT 25 PTT Ratio 0.9 VBG pH 7.39 (7.36-7.41) VBG pCO2 43 (38-50) mmHg VBG pO2 32 mmHg VBG HCO3 26 mmol/L VBG O2 Saturation < 60.0 % VBG Base Excess 0.8 mEq/L POC Sodium (135-144) mmol/L Sodium (136-145) mmol/L POC Potassium (3.3-5.0) mmol/L Potassium (3.5-5.1) mmol/L POC Chloride (101-112) mmol/L Chloride (98-107) mmol/L Carbon Dioxide (21-32) mmol/L POC Total CO2 (24-31) mmol/L Anion Gap (3-11) POC Anion Gap (16-25) mmol/L POC BUN (7-18) mg/dl BUN (6-23) mg/dl Creatinine (0.6-1.2) mg/dl POC Creatinine (0.6-1.3) mg/dl Est Cr Clr Drug Dosing ml/min eGFR BUN/Creatinine Ratio (10-20) Glucose (70-99(Fasting)) mg/dl POC Glucose (70-99) mg/dl POC Glucose (other) (70-99) mg/dl Osmolality (280-300) mOsm/kg Calcium (8.6-10.3) mg/dl POC Ioniz Calcium Benjamin (1.12-1.32) mmol/l Magnesium (1.7-2.4) mg/dl Total Bilirubin (0.2-1.0) mg/dl AST (13-39) U/L ALT (7-52) U/L Alkaline Phosphatase (34-104) U/L Troponin I High Sens (0-14) pg/ml Total Protein (6.0-8.3) gm/dl Albumin (3.4-5.0) gm/dl Globulin (2.5-4.0) gm/dl Albumin/Globulin Ratio (0.9-2) Urine Color Yellow Urine Appearance Clear (Clear) Urine pH 7.5 (4.5-7.5) Ur Specific [place] 1.022 (1.000-1.030) Urine Protein Negative (Negative) Urine Glucose (UA) Negative (Negative) Urine Ketones Negative (Negative) Urine Blood Negative (Negative) Urine Nitrite Negative (Negative) Urine Bilirubin Negative (Negative) Urine Urobilinogen Negative (Negative) Ur Leukocyte Esterase Negative (Negative) Urine Osmolality 253 L (500-800) mOsm/kg Ur Random Sodium 50 mmol/L Salicylates (3.0-30) mg/dl Urine Opiates Screen Neg (Neg) Ur Methadone, Qual Neg (Neg) Urine Fentanyl Screen Neg (Neg) Acetaminophen (10-30) ug/ml Urine Barbiturates Neg (Neg) Ur Phencyclidine (PCP) Neg (Neg) U Amphetamin/Meth Scrn Neg (Neg) MDMA (Ecstasy) Screen Neg (Neg) U Benzodiazepines Scrn Neg (Neg) Ur Cocaine Metabolite Neg (Neg) U Marijuana (THC) Screen Neg (Neg) Ethyl Alcohol mg/dL < 10.0 (<10.0) mg/dl Blood Type O Positive Antibody Screen NEGATIVE Administered Medications Discontinued Medications Aspirin (Aspirin 300 Mg Supp) 300 mg NV ONE ONE Stop: 11/05/24 22:01 Last Admin: 11/05/24 22:13 Dose: 300 mg Documented By: JACEY Thiamine HCl 200 mg/ Sodium (Chloride) 52 mls @ 210 mls/hr IV NOW STA Stop: 11/05/24 20:57 Last Infusion: 11/05/24 23:47 Dose: Infused Documented By: Admin: 11/05/24 21:47 Dose: 210 mls/hr Documented By: LAUREN Magnesium Sulfate/Dextrose (Magnesium Sulfate / D5w) 1 gm in 100 mls @ 100 mls/hr IV NOW STA Stop: 11/05/24 22:19 Last Infusion: 11/05/24 23:47 Dose: Infused Documented By: Admin: 11/05/24 21:27 Dose: 100 mls/hr Documented By: LAUERN Ioversol (Optiray 320 125ml) 118 ml IV ONCE ONE Stop: 11/05/24 20:49 Last Admin: 11/05/24 20:49 Dose: 118 ml Documented By: AUGUSTUS Levetiracetam (Levetiracetam 500 Mg/5 Ml Vial) 1,000 mg IV NOW STA Stop: 11/05/24 22:01 Last Admin: 11/05/24 22:06 Dose: 1,000 mg Documented By: JACEY Lorazepam (Lorazepam 2 Mg/1 Ml Vial) 1 mg IV NOW STA Stop: 11/05/24 21:43 Last Admin: 11/05/24 21:47 Dose: 1 mg Documented By: LAUREN Imaging Data Attestation: I personally reviewed and interpreted this imaging study as follows: My Impression: 1 view chest x-ray was obtained in the emergency department. My interpretation is no free air or definite infiltrate, final report below. CT of the brain was obtained in the emergency department. My interpretation is no intracranial hemorrhage or mass effect, final report below. Radiologist's Impression: Chest X-Ray 11/05/24 20:42 Exam(s): XR CXR 1 VIEW EXAM: XR Chest, 1 View CLINICAL HISTORY: Reason for exam: neuro deficit, acute stroke suspected. TECHNIQUE: Frontal view of the chest. COMPARISON: 11/01/2024 FINDINGS: Lungs: No consolidation. No overt edema. Pleural space: No pleural effusion. No pneumothorax. Heart: Unremarkable. No cardiomegaly. IMPRESSION: No acute cardiopulmonary abnormality. Electronically signed by: Schuyler Schmitt MD 11/05/24 21:[address] 11/05/24 20:42 CR Exam(s): CT HEAD Without Contrast EXAM: CT Head Without Intravenous Contrast CLINICAL HISTORY: Reason for exam: neuro deficit, acute stroke suspected. TECHNIQUE: Axial computed tomography images of the head/brain without intravenous contrast. CTDI is 37.78 mGy and DLP is 624.41 mGy-cm. Automated exposure control was utilized for the study. A dose lowering technique was utilized adhering to the principles of ALARA. COMPARISON: No relevant prior studies available. FINDINGS: Brain: No hemorrhage, extra-axial fluid collection, mass effect, or edema. Ventricles: Unremarkable. Bones/joints: Unremarkable. No fracture. Soft tissues: Unremarkable. Sinuses: No acute sinusitis. Mastoid air cells: Unremarkable as visualized. IMPRESSION: 1. No acute intracranial abnormality. Communications: Call Doctor Stroke Electronically signed by: Schuyler Schmitt MD 11/05/24 21:04 PM Head CTA 11/05/24 20:42 CR Exam(s): CTA HEAD With Contrast IV Amt: 118ml optiray 320 EXAM: CT Angiography Head With Intravenous Contrast CLINICAL HISTORY: Reason for exam: neuro deficit, acute stroke suspected. TECHNIQUE: Axial computed tomographic angiography images of the head with intravenous contrast. CTDI is 16.61 mGy and DLP is 8.3 mGy-cm. Automated exposure control was utilized for the study. A dose lowering technique was utilized adhering to the principles of ALARA. MIP reconstructed images were created and reviewed. CONTRAST: Patient received 118ml optiray 320 of IV contrast COMPARISON: No relevant prior studies available. FINDINGS: Right internal carotid artery: Intracranial segment is patent with no significant stenosis. No aneurysm. Right anterior cerebral artery: No occlusion or significant stenosis. No aneurysm. Right middle cerebral artery: No occlusion or significant stenosis. No aneurysm. Right posterior cerebral artery: No occlusion or significant stenosis. No aneurysm. Right vertebral artery: Unremarkable as visualized. Left internal carotid artery: Intracranial segment is patent with no significant stenosis. No aneurysm. Left anterior cerebral artery: No occlusion or significant stenosis. No aneurysm. Left middle cerebral artery: No occlusion or significant stenosis. No aneurysm. Left posterior cerebral artery: No occlusion or significant stenosis. No aneurysm. Left vertebral artery: Unremarkable as visualized. Basilar artery: No occlusion or significant stenosis. No aneurysm. IMPRESSION: Normal head CTA. Communications: Call Doctor Stroke Electronically signed by: Schuyler Schmitt MD 11/05/24 21:05 PM Neck CTA 11/05/24 20:42 CR Exam(s): CTA NECK With Contrast IV Amt: 118ml optiray 320 EXAM: CT Angiography Neck With Intravenous Contrast CLINICAL HISTORY: Reason for exam: neuro deficit, acute stroke suspected. TECHNIQUE: Routine carotid CT angiography protocol was performed with intravenous contrast. NASCET criteria using the distal ICAs for comparison were used for evaluation of stenoses. CTDI is 10.47 mGy and DLP is 366.91 mGy-cm. Automated exposure control was utilized for the study. A dose lowering technique was utilized adhering to the principles of ALARA. MIP reconstructed images were created and reviewed. CONTRAST: Patient received 118ml optiray 320 of IV contrast COMPARISON: None. FINDINGS: VASCULATURE: Right common carotid artery: No occlusion or significant stenosis. No dissection. Right internal carotid artery: Atherosclerotic calcifications at the right carotid bulb. No flow-limiting stenosis. Right vertebral artery: No occlusion or significant stenosis. No dissection. Left common carotid artery: No occlusion or significant stenosis. No dissection. Left internal carotid artery: Nonflow limiting atheromatous disease in the proximal left ICA. Left vertebral artery: No occlusion or significant stenosis. No dissection. NECK: Bones/joints: Degenerative spondylosis and facet arthropathy in the cervical spine. No acute fracture. Soft tissues: Unremarkable. Lung apices: Clear. CAROTID STENOSIS REFERENCE USING NASCET CRITERIA: % ICA stenosis = (1 - narrowest ICA diameter/diameter of distal cervical ICA) x 100. Mild - <50% stenosis. Moderate - 50-69% stenosis. Severe - 70-94% stenosis. Near occlusion - 95-99% stenosis. Occluded - 100% stenosis. IMPRESSION: No acute findings in the arteries of the neck. Communications: Call Doctor Stroke Electronically signed by: Schuyler Schmitt MD 11/05/24 21:[address] 11/05/24 20:47 Exam(s): CT C SPINE EXAM: CT Cervical Spine Without Intravenous Contrast CLINICAL HISTORY: Reason for exam: ams. TECHNIQUE: Axial computed tomography images of the cervical spine without intravenous contrast. CTDI is 10.47 mGy and DLP is 366.91 mGy-cm. Automated exposure control was utilized for the study. A dose lowering technique was utilized adhering to the principles of ALARA. COMPARISON: No relevant prior studies available. FINDINGS: Vertebrae: No acute fracture. Severe degenerative spondylosis most pronounced at C4-5 and C5-6. Grade 1 anterolisthesis at C7-T1. Reversal of the normal cervical lordosis. No critical canal stenosis. Multilevel foraminal stenosis. Soft tissues: No acute abnormality. IMPRESSION: 1. No acute fracture. 2. Severe degenerative spondylosis most pronounced at C4-5 and C5-6. Electronically signed by: Schuyler Schmitt MD 11/05/24 21:33 PM Discharge Plan Visit Data Chief Complaint: Altered Mental Status Stated Complaint: ROLLED OFF OF COUCH, ALTERED ED Provider: Nico Castillo Discharge Problem: Acute alteration in mental status, Stroke-like symptoms, Anemia Patient Disposition: Being Evaluated by Hospitalist Condition: Good Forms Stand Alone Forms: My [facility] Prescriptions Prescriptions: No Action Orencia 125 mg/mL syringe 125 mg SUBCUT WK Rx Instructions: TAKE THIS MED EVERY FRIDAY omeprazole 20 mg capsule,delayed release(DR/EC) 20 mg PO DAILYBB Rx Instructions: TAKE THIS MED BEFORE BREAKFAST multivitamin Tablet 1 tab PO DAILY calcium carbonate-vitamin D3 [Calcium 600 + D(3)] 600 mg-5 mcg (200 unit) Tablet 1 tab PO BID ferrous sulfate 325 mg (65 mg iron) Tablet,Delayed Release (Dr/Ec) 325 mg PO QAM Qty: 30 0RF torsemide 20 mg Tablet 20 mg PO QAM Qty: 30 0RF thiamine HCl (vitamin B1) 100 mg Tablet 200 mg PO QAM Qty: 30 0RF potassium chloride 10 mEq Tablet Extended Release 10 meq PO DAILY Qty: 30 0RF magnesium oxide 400 mg (241.3 mg magnesium) Tablet 400 mg PO BID Qty: 30 0RF cyanocobalamin (vitamin B-12) 500 mcg Tablet 500 mcg PO QAM Qty: 30 0RF sodium chloride 1,000 mg Tablet,Soluble 1,000 mg PO DAILY Qty: 30 0RF Referrals Referrals: Marck Bardales MD [Primary Care Provider] -
[2024-11-05] MEDS: OPTIRAY 320 125ml IV ONE (20:49)
[2024-11-05 20:57] LABS: Basophils # (auto) 0.04 K/uL (0.00-0.20); Basophils % (auto) 0.4 %; Eosinophils # (auto) 0.35 K/uL (0.00-0.50); Eosinophils % (auto) 3.6 %; Hematocrit (blood only) 24.5 % (37.0-47.0); Hemoglobin 7.4 g/dl (12.0-16.0); Immature Granulocytes # (auto) 0.09 K/uL (0.01-0.20); Immature Granulocytes % (auto) 0.9 %; Lymphocytes % (auto) 20.3 %; Mean Corpuscular Hemoglobin 21.4 pg (25.0-34.0); Mean Corpuscular Hgb Conc 30.2 g/dL (32.0-36.0); Mean Corpuscular Volume 70.8 fL (80.0-100.0); Mean Platelet Volume 8.7 fL (9.4-12.4); Monocytes # (auto) 0.78 K/uL (0.11-0.59); Monocytes % (auto) 7.9 %; Neutrophils # (auto) 6.59 K/uL (1.40-6.50); Neutrophils % (auto) 66.9 %; Platelet Count 579 K/uL (130-400); RDW Coefficient of Variation 20.5 % (11.5-14.5); RDW Standard Deviation 49.9 fL (36.4-46.3); Red Blood Count 3.46 M/uL (4.20-5.40); White Blood Count 9.85 K/ul (4.8-10.8)
[2024-11-05 20:58] LABS: iSTAT Creatinine 0.4 mg/dl (0.6-1.3); iSTAT Hemoglobin 8.2 g/dl (12.0-16.0); iSTAT Ionized Calcium 1.11 mmol/l (1.12-1.32); iSTAT Potassium 3.7 mmol/L (3.3-5.0)
--- OUTSIDE RECORDS SUMMARY | 2024-11-05 21:01 | External Medical Summary | Summary of Care ---
Author Name Unknown Organization [facility] Address [address] [place] [address] Phone [phone] Care Team Providers Care Qa Software Test Engineer Name Role Phone Jeffy BOOGIE MD, John E Primary Care Provider [phone] Reason for Visit * Reason Onset Date Comments Home Health 11/04/2024 Encounter Details Date Type Department Care Team (Late st Contact Info) Description 11/04/2024 Telephone Family Practice [facility] [address] [place] [address] Marck Bardales III, MD [address] [place] [address] Home Health Allergies Active Allergy Reactions Criticality Noted Date Comments Penicillins Unknown Low 11/01/2003 Occurred as child, unknown documented as of this encounter (statuses as of 11/04/2024) Medications CALCIUM 600 + D 600-200 MG-UNIT [...] Additional Information Patient not taking.Reported on 08/05/2024 Leflunomide 20 MG Oral Tablet (Arava)Indicatio ns:Rheumatoid arthritis flare (HCC) TAKE 1 TABLET BY MOUTH EVERY DAY IN THE MORNING 90 Tablet 1 4 Active Orencia 125 MG/ML Subcutaneous Solution Prefilled Syringe (Abatacept)Indic ations:Rheumatoi d arthritis involving multiple sites with positive rheumatoid factor (HCC) INJECT 125 MG (1 ML) UNDER THE SKIN ONCE A WEEK 4 mL 5 4 Active Omeprazole 20 MG Oral Capsule Delayed Release (PriLOSEC)Indica tions:GERD (gastroesophagea l reflux disease) TAKE 1 CAPSULE BY MOUTH IN THE MORNING. 1 HOUR BEFORE THE FIRST MEAL OF THE DAY. 90 Capsule 2 5 Active Magnesium Oxide -Mg Supplement 400 (240 Mg) MG Oral Tablet (Mag-Ox) Take 1 Tablet by mouth in the morning and 1 Tablet before bedtime. 5 Active Potassium Chloride ER 10 MEQ Oral Tablet Extended Release Take 1 Tablet by mouth in the morning. 5 Active Thiamine HCl 100 MG Oral Tablet (vitamin B-1) Take 2 Tablets by mouth in the morning. 5 Active Torsemide 20 MG Oral Tablet (Demadex) Take 1 Tablet by mouth in the morning. 5 Active documented as of this encounter (statuses as of 11/04/2024) Active Problems Problem Noted Date Diagnosed Date [...] as of this encounter (statuses as of 11/04/2024) Resolved Problems Problem Noted Date Diagnosed Date Resolved Date SENIOR LIVING DRUG USE STEROIDS 03/05/2007 02/21/2014 Anemia 11/03/2003 03/05/2007 Alcohol dependence 11/01/2003 1 Overview (10/10/2015): ICD-10 update of inactive term Major depressive disorder 11/01/2003 Overview (04/22/2017): ICD-10 update of inactive term ARTHRITIS,RHEUMATOID 11/01/2003 016 Overview (03/25/2007): chronic prednisone therapy documented as of this encounter (statuses as of 11/04/2024) Immunizations Name Administration Dates Next Due COVID-19 [...] encounter Miscellaneous Notes * Telephone Encounter - Nisha Peres LPN - 11/04/2024 4:21 PM EDT HH Admission/Start of Care Admission/Start of Care: Otoniel WOOD, Calling from: [facility] Patient was Admitted to: [facility] [place], for: SIADH, acute metabolic encephalopathy, bulimia, psychogenic polydipsia, delirium, iron deficiency anemia, mild cognitive impairment with memory loss, severe protein-calorie malnutrition, rheumatoid arthritis, vit D deficiency from 10/20 to 11/01 Referral ordered by: [facility] [place] Referral received for: [facility] Planned start of care date:Yes, Date tried to arrange a time with patient but out of 48 hour window They will call with any updates or additional concerns from the upcoming HH visit. Last Office Visit: 04/23/2024 Has patient been scheduled or seen in the office for a follow up visit: Needs contacted to schedulefollow up Patient needs a prior auth before she can been seen in office due to [employer] plan. (Documented inencounter from 11/02/2024 Otoniel canceling referral, provider will need to place new referral once seen in office. FYI to PCP * Telephone Encounter - Rosamaria Saleh OSA - 11/04/2024 4:18 PM EDT Reason for patient's call: [facility] Home Health Caller was transferred to Nisha at the nurse line. documented in this encounter Plan of Treatment Upcoming Encounters Date Type Department Care Team (Latest Contact Info) Description 02/04/2025 9:00 AM EDT Hospital Encounter ENDO [facility], Endoscopy Room [facility] [address] [place] [address] Harsh Gallardo MD [address] [place] [address] 02/04/2025 9:00 AM EDT - 02/04/2025 9:30 AM EDT Surgery ENDO [facility], Endoscopy Room [facility] [address] [place] [phone] Harsh Gallardo MD [address] [place] [address] COLONOSCOPY FLEXIBLE PROXIMAL DIAGNOSTIC Scheduled Procedures Name [...] Additional history exists DXA Scan 07/31/2026 07/31/2021, 0 12/2015, 03/30/2012, Additional history exists DTap/Tdap Vaccines [...] filedocumented as of this encounter Care Teams Qa Software Test Engineer Relationship Specialty Start Date End Date Marck Bardales III, MD [address] [place] [address] PCP - General Family Medicine 05/28/16 documented as of this encounter
--- OUTSIDE RECORDS SUMMARY | 2024-11-05 21:01 | External Medical Summary | Summary of Care ---
Author Name Unknown Organization [facility] Address [address] [place] [address] Phone [phone] Care Team Providers Care Materials Clerk Name Role Phone Jeffy BOOGIE MD, John E Primary Care Provider [phone] Reason for Visit * Reason Onset Date Comments Hospital Follow-Up 11/02/2024 Encounter Details Date Type Department Care Team (Late st Contact Info) Description 11/02/2024 Telephone Family Practice [facility] [place] [address] [facility] [place] [address] Marck Bardales III, MD [address] [facility] [place] [address] Hospital Follow-Up Allergies Active Allergy Reactions Criticality Noted Date Comments Penicillins Unknown Low 11/01/2003 Occurred as child, unknown documented as of this encounter (statuses as of 11/05/2024) Medications CALCIUM 600 + D 600-200 MG-UNIT [...] MORNING 90 Tablet 1 01/28/20 24 Active Orencia 125 MG/ML Subcutaneous Solution Prefilled Syringe (Abatacept)Indic ations:Rheumatoi d arthritis involving multiple sites with positive rheumatoid factor (HCC) INJECT 125 MG (1 ML) UNDER THE SKIN ONCE A WEEK 4 mL 5 04/22/20 24 Active Omeprazole 20 MG Oral Capsule Delayed Release (PriLOSEC)Indica tions:GERD (gastroesophagea l reflux disease) TAKE 1 CAPSULE BY MOUTH IN THE MORNING. 1 HOUR BEFORE THE FIRST MEAL OF THE DAY. 90 Capsule 2 07/30/19 25 Active Magnesium Oxide -Mg Supplement 400 (240 Mg) MG Oral Tablet (Mag-Ox) Take 1 Tablet by mouth in the morning and 1 Tablet before bedtime. 11/02/19 25 Active Potassium Chloride ER 10 MEQ Oral Tablet Extended Release Take 1 Tablet by mouth in the morning. 11/02/19 25 Active Thiamine HCl 100 MG Oral Tablet (vitamin B-1) Take 2 Tablets by mouth in the morning. 11/02/19 Active Torsemide 20 MG Oral Tablet (Demadex) Take 1 Tablet by mouth in the morning. 11/02/19 25 Active Venlafaxine HCl 37.5 MG Oral Tablet (Effexor)Indicat ions:Major depressive disorder, recurrent episode, moderate (HCC) TAKE 1 TABLET BY MOUTH IN THE MORNING AND 1 TABLET BEFORE BEDTIME. WITH FOOD.. 180 Tablet 3 10/27/19 24 025 Discontin ued(Medic ation List Clean Up) Baclofen 10 MG Oral Tablet (Lioresal)Indica tions:Rheumatoid arthritis involving multiple sites with positive rheumatoid factor (HCC) TAKE 1 TABLET BY MOUTH THREE TIMES A DAY 270 Tablet 1 04/05/20 24 025 Discontin ued(Medic ation List Clean Up) risperiDONE 2 MG Oral Tablet (RisperDAL)Indic ations:Sukhwinder de la Tourette's syndrome Take 1 Tablet by mouth in the morning and 1 Tablet before bedtime. 180 Tablet 3 04/23/20 24 025 Discontin ued(Medic ation List Clean Up) documented as of this encounter (statuses as of 11/05/2024) Active Problems Problem Noted Date Diagnosed Date [...] as of this encounter (statuses as of 11/05/2024) Resolved Problems Problem Noted Date Diagnosed Date Resolved Date USP DRUG USE STEROIDS 03/05/2007 02/21/2014 Anemia 11/03/2003 03/05/2007 Alcohol dependence 11/01/2003 1 Overview (10/10/2015): ICD-10 update of inactive term Major depressive disorder 11/01/2003 Overview (04/22/2017): ICD-10 update of inactive term ARTHRITIS,RHEUMATOID 11/01/2003 016 Overview (03/25/2007): chronic prednisone therapy documented as of this encounter (statuses as of 11/05/2024) Immunizations Name Administration Dates Next Due COVID-19 mRNA, LNP-s, No Pre serve, 2-Dose Series (AquaHydrate) 11/01/2020,10/11/2020 H1N1 2009 Influenza, IM 07/20/2009 PPD [...] encounter Miscellaneous Notes * Telephone Encounter - Nita Collazo LPN - 11/05/2024 11:45 AM EDT Prior auth is needed and is currently under review per prior documentation. Any update on the status? Thank you. * Telephone Encounter - Teto Ashley DO - 11/03/2024 4:49 PM EDT Do they need a prior auth to see us at [facility]? * Telephone Encounter - Cruz Coates RN - 11/03/2024 1:52 PM EDT thanks * Telephone Encounter - Caio Das OSA - 11/03/2024 10:28 AM EDT Prior auth referral has been sent to review. Cannot schedule until it's been reviewed. * Addendum Note - Cruz Coates RN - 11/03/2024 10:27 AM EDTAddended by: CRUZ COATES on: 11/03/2024 10:27 AM Modules accepted: Orders * Telephone Encounter - Cruz Coates RN - 11/03/2024 9:35 AM EDT Source/Contact: Patient, and Sebastien her SO live in answered initially when patient was still asleep. Patient then came to phone SUBJECTIVE Consent: Verbal consent for review of hospital discharge: Yes REVIEW OF SYSTEMS Patient/Other Reports: Current patient/caregiver problems or concerns: patient states she is feeling better CV: Denies problems Pulmonary: Denies problems Chills/Sweats/Fever:Denies chills/sweats Denies fever Appetite: patient states she did eat breakfast, patient denies any vomiting throughout the night Current diet: discussed high protein and fluid restrictions Bowel: denies problems Bladder: denies problems Wound (If applicable): N/A Pain:Denies Sleep:patient states she always has difficulty sleeping. FUNCTIONAL STATUS: ADL'S: Needs Assistance With:N/A as pt is independent IADL'S: Needs Assistance With:N/A as pt is independent Cognitive and Mental Health: denies problems, alert and oriented x 3, able to communicate, understand some instructions, process some information, and patient did seem to struggle a little when I wasverbally going over her meds. MEDICATION RECONCILIATION Medications: patient states she will pickling solution maker new prescription today. I do worry that she may not comply with meds, and fluid restrictions we went over all medications in detail. ASSESSMENT Medication Risk Assessment: Went over all new meds in great detail, Patient seem a little confused when writing them done, she said she will pickling solution maker prescription today. I offered patient to put me on speaker if she would like her SO(live in) , Sebastien to hear too. Patient states "that is not necessary" HE did mention when he first answered the phone that she does not make him aware of anything that was discussed at the hospital. Discharge instructions available for review? Yes PLAN Symptom Monitoring Interventions:Member/caregiver education - signs and symptoms to contact PrimaryCare (DO NOT DELETE-Three joel symptoms patient is to report to PCP) 1. Worsening confusion 2. Increased anxiety 3.if fevers return Horticulture ProfessorBoarding Mother of Care interventions/Action Plan: Due to patient insurance, PAR staff are working on prior auth. I did counsele patient she may want to check with her insurance co re coverage. Educated on role of ROSY completed with patient/caregiver. Educated patient/caregiver on patient right to have input on ROSY plan of care. Verification of Home Health/DME if indicated: Yes, but Sebastien states they called when patient was sleeping. I counseled patient to call them back. [facility] is to follow up Identified Care Gaps: Yes Care Gaps closed this call: Transition of Care follow-up communication Re-evaluation of Plan of Care and progress towards goals achievement: Patient education this visit: Discuss importance of low sodium, It is critical that you comply with the fluid restriction. If you drink too much liquids your sodium level will get dangerously low It is very important that you eat a high-protein diet. The hospital has coordinated an appointment for you with [facility]. Please follow up withthat appointment. Follow-up with your PCP, they will be contacting you with an appointment after prior auth Cruz Coates RN * Telephone Encounter - Milly Menchaca RN - 11/02/2024 9:28 AM EDT Images from the original note were not included. Transitions of Care Note Reason for Referral:Recent Admission Phone visit for follow up: ROSY Admitted to: [facility], Date: 10/20 Discharged to: home, Date: 11/01 Diagnosis driving hospitalization: SIADH, acute metabolic encephalopathy, bulimia, psychogenic polydipsia, delirium, mild cognitive impairment Patients insurance is requiring a PA before scheduling, PAR team at is working on this. Attempted Phone Call First Attempt Call Outcome Left Voicemail/Message documented in this encounter Plan of Treatment Upcoming Encounters Date Type Department Care Team (Latest Contact Info) Description 02/04/2025 9:00 AM EDT Hospital Encounter ENDO [facility], Endoscopy Room [facility] [address] [place] [phone] Harsh Gallardo MD [address] [place] [address] 02/04/2025 9:00 AM EDT - 02/04/2025 9:30 AM EDT Surgery ENDO [facility], Endoscopy Room [facility] [address] [place] [phone] Harsh Gallardo MD [address] [place] [address] COLONOSCOPY FLEXIBLE PROXIMAL DIAGNOSTIC Scheduled Procedures Name Priority Associated Diagnoses Date/Ti me COLONOSCOPY FLEXIBLE PROXIMAL DIAGNOSTIC Recall Iron deficiency anemia 02/04/2025 9:00 AM EDT Health Maintenance Due Date Last Done Comments Cologuard 2006 Fecal Occult Blood Test 2006 Sigmoidoscopy 2006 Mammogram 10/18/2023 10/17/2022, 1010/2020, 03/27/2020, Additional history exists COVID-19 Vaccine ( [...] filedocumented as of this encounter Care Teams Materials Clerk Relationship Specialty Start Date End Date Marck Bardales III, MD [address] [place] [address] PCP - General Family Medicine 05/28/16 documented as of this encounter
--- OUTSIDE RECORDS SUMMARY | 2024-11-05 21:01 | External Medical Summary | Summary of Care ---
Author Name Unknown Organization [facility] Address [address] [place] [address] Phone [phone] Care Team Providers Care Special Procedures Tech Name Role Phone Jeffy BOOGIE MD, John E Primary Care Provider [phone] Reason for Visit * Reason Onset Date Comments Hospital Follow-Up 11/02/2024 Encounter Details Date Type Department Care Team (Late st Contact Info) Description 11/02/2024 Telephone Family Practice [facility] [place] [address] [facility] [place] [address] Marck Bardales III, MD 200 [place] [address] Hospital Follow-Up Allergies Active Allergy Reactions Criticality [...] Up) risperiDONE 2 MG Oral Tablet (RisperDAL)Indic ations:Tai [...] Problem Noted Date Diagnosed Date Resolved Date JAIL DRUG USE STEROIDS 03/05/2007 02/21/2014 Anemia 11/03/2003 03/05/2007 Alcohol dependence 11/01/2003 1 Overview (10/10/2015): ICD-10 update of inactive term Major depressive disorder 11/01/2003 Overview (04/22/2017): ICD-10 update of inactive term ARTHRITIS,RHEUMATOID 11/01/2003 016 Overview (03/25/2007): chronic prednisone therapy documented as of this encounter (statuses as of 11/04/2024) Immunizations Name Administration Dates Next Due COVID-19 mRNA, LNP-s, No Pre serve, 2-Dose Series (Monitise) 11/01/2020,10/11/2020 H1N1 2009 Influenza, IM 07/20/2009 PPD [...] encounter Miscellaneous Notes * Telephone Encounter - Teto Ashley DO - 11/03/2024 4:49 PM EDT Do they need a prior auth to see us at family Medicine? * Telephone Encounter - Cruz Coates RN [...] MEDICATION RECONCILIATION Medications: patient states she will pharmacy picking tech new prescription today. I do worry that she may not comply with meds, and fluid restrictions we went over all medications in detail. ASSESSMENT Medication Risk Assessment: Went over all new meds in great detail, Patient seem a little confused when writing them done, she said she will pharmacy picking tech prescription today. I offered patient to put [...] confusion 2. Increased anxiety 3.if fevers return Director Of Nuclear MedicineApparel Stock Checker of Care interventions/Action Plan: Due to patient [...] I counseled patient to call them back. [facility] is to follow up Identified Care [...] has coordinated an appointment for you with [facility]. Please follow up withthat appointment. Follow-up with your PCP, they will be contacting you with an appointment after prior auth Cruz Coates RN * Telephone Encounter - Milly Menchaca RN - 11/02/2024 9:28 AM EDT Images from the original note were not included. Transitions of Care Note Reason for Referral:Recent Admission Phone visit for follow up: ROSY Admitted to: [facility], Date: 10/20 Discharged to: home, Date: 11/01 [...] [facility], Endoscopy Room [facility] [address] [place] [phone] Harsh Gallardo MD [address] [place] [address] 02/04/2025 9:00 AM EDT - 02/04/2025 9:30 AM EDT Surgery ENDO [facility], Endoscopy Room [facility] [address] [place] [phone] Harsh Gallardo MD [address] [place] [address] COLONOSCOPY FLEXIBLE PROXIMAL DIAGNOSTIC Scheduled Procedures Name [...] filedocumented as of this encounter Care Teams Special Procedures Tech Relationship Specialty Start Date End Date Marck Bardales III, MD [address] [place] [address] PCP - General Family Medicine 05/28/16 documented as of this encounter
--- OUTSIDE RECORDS SUMMARY | 2024-11-05 21:01 | External Medical Summary | Summary of Care ---
Author Name Unknown Organization [facility] Address [address] [place] [address] Phone [phone] Care Team Providers Care Lithographic Proofer Name Role Phone Jeffy BOOGIE MD, John E Primary Care Provider [phone] Reason for Visit * Reason Onset Date Comments Hospital Follow-Up 11/02/2024 Encounter Details Date Type Department Care Team (Late st Contact Info) Description 11/02/2024 Telephone Family Practice [facility] [place] 200 [facility] [place] [address] Marck Bardales III, MD 200 [place] [address] Hospital Follow-Up Allergies Active Allergy Reactions Criticality Noted Date Comments Penicillins Unknown Low 11/01/2003 Occurred as child, unknown documented as of this encounter (statuses as of 11/03/2024) Medications CALCIUM 600 + D 600-200 MG-UNIT [...] as of this encounter (statuses as of 11/03/2024) Active Problems Problem Noted Date Diagnosed Date [...] as of this encounter (statuses as of 11/03/2024) Resolved Problems Problem Noted Date Diagnosed Date Resolved Date HALFWAY DRUG USE STEROIDS 03/05/2007 02/21/2014 Anemia 11/03/2003 03/05/2007 Alcohol dependence 11/01/2003 1 Overview (10/10/2015): ICD-10 update of inactive term Major depressive disorder 11/01/2003 Overview (04/22/2017): ICD-10 update of inactive term ARTHRITIS,RHEUMATOID 11/01/2003 016 Overview (03/25/2007): chronic prednisone therapy documented as of this encounter (statuses as of 11/03/2024) Immunizations Name Administration Dates Next Due COVID-19 mRNA, LNP-s, No Pre serve, 2-Dose Series (JAZIO) 11/01/2020,10/11/2020 H1N1 2009 Influenza, IM 07/20/2009 PPD [...] MEDICATION RECONCILIATION Medications: patient states she will roll picker new prescription today. I do worry that she may not comply with meds, and fluid restrictions we went over all medications in detail. ASSESSMENT Medication Risk Assessment: Went over all new meds in great detail, Patient seem a little confused when writing them done, she said she will roll picker prescription today. I offered patient to put [...] confusion 2. Increased anxiety 3.if fevers return PairerAssistant Sales Director of Care interventions/Action Plan: Due to patient [...] has coordinated an appointment for you with [facility]. Please follow up withthat appointment. Follow-up with your PCP, they will be contacting you with an appointment after prior auth Cruz Coates RN * Telephone Encounter - Milly Menchaca RN - 11/02/2024 9:28 AM EDT Images from the original note were not included. Transitions of Care Note Reason for Referral:Recent Admission Phone visit for follow up: ROSY Admitted to: [facility], Date: 10/20 Discharged to: home, Date: 11/01 [...] [facility], Endoscopy Room [facility] [address] [place] [phone] Harsh Gallardo MD [address] [place] [address] 02/04/2025 9:00 AM EDT - 02/04/2025 9:30 AM EDT Surgery ENDO [facility], Endoscopy Room [facility] [address] [place] [phone] Harsh Gallardo MD [address] [place] [address] COLONOSCOPY FLEXIBLE PROXIMAL DIAGNOSTIC Scheduled Procedures Name [...] filedocumented as of this encounter Care Teams Lithographic Proofer Relationship Specialty Start Date End Date Marck Bardales III, MD [address] [place] [address] PCP - General Family Medicine 05/28/16 documented as of this encounter
--- OUTSIDE RECORDS SUMMARY | 2024-11-05 21:01 | External Medical Summary | Summary of Care ---
Author Name Unknown Organization [facility] Address [address] [place] [address] Phone [phone] Care Team Providers Care Manager Non Profit Name Role Phone Jeffy BOOGIE MD, John E Primary Care Provider [phone] Reason for Visit * Reason Onset Date Comments Home Health 11/04/2024 Encounter Details Date Type Department Care Team (Late st Contact Info) Description 11/04/2024 Telephone Family Practice [facility] 200 [facility] [place] [address] Marck Bardales III, MD [address] [place] [address] Home Health Allergies Active Allergy Reactions Criticality [...] Problem Noted Date Diagnosed Date Resolved Date LONG-TERM DRUG USE STEROIDS 03/05/2007 02/21/2014 Anemia 11/03/2003 [...] Encounter - Nita Collazo LPN - 11/05/2024 11:44 AM EDT Home health was just letting us know a new home health referral will need to be placed once patientis seen in office. Patient can't be seen until insurance authorization request is approved. Per message dated 11/02/24, authorization is in process, awaiting decision. * Telephone Encounter - Ilda Owens PA-C - 11/05/2024 10:14 AM EDT Keila Inboxologist Note Patient Call - Communication with Specialty Provider Reviewed message from: Nursing Please let them know, pcp is ooo for at least a month if not longer and that if they need anything,patient will need seen Ilda Owens PA-C 11/05/2024 10:14 AM * Telephone Encounter - Nisha Peres LPN - 11/04/2024 4:21 PM EDT HH Admission/Start of Care Admission/Start of Care: Otoniel WOOD, Calling from: [facility] Patient was Admitted to: [facility], for: SIADH, acute metabolic encephalopathy, bulimia, psychogenic polydipsia, delirium, iron deficiency anemia, mild cognitive impairment with memory loss, severe protein-calorie malnutrition, rheumatoid arthritis, vit D deficiency from 10/20 to 11/01 Referral ordered by: [facility] Referral received for: [facility] Planned start of care date:Yes, Date tried [...] EDT Hospital Encounter ENDO [facility], Endoscopy Room [facility] [address] [place] [id number] Harsh Gallardo MD [address] [place] [address] 02/04/2025 9:00 AM EDT - 02/04/2025 9:30 AM EDT Surgery ENDO [facility], Endoscopy Room [facility] [address] [place] [phone] Harsh Gallardo MD [address] [place] [address] COLONOSCOPY FLEXIBLE PROXIMAL DIAGNOSTIC Scheduled Procedures Name [...] Cancer Screening 08/06/2029 Zoster Vaccines Completed 10/03/2022, 0 01/2021, 09/28/2018, Additional history exists Influenza Vaccine [...] filedocumented as of this encounter Care Teams Manager Non Profit Relationship Specialty Start Date End Date Marck Bardales III, MD [address] [place] [address] PCP - General Family Medicine 05/28/16 documented as of this encounter
--- OUTSIDE RECORDS SUMMARY | 2024-11-05 21:01 | External Medical Summary | Summary of Care ---
Author Name Unknown Organization [facility] Address [address] [place] [address] Phone [phone] Care Team Providers Care Vice President Sales Name Role Phone Jeffy BOOGIE MD, John E Primary Care Provider [phone] Reason for Visit * Reason Onset Date Comments Home Health 11/04/2024 Encounter Details Date Type Department Care Team (Late st Contact Info) Description 11/04/2024 Telephone Family Practice [facility] 200 [facility] [place] [address] Marck Bardales III, MD [address] [place] [address] Home Health Allergies Active Allergy Reactions Criticality [...] Problem Noted Date Diagnosed Date Resolved Date GROUP HOME DRUG USE STEROIDS 03/05/2007 02/21/2014 Anemia 11/03/2003 [...] encounter Miscellaneous Notes * Telephone Encounter - Ilda Owens PA-C [...] Admission/Start of Care: Otoniel WOOD, Calling from: [facility] Patient was Admitted to: [facility], for: SIADH, acute metabolic encephalopathy, bulimia, psychogenic polydipsia, delirium, iron deficiency anemia, mild cognitive impairment with memory loss, severe protein-calorie malnutrition, rheumatoid arthritis, vit D deficiency from 10/20 to 11/01 Referral ordered by: [facility] Referral received for: [facility] Planned start of care date:Yes, Date tried [...] 4:18 PM EDT Reason for patient's call: [facility] Home Health Caller was transferred to Nisha at the nurse line. documented in this encounter Plan of Treatment Upcoming Encounters Date Type Department Care Team (Latest Contact Info) Description 02/04/2025 9:00 AM EDT Hospital Encounter ENDO [facility], Endoscopy Room [facility] [address] [place] [phone] Harsh Gallardo MD [address] [place] [address] 02/04/2025 9:00 AM EDT - 02/04/2025 9:30 AM EDT Surgery ENDO [facility], Endoscopy Room [facility] [address] [place] [phone] Harsh Gallardo MD [address] [place] [address] COLONOSCOPY FLEXIBLE PROXIMAL DIAGNOSTIC Scheduled Procedures Name Priority Associated Diagnoses Date/Ti me COLONOSCOPY FLEXIBLE PROXIMAL DIAGNOSTIC Recall Iron deficiency anemia 02/04/2025 9:00 AM EDT Health Maintenance Due Date Last Done Comments Cologuard 2006 Fecal Occult Blood Test 2006 Sigmoidoscopy 2006 Mammogram 10/18/2023 10/17/2022, 10/0 10/2020, 03/27/2020, Additional [...] filedocumented as of this encounter Care Teams Vice President Sales Relationship Specialty Start Date End Date Jeffy BOOGIE, Marck Chapman MD 200 [place] [address] PCP - General Family Medicine 05/28/16 documented as of this encounter
--- OUTSIDE RECORDS SUMMARY | 2024-11-05 21:01 | External Medical Summary | Summary of Care ---
Author Name Unknown Organization [facility] Address [address] [place] [address] Phone [phone] Care Team Providers Care Case Therapist Name Role Phone Jeffy BOOGIE MD, John E Primary Care Provider [phone] Reason for Visit * Reason Comments eRx-Medication Refill Encounter Details Date Type Department Care Team (Late st Contact Info) Description 11/02/2024 Refill Family Practice [facility] 200 [facility] [place] [address] Marck Bardales III, MD [address] [place] [address] Major depressive disorder, recurrent episode, moderate ([facility]) Allergies Active Allergy Reactions Criticality Noted Date [...] Problem Noted Date Diagnosed Date Resolved Date SAP BW ARCHITECT DRUG USE STEROIDS 03/05/2007 02/21/2014 Anemia 11/03/2003 [...] encounter Miscellaneous Notes * Telephone Encounter - Vivienne Altman RPh - 11/03/2024 3:15 PM EDT Refused Prescriptions: Disp Refills Venlafaxine HCl 37.5 MG Oral Tablet (Effex*180 Ta*3 Sig: TAKE 1TABLET BY MOUTH IN THE MORNING AND 1 TABLET BEFORE BEDTIME. WITH FOOD..Refused By: KEVIN ALTMANeason for Refusal: Contraindicated ------- * Telephone Encounter - Vivienne Altman RPh - 11/03/2024 3:08 PM EDT Images from the original note were not included. Venlafaxine appears d/c from recent hospitalization d/t risk of hyponatremia: documented in this encounter Plan of Treatment Upcoming Encounters Date Type Department Care Team (Latest Contact Info) Description 02/04/2025 9:00 AM EDT Hospital [facility] [place] [phone] Harsh Gallardo MD [address] [place] [address] 02/04/2025 9:00 AM EDT - 02/04/2025 9:30 AM EDT Surgery ENDO [facility], Endoscopy Room [facility] [address] [place] [phone] Harsh Gallardo MD [address] [place] [address] COLONOSCOPY FLEXIBLE PROXIMAL DIAGNOSTIC Scheduled Procedures Name [...] as of this encounter Visit Diagnoses Diagnosis Major depressive disorder, recurrent episode, moderate (HCC) Major depressive disorder, recurrent episode, moderate Iron deficiency anemia Iron deficiency anemia, unspecified documented in this encounter Care Teams Case Therapist Relationship Specialty Start Date End Date Marck Bardales III, MD [address] [place], [place] [address] PCP - General Family Medicine 05/28/16 documented as of this encounter
--- OUTSIDE RECORDS SUMMARY | 2024-11-05 21:02 | External Medical Summary | Summary of Care ---
Author Name Unknown Organization [facility] Address [address] [place] [address] Phone [phone] Care Team Providers Care Cement Loader Name Role Phone Jeffy BOOGIE MD, John E Primary Care Provider [phone] Reason for Visit * Reason Onset Date Comments Hospital Follow-Up 11/02/2024 Encounter Details Date Type Department Care Team (Late st Contact Info) Description 11/02/2024 Telephone Family Practice [facility] [place] 200 [facility] [place] [address] Marck Bardales III, MD 200 [facility] [address] Hospital Follow-Up Allergies Active Allergy Reactions Criticality [...] mRNA, LNP-s, No Pre serve, 2-Dose Series ([employer] 11/01/2020,10/11/2020 H1N1 2009 Influenza, IM 07/20/2009 PPD [...] encounter Miscellaneous Notes * Telephone Encounter - Caio Das OSA - 11/03/2024 10:28 AM EDT Prior auth referral has been sent to review. Cannot schedule until it's been reviewed. * Addendum Note - Cruz Coates RN - 11/03/2024 10:27 AM EDTAddended by: CRUZ COATES on: 11/03/2024 10:27 AM Modules accepted: Orders * Telephone Encounter - GtCruz RN - 11/03/2024 9:35 AM EDT Source/Contact: [...] MEDICATION RECONCILIATION Medications: patient states she will picker new prescription today. I do worry that she may not comply with meds, and fluid restrictions we went over all medications in detail. ASSESSMENT Medication Risk Assessment: Went over all new meds in great detail, Patient seem a little confused when writing them done, she said she will picker prescription today. I offered patient to [...] confusion 2. Increased anxiety 3.if fevers return Food Processing ChemistAircraft Ordnance Technician of Care interventions/Action Plan: Due to patient [...] I counseled patient to call them back. [facility] HH is to follow up Identified [...] that you eat a high-protein diet. [facility] coordinated an appointment for you with [facility]. Please follow up withthat appointment. Follow-up with your PCP, they will be contacting you with an appointment after prior auth Cruz Coates RN * Telephone Encounter - Milly Menchaca RN - 11/02/2024 9:28 AM EDT Images from the original note were not included. Transitions of Care Note Reason for Referral:Recent Admission Phone visit for follow up: ROSY Admitted to: [facility], Date: 10/20 Discharged to: home, Date: [...] [phone] Harsh Gallardo MD [address] [place] [address] 02/04/2025 9:00 AM EDT - 02/04/2025 9:30 AM EDT Surgery ENDO [facility], Endoscopy Room [facility] [address] [place] [phone] Harsh Gallardo MD [address] [place] [address] COLONOSCOPY FLEXIBLE PROXIMAL DIAGNOSTIC Scheduled Procedures Name [...] filedocumented as of this encounter Care Teams Cement Loader Relationship Specialty Start Date End Date Marck Bardales III, MD 200 [place] [address] PCP - General Family Medicine 05/28/16 documented as of this encounter
--- OUTSIDE RECORDS SUMMARY | 2024-11-05 21:02 | External Medical Summary | Summary of Care ---
Author Name Unknown Organization [facility] Address [address] [place] [address] Phone [phone] Care Team Providers Care Middle School Guidance Counselor Name Role Phone Jeffy BOOGIE MD, John E Primary Care Provider [phone] Reason for Visit * Reason Onset Date Comments Hospital Follow-Up 11/02/2024 Encounter Details Date Type Department Care Team (Late st Contact Info) Description 11/02/2024 Telephone Family Practice [facility] [place] 200 [facility] [place] [address] Marck Bardales III, MD 200 [place] [address] Hospital Follow-Up Allergies Active Allergy Reactions Criticality [...] mRNA, LNP-s, No Pre serve, 2-Dose Series ([employer]) 11/01/2020,10/11/2020 H1N1 2009 Influenza, IM 07/20/2009 PPD [...] MEDICATION RECONCILIATION Medications: patient states she will picking machine operator new prescription today. I do worry that she may not comply with meds, and fluid restrictions we went over all medications in detail. ASSESSMENT Medication Risk Assessment: Went over all new meds in great detail, Patient seem a little confused when writing them done, she said she will picking machine operator prescription today. I offered patient to put [...] confusion 2. Increased anxiety 3.if fevers return Computer Processing SchedulerSecretary Office Clerk of Care interventions/Action Plan: Due to patient [...] I counseled patient to call them back. [facility] HH is to follow up [...] that you eat a high-protein diet. The [facility] coordinated an appointment for you with [facility]. Please follow up withthat appointment. Follow-up with your PCP, they will be contacting you with an appointment after prior auth Cruz Coates RN * Telephone Encounter - Milly Menchaca RN - 11/02/2024 9:28 AM EDT Images from the original note were not included. Transitions of Care Note Reason for Referral:Recent Admission Phone visit for follow up: ROSY Admitted to: [facility], Date: 10/20 Discharged to: home, Date: 11/01 [...] Harsh Gallardo MD [address] [place] [address] 02/04/2025 9:00 AM EDT - 02/04/2025 9:30 AM EDT Surgery ENDO [facility], Endoscopy Room [facility] [address] [place] [phone] Harsh Gallardo MD [address] [place] [address] COLONOSCOPY FLEXIBLE PROXIMAL DIAGNOSTIC Scheduled Procedures Name [...] filedocumented as of this encounter Care Teams Middle School Guidance Counselor Relationship Specialty Start Date End Date Marck Bardales III, MD 200 [place] [address] PCP - General Family Medicine 05/28/16 documented as of this encounter
--- OUTSIDE RECORDS SUMMARY | 2024-11-05 21:02 | External Medical Summary | Summary of Care ---
Author Name Unknown Organization [facility] Address [address] [place] [address] Phone [phone] Care Team Providers Care Pmo Lead Name Role Phone Jeffy BOOGIE MD, John E Primary Care Provider [phone] Reason for Visit * Reason Onset Date Comments Hospital Follow-Up 11/02/2024 Encounter Details Date Type Department Care Team (Late st Contact Info) Description 11/02/2024 Telephone Family Practice [facility] [place] 200 [facility] [place] [address] Marck Bardales III, MD 200 [place] [address] Hospital Follow-Up Allergies Active Allergy Reactions Criticality Noted Date Comments Penicillins Unknown Low 11/01/2003 Occurred as child, unknown documented as of this encounter (statuses as of 11/02/2024) Medications CALCIUM 600 + D 600-200 MG-UNIT [...] as of this encounter (statuses as of 11/02/2024) Active Problems Problem Noted Date Diagnosed Date [...] as of this encounter (statuses as of 11/02/2024) Resolved Problems Problem Noted Date Diagnosed Date Resolved Date DIRECTOR CLIENT DRUG USE STEROIDS 03/05/2007 02/21/2014 Anemia 11/03/2003 03/05/2007 Alcohol dependence 11/01/2003 1 Overview (10/10/2015): ICD-10 update of inactive term Major depressive disorder 11/01/2003 Overview (04/22/2017): ICD-10 update of inactive term ARTHRITIS,RHEUMATOID 11/01/2003 016 Overview (03/25/2007): chronic prednisone therapy documented as of this encounter (statuses as of 11/02/2024) Immunizations Name Administration Dates Next Due COVID-19 mRNA, LNP-s, No Pre serve, 2-Dose Series ([employer]) 11/01/2020,10/11/2020 H1N1 2009 Influenza, IM 07/20/2009 PPD [...] encounter Miscellaneous Notes * Telephone Encounter - Milly Menchaca RN - 11/02/2024 9:28 AM EDT Images from the original note were not included. Transitions of Care Note Reason for Referral:Recent Admission Phone visit for follow up: ROSY Admitted to: [facility], Date: 10/20 Discharged to: home, Date: [...] Gallardo MD [address] [place] [address] 02/04/2025 9:00 AM EDT - 02/04/2025 9:30 AM EDT Surgery ENDO [facility], Endoscopy Room [facility] [address] [place] [phone] Harsh Gallardo MD [address] [place] [address] COLONOSCOPY FLEXIBLE PROXIMAL DIAGNOSTIC Scheduled Procedures Name [...] HPV/Co-Test 06/16/2028 06/16/2023 Lipid Panel 07/09/2028 07/09/2023, 0310/2021, 10/16/2020, Additional history exists Colonoscopy 08/06/2029 08/06/2024, [...] filedocumented as of this encounter Care Teams Pmo Lead Relationship Specialty Start Date End Date Marck Bardales III, MD 200 [facility] [place] [address] PCP - General Family Medicine 05/28/16 documented as of this encounter
--- OUTSIDE RECORDS SUMMARY | 2024-11-05 21:02 | External Medical Summary | Summary of Care ---
Author Name Unknown Organization [facility] Address [address] [place] [address] Phone [phone] Care Team Providers Care Engineering Faculty Member Name Role Phone Jeffy BOOGIE MD, John E Primary Care Provider [phone] Reason for Visit * Reason Onset Date Comments Hospital Follow-Up 11/02/2024 Encounter Details Date Type Department Care Team (Late st Contact Info) Description 11/02/2024 Telephone Family Practice [facility] [place] 200 [facility] [address] Marck Bardales III, MD 200 [facility] [place] [address] Hospital Follow-Up Allergies Active Allergy Reactions Criticality [...] Problem Noted Date Diagnosed Date Resolved Date FPC DRUG USE STEROIDS 03/05/2007 02/21/2014 Anemia 11/03/2003 03/05/2007 Alcohol dependence 11/01/2003 1 Overview (10/10/2015): ICD-10 update of inactive term Major depressive disorder 11/01/2003 Overview (04/22/2017): ICD-10 update of inactive term ARTHRITIS,RHEUMATOID 11/01/2003 016 Overview (03/25/2007): chronic prednisone therapy documented as of this encounter (statuses as of 11/03/2024) Immunizations Name Administration Dates Next Due COVID-19 mRNA, LNP-s, No Pre serve, 2-Dose Series ([employer]) 11/01/2020,10/11/2020 H1N1 2009 Influenza, IM 07/20/2009 PPD [...] MEDICATION RECONCILIATION Medications: patient states she will sheepskin pickler new prescription today. I do worry that she may not comply with meds, and fluid restrictions we went over all medications in detail. ASSESSMENT Medication Risk Assessment: Went over all new meds in great detail, Patient seem a little confused when writing them done, she said she will sheepskin pickler prescription today. I offered patient to put [...] confusion 2. Increased anxiety 3.if fevers return Product Tester FiberglassReconnaissance Crewmember of Care interventions/Action Plan: Due to patient [...] I counseled patient to call them back. [facility] HH is to follow up Identified Care [...] that you eat a high-protein diet. The [facility] has coordinated an appointment for you with [facility]. Please follow up withthat appointment. Follow-up with your PCP, they will be contacting you with an appointment after prior auth Cruz Coates RN * Telephone Encounter - Milly Menchaca RN - 11/02/2024 9:28 AM EDT Images from the original note were not included. Transitions of Care Note Reason for Referral:Recent Admission Phone visit for follow up: ROSY Admitted to: [facility], Date: 10/20 Discharged to: home, [...] Harsh Gallardo MD [address] [place] [address] 02/04/2025 9:00 AM EDT - 02/04/2025 9:30 AM EDT Surgery ENDO [facility], Endoscopy Room [facility] [address] [place] [phone] Harsh Gallardo MD [address] [place] [address] COLONOSCOPY FLEXIBLE PROXIMAL DIAGNOSTIC Scheduled Procedures Name [...] filedocumented as of this encounter Care Teams Engineering Faculty Member Relationship Specialty Start Date End Date Marck Bardales III, MD [address] [facility] [place] [address] PCP - General Family Medicine 05/28/16 documented as of this encounter
--- OUTSIDE RECORDS SUMMARY | 2024-11-05 21:02 | External Medical Summary | Summary of Care ---
Author Name Unknown Organization [facility] Address [address] [place] [address] Phone [phone] Care Team Providers Care Boiler House Inspector Name Role Phone Jeffy BOOGIE MD, John E Primary Care Provider [phone] Reason for Visit * Reason Onset Date Comments Hospital Follow-Up 11/02/2024 Encounter Details Date Type Department Care Team (Late st Contact Info) Description 11/02/2024 Telephone Family Practice [facility] [place] 200 [facility] [place] [address] Marck Bardales III, MD 200 [place] [address] Hospital Follow-Up Allergies Active Allergy Reactions Criticality [...] Problem Noted Date Diagnosed Date Resolved Date PENITENTIARY DRUG USE STEROIDS 03/05/2007 02/21/2014 Anemia 11/03/2003 03/05/2007 Alcohol dependence 11/01/2003 1 Overview (10/10/2015): ICD-10 update of inactive term Major depressive disorder 11/01/2003 Overview (04/22/2017): ICD-10 update of inactive term ARTHRITIS,RHEUMATOID 11/01/2003 016 Overview (03/25/2007): chronic prednisone therapy documented as of this encounter (statuses as of 11/03/2024) Immunizations Name Administration Dates Next Due COVID-19 mRNA, LNP-s, No Pre serve, 2-Dose Series ([employer]) 11/01/2020,10/11/2020 H1N1 2009 Influenza, IM 07/20/2009 PPD [...] MEDICATION RECONCILIATION Medications: patient states she will bead picker new prescription today. I do worry that she may not comply with meds, and fluid restrictions we went over all medications in detail. ASSESSMENT Medication Risk Assessment: Went over all new meds in great detail, Patient seem a little confused when writing them done, she said she will bead picker prescription today. I offered patient to [...] confusion 2. Increased anxiety 3.if fevers return Internet Media PlannerShip Boss of Care interventions/Action Plan: Due to patient [...] I counseled patient to call them back. [facility] HH is to follow up Identified [...] that you eat a high-protein diet. The [facility] has coordinated an appointment for you with [facility]. Please follow up withthat appointment. Follow-up with your PCP, they will be contacting you with an appointment after prior auth Cruz Coates RN * Telephone Encounter - Milly Menchaca RN - 11/02/2024 9:28 AM EDT Images from the original note were not included. Transitions of Care Note Reason for Referral:Recent Admission Phone visit for follow up: ROSY Admitted to: [facility], Date: 10/20 Discharged to: home, Date: [...] Harsh Gallardo MD [address] [place] [address] 02/04/2025 9:00 AM EDT - 02/04/2025 9:30 AM EDT Surgery ENDO [facility], Endoscopy Room [facility] [address] [place] [phone] Harsh Gallardo MD [address] [place] [address] COLONOSCOPY FLEXIBLE PROXIMAL DIAGNOSTIC Scheduled Procedures Name [...] filedocumented as of this encounter Care Teams Boiler House Inspector Relationship Specialty Start Date End Date Marck Bardales III, MD 200 [place] [address] PCP - General Family Medicine 05/28/16 documented as of this encounter
--- NOTE | 2024-11-05 21:05 | CT Scan Report ---
Exam(s): CT HEAD Without Contrast EXAM: CT Head Without Intravenous Contrast CLINICAL HISTORY: Reason for exam: neuro deficit, acute stroke suspected. TECHNIQUE: Axial computed tomography images of the head/brain without intravenous contrast. CTDI is 37.78 mGy and DLP is 624.41 mGy-cm. Automated exposure control was utilized for the study. A dose lowering technique was utilized adhering to the principles of ALARA. COMPARISON: No relevant prior studies available. FINDINGS: Brain: No hemorrhage, extra-axial fluid collection, mass effect, or edema. Ventricles: Unremarkable. Bones/joints: Unremarkable. No fracture. Soft tissues: Unremarkable. Sinuses: No acute sinusitis. Mastoid air cells: Unremarkable as visualized. IMPRESSION: 1. No acute intracranial abnormality. Communications: Call Doctor Stroke Electronically signed by: Schuyler Schmitt MD 11/05/24 21:04 PM
--- NOTE | 2024-11-05 21:06 | CT Scan Report ---
Exam(s): CTA HEAD With Contrast IV Amt: 118ml optiray 320 EXAM: CT Angiography Head With Intravenous Contrast CLINICAL HISTORY: Reason for exam: neuro deficit, acute stroke suspected. TECHNIQUE: Axial computed tomographic angiography images of the head with intravenous contrast. CTDI is 16.61 mGy and DLP is 8.3 mGy-cm. Automated exposure control was utilized for the study. A dose lowering technique was utilized adhering to the principles of ALARA. MIP reconstructed images were created and reviewed. CONTRAST: Patient received 118ml optiray 320 of IV contrast COMPARISON: No relevant prior studies available. FINDINGS: Right internal carotid artery: Intracranial segment is patent with no significant stenosis. No aneurysm. Right anterior cerebral artery: No occlusion or significant stenosis. No aneurysm. Right middle cerebral artery: No occlusion or significant stenosis. No aneurysm. Right posterior cerebral artery: No occlusion or significant stenosis. No aneurysm. Right vertebral artery: Unremarkable as visualized. Left internal carotid artery: Intracranial segment is patent with no significant stenosis. No aneurysm. Left anterior cerebral artery: No occlusion or significant stenosis. No aneurysm. Left middle cerebral artery: No occlusion or significant stenosis. No aneurysm. Left posterior cerebral artery: No occlusion or significant stenosis. No aneurysm. Left vertebral artery: Unremarkable as visualized. Basilar artery: No occlusion or significant stenosis. No aneurysm. IMPRESSION: Normal head CTA. Communications: Call Doctor Stroke Electronically signed by: Schuyler Schmitt MD 11/05/24 21:05 PM
--- NOTE | 2024-11-05 21:07 | CT Scan Report ---
Exam(s): CTA NECK With Contrast IV Amt: 118ml optiray 320 EXAM: CT Angiography Neck With Intravenous Contrast CLINICAL HISTORY: Reason for exam: neuro deficit, acute stroke suspected. TECHNIQUE: Routine carotid CT angiography protocol was performed with intravenous contrast. NASCET criteria using the distal ICAs for comparison were used for evaluation of stenoses. CTDI is 10.47 mGy and DLP is 366.91 mGy-cm. Automated exposure control was utilized for the study. A dose lowering technique was utilized adhering to the principles of ALARA. MIP reconstructed images were created and reviewed. CONTRAST: Patient received 118ml optiray 320 of IV contrast COMPARISON: None. FINDINGS: VASCULATURE: Right common carotid artery: No occlusion or significant stenosis. No dissection. Right internal carotid artery: Atherosclerotic calcifications at the right carotid bulb. No flow-limiting stenosis. Right vertebral artery: No occlusion or significant stenosis. No dissection. Left common carotid artery: No occlusion or significant stenosis. No dissection. Left internal carotid artery: Nonflow limiting atheromatous disease in the proximal left ICA. Left vertebral artery: No occlusion or significant stenosis. No dissection. NECK: Bones/joints: Degenerative spondylosis and facet arthropathy in the cervical spine. No acute fracture. Soft tissues: Unremarkable. Lung apices: Clear. CAROTID STENOSIS REFERENCE USING NASCET CRITERIA: % ICA stenosis = (1 - narrowest ICA diameter/diameter of distal cervical ICA) x 100. Mild - <50% stenosis. Moderate - 50-69% stenosis. Severe - 70-94% stenosis. Near occlusion - 95-99% stenosis. Occluded - 100% stenosis. IMPRESSION: No acute findings in the arteries of the neck. Communications: Call Doctor Stroke Electronically signed by: Schuyler Schmitt MD 11/05/24 21:06 PM
[2024-11-05 21:15] LABS: Albumin Globulin Ratio 0.8 (0.9-2); Albumin Level 2.7 gm/dl (3.4-5.0); BUN Creatinine Ratio 29.3 (10-20); Bilirubin,Total 0.3 mg/dl (0.2-1.0); Calcium 8.3 mg/dl (8.6-10.3); Globulin 3.5 gm/dl (2.5-4.0); Magnesium 1.5 mg/dl (1.7-2.4); Potassium 3.8 mmol/L (3.5-5.1); Total Protein 6.2 gm/dl (6.0-8.3)
[2024-11-05 21:19] LABS: Base Excess VBG 0.8 mEq/L; HCO3 VBG 26 mmol/L; Oxygen Saturation VBG < 60.0 %; PCO2 VBG 43 mmHg (38-50); PO2 VBG 32 mmHg; pH VBG 7.39 (7.36-7.41)
[2024-11-05 21:22] LABS: Troponin I High Sensitivity 4.5 pg/ml (0-14)
--- NOTE | 2024-11-05 21:25 | XRay Report ---
Exam(s): XR CXR 1 VIEW EXAM: XR Chest, 1 View CLINICAL HISTORY: Reason for exam: neuro deficit, acute stroke suspected. TECHNIQUE: Frontal view of the chest. COMPARISON: 11/01/2024 FINDINGS: Lungs: No consolidation. No overt edema. Pleural space: No pleural effusion. No pneumothorax. Heart: Unremarkable. No cardiomegaly. IMPRESSION: No acute cardiopulmonary abnormality. Electronically signed by: Schuyler Schmitt MD 11/05/24 21:22 PM
[2024-11-05] MEDS: MAGNESIUM SULFATE / D5W 1 GM/100 ML BAG IV STA (21:27)
--- NOTE | 2024-11-05 21:34 | CT Scan Report ---
Exam(s): CT C SPINE EXAM: CT Cervical Spine Without Intravenous Contrast CLINICAL HISTORY: Reason for exam: ams. TECHNIQUE: Axial computed tomography images of the cervical spine without intravenous contrast. CTDI is 10.47 mGy and DLP is 366.91 mGy-cm. Automated exposure control was utilized for the study. A dose lowering technique was utilized adhering to the principles of ALARA. COMPARISON: No relevant prior studies available. FINDINGS: Vertebrae: No acute fracture. Severe degenerative spondylosis most pronounced at C4-5 and C5-6. Grade 1 anterolisthesis at C7-T1. Reversal of the normal cervical lordosis. No critical canal stenosis. Multilevel foraminal stenosis. Soft tissues: No acute abnormality. IMPRESSION: 1. No acute fracture. 2. Severe degenerative spondylosis most pronounced at C4-5 and C5-6. Electronically signed by: Schuyler Schmitt MD 11/05/24 21:33 PM
[2024-11-05] MEDS: THIAMINE HCL 200 MG in SODIUM CHLORIDE 0.9% 50 ML IV STA (21:47)
[2024-11-05] MEDS: LORazepam 2 MG/1 ML VIAL IV STA (21:47)
[2024-11-05 22:01] LABS: Partial Thromboplastin Ratio 0.9; Partial Thromboplastin Time 25 Seconds (21-31); Prothrombin Time 10.9 Seconds (9.0-12.0)
[2024-11-05] MEDS: levETIRAcetam 500 MG/5 ML VIAL IV STA (22:06)
[2024-11-05] MEDS: ASPIRIN 300 MG SUPP PR ONE (22:13)
[2024-11-05 22:21] LABS: Anisocytosis Present; Ovalocytes 1+; Tear Drop Cells 1+
[2024-11-05 22:30] LABS: Appearance Urine Clear (Clear); Bilirubin Urine Negative (Negative); Blood Urine Negative (Negative); Color Urine Yellow; Glucose Urine UA Negative (Negative); Ketones Urine Negative (Negative); Leukocyte Esterase Urine Negative (Negative); Nitrite Urine Negative (Negative); Protein Urine Negative (Negative); Specific Gravity Urine 1.022 (1.000-1.030); Urobilinogen Urine Negative (Negative); pH Urine 7.5 (4.5-7.5)
[2024-11-05 22:31] LABS: Acetaminophen < 3 ug/ml (10-30); Salicylate < 3.0 mg/dl (3.0-30)
[2024-11-05 22:56] LABS: Amphetamines+Metham, Urine Neg (Neg); Barbiturates, Urine Neg (Neg); Benzodiazepine, Urine Neg (Neg); Cocaine, Urine Neg (Neg); Fentanyl, Urine Neg (Neg); MDMA (Ecstacy), Urine Neg (Neg); Marijuana, Urine Neg (Neg); Methadone, Urine Neg (Neg); Opiate, Urine Neg (Neg); Phencyclidine, Urine Neg (Neg)
[2024-11-06] MEDS ORDERED: PHARMACIST DISCHARGE MED REC CONSULT PRN (02:18)
[2024-11-06] MEDS ORDERED: NITROGLYCERIN SL 0.4 MG/TAB TAB SL PRN (02:18)
[2024-11-06] MEDS: LORazepam 2 MG/1 ML VIAL IV PRN (02:36)
[2024-11-06] MEDS: SODIUM CHLORIDE 0.9% 500 ML IV SCH (02:57)
[2024-11-06 03:22] LABS: Appearance Urine Clear (Clear); Bacteria Urine Automated None Seen (None Seen); Bilirubin Urine Negative (Negative); Blood Urine Negative (Negative); Cast Urine Automated 0-2 /lpf (0-2); Color Urine Yellow; Epithelial Cell Urine Auto 0-2 /hpf (0-2); Glucose Urine UA Negative (Negative); Ketones Urine Negative (Negative); Leukocyte Esterase Urine 1+ (Negative); Nitrite Urine Negative (Negative); Protein Urine Negative (Negative); RBC Urine Automated 0-2 /hpf (0-2); Specific Gravity Urine 1.022 (1.000-1.030); Urobilinogen Urine Negative (Negative); WBC Urine Automated 0-5 /hpf (0-5); pH Urine 7.5 (4.5-7.5)
[2024-11-06] MEDS: PANTOprazole 40 MG TAB PO SCH (05:15)
--- NOTE | 2024-11-06 06:25 | History & Physical Report ---
Date of Service November 06, 2024 Assessment & Plan (1) Acute alteration in mental status: Plan: 64-year-old female with past medical history significant for SIADH, bulimia, psychogenic polydipsia, history of delirium, iron deficiency anemia, mild cognitive impairment with memory loss, severe protein calorie malnutrition, rheumatoid arthritis, vitamin D deficiency was brought in because of confusion. Patient was recently in the hospital from 10/20/2024 to 11/01/2024 during admission she was found to have severe hyponatremia sodium of 116 consistent with SIADH. Initially it was found difficult to improve her sodium, she was given salt tablets and torsemide. By then was discovered that patient was vomiting in the bathroom by her roommates and also drinking water from the bathroom tap. She was placed on one-on-one observation and this intervention with tolvaptan her sodium levels returned to normal range. Psych consult was obtained but she did not meet criteria for inpatient behavioral unit. And recommend outpatient follow-up. Her SSRI and Risperdal was held. She also received IV Venofer couple of doses for iron deficiency anemia. As per son after going home she was back to drinking a lot of Pepsi, eating junk food and sitting on the couch and watching TV. Today patient significant other took her to the psychologist. Patient seem to got angry and came home. At home later patient was drowsy and lethargic on the couch and significant other could not wake her up and brought to the hospital. To facilitate the workup stroke alert was called. CT head, CTA head and neck unremarkable. A dose of Ativan as she was restless. And also stroke neurology recommended MRI scan EEG rectal aspirin and Keppra which were given. Currently patient drowsy but arousable. Moves extremities. Mumbles. Could not get history from the patient. Could not able to reach the significant other. As per son patient is getting memory loss since last 1 year but lately got much worse. As per son patient does not remember much. On the floor when Caruso catheter was placed about 1775 mL of urine came out. Altered mental status Baseline confusion and memory issues CT head, CTA head and neck, CT cervical spine No acute findings IV thiamine, IV Keppra and IV Ativan given in the ER We will continue with IV Keppra 1 g twice daily Will follow MRI scan and EEG Neuroconsult for recommendation Close monitoring in telemetry for History of hyponatremia SIADH Psychogenic polydipsia Sodium 134 Continue salt tablet and torsemide Follow labs Anemia Hemoglobin 7.8 Received IV Venofer last admission Continue iron supplement Will follow labs GERD Protonix History of rheumatoid arthritis On Orencia Malnutrition Nutrition consult When stable History of aphasia/neurocognitive disorder Needs follow-up DVT prophylaxis SCDs for now Disposition Telemetry Full code per discussion with the son History of Present Illness Chief Complaint: Confusion Primary Care Provider: Marck Bardales MD 64-year-old female with past medical history significant for SIADH, bulimia, psychogenic polydipsia, history of delirium, iron deficiency anemia, mild cognitive impairment with memory loss, severe protein calorie malnutrition, rheumatoid arthritis, vitamin D deficiency was brought in because of confusion. Patient was recently in the hospital from 10/20/2024 to 11/01/2024 during admission she was found to have severe hyponatremia sodium of 116 consistent with SIADH. Initially it was found difficult to improve her sodium, she was given salt tablets and torsemide. By then was discovered that patient was vomiting in the bathroom by her roommates and also drinking water from the bathroom tap. She was placed on one-on-one observation and this intervention with tolvaptan her sodium levels returned to normal range. Psych consult was obtained but she did not meet criteria for inpatient behavioral unit. And recommend outpatient follow-up. Her SSRI and Risperdal was held. She also received IV Venofer couple of doses for iron deficiency anemia. As per son after going home she was back to drinking a lot of Pepsi, eating junk food and sitting on the couch and watching TV. Today patient significant other took her to the psychologist. Patient seem to got angry and came home. At home later patient was drowsy and lethargic on the couch and significant other could not wake her up and brought to the hospital. To facilitate the workup stroke alert was called. CT head, CTA head and neck unremarkable. A dose of Ativan as she was restless. And also stroke neurology recommended MRI scan EEG rectal aspirin and Keppra which were given. Currently patient drowsy but arousable. Moves extremities. Mumbles. Could not get history from the patient. Could not able to reach the significant other. As per son patient is getting memory loss since last 1 year but lately got much worse. As per son patient does not remember much. On the floor when Caruso catheter was placed about 1775 mL of urine came out. Past medical history. As mentioned above Past surgical history. Colonoscopy. Dental surgery. Excision of foot subcutaneous tumor. Excision of tendon of foot. Family history. Paternal grandmother had rheumatoid arthritis. Father had pancreatic cancer. Alcoholism. Mother had pancreatic cancer. Brother had diabetes. Brother had heart disorder. Allergies Allergy/AdvReac Type Severity Reaction Status Date / Time Penicillins Allergy Unknown Unknown Verified 10/20/24 01:19 Home Medications Medication Instructions Recorded Confirmed Type abatacept 125 mg/mL subcutaneous 125 mg subcut WK 09/07/21 11/05/24 History syringe (Orencia) omeprazole 20 mg capsule,delayed 20 mg PO DAILYBB 09/07/21 11/05/24 History release calcium 600 mg (as 1 tab PO BID 10/20/24 11/05/24 History carbonate)-vitamin D3 5 mcg (200 unit) tablet (Calcium 600 + D(3)) multivitamin 1 tab PO DAILY 10/20/24 11/05/24 History cyanocobalamin (vitamin B-12) 500 500 mcg PO QAM #30 tabs 11/01/24 11/05/24 Rx mcg tablet ferrous sulfate 325 mg (65 mg 325 mg PO QAM #30 tabs 11/01/24 11/05/24 Rx iron) tablet,delayed release magnesium oxide 400 mg (241.3 mg 400 mg PO BID #30 tabs 11/01/24 11/05/24 Rx magnesium) tablet potassium chloride 10 mEq 10 meq PO DAILY #30 tabs 11/01/24 11/05/24 Rx tablet,extended release sodium chloride 1,000 mg soluble 1,000 mg PO DAILY #30 tabs 11/01/24 11/05/24 Rx tablet thiamine HCl (vitamin B1) 100 mg 200 mg (2 x 100 mg) PO QAM #30 tabs 11/01/24 11/05/24 Rx tablet torsemide 20 mg tablet 20 mg PO QAM #30 tabs 11/01/24 11/05/24 Rx Past Med/Surg History Problem List (Updated 11/05/24 @ 23:57 by Nico Castillo DO) Anemia (Acute) Stroke-like symptoms (Acute) Acute alteration in mental status (Acute) Psychogenic polydipsia Bulimia Vitamin D deficiency Severe protein-calorie malnutrition Mild cognitive impairment with memory loss Acute metabolic encephalopathy SIADH (syndrome of inappropriate ADH production) (~09/2024) Hyponatremia (Acute) NSVT (nonsustained ventricular tachycardia) Delirium (Acute) Alcohol dependence in remission Iron deficiency anemia Rheumatoid arthritis (Acute) Tourette's (Acute) Depression (Acute) Altered mental status (Acute) Medical History HLD (hyperlipidemia) Surgical History No pertinent past surgical history Social History Smoking Status: Unknown if ever smoked Second Hand Exposure: No; Do You Dip or Chew Tobacco: No; Hx Alcohol Use: No Hx Substance Use: No Preferred Language: Bulgarian Communication Ability: Effective [employer]ist Required: No Beliefs That Will Affect Care: None Current Living Situation: Spouse Current Living Situation Comment: LIVES WITH BOYFRIEND MARTINA GRACE Other Information That Helps Us Care for You: No Feels Safe at Home: Yes Safety Concerns: Feels Safe At This Time Assistive Devices: None Review of Systems Review of Systems: Unobtainable due to reduced consciousness Physical Exam Physical Exam: General- Drowsy and restless Head- atraumatic Eyes- PERRL ENT- oropharynx clear Neck- supple, no JVD. Lungs- clear to auscultation no wheezing or crackles Heart- regular rhythm; no murmur, no gallop. Abdomen- normal bowel sounds, soft, no distension Extremities- no pretibial edema, no erythema seen Neuro- Drowsy, Mumbles.No facial droop seen, Doesn't obey commands, moving extremities; Results & Data Results & Data Vital Signs (Past 12 Hours) Vital Signs Temp Pulse Pulse Resp BP BP Pulse Ox 11/06/24 00:34 103 H 11/05/24 23:00 100 H 17 151/92 H 99 11/05/24 22:30 155/104 H 11/05/24 22:30 100 H 21 96 11/05/24 22:27 101 H 18 96 11/05/24 22:15 107 H 19 100 11/05/24 22:07 97 11/05/24 22:00 155/98 H 11/05/24 22:00 107 H 20 98 11/05/24 21:58 135/97 11/05/24 21:45 102 H 20 159/91 H 100 11/05/24 21:30 103 H 16 160/106 H 100 11/05/24 21:15 104 H 19 162/89 H 100 11/05/24 21:05 36.8 C 100 H 19 155/91 H 94 11/05/24 21:04 105 H 18 155/91 H 100 11/05/24 20:42 125 H O2 Del Method 11/06/24 00:34 11/05/24 23:00 Room Air 11/05/24 22:30 11/05/24 22:30 11/05/24 22:27 11/05/24 22:15 11/05/24 22:07 Room Air 11/05/24 22:00 11/05/24 22:00 11/05/24 21:58 11/05/24 21:45 Room Air 11/05/24 21:30 Room Air 11/05/24 21:15 Room Air 11/05/24 21:05 Room Air 11/05/24 21:04 Room Air 11/05/24 20:42 Diagnostic Findings Laboratory Results WBC 9.85 K/ul (4.8-10.8) 11/05/24 20:44 RBC 3.46 M/uL (4.20-5.40) L 11/05/24 20:44 Hgb 7.4 g/dl (12.0-16.0) L 11/05/24 20:44 POC Hgb 8.2 g/dl (12.0-16.0) L 11/05/24 20:46 Hct 24.5 % (37.0-47.0) L 11/05/24 20:44 POC Hct 24 % (37-47) L 11/05/24 20:46 MCV 70.8 fL (80.0-100.0) L 11/05/24 20:44 MCH 21.4 pg (25.0-34.0) L 11/05/24 20:44 MCHC 30.2 g/dL (32.0-36.0) L 11/05/24 20:44 RDW Std Deviation 49.9 fL (36.4-46.3) H 11/05/24 20:44 RDW Coeff of Kasandra 20.5 % (11.5-14.5) H 11/05/24 20:44 Plt Count 579 K/uL (130-400) H 11/05/24 20:44 MPV 8.7 fL (9.4-12.4) L 11/05/24 20:44 Immature Gran % (Auto) 0.9 % 11/05/24 20:44 Neut % (Auto) 66.9 % 11/05/24 20:44 Lymph % (Auto) 20.3 % 11/05/24 20:44 Elmore % (Auto) 7.9 % 11/05/24 20:44 Eos % (Auto) 3.6 % 11/05/24 20:44 Baso % (Auto) 0.4 % 11/05/24 20:44 Neut # (Auto) 6.59 K/uL (1.40-6.50) H 11/05/24 20:44 Lymph # (Auto) 2.00 K/uL (1.20-3.40) 11/05/24 20:44 Elmore # (Auto) 0.78 K/uL (0.11-0.59) H 11/05/24 20:44 Eos # (Auto) 0.35 K/uL (0.00-0.50) 11/05/24 20:44 Baso # (Auto) 0.04 K/uL (0.00-0.20) 11/05/24 20:44 Immature Gran # (Auto) 0.09 K/uL (0.01-0.20) 11/05/24 20:44 Anisocytosis Present 11/05/24 20:44 Tear Drop Cells 1+ 11/05/24 20:44 Ovalocytes 1+ 11/05/24 20:44 PT 10.9 Seconds (9.0-12.0) 11/05/24 21:22 INR 1.0 (0.9-1.1) 11/05/24: APTT 25 Seconds (21-31) 11/05/24 21: PTT Ratio 0.9 11/05/24: VBG pH 7.39 (7.36-7.41) 11/05/24 21: VBG pCO2 43 mmHg (38-50) 11/05/24 21:09 VBG pO2 32 mmHg 11/05/24 21:09 VBG HCO3 26 mmol/L 11/05/24 21:09 VBG O2 Saturation < 60.0 % 11/05/24 21:09 VBG Base Excess 0.8 mEq/L 11/05/24 21:09 POC Sodium 133 mmol/L (135-144) L 11/05/24 20:46 Sodium 133 mmol/L (136-145) L 11/05/24 20:44 POC Potassium 3.7 mmol/L (3.3-5.0) 11/05/24 20:46 Potassium 3.8 mmol/L (3.5-5.1) 11/05/24 20:44 POC Chloride 97 mmol/L (101-112) L 11/05/24 20:46 Chloride 100 mmol/L (98-107) 11/05/24 20:44 Carbon Dioxide 27 mmol/L (21-32) 11/05/24 20:44 POC Total CO2 24 mmol/L (24-31) 11/05/24 20:46 Anion Gap 6 (3-11) 11/05/24 20:44 POC Anion Gap 17.0 mmol/L (16-25) 11/05/24 20:46 POC BUN 12 mg/dl (7-18) 11/05/24 20:46 BUN 12 mg/dl (6-23) 11/05/24 20:44 Creatinine 0.41 mg/dl (0.6-1.2) L 11/05/24 20:44 POC Creatinine 0.4 mg/dl (0.6-1.3) L 11/05/24 20:46 Est Cr Clr Drug Dosing 108.0 ml/min 11/05/24 20:44 eGFR 110.48 11/05/24 20:44 BUN/Creatinine Ratio 29.3 (10-20) H 11/05/24 20:44 Glucose 82 mg/dl (70-99(Fasting)) 11/05/24 20:44 POC Glucose 85 mg/dl (70-99) 11/05/24 20:53 POC Glucose (other) 83 mg/dl (70-99) 11/05/24 20:46 Osmolality 274 mOsm/kg (280-300) L 11/05/24 20:44 Calcium 8.3 mg/dl (8.6-10.3) L 11/05/24 20:44 POC Ioniz Calcium Benjamin 1.11 mmol/l (1.12-1.32) L 11/05/24 20:46 Magnesium 1.5 mg/dl (1.7-2.4) L 11/05/24 20:44 Total Bilirubin 0.3 mg/dl (0.2-1.0) 11/05/24 20:44 AST 19 U/L (13-39) 11/05/24 20:44 ALT 12 U/L (7-52) 11/05/24 20:44 Alkaline Phosphatase 107 U/L (34-104) H 11/05/24 20:44 Troponin I High Sens 4.5 pg/ml (0-14) 11/05/24 20: Total Protein 6.2 gm/dl (6.0-8.3) 11/05/24 20:44 Albumin 2.7 gm/dl (3.4-5.0) L 11/05/24 20:44 Globulin 3.5 gm/dl (2.5-4.0) 11/05/24 20:44 Albumin/Globulin Ratio 0.8 (0.9-2) L 11/05/24 20:44 Urine Color Yellow 11/06/24 03:00 Urine Appearance Clear (Clear) 11/06/24 03:00 Urine pH 7.5 (4.5-7.5) 11/06/24 03:00 Ur Specific Rochelle 1.022 (1.000-1.030) 11/06/24 03:00 Urine Protein Negative (Negative) 11/06/24 03:00 Urine Glucose (UA) Negative (Negative) 11/06/24 03:00 Urine Ketones Negative (Negative) 11/06/24 03:00 Urine Blood Negative (Negative) 11/06/24 03:00 Urine Nitrite Negative (Negative) 11/06/24 03:00 Urine Bilirubin Negative (Negative) 11/06/24 03:00 Urine Urobilinogen Negative (Negative) 11/06/24 03:00 Ur Leukocyte Esterase 1+ (Negative) H 11/06/24 03:00 Urine WBC (Auto) 0-5 /hpf (0-5) 11/06/24 03:00 Urine RBC (Auto) 0-2 /hpf (0-2) 11/06/24 03:00 U Hyaline Cast (Auto) 0-2 /lpf (0-2) 11/06/24 03:00 U Epithel Cells (Auto) 0-2 /hpf (0-2) 11/06/24 03:00 Urine Bacteria (Auto) None Seen (None Seen) 11/06/24 03:00 Urine Osmolality 253 mOsm/kg (500-800) L 11/05/24 Unknown Ur Random Sodium 50 mmol/L 11/05/24 Unknown Salicylates < 3.0 mg/dl (3.0-30) L 11/05/24 20:44 Urine Opiates Screen Neg (Neg) 11/05/24 Unknown Ur Methadone, Qual Neg (Neg) 11/05/24 Unknown Urine Fentanyl Screen Neg (Neg) 11/05/24 Unknown Acetaminophen < 3 ug/ml (10-30) L 11/05/24 20:44 Urine Barbiturates Neg (Neg) 11/05/24 Unknown Ur Phencyclidine (PCP) Neg (Neg) 11/05/24 Unknown U Amphetamin/Meth Scrn Neg (Neg) 11/05/24 Unknown MDMA (Ecstasy) Screen Neg (Neg) 11/05/24 Unknown U Benzodiazepines Scrn Neg (Neg) 11/05/24 Unknown Ur Cocaine Metabolite Neg (Neg) 11/05/24 Unknown U Marijuana (THC) Screen Neg (Neg) 11/05/24 Unknown Ethyl Alcohol mg/dL < 10.0 mg/dl (<10.0) 11/05/24 21:09 Blood Type O Positive 11/05/24 21:09 Antibody Screen NEGATIVE 11/05/24 21:09 Impressions Chest X-Ray 11/05/24 20:42 Exam(s): XR CXR 1 VIEW EXAM: XR Chest, 1 View CLINICAL HISTORY: Reason for exam: neuro deficit, acute stroke suspected. TECHNIQUE: Frontal view of the chest. COMPARISON: 11/01/2024 FINDINGS: Lungs: No consolidation. No overt edema. Pleural space: No pleural effusion. No pneumothorax. Heart: Unremarkable. No cardiomegaly. IMPRESSION: No acute cardiopulmonary abnormality. Electronically signed by: Schuyler Schmitt MD 11/05/24 21:[address] 11/05/24 20:42 CR Exam(s): CT HEAD Without Contrast EXAM: CT Head Without Intravenous Contrast CLINICAL HISTORY: Reason for exam: neuro deficit, acute stroke suspected. TECHNIQUE: Axial computed tomography images of the head/brain without intravenous contrast. CTDI is 37.78 mGy and DLP is 624.41 mGy-cm. Automated exposure control was utilized for the study. A dose lowering technique was utilized adhering to the principles of ALARA. COMPARISON: No relevant prior studies available. FINDINGS: Brain: No hemorrhage, extra-axial fluid collection, mass effect, or edema. Ventricles: Unremarkable. Bones/joints: Unremarkable. No fracture. Soft tissues: Unremarkable. Sinuses: No acute sinusitis. Mastoid air cells: Unremarkable as visualized. IMPRESSION: 1. No acute intracranial abnormality. Communications: Call Doctor Stroke Electronically signed by: Schuyler Schmitt MD 11/05/24 21:04 PM Head CTA 11/05/24 20:42 CR Exam(s): CTA HEAD With Contrast IV Amt: 118ml optiray 320 EXAM: CT Angiography Head With Intravenous Contrast CLINICAL HISTORY: Reason for exam: neuro deficit, acute stroke suspected. TECHNIQUE: Axial computed tomographic angiography images of the head with intravenous contrast. CTDI is 16.61 mGy and DLP is 8.3 mGy-cm. Automated exposure control was utilized for the study. A dose lowering technique was utilized adhering to the principles of ALARA. MIP reconstructed images were created and reviewed. CONTRAST: Patient received 118ml optiray 320 of IV contrast COMPARISON: No relevant prior studies available. FINDINGS: Right internal carotid artery: Intracranial segment is patent with no significant stenosis. No aneurysm. Right anterior cerebral artery: No occlusion or significant stenosis. No aneurysm. Right middle cerebral artery: No occlusion or significant stenosis. No aneurysm. Right posterior cerebral artery: No occlusion or significant stenosis. No aneurysm. Right vertebral artery: Unremarkable as visualized. Left internal carotid artery: Intracranial segment is patent with no significant stenosis. No aneurysm. Left anterior cerebral artery: No occlusion or significant stenosis. No aneurysm. Left middle cerebral artery: No occlusion or significant stenosis. No aneurysm. Left posterior cerebral artery: No occlusion or significant stenosis. No aneurysm. Left vertebral artery: Unremarkable as visualized. Basilar artery: No occlusion or significant stenosis. No aneurysm. IMPRESSION: Normal head CTA. Communications: Call Doctor Stroke Electronically signed by: Schuyler Schmitt MD 11/05/24 21:05 PM Neck CTA 11/05/24 20:42 CR Exam(s): CTA NECK With Contrast IV Amt: 118ml optiray 320 EXAM: CT Angiography Neck With Intravenous Contrast CLINICAL HISTORY: Reason for exam: neuro deficit, acute stroke suspected. TECHNIQUE: Routine carotid CT angiography protocol was performed with intravenous contrast. NASCET criteria using the distal ICAs for comparison were used for evaluation of stenoses. CTDI is 10.47 mGy and DLP is 366.91 mGy-cm. Automated exposure control was utilized for the study. A dose lowering technique was utilized adhering to the principles of ALARA. MIP reconstructed images were created and reviewed. CONTRAST: Patient received 118ml optiray 320 of IV contrast COMPARISON: None. FINDINGS: VASCULATURE: Right common carotid artery: No occlusion or significant stenosis. No dissection. Right internal carotid artery: Atherosclerotic calcifications at the right carotid bulb. No flow-limiting stenosis. Right vertebral artery: No occlusion or significant stenosis. No dissection. Left common carotid artery: No occlusion or significant stenosis. No dissection. Left internal carotid artery: Nonflow limiting atheromatous disease in the proximal left ICA. Left vertebral artery: No occlusion or significant stenosis. No dissection. NECK: Bones/joints: Degenerative spondylosis and facet arthropathy in the cervical spine. No acute fracture. Soft tissues: Unremarkable. Lung apices: Clear. CAROTID STENOSIS REFERENCE USING NASCET CRITERIA: % ICA stenosis = (1 - narrowest ICA diameter/diameter of distal cervical ICA) x 100. Mild - <50% stenosis. Moderate - 50-69% stenosis. Severe - 70-94% stenosis. Near occlusion - 95-99% stenosis. Occluded - 100% stenosis. IMPRESSION: No acute findings in the arteries of the neck. Communications: Call Doctor Stroke Electronically signed by: Schuyler Schmitt MD 11/05/24 21:[address] 11/05/24 20:47 Exam(s): CT C SPINE EXAM: CT Cervical Spine Without Intravenous Contrast CLINICAL HISTORY: Reason for exam: ams. TECHNIQUE: Axial computed tomography images of the cervical spine without intravenous contrast. CTDI is 10.47 mGy and DLP is 366.91 mGy-cm. Automated exposure control was utilized for the study. A dose lowering technique was utilized adhering to the principles of ALARA. COMPARISON: No relevant prior studies available. FINDINGS: Vertebrae: No acute fracture. Severe degenerative spondylosis most pronounced at C4-5 and C5-6. Grade 1 anterolisthesis at C7-T1. Reversal of the normal cervical lordosis. No critical canal stenosis. Multilevel foraminal stenosis. Soft tissues: No acute abnormality. IMPRESSION: 1. No acute fracture. 2. Severe degenerative spondylosis most pronounced at C4-5 and C5-6. Electronically signed by: Schuyler Schmitt MD 11/05/24 21:33 PM ECG Additional Comments: ECG. Sinus tachycardia rate of 103. Nonspecific ST abnormality. No significant change was found. Code Status & VTE Plan VTE Prophylaxis Plan VTE Prophylaxis will be ordered: Yes
[2024-11-06 07:09] LABS: Basophils # (auto) 0.02 K/uL (0.00-0.20); Basophils % (auto) 0.3 %; Eosinophils # (auto) 0.28 K/uL (0.00-0.50); Eosinophils % (auto) 3.6 %; Hematocrit (blood only) 26.1 % (37.0-47.0); Hemoglobin 7.8 g/dl (12.0-16.0); Immature Granulocytes # (auto) 0.07 K/uL (0.01-0.20); Immature Granulocytes % (auto) 0.9 %; Lymphocytes # (auto) 1.66 K/uL (1.20-3.40); Lymphocytes % (auto) 21.1 %; Mean Corpuscular Hemoglobin 21.4 pg (25.0-34.0); Mean Corpuscular Hgb Conc 29.9 g/dL (32.0-36.0); Mean Corpuscular Volume 71.5 fL (80.0-100.0); Mean Platelet Volume 9.2 fL (9.4-12.4); Monocytes # (auto) 0.63 K/uL (0.11-0.59); Neutrophils # (auto) 5.21 K/uL (1.40-6.50); Neutrophils % (auto) 66.1 %; Platelet Count 549 K/uL (130-400); RDW Coefficient of Variation 20.9 % (11.5-14.5); RDW Standard Deviation 52.1 fL (36.4-46.3); Red Blood Count 3.65 M/uL (4.20-5.40); White Blood Count 7.87 K/ul (4.8-10.8)
--- NOTE | 2024-11-06 07:12 | Electrocardiogram Report ---
Test Reason : Blood Pressure : */* mmHG Vent. Rate : 103 BPM Atrial Rate : 103 BPM P-R Int : 160 ms QRS Dur : 72 ms QT Int : 360 ms P-R-T Axes : 77 63 67 degrees QTcB Int : 471 ms Sinus tachycardia Nonspecific ST abnormality Abnormal ECG When compared with ECG of 20-Oct-2024 01:15, No significant change was found Confirmed by Weston Ross ([id number]) on 11/06/2024 7:12:23 AM Referred By: REFERRED SELF Confirmed By: Weston Ross
[2024-11-06 07:22] LABS: Estimated Average Glucose 105 mg/dl; Hemoglobin A1C 5.3 % (4.5-5.6)
[2024-11-06 07:34] LABS: Anisocytosis Present; Poikilocytosis Present; Polychromasia 1+
[2024-11-06 07:36] LABS: BUN Creatinine Ratio 21.4 (10-20); Calcium 8.3 mg/dl (8.6-10.3); Chol HDL Ratio 4.5 (0-5); Creatinine Clr Calc Pharmacy 105.4 ml/min; Potassium 3.8 mmol/L (3.5-5.1)
[2024-11-06] MEDS: THIAMINE HCL 100 MG TAB PO SCH (08:14)
[2024-11-06] MEDS: TORSEMIDE 20 MG TAB PO SCH (08:14)
[2024-11-06] MEDS: CYANOCOBALAMIN (B-12) 500 MCG TABLET PO SCH (08:14)
[2024-11-06] MEDS: FERROUS SULFATE 325 MG TAB PO SCH (08:15)
[2024-11-06] MEDS: MAGNESIUM OXIDE 400 MG TAB PO SCH (08:15)
[2024-11-06] MEDS: MULTIVITAMIN TAB PO SCH (08:15)
[2024-11-06] MEDS: SODIUM CHLORIDE 1 GM TABLET PO SCH (08:15)
[2024-11-06] MEDS: levETIRAcetam 500 MG/5 ML VIAL IV SCH (08:16)
[2024-11-06] MEDS: POTASSIUM CHLORIDE 10 MEQ TABCR PO SCH (08:18)
--- NOTE | 2024-11-06 12:29 | Hospitalist Progress Note ---
Date of Service November 06, 2024 Assessment & Plan (1) Acute alteration in mental status: Plan: 64-year-old female with past medical history significant for SIADH, bulimia, psychogenic polydipsia, history of delirium, iron deficiency anemia, mild cognitive impairment with memory loss, severe protein calorie malnutrition, rheumatoid arthritis, vitamin D deficiency was brought in because of confusion. Patient was recently in the hospital from 10/20/2024 to 11/01/2024 during admission she was found to have severe hyponatremia sodium of 116 consistent with SIADH. Initially it was found difficult to improve her sodium, she was given salt tablets and torsemide. By then was discovered that patient was vomiting in the bathroom by her roommates and also drinking water from the bathroom tap. She was placed on one-on-one observation and this intervention with tolvaptan her sodium levels returned to normal range. Psych consult was obtained but she did not meet criteria for inpatient behavioral unit. And recommend outpatient follow-up. Her SSRI and Risperdal was held. She also received IV Venofer couple of doses for iron deficiency anemia. As per son after going home she was back to drinking a lot of Pepsi, eating junk food and sitting on the couch and watching TV. Patient was found to be lethargic on the day of the admission and was sent to the hospital. Altered mental status Acute urinary retention Less likely CVA Patient with baseline cognitive impairment, history of psychogenic polydipsia presents to the hospital with lethargy Stroke alert called in the ED; CT head, CTA head and neck and cervical spine did not show any acute finding. No neurological deficit Found to have urinary retention status post Caruso placement Patient's overall presentation seems consistent with metabolic encephalopathy likely secondary to urinary retention; continue Caruso catheter for total of 7 to 10 days and trial of void later. Started on Keppra in the ED; continue on IV Keppra 500 mg twice daily. Will obtain EEG and MRI brain Continue on thiamine. Started on aspirin and lipitor, continue PT OT evaluation History of hyponatremia SIADH Psychogenic polydipsia Sodium 134 Continue salt tablet and torsemide Follow labs Anemia Hemoglobin 7.8 Received IV Venofer last admission Continue iron supplement Will follow labs GERD Protonix History of rheumatoid arthritis On Orencia Severe Malnutrition Nutrition consult When stable History of aphasia/neurocognitive disorder Needs follow-up DVT prophylaxis SCDs for now Disposition Telemetry Full code Please note the above document was generated using voice recognition software. It may contain grammatical, syntax or spelling errors. Any formal questions or concerns about the content, text or information contained within the body of this dictation should be directly addressed to the provider for clarification Admission and Anticipated Discharge Date Admission Date: November 06, 2024 Subjective Patient seen and examined at bedside. She is awake, oriented to self and place. Denies any pain or discomfort. No significant events overnight Review of Systems Review of Systems: All systems reviewed & are unremarkable except as noted in Subjective Physical Exam Physical Exam: Constitutional: Alert and oriented to self and place. Respiratory: Bilateral vesicular breath sound Cardiovascular: RRR, no murmur, no edema Vessels: no JVD or carotid bruit Chest: normal inspection of chest Abdomen: normal bowel sounds, soft, nontender, no hepatosplenomegaly Musculoskeletal: Deformities in bilateral hands Neurologic: PERRL, EOMI, accommodation nl, no face palsy, no dysarthria CN's II- XI intact bilaterally and moves all extremities Results & Data Results & Data Vital Signs (Past 12 Hours) Vital Signs Temp Pulse Pulse Resp BP Pulse Ox O2 Del Method 11/06/24 08:00 36.6 C 100 H 18 128/77 97 Room Air 11/06/24 07:00 Room Air 11/06/24 04:17 106 H 11/06/24 03:24 36.5 C 109 H 22 163/90 H 98 Room Air 11/06/24 03:22 Room Air 11/06/24 02:19 36.5 C 109 H 18 163/90 H 98 Room Air 11/06/24 00:34 103 H
--- NOTE | 2024-11-06 13:56 | Neurology Consultation ---
Date of Consultation November 06, 2024 Assessment & Plan (1) Acute alteration in mental status: Plan A 64 yo F admitted with encephalopathy which has since improved. Patient not encephalopathic appearing but suspect some underlying MCI Vs dementia. Baseline unclear. Stroke seems unlikely. Would recommend outpatient routine EEG as quality is superior to inpatient. Neuro follow up PRN for now. Delirium precautions. History of Present Illness Reason for Consultation: Encephalopathy Requesting Physician: Dr. Bryan Attending Physician: Jeff Bryan MD History of Present Illness A 64 yo F w RA re-admitted for encephalopathy. On arrival had CTA head and neck which was Negative. Neuro consulted for encephaloapthy. MRI brain and EEG ordered. Had PT today and walked. She is disoriented to month. No pain. Allergies Allergy/AdvReac Type Severity Reaction Status Date / Time Penicillins Allergy Unknown Unknown Verified 10/20/24 01:19 Home Medications Medication Instructions Recorded Confirmed Type abatacept 125 mg/mL subcutaneous 125 mg subcut WK 09/07/21 11/05/24 History syringe (Orencia) omeprazole 20 mg capsule,delayed 20 mg PO DAILYBB 09/07/21 11/05/24 History release calcium 600 mg (as 1 tab PO BID 10/20/24 11/05/24 History carbonate)-vitamin D3 5 mcg (200 unit) tablet (Calcium 600 + D(3)) multivitamin 1 tab PO DAILY 10/20/24 11/05/24 History cyanocobalamin (vitamin B-12) 500 500 mcg PO QAM #30 tabs 11/01/24 11/05/24 Rx mcg tablet ferrous sulfate 325 mg (65 mg 325 mg PO QAM #30 tabs 11/01/24 11/05/24 Rx iron) tablet,delayed release magnesium oxide 400 mg (241.3 mg 400 mg PO BID #30 tabs 11/01/24 11/05/24 Rx magnesium) tablet potassium chloride 10 mEq 10 meq PO DAILY #30 tabs 11/01/24 11/05/24 Rx tablet,extended release sodium chloride 1,000 mg soluble 1,000 mg PO DAILY #30 tabs 11/01/24 11/05/24 Rx tablet thiamine HCl (vitamin B1) 100 mg 200 mg (2 x 100 mg) PO QAM #30 tabs 11/01/24 11/05/24 Rx tablet torsemide 20 mg tablet 20 mg PO QAM #30 tabs 11/01/24 11/05/24 Rx Patient History Medical History HLD (hyperlipidemia) Surgical History No pertinent past surgical history Social History Smoking Status: Unknown if ever smoked Second Hand Exposure: No; Do You Dip or Chew Tobacco: No; Hx Alcohol Use: No Hx Substance Use: No Preferred Language: Grenadian Communication Ability: Effective Lead Tank Mechanic Required: No Beliefs That Will Affect Care: None Current Living Situation: Spouse Current Living Situation Comment: LIVES WITH BOYFRIEND MARTINA GRACE Other Information That Helps Us Care for You: No Feels Safe at Home: Yes Safety Concerns: Feels Safe At This Time Assistive Devices: None Physical Exam Physical Exam: PAtient seen and examined. Severe RA changes in both hands. Moving arms and legs symmetrically. Following commands. Speech is soft. No tongue abrasion. Disoriented to month. Oriented to age and place. Results & Data Vital Signs (Past 12 Hours) Vital Signs Temp Pulse Pulse Resp BP Pulse Ox O2 Del Method 11/06/24 11:00 36.7 C 90 16 145/77 H 95 Room Air 11/06/24 08:00 36.6 C 100 H 18 128/77 97 Room Air 11/06/24 07:00 Room Air 11/06/24 04:17 106 H 11/06/24 03:24 36.5 C 109 H 22 163/90 H 98 Room Air 11/06/24 03:22 Room Air 11/06/24 02:19 36.5 C 109 H 18 163/90 H 98 Room Air
[2024-11-07 06:23] LABS: Basophils # (auto) 0.04 K/uL (0.00-0.20); Basophils % (auto) 0.4 %; Eosinophils # (auto) 0.48 K/uL (0.00-0.50); Eosinophils % (auto) 5.2 %; Hematocrit (blood only) 26.7 % (37.0-47.0); Hemoglobin 8.3 g/dl (12.0-16.0); Immature Granulocytes # (auto) 0.06 K/uL (0.01-0.20); Immature Granulocytes % (auto) 0.6 %; Lymphocytes # (auto) 1.83 K/uL (1.20-3.40); Lymphocytes % (auto) 19.8 %; Mean Corpuscular Hemoglobin 22.1 pg (25.0-34.0); Mean Corpuscular Hgb Conc 31.1 g/dL (32.0-36.0); Mean Platelet Volume 9.1 fL (9.4-12.4); Monocytes # (auto) 0.74 K/uL (0.11-0.59); Neutrophils # (auto) 6.09 K/uL (1.40-6.50); Platelet Count 651 K/uL (130-400); RDW Coefficient of Variation 21.3 % (11.5-14.5); RDW Standard Deviation 52.4 fL (36.4-46.3); Red Blood Count 3.76 M/uL (4.20-5.40); White Blood Count 9.24 K/ul (4.8-10.8)
[2024-11-07 06:48] LABS: Anisocytosis Present; Polychromasia 1+
[2024-11-07 07:50] LABS: BUN Creatinine Ratio 32.3 (10-20); Calcium 8.5 mg/dl (8.6-10.3); Creatinine Clr Calc Pharmacy 63.9 ml/min; Potassium 3.9 mmol/L (3.5-5.1)
[2024-11-07] MEDS: ATORVASTATIN 40 MG TAB PO SCH (08:58)
[2024-11-07] MEDS: ASPIRIN 81 MG CHEW PO SCH (08:58)
[2024-11-07] MEDS: ACETAMINOPHEN 325 MG TAB PO PRN (09:14)
[2024-11-07] MEDS: GADOBUTROL 65ML VIAL IV ONE (12:34)
[2024-11-07 12:43] VITALS: BP 127/61; PULSE 100; RESP 18; TEMP 97.3; O2SAT 96
--- NOTE | 2024-11-07 13:05 | Magnetic Resonance Report ---
MR brain wo/w con CLINICAL HISTORY: cva? COMPARISON STUDY: CT scan of 11/05/2024 and MRI of 04/20/2023 FINDINGS: There is motion artifact. No restricted diffusion seen to suggest acute infarction. Stable mild volume loss. No mass effect, midline shift, or hydrocephalus. No significant signal abnormality seen in the brain. No abnormal enhancement seen. IMPRESSION: 1. No evidence of acute infarction. 2. No abnormal enhancement seen in the brain. ACT 112: Negative or not required by law. Electronically signed by: Junior Patino M.D. 11/07/2024 1:04 PM
--- NOTE | 2024-11-07 13:42 | Hospitalist Progress Note ---
Date of Service November 07, 2024 Assessment & Plan (1) Acute alteration in mental status: Plan: 64-year-old female with past medical history significant for SIADH, bulimia, psychogenic polydipsia, history of delirium, iron deficiency anemia, mild cognitive impairment with memory loss, severe protein calorie malnutrition, rheumatoid arthritis, vitamin D deficiency was brought in because of confusion. Patient was recently in the hospital from 10/20/2024 to 11/01/2024 during admission she was found to have severe hyponatremia sodium of 116 consistent with SIADH. Initially it was found difficult to improve her sodium, she was given salt tablets and torsemide. By then was discovered that patient was vomiting in the bathroom by her roommates and also drinking water from the bathroom tap. She was placed on one-on-one observation and this intervention with tolvaptan her sodium levels returned to normal range. Psych consult was obtained but she did not meet criteria for inpatient behavioral unit. And recommend outpatient follow-up. Her SSRI and Risperdal was held. She also received IV Venofer couple of doses for iron deficiency anemia. As per son after going home she was back to drinking a lot of Pepsi, eating junk food and sitting on the couch and watching TV. Patient was found to be lethargic on the day of the admission and was sent to the hospital. Altered mental status Acute urinary retention Stroke, ruled out Patient with baseline cognitive impairment, history of psychogenic polydipsia presents to the hospital with lethargy Stroke alert called in the ED; CT head, CTA head and neck and cervical spine did not show any acute finding. No neurological deficit Found to have urinary retention status post Caruso placement MRI brain- no stroke Patient's overall presentation seems consistent with metabolic encephalopathy likely secondary to urinary retention; Trial of void was successful on 11/07 Was started on Keppra in the ED; discussed with neurology on 11/07discontinued. Plan for EEG inpatient if patient remains in the hospital as it is difficult for her to get out to outpatient appointment. If patient gets discharged; will plan for outpatient EEG History of hyponatremia SIADH Psychogenic polydipsia Sodium 134 Continue salt tablet and torsemide Last admission; patient was found to be drinking water from bathroom sink.Monitor for such activities Anemia Hemoglobin stable Received IV Venofer last admission Continue iron supplement GERD Protonix-continue History of rheumatoid arthritis On Orencia-continue Severe Malnutrition Nutrition consult When stable History of aphasia/neurocognitive disorder Needs follow-up DVT prophylaxis SCDs for now Disposition Telemetry Full code Please note the above document was generated using voice recognition software. It may contain grammatical, syntax or spelling errors. Any formal questions or concerns about the content, text or information contained within the body of this dictation should be directly addressed to the provider for clarification Admission and Anticipated Discharge Date Admission Date: November 06, 2024 Subjective Patient seen and examined at bedside. She is comfortable; not in distress. She responds to most of the question appropriately. Trial of void was done; voiding appropriately. Review of Systems Review of Systems: All systems reviewed & are unremarkable except as noted in Subjective Physical Exam Physical Exam: Constitutional: Alert and oriented to self and place. Respiratory: Bilateral vesicular breath sound Cardiovascular: RRR, no murmur, no edema Vessels: no JVD or carotid bruit Chest: normal inspection of chest Abdomen: normal bowel sounds, soft, nontender, no hepatosplenomegaly Musculoskeletal: Deformities in bilateral hands Neurologic: PERRL, EOMI, accommodation nl, no face palsy, no dysarthria CN's II- XI intact bilaterally and moves all extremities Results & Data Results & Data Vital Signs (Past 12 Hours) Vital Signs Temp Pulse Resp BP Pulse Ox O2 Del Method 11/07/24 11:00 36.3 C L 100 H 18 127/61 96 Room Air 11/07/24 08:04 37.0 C 114 H 20 116/63 95 Room Air 11/07/24 07:00 Room Air 11/07/24 03:15 37.3 C 111 H 18 130/71 93 Room Air
[2024-11-07] MEDS ORDERED: STROKE PATIENT DISCHARGE STA (13:55)
--- NOTE | 2024-11-07 13:59 | Discharge Summary ---
Date of Service November 07, 2024 Admission HPI Per Admitting Provider 64-year-old female with past medical history significant for SIADH, bulimia, psychogenic polydipsia, history of delirium, iron deficiency anemia, mild cognitive impairment with memory loss, severe protein calorie malnutrition, rheumatoid arthritis, vitamin D deficiency was brought in because of confusion. Patient was recently in the hospital from 10/20/2024 to 11/01/2024 during admission she was found to have severe hyponatremia sodium of 116 consistent with SIADH. Initially it was found difficult to improve her sodium, she was given salt tablets and torsemide. By then was discovered that patient was vomiting in the bathroom by her roommates and also drinking water from the bathroom tap. She was placed on one-on-one observation and this intervention with tolvaptan her sodium levels returned to normal range. Psych consult was obtained but she did not meet criteria for inpatient behavioral unit. And recommend outpatient follow-up. Her SSRI and Risperdal was held. She also received IV Venofer couple of doses for iron deficiency anemia. As per son after going home she was back to drinking a lot of Pepsi, eating junk food and sitting on the couch and watching TV. Today patient significant other took her to the psychologist. Patient seem to got angry and came home. At home later patient was drowsy and lethargic on the couch and significant other could not wake her up and brought to the hospital. To facilitate the workup stroke alert was called. CT head, CTA head and neck unremarkable. A dose of Ativan as she was restless. And also stroke neurology recommended MRI scan EEG rectal aspirin and Keppra which were given. Currently patient drowsy but arousable. Moves extremities. Mumbles. Could not get history from the patient. Could not able to reach the significant other. As per son patient is getting memory loss since last 1 year but lately got much worse. As per son patient does not remember much. On the floor when Caruso catheter was placed about 1775 mL of urine came out. Past medical history. As mentioned above Past surgical history. Colonoscopy. Dental surgery. Excision of foot subcutaneous tumor. Excision of tendon of foot. Family history. Paternal grandmother had rheumatoid arthritis. Father had pancreatic cancer. Alcoholism. Mother had pancreatic cancer. Brother had diabetes. Brother had heart disorder. Admission Exam Per Admitting Provider General- Drowsy and restless Head- atraumatic Eyes- PERRL ENT- oropharynx clear Neck- supple, no JVD. Lungs- clear to auscultation no wheezing or crackles Heart- regular rhythm; no murmur, no gallop. Abdomen- normal bowel sounds, soft, no distension Extremities- no pretibial edema, no erythema seen Neuro- Drowsy, Mumbles.No facial droop seen, Doesn't obey commands, moving extremities; Principal Diagnosis Acute metabolic encephalopathy, likely secondary to urinary retention Discharge Exam Constitutional: Alert oriented x 3 Respiratory: Bilateral vesicular breath sound Cardiovascular: RRR, no murmur, no edema Vessels: no JVD or carotid bruit Chest: normal inspection of chest Abdomen: normal bowel sounds, soft, nontender, no hepatosplenomegaly Musculoskeletal: Deformities in bilateral hands Neurologic: PERRL, EOMI, accommodation nl, no face palsy, no dysarthria CN's II- XI intact bilaterally and moves all extremities Discharge Data Allergies Allergy/AdvReac Type Severity Reaction Status Date / Time Penicillins Allergy Unknown Unknown Verified 10/20/24 01:19 Consultations 11/05/24 21:54 ED Decision to Admit Stat 11/06/24 08:00 Consult Neurology Routine Ordered Studies 11/05/24 20:42 CT angio head w con Stat CT angio neck with con Stat CT head/brain wo con Stat 11/05/24 20:47 CT cervical spine w con Stat 11/07/24 00:00 MR brain wo/w con Urgent Hospital Course (1) Acute alteration in mental status: 64-year-old female with past medical history significant for SIADH, bulimia, psychogenic polydipsia, history of delirium, iron deficiency anemia, mild cognitive impairment with memory loss, severe protein calorie malnutrition, rheumatoid arthritis, vitamin D deficiency was brought in because of confusion. Patient was recently in the hospital from 10/20/2024 to 11/01/2024 during admission she was found to have severe hyponatremia sodium of 116 consistent with SIADH. Initially it was found difficult to improve her sodium, she was given salt tablets and torsemide. By then was discovered that patient was vomiting in the bathroom by her roommates and also drinking water from the bathroom tap. She was placed on one-on-one observation and this intervention with tolvaptan her sodium levels returned to normal range. Psych consult was obtained but she did not meet criteria for inpatient behavioral unit. And recommend outpatient follow-up. Her SSRI and Risperdal was held. She also received IV Venofer couple of doses for iron deficiency anemia. As per son after going home she was back to drinking a lot of Pepsi, eating junk food and sitting on the couch and watching TV. Patient was found to be lethargic on the day of the admission and was sent to the hospital. Altered mental status Acute urinary retention Stroke, ruled out Patient with baseline cognitive impairment, history of psychogenic polydipsia presents to the hospital with lethargy Stroke alert called in the ED; CT head, CTA head and neck and cervical spine did not show any acute finding. No neurological deficit Found to have urinary retention status post Caruso placement MRI brain- no stroke Patient's overall presentation seems consistent with metabolic encephalopathy likely secondary to urinary retention; Trial of void was successful on 11/07. Patient mentation improved to baseline on the day of the discharge Was started on Keppra in the ED; discussed with neurology on 11/07discontinued. Plan to obtain EEG at outpatient PT OT had recommended rehab. However, patient was adamant about going home. Discussed with her son as well over the phone; plan to discharge home with instructions to follow-up with PCP. Please note the above document was generated using voice recognition software. It may contain grammatical, syntax or spelling errors. Any formal questions or concerns about the content, text or information contained within the body of this dictation should be directly addressed to the provider for clarification Total Time Total Time Spent Total Time Spent (In Minutes): 45 Total Time Includes: Examination of the Patient, Discharge Planning, Medication Reconciliation, Communication With Other Providers and Other Discharge Plan Discharge Items Patient Disposition: Home - Self-Care Reason For Visit: AMS Discharge Diagnosis: Metabolic encephalopathy likely secondary to urinary retention Condition on Discharge: Good Activity: Resume your previous activity Non-emergency contact: Primary Care Provider Call non-emergency contact if: you have any medication questions and your symptoms worsen Follow-up/Referrals: Marck Bardales MD [Primary Care Provider] - Diet: Regular Addtl Attending Provider Instructions: You were admitted to the hospital due to altered mental status. You are found to have urinary retention for which you had urinary catheter placed. You underwent scan of the brain including MRI brain which did not show any stroke. Your evaluated by neurology; they recommend EEG as outpatient. An appointment will be set up with your primary care doctor for follow-up. Pending Studies at Discharge: No Stand-Alone Forms: My [facility] [employer], Smoking Cessation Medications and DC Order Prescriptions: Continued Orencia 125 mg/mL syringe 125 mg SUBCUT WK Rx Instructions: TAKE THIS MED EVERY FRIDAY omeprazole 20 mg capsule,delayed release(DR/EC) 20 mg PO DAILYBB Rx Instructions: TAKE THIS MED BEFORE BREAKFAST multivitamin Tablet 1 tab PO DAILY calcium carbonate-vitamin D3 [Calcium 600 + D(3)] 600 mg-5 mcg (200 unit) T ablet 1 tab PO BID ferrous sulfate 325 mg (65 mg iron) Tablet,Delayed Release (Dr/Ec) 325 mg PO QAM Qty: 30 0RF torsemide 20 mg Tablet 20 mg PO QAM Qty: 30 0RF thiamine HCl (vitamin B1) 100 mg Tablet 200 mg PO QAM Qty: 30 0RF potassium chloride 10 mEq Tablet Extended Release 10 meq PO DAILY Qty: 30 0RF magnesium oxide 400 mg (241.3 mg magnesium) Tablet 400 mg PO BID Qty: 30 0RF cyanocobalamin (vitamin B-12) 500 mcg Tablet 500 mcg PO QAM Qty: 30 0RF sodium chloride 1,000 mg Tablet,Soluble 1,000 mg PO DAILY Qty: 30 0RF Discharge Orders: Discharge Order (Routine); Ordered 11/07/24 Ordered By: Jeff Bryan Admission Data Admit Date/Time: 11/06/24 01:02 Attending Provider: Jeff Bryan Admit Provider: George Diaz Primary Care Provider: Marck Bardales. Other Providers: George Diaz; Veronika Montero; Marck Rodriguez; Veronika Alvarez; Junior Horton; Warren Tejeda; Tommie Ivey; Jaydon Andrea; Katty Goodson; Ronny Carballo; En Guthrie; Radha Fleming; Alek Carrillo; DhirajKamilel; Ladonna Queen; Jaydon Rosa; Araceli Azar; [facility]
== END 2024-11-07 17:00 | disposition home health service (06) | DRG 70 ==
LOC: ED 20:36 → 2S 11-06 01:02